=== PATIENT | female | born 1935 | race African-American/Black ===

== ENCOUNTER → 2016-08-16 | Outpatient (CLI) | payer MEDICARE, BC ==
[~2016-08-16] MED LIST: ERTAPENEM SODIUM 1 GM in NORMAL SALINE 50 ML IV PRN; LIDOCAINE 0.5% INJ-PF (5 MG/ML) 50 ML SDV SUBCUT PRN; NORMAL SALINE 1000 ML (RENAL PATIENTS) IV PRN
[2016-08-16 09:23] VITALS: BP 142/52
--- NOTE | 2016-08-16 11:26 | EKG REPORT ---
SEVERITY:- ABNORMAL ECG - SINUS RHYTHM RIGHT BUNDLE BRANCH BLOCK : Confirmed by: Sharon Csineros 16-Aug-2016 11:24:50
[2016-08-16 11:50] LABS: HEMATOCRIT 34.6 % (36.0-47.0); HEMOGLOBIN 11.3 g/dL (12.0-15.5); HGB HCT DIFFERENCE -0.7; MEAN CORPUSCULAR HEMOGLOBIN 32.9 pg (27.0-33.4); MEAN CORPUSCULAR HGB CONC 32.8 g/dL (32.0-36.0); MEAN CORPUSCULAR VOLUME 100 fl (80-97); RED BLOOD COUNT 3.45 10^6/uL (3.72-5.28); RED CELL DISTRIBUTION WIDTH 15.4 % (11.5-14.0); WHITE BLOOD COUNT 7.9 10^3/uL (4.0-10.5)
[2016-08-16 12:05] LABS: BLOOD UREA NITROGEN 67 mg/dL (7-20); CALCIUM 11.3 mg/dL (8.4-10.2); CARBON DIOXIDE 26 mmol/L (22-30); CHLORIDE 98 mmol/L (98-107); CREATININE RESULT 8.95 mg/dL (0.52-1.25); GLUCOSE 157 mg/dL (75-110); POTASSIUM 5.5 mmol/L (3.6-5.0); SODIUM 144.5 mmol/L (137-145)
[2016-08-16 12:33] LABS: ANION GAP 21 (5-19); CARCINOEMBRYONIC ANTIGEN 7.7 ng/mL (<3.0)
== END ==
LOC: OMH.OR.ALL 10:35 → EDSTATUS 08-22 10:00
PROVIDERS: ATTEND Surgery
DX: Z01.810 Encounter for preprocedural cardiovascular examination (principal); Z01.812 Encounter for preprocedural laboratory examination; Z01.818 Encounter for other preprocedural examination; D12.2 Benign neoplasm of ascending colon; I12.0 Hypertensive chronic kidney disease with stage 5 chronic kidney disease or end stage renal disease; N18.6 End stage renal disease; E11.9 Type 2 diabetes mellitus without complications; E78.00 Pure hypercholesterolemia, unspecified; Z72.0 Tobacco use; Z99.2 Dependence on renal dialysis
CPT/HCPCS: 36415; 80048; 82378; 85027; 86850; 86900; 86901; 93005; 93010; J1335

== ENCOUNTER 2016-09-07 10:08 | Inpatient (IN) | payer MEDICARE, BC ==
[~2016-09-07 10:08] MED LIST changes: +DEXAMETHASONE SOD PHOSPHATE INJ 4 MG/1 ML VIAL ONE; +GLYCOPYRROLATE INJ 0.4 MG/2 ML VIAL ONE; -LIDOCAINE 0.5% INJ-PF (5 MG/ML) 50 ML SDV SUBCUT PRN; +NEOSTIGMINE METHYLSULFATE 10 MG/10 ML VIAL ONE; -NORMAL SALINE 1000 ML (RENAL PATIENTS) IV PRN; +NORMAL SALINE 1000 ML 1,000 ML IV PRN; +ROCURONIUM BROMIDE INJ 50 MG/5 ML VIAL IV ONE
[2016-09-07] MEDS ORDERED: BUPIVACAINE HCL 0.25 % INJ/PF (2.5 MG/1 ML) 30 ML VIAL ONE (12:58)
[2016-09-07] MEDS ORDERED: GLUCAGON,HUMAN RECOMB 1 MG INJ ONE (12:58)
[2016-09-07 13:09] LABS: POTASSIUM 4.6 mmol/L (3.6-5.0)
[2016-09-07] MEDS ORDERED: FENTANYL CITRATE INJ/PF 250 MCG/5 ML AMPULE ONE (13:35)
[2016-09-07] MEDS ORDERED: HYDROMORPHONE HCL INJ/PF 2 MG/ML AMPULE ONE (13:35)
[2016-09-07] MEDS ORDERED: MIDAZOLAM 2 MG/2 ML INJ ONE (13:36)
[2016-09-07] MEDS ORDERED: PROPOFOL INJ 200 MG/20 ML VIAL IV ONE (13:36)
[2016-09-07] MEDS ORDERED: ACETAMINOPHEN 100 ML IV ONE (13:36)
[2016-09-07] MEDS ORDERED: EPHEDRINE SULFATE INJ 50 MG/1 ML AMPULE ONE (13:36)
[2016-09-07] MEDS ORDERED: FENTANYL CITRATE INJ/PF 100 MCG/2 ML AMPUL ONE (15:13)
[2016-09-07] MEDS ORDERED: MORPHINE SULFATE 10 MG/ML INJ IV PRN (16:17)
[2016-09-07] MEDS ORDERED: FENTANYL CITRATE INJ/PF 100 MCG/2 ML AMPUL IV PRN ×3 (16:17)
[2016-09-07] MEDS ORDERED: MEPERIDINE HCL/PF INJ 25 MG/1 ML DISP.SYRIN IV PRN (16:17)
[2016-09-07] MEDS ORDERED: OXYCODONE-ACETAMINOPHEN 5-325 MG TABLET PO PRN ×2 (16:17)
[2016-09-07] MEDS ORDERED: PROMETHAZINE HCL INJ 25 MG/1 ML VIAL IV PRN ×2 (16:17)
[2016-09-07] MEDS ORDERED: DIPHENHYDRAMINE HCL 50 MG/ML VIAL IV PRN (16:17)
[2016-09-07] MEDS ORDERED: DEXTROSE 5%-1/2 NORMAL SALINE 1,000 ML IV PRN (17:08)
--- NOTE | 2016-09-07 17:52 | PDOC PROGRESS REPORT ---
Subjective Progress Note for:: 09/07/16 Subjective:: Sleepy but the arousable. Obeys commands. Physical Exam Vital Signs: Temp Pulse Resp BP Pulse Ox 97.7 F 67 18 142/52 H 99 09/07/16 12:00 09/07/16 12:00 09/07/16 12:00 09/07/16 12:00 09/07/16 12:00 Intake & Output 09/06/16 09/07/16 09/08/16 06:59 06:59 06:59 Intake Total 150 Balance 150 Weight 73.94 kg General appearance: PRESENT: no acute distress Respiratory exam: PRESENT: clear to auscultation nikki Cardiovascular exam: PRESENT: RRR GI/Abdominal exam: PRESENT: other - Soft, nondistended, appropriate tenderness. Extremities exam: PRESENT: other - Thrill palpable at fistula site left upper extremity. Results Laboratory Results: 09/07/16 12:10 09/07/16 09/07/16 12:10 12:10 Potassium 4.6 Glucose 175 H Blood Type AB POSITIVE Antibody Screen NEGATIVE Assessment & Plan - Diagnosis (1) Colon polyps Qualifiers: Colon location: ascending Is this a current diagnosis for this admission?: YesPlan: Status post right hemicolectomy. Looks good postoperatively. Will monitor in the intensive care unit. Will consult nephrology and hospitalist to assist with her postoperative care.
--- NOTE | 2016-09-07 17:53 | Operative Report ---
Operative Report DATE OF SURGERY: 09/07/16 PREOPERATIVE DIAGNOSIS: Right colon polyps POSTOPERATIVE DIAGNOSIS: Right colon polyps OPERATION: Attempted laparoscopic right hemicolectomy, conversion to open right hemicolectomy. Extensive lysis of adhesions. Small bowel resection with small bowel anastomosis. SURGEON: KRISSY FERNANDES ANESTHESIA: GA TISSUE REMOVED OR ALTERED: Small segment of the ileum. Right colon. COMPLICATIONS: None ESTIMATED BLOOD LOSS: 100 mL INTRAOPERATIVE FINDINGS: Dense intra-abdominal adhesions with adhesions of the small bowel to the lower anterior abdominal wall. Extensive interloop adhesions. Large polypoid mass in the proximal right colon, smaller 1.5 cm polypoid mass in the mid right colon. PROCEDURE: Informed consent was obtained. Patient was brought to the operating room and placed on the operating room table in the supine position. After satisfactory induction of general anesthesia patient's abdomen was prepped and draped in usual sterile fashion. A supraumbilical midline incision was made dissection was carried out through the fascia and the peritoneal cavity was entered without difficulty. The fascial incision was initially only about 6 cm in size for the introduction of the laparoscopic hand port. However at the lower pole of the incision there were dense omental adhesions. These adhesions were taken down revealing dense small bowel adhesions. There was no discernible plane between the small bowel and the anterior abdominal wall. The incision was extended the down to allow better exposure of the small bowel adhesions. The small bowel was dissected sharply away from the anterior abdominal wall but again there was no discernible plane. An enterotomy was made in the small bowel. This segment of bowel was in the ileum. This segment with the enterotomy was resected using a ZAKIA stapling device. Bowel continuity was then re-constructed creating a [id number] functional end-to-end anastomosis with a ZAKIA stapling device. The enterotomies created to introduce the stapling device was closed with a TA stapling device. The mesenteric defect was closed with interrupted the Vicryl sutures. Another segment of small bowel that had been lysed had a serosal tear which was repaired using Lambert interrupted Vicryl sutures. All the other section of the small bowel that had been lysed was closely inspected and there was no evidence of injury. After all of the anterior abdominal wall adhesions had been lysed, laparoscopic hand port was placed and a Tate was placed through the laparoscopic hand port pneumoperitoneum produced with good patient toleration. Two 5 mm trochars were placed in the upper abdomen one left the midline and one at the midline. Laparoscopic view however demonstrated dense the intra-abdominal adhesions between the the small bowel and the the omentum as well as the small bowel and the transverse colon and right colon. These adhesions were fibrous and not filmy. With the degree of the adhesions I did not feel that the it would be safe to proceed laparoscopically. Therefore the procedure was converted to an open procedure. The liver felt smooth with no masses. The gallbladder appeared normal. Anterior surface of the stomach felt normal. NG position was confirmed by palpation. The sigmoid colon was firmly adhered to the pelvis but I did not feel any masses. These adhesions were left alone. The incision was extended cephalad and the caudad. Wound protractor was used during the case. These small bowel adhesions were taken down taking great care to avoid injury to the underlying small bowel. All of the small bowel adhesions were lysed. The right colon was completely mobilized along with the hepatic flexure. The terminal ileum was divided several centimeters away from the ileocecal junction using a ZAKIA stapling device. The transverse colon just the distal to the hepatic flexure was divided using a ZAKIA stapling device. The ileocolic artery was taken at near its origin by clamping dividing and tying. The hepatic flexure of the colon was firmly adhered to the small bowel and right colon mesentery. Sharp dissection had to be performed to free up dissection of the the hepatic flexure. Great care was taken to avoid injury to the mesentery of the small bowel. The last adhesion point had to be taken by clamping dividing and tying due to the vascularity but again I errored on the side of the colon to avoid injury to the small bowel mesentery. The small bowel segment that was so firmly adhered did not feel like there was any masses. And this segment of transverse colon did not demonstrate any intraluminal mass on gross pathologic review. The small bowel appeared well vascularized with a palpable pulsations. The and had excellent blood supply and demonstrated the triphasic Doppler signal. The transverse colon and also appeared well vascularized with the triphasic Doppler signals. Hemostasis was achieved with electrocautery. Hemostasis appeared to be good at the end of the case. The's specimen was passed off the table as submitted to pathology. Pathology confirmed that there was a large mass near the cecum and a smaller mass distal to this large mass. All of this the findings were consistent with the colonoscopy report. Bowel continuity was then re-created creating a [id number] functional end-to-end anastomosis between the terminal ileum and the transverse colon. The enterotomy created to introduce the stapling device was closed with a TA stapling device. The anastomosis appeared secure and well vascularized. Sponge needle instrument counts were all correct. Omentum was draped over the anastomosis and over the small bowel. Hemostasis appeared excellent. Fascia was closed with running PDS suture. Marcaine was injected at the operative site. Skin incisions were closed with vicente. Patient tolerated procedure well with no apparent complications and was taken to the recovery area in stable condition.
[2016-09-07] MEDS ORDERED: DEXTROSE 50%-WATER 25 GM/50 ML DISP.SYRIN IV PRN (19:30)
[2016-09-07] MEDS ORDERED: DEXTROSE 40% GEL 15 GM TUBE PO PRN ×2 (19:30)
[2016-09-07] MEDS ORDERED: GLUCAGON,HUMAN RECOMB 1 MG INJ IM PRN (19:30)
[2016-09-07] MEDS ORDERED: HYDRALAZINE HCL INJ/PF 20 MG/1 ML SDV IV PRN (19:31)
--- NOTE | 2016-09-07 19:44 | PDOC CONSULTATION ---
Consultation Consult Date: 09/07/16 Attending physician:: KRISSY FERNANDES Consult reason:: "Medical management" History of Present Illness Admission Date/PCP: 09/07/16 11:42 MAURICIO LEY MD Patient complains of: Post operative History of Present Illness: RICKY RODRIGUEZ is a 80 year old female with past medical history of end-stage renal disease on hemodialysis, hypertension, hyperlipidemia, diabetes mellitus that is immediately status post right hemicolectomy, extensive lysis of adhesions, small bowel resection with small bowel anastomosis. Surgery service has requested Hospital medicine consult for multiple comorbid conditions. Past Medical History Cardiac Medical History: Reports: Hyperlipidema, Hypertension Denies: Atrial Fibrillation, Congestive Heart Failure, Coronary Artery Disease, Myocardial Infarction, Peripheral Vascular Disease, Pulmonary Embolism , Heart Murmur Pulmonary Medical History: Denies: Asthma, Bronchitis, Chronic Obstructive Pulmonary Disease (COPD), Pneumonia, Respiratory Failure, Sleep Apnea, Tuberculosis Neurological Medical History: Denies: Seizures Endocrine Medical History: Reports: Diabetes Mellitus Type 2 Denies: Hyperthyroidism, Hypothyroidism Renal/ Medical History: Reports: End Stage Renal Disease - FISTULA LEFT ARM Malignancy Medical History: Denies: Breast Cancer, Cervical Cancer, Leukemia, Lung Cancer, Ovarian Cancer GI Medical History: Denies: Crohn's Disease, Gastroesophageal Reflux Disease, Hiatal Hernia Musculoskeltal Medical History: Reports: Arthritis Denies: Fibromyalgia Psychiatric Medical History: Denies: Bipolar Disorder, Dementia, Depression, Post Traumatic Stress Disorder Hematology: Denies: Anemia, Hemophilia, Sickle Cell Disease Infectious Medical History: Denies: HIV Past Surgical History Past Surgical History: Reports: Hysterectomy, Tubal Ligation, Vascular Surgery - Left forearm AV fistula Denies: Amputation, Appendectomy, Section, Cholecystectomy, Colostomy, Coronary Artery Bypass Graft, Gastric Bypass Surgery, Herniorrhaphy, Mastectomy, Pacemaker, Tonsillectomy Social History Smoking Status: Never Smoker Frequency of Alcohol Use: None Hx Recreational Drug Use: No Drugs: None Hx Prescription Drug Abuse: No - Advance Directive Resuscitation Status: Full Code Family History Family History: DM, Hypertension Parental Family History Reviewed: Yes Children Family History Reviewed: Yes Sibling(s) Family History Reviewed.: Yes Medication/Allergy Home Medications: Aspirin [Aspirin 81 mg Chewable Tablet] 81 mg PO DAILY 09/22/11 Atorvastatin Calcium [Lipitor 10 mg Tablet] 40 mg PO QHS 09/22/11 Cinacalcet HCl [Sensipar 60 mg Tablet] 90 mg PO DAILY 09/22/11 Hydralazine HCl [Apresoline 50 mg Tablet] 100 mg PO Q8 09/22/11 Allopurinol [Zyloprim 100 mg Tablet] 100 mg PO BID 09/20/15 B Complex & C No.20/Folic Acid [Renal Caps Softgel] 1 mg PO DAILY 09/20/15 Clonidine HCl 0.2 mg PO QHS 05/15/16 Midodrine HCl 2.5 mg PO TID 05/15/16 Lanthanum Carbonate [Fosrenol 500 mg Chewable Tablet] 750 mg PO TID 06/26/16 Megestrol Acetate 40 mg PO TID 06/26/16 Allergies/Adverse Reactions: diphenhydramine HCl [From Benadryl] Adverse Reaction (Mild, Verified 05/16/16 16 :38) PT CANNOT REMEMBER Review of Systems ROS unobtainable: Due to mental status Physical Exam Vital Signs: Temp Pulse Resp BP Pulse Ox 98.5 F 86 10 L 110/65 97 09/07/16 18:49 09/07/16 18:49 09/07/16 18:49 09/07/16 18:49 09/07/16 18:49 Intake & Output 09/06/16 09/07/16 09/08/16 06:59 06:59 06:59 Intake Total 150 Balance 150 Weight 73.94 kg 7.23 kg GENERAL: No acute distress, sedated postanesthesia, nonverbal at time of my evaluation HEENT: Conjunctiva clear, nonicteric, moist mucous membranes, no JVD, midline trachea RESPIRATORY: Clear to auscultation bilaterally, no wheezes, no rhonchi CARDIAC: Regular rate and rhythm, no murmurs/gallops/rubs ABDOMEN: Soft, nondistended, nontender, positive bowel sounds, no rebound, no guarding EXTREMETIES: No edema, cyanosis, clubbing NEUROLOGIC: CN's grossly intact, no focal deficits SKIN: No rash, wounds Results Laboratory Results: 09/07/16 12:10 09/07/16 09/07/16 12:10 12:10 Potassium 4.6 Glucose 175 H Blood Type AB POSITIVE Antibody Screen NEGATIVE Assessment & Plan - Diagnosis (1) Status post colectomy Is this a current diagnosis for this admission?: YesPlan: Surgery managing. (2) Diabetes Is this a current diagnosis for this admission?: YesPlan: Sliding scale insulin coverage. (3) ESRD (end stage renal disease) on dialysis Is this a current diagnosis for this admission?: YesPlan: Consult Dr. Saravia of nephrology for management. (4) Essential (primary) hypertension Is this a current diagnosis for this admission?: YesPlan: Order when necessary IV hydralazine. Continue outpatient hydralazine and clonidine. - Time Time Spent: 50 to 70 Minutes
[2016-09-07] MEDS: 1/2 NORMAL SALINE 1,000 ML IV PRN (20:02)
--- NOTE | 2016-09-07 20:03 | PDOC CONSULTATION ---
Consultation Consult Date: 09/07/16 Consult reason:: Management of hemodialysis. History of Present Illness Admission Date/PCP: 09/07/16 11:42 MAURICIO LEY MD History of Present Illness: RICKY RODRIGUEZ is a 80 year old female with past medical history of end-stage renal disease on hemodialysis, hypertension, hyperlipidemia, diabetes mellitus that is immediately status post right hemicolectomy, extensive lysis of adhesions, small bowel resection with small bowel anastomosis. The patient is quite lethargic postoperatively at the moment but not intubated. Unable to contribute to the history. Unsure of the exacting circumstances that brought her to the hospital. She looks hemodynamically stable on review. Will place orders for dialysis in the morning. Past Medical History Cardiac Medical History: Reports: Hyperlipidemia, Hypertension-primary Denies: Atrial Fibrillation, Coronary Artery Disease, Heart Murmur, Myocardial Infarction, Peripheral Vascular Disease, Pulmonary Embolism Pulmonary Medical History: Denies: Asthma, Bronchitis, Chronic Obstructive Pulmonary Disease (COPD), Pneumonia, Respiratory Failure, Sleep Apnea, Tuberculosis Neurological Medical History: Denies: Seizures Endocrine Medical History: Reports: Diabetes Mellitus Type 2 Denies: Hyperthyroidism, Hypothyroidism Renal/ Medical History: Reports: End Stage Renal Disease - FISTULA LEFT ARM Denies: Benign Prostatic Hyperplasia Malignancy Medical History: Denies: Breast Cancer, Cervical Cancer, Leukemia, Lung Cancer, Ovarian Cancer GI Medical History: Denies: Crohn's Disease, Gastroesophageal Reflux Disease, Hiatal Hernia Musculoskeltal Medical History: Reports: Arthritis Denies: Fibromyalgia, Rheumatoid Arthritis, Systemic Lupus Erythematosus Psychiatric Medical History: Denies: Bipolar Disorder, Dementia, Depression, Post Traumatic Stress Disorder Infectious Medical History: Denies: HIV Hematology Medical History: Reports Anemia of Chronic Kidney Disease Past Surgical History Past Surgical History: Reports: Hysterectomy, Tubal Ligation, Vascular Surgery - Left forearm AV fistula Denies: Appendectomy, Section, Cholecystectomy, Colostomy, Coronary Artery Bypass Graft, Gastric Bypass Surgery, Herniorrhaphy, Mastectomy, Pacemaker, Tonsillectomy Social History Smoking Status: Never Smoker Frequency of Alcohol Use: None Hx Recreational Drug Use: No Drugs: None Hx Prescription Drug Abuse: No - Advance Directive Resuscitation Status: Full Code Family History Parental Family History Reviewed: No Children Family History Reviewed: No Sibling(s) Family History Reviewed.: No Medication/Allergy Home Medications: Aspirin [Aspirin 81 mg Chewable Tablet] 81 mg PO DAILY 09/22/11 Atorvastatin Calcium [Lipitor 10 mg Tablet] 40 mg PO QHS 09/22/11 Cinacalcet HCl [Sensipar 60 mg Tablet] 90 mg PO DAILY 09/22/11 Hydralazine HCl [Apresoline 50 mg Tablet] 100 mg PO Q8 09/22/11 Allopurinol [Zyloprim 100 mg Tablet] 100 mg PO BID 09/20/15 B Complex & C No.20/Folic Acid [Renal Caps Softgel] 1 mg PO DAILY 09/20/15 Clonidine HCl 0.2 mg PO QHS 05/15/16 Midodrine HCl 2.5 mg PO TID 05/15/16 Lanthanum Carbonate [Fosrenol 500 mg Chewable Tablet] 750 mg PO TID 06/26/16 Megestrol Acetate 40 mg PO TID 06/26/16 Allergies/Adverse Reactions: diphenhydramine HCl [From Benadryl] Adverse Reaction (Mild, Verified 05/16/16 16 :38) PT CANNOT REMEMBER Review of Systems Review of Systems: Unable to obtain from the patient was quite lethargic postoperatively. Therefore chart review was done. Physical Exam Vital Signs: Temp Pulse Resp BP Pulse Ox 98.5 F 86 10 L 110/65 97 09/07/16 18:49 09/07/16 18:49 09/07/16 18:49 09/07/16 18:49 09/07/16 18:49 Intake & Output 09/06/16 09/07/16 09/08/16 06:59 06:59 06:59 Intake Total 150 Balance 150 Weight 73.94 kg 7.23 kg General appearance: PRESENT: no acute distress Eye exam: PRESENT: conjunctiva pink, EOMI, PERRLA. ABSENT: nystagmus Ear exam: PRESENT: normal external ear exam. ABSENT: bleeding Mouth exam: PRESENT: neck supple Neck exam: ABSENT: lymphadenopathy, meningismus, tenderness, thyromegaly, tracheal deviation Respiratory exam: PRESENT: clear to auscultation nikki, symmetrical. ABSENT: crackles, rhonchi, tachypnea Cardiovascular exam: PRESENT: +S1, +S2, systolic murmur GI/Abdominal exam: PRESENT: distended, soft. ABSENT: firm Extremities exam: ABSENT: pedal edema Neurological exam: PRESENT: other - She is quite lethargic postoperatively. However she is able to respond to loud commands but goes back to sleep immediately. Skin exam: PRESENT: dry, warm. ABSENT: erythema, mottled Results Laboratory Results: 09/07/16 12:10 09/07/16 09/07/16 12:10 12:10 Potassium 4.6 Glucose 175 H Blood Type AB POSITIVE Antibody Screen NEGATIVE Assessment & Plan - Diagnosis (1) Diabetes Is this a current diagnosis for this admission?: Yes (2) Status post colectomy Is this a current diagnosis for this admission?: YesPlan: Currently looks stable (3) ESRD (end stage renal disease) on dialysis Is this a current diagnosis for this admission?: YesPlan: Orders for dialysis have been placed for tomorrow morning.. (4) Essential (primary) hypertension Is this a current diagnosis for this admission?: YesPlan: Stable
[2016-09-07] MEDS: MORPHINE SULFATE 10 MG/ML INJ IV PRN (20:05)
[2016-09-07] MEDS: ALLOPURINOL 100 MG TABLET PO SCH (20:19)
[2016-09-07] MEDS: LANTHANUM CARBONATE 500 MG TAB.CHEW PO SCH (20:19)
[2016-09-07] MEDS: LIDOCAINE 0.5% INJ-PF (5 MG/ML) 50 ML SDV INJ PRN ×2 (20:21→21:32)
[2016-09-07] MEDS: MIDODRINE HCL 5 MG TABLET PO SCH (21:31)
[2016-09-07] MEDS: ATORVASTATIN CALCIUM 10 MG TABLET PO SCH (21:31)
[2016-09-07] MEDS: HYDRALAZINE HCL 50 MG TABLET PO SCH (21:31)
[2016-09-07] MEDS: CLONIDINE HCL 0.2 MG TABLET PO SCH (21:31)
[2016-09-07] MEDS: FAMOTIDINE INJ/PF 20 MG/2 ML SDV IV SCH (21:34)
[2016-09-08] MEDS: INSULIN LISPRO 100 UNIT/ML 3 ML VIAL SUBCUT PRN (00:04)
[2016-09-08 04:21] LABS: HEMATOCRIT 32.2 % (36.0-47.0); HEMOGLOBIN 10.5 g/dL (12.0-15.5); HGB HCT DIFFERENCE -0.7; MEAN CORPUSCULAR HGB CONC 32.7 g/dL (32.0-36.0); MEAN CORPUSCULAR VOLUME 101 fl (80-97); RED BLOOD COUNT 3.19 10^6/uL (3.72-5.28); RED CELL DISTRIBUTION WIDTH 15.6 % (11.5-14.0); WHITE BLOOD COUNT 25.9 10^3/uL (4.0-10.5)
[2016-09-08 04:28] LABS: BLOOD UREA NITROGEN 32 mg/dL (7-20); CALCIUM 10.3 mg/dL (8.4-10.2); CREATININE RESULT 7.02 mg/dL (0.52-1.25); GLUCOSE 179 mg/dL (75-110); POTASSIUM 4.1 mmol/L (3.6-5.0)
[2016-09-08 04:50] LABS: CARBON DIOXIDE 25 mmol/L (22-30); CHLORIDE 97 mmol/L (98-107); SODIUM 144.4 mmol/L (137-145)
[2016-09-08 04:51] LABS: ANION GAP 22 (5-19)
[2016-09-08] MEDS: HYDRALAZINE HCL 50 MG TABLET PO SCH ×3 (05:37→22:28)
[2016-09-08] MEDS: MIDODRINE HCL 5 MG TABLET PO SCH ×3 (05:37→22:28)
[2016-09-08] MEDS: MORPHINE SULFATE 10 MG/ML INJ IV PRN (07:44)
--- NOTE | 2016-09-08 09:25 | PDOC PROGRESS REPORT ---
Subjective Progress Note for:: 09/08/16 Subjective:: Feels okay. Awake appropriate Physical Exam Vital Signs: Temp Pulse Resp BP Pulse Ox 97.9 F 88 12 133/47 H 97 09/08/16 08:00 09/08/16 08:00 09/08/16 08:00 09/08/16 08:00 09/08/16 08:00 Intake & Output 09/07/16 09/08/16 09/09/16 06:59 06:59 06:59 Intake Total 2030 Output Total 150 Balance 1880 Weight 73.94 kg 71.3 kg General appearance: PRESENT: no acute distress Respiratory exam: PRESENT: clear to auscultation nikki Cardiovascular exam: PRESENT: RRR GI/Abdominal exam: PRESENT: other - Soft, nondistended, mild appropriate tenderness. Diminished bowel sounds Musculoskeletal exam: PRESENT: other - No swelling and no tenderness. Results Laboratory Results: 09/08/16 03:41 09/08/16 03:41 09/07/16 09/07/16 09/08/16 12:10 12:10 03:41 WBC 25.9 H RBC 3.19 L Hgb 10.5 L Hct 32.2 L MCV 101 H MCH 33.0 MCHC 32.7 RDW 15.6 H Plt Count 170 Sodium Potassium 4.6 Chloride Carbon Dioxide Anion Gap BUN Creatinine Est GFR ( Amer) Est GFR (Non-Af Amer) Glucose 175 H Calcium Blood Type AB POSITIVE Antibody Screen NEGATIVE 09/08/16 03:41 WBC RBC Hgb Hct MCV MCH MCHC RDW Plt Count Sodium 144.4 Potassium 4.1 Chloride 97 L Carbon Dioxide 25 Anion Gap 22 H BUN 32 H Creatinine 7.02 H Est GFR ( Amer) 7 L Est GFR (Non-Af Amer) 6 L Glucose 179 H Calcium 10.3 H Blood Type Antibody Screen Assessment & Plan - Diagnosis (1) Colon polyps Qualifiers: Colon location: ascending Is this a current diagnosis for this admission?: YesPlan: Status post right hemicolectomy. Looks good postoperatively. Elevated WBC likely reactive. Await bowel function. Greatly appreciate nephrology and hospitalist help
[2016-09-08] MEDS ORDERED: MIDODRINE HCL 5 MG TABLET PO SCH (10:00)
[2016-09-08] MEDS: ALLOPURINOL 100 MG TABLET PO SCH ×2 (10:54→19:27)
[2016-09-08] MEDS: FOLIC ACID/VITAMIN B COMP W-C CAPSULE PO SCH (10:54)
[2016-09-08] MEDS: ASPIRIN 81 MG TABLET, CHEWABLE PO SCH (10:54)
[2016-09-08] MEDS: CINACALCET HCL 30 MG TABLET PO SCH (10:54)
[2016-09-08] MEDS: LANTHANUM CARBONATE 500 MG TAB.CHEW PO SCH ×3 (10:55→19:27)
[2016-09-08] MEDS: FAMOTIDINE INJ/PF 20 MG/2 ML SDV IV SCH ×2 (10:55→22:28)
[2016-09-08] MEDS: 1/2 NORMAL SALINE 1,000 ML IV PRN (13:39)
[2016-09-08] MEDS ORDERED: ACETAMINOPHEN 325 MG TABLET PO PRN (13:54)
--- NOTE | 2016-09-08 15:52 | PDOC PROGRESS REPORT ---
Subjective Progress Note for:: 09/08/16 Subjective:: Patient seen on hemodialysis today. She seems more awake and responsive to questions. Noted her blood pressure had earlier dropped and she is on presently half normal saline by Dr. August. Patient is undergoing dialysis without issues. Orders were discussed with Clau dictating dialysis nurse. We will plan to remove no fluid and in fact will keep approximately a liter positive. Clinically she is on the on the dry side. Physical Exam Vital Signs: Temp Pulse Resp BP Pulse Ox 99.0 F 88 16 152/59 H 95 09/08/16 14:42 09/08/16 14:42 09/08/16 14:42 09/08/16 14:42 09/08/16 14:42 Intake & Output 09/07/16 09/08/16 09/09/16 06:59 06:59 06:59 Intake Total 2030 1000 Output Total 150 0 Balance 1880 1000 Weight 73.94 kg 71.3 kg General appearance: PRESENT: no acute distress Respiratory exam: PRESENT: clear to auscultation nikki. ABSENT: crackles, rhonchi Cardiovascular exam: PRESENT: +S1, +S2, systolic murmur GI/Abdominal exam: PRESENT: distended, soft, tenderness. ABSENT: firm, normal bowel sounds Extremities exam: ABSENT: pedal edema Skin exam: PRESENT: dry. ABSENT: cyanosis, erythema, mottled, rash Results Laboratory Results: 09/08/16 03:41 09/08/16 03:41 09/08/16 09/08/16 03:41 03:41 WBC 25.9 H RBC 3.19 L Hgb 10.5 L Hct 32.2 L MCV 101 H MCH 33.0 MCHC 32.7 RDW 15.6 H Plt Count 170 Sodium 144.4 Potassium 4.1 Chloride 97 L Carbon Dioxide 25 Anion Gap 22 H BUN 32 H Creatinine 7.02 H Est GFR ( Amer) 7 L Est GFR (Non-Af Amer) 6 L Glucose 179 H Calcium 10.3 H Assessment & Plan - Diagnosis (1) Diabetes Is this a current diagnosis for this admission?: Yes (2) Status post colectomy Is this a current diagnosis for this admission?: YesPlan: As per surgery (3) ESRD (end stage renal disease) on dialysis Is this a current diagnosis for this admission?: YesPlan: Is undergoing dialysis without any issues. Orders were discussed with the treating dialysis nurse. Keep approximately a liter positive. Recommend cutting back on the normal half normal saline to 50 cc an hour. (4) Essential (primary) hypertension Is this a current diagnosis for this admission?: Yes
--- NOTE | 2016-09-08 17:07 | PDOC PROGRESS REPORT ---
Subjective Progress Note for:: 09/08/16 Subjective:: Looks very comfortable. Awake no complaints Physical Exam Vital Signs: Temp Pulse Resp BP Pulse Ox 99.0 F 87 14 161/54 H 96 09/08/16 16:00 09/08/16 16:00 09/08/16 16:00 09/08/16 16:00 09/08/16 16:00 Intake & Output 09/07/16 09/08/16 09/09/16 06:59 06:59 06:59 Intake Total 2030 1000 Output Total 150 0 Balance 1880 1000 Weight 73.94 kg 71.3 kg General appearance: PRESENT: no acute distress Respiratory exam: PRESENT: clear to auscultation nikki Cardiovascular exam: PRESENT: RRR GI/Abdominal exam: PRESENT: soft, other - Nondistended, mild diffuse abdominal tenderness with no peritoneal signs Musculoskeletal exam: PRESENT: other - No swelling and no tenderness Results Laboratory Results: 09/08/16 03:41 09/08/16 03:41 09/08/16 09/08/16 03:41 03:41 WBC 25.9 H RBC 3.19 L Hgb 10.5 L Hct 32.2 L MCV 101 H MCH 33.0 MCHC 32.7 RDW 15.6 H Plt Count 170 Sodium 144.4 Potassium 4.1 Chloride 97 L Carbon Dioxide 25 Anion Gap 22 H BUN 32 H Creatinine 7.02 H Est GFR ( Amer) 7 L Est GFR (Non-Af Amer) 6 L Glucose 179 H Calcium 10.3 H Assessment & Plan - Diagnosis (1) Colon polyps Qualifiers: Colon location: ascending Is this a current diagnosis for this admission?: YesPlan: Status post right hemicolectomy. Looks good. Await bowel function. If minimal NG output may pull NG tube tomorrow. Will transfer patient to the regular floor tomorrow.
--- NOTE | 2016-09-08 20:17 | PDOC PROGRESS REPORT ---
Subjective Progress Note for:: 09/08/16 Subjective:: Follow-up internal medicine hospitalist consultation. Status post colectomy. End-stage renal disease on hemodialysis. Hypertension and diabetes. She was seen during her hemodialysis session. She was awake but felt drowsy. She admits to adequate pain Rx. Physical Exam Vital Signs: Temp Pulse Resp BP Pulse Ox 97.7 F 93 15 93/72 L 94 09/08/16 18:00 09/08/16 18:00 09/08/16 18:00 09/08/16 18:00 09/08/16 18:00 Intake & Output 09/07/16 09/08/16 09/09/16 06:59 06:59 06:59 Intake Total 2030 1000 Output Total 150 0 Balance 1880 1000 Weight 73.94 kg 71.3 kg Additional comments: GENERAL: No acute distress, drowsy but interactive HEENT: Conjunctiva clear, nonicteric, moist mucous membranes, no JVD, midline trachea RESPIRATORY: Clear to auscultation bilaterally, no wheezes, no rhonchi CARDIAC: Regular rate and rhythm, no murmurs/gallops/rubs ABDOMEN: Soft, nondistended, nontender, positive bowel sounds, no rebound, no guarding EXTREMETIES: No edema, cyanosis, clubbing NEUROLOGIC: CN's grossly intact, no focal deficits SKIN: No rash, wounds Results Laboratory Results: 09/08/16 03:41 09/08/16 03:41 09/08/16 09/08/16 03:41 03:41 WBC 25.9 H RBC 3.19 L Hgb 10.5 L Hct 32.2 L MCV 101 H MCH 33.0 MCHC 32.7 RDW 15.6 H Plt Count 170 Sodium 144.4 Potassium 4.1 Chloride 97 L Carbon Dioxide 25 Anion Gap 22 H BUN 32 H Creatinine 7.02 H Est GFR ( Amer) 7 L Est GFR (Non-Af Amer) 6 L Glucose 179 H Calcium 10.3 H Assessment & Plan - Diagnosis (1) Status post colectomy Is this a current diagnosis for this admission?: YesPlan: Surgery managing. (2) Diabetes Is this a current diagnosis for this admission?: YesPlan: Controlled on sliding scale insulin coverage. (3) ESRD (end stage renal disease) on dialysis Is this a current diagnosis for this admission?: YesPlan: Nephrology managing. (4) Essential (primary) hypertension Is this a current diagnosis for this admission?: YesPlan: Controlled on current Rx. - Time Time Spent with patient: 15-24 minutes
[2016-09-08] MEDS: ACETAMINOPHEN 650 MG SUPP.RECT PR PRN (21:24)
[2016-09-08] MEDS: CLONIDINE HCL 0.2 MG TABLET PO SCH (22:28)
[2016-09-08] MEDS: ATORVASTATIN CALCIUM 10 MG TABLET PO SCH (22:28)
[2016-09-08] MEDS: OXYCODONE HCL IR 5 MG TABLET PO PRN (23:26)
[2016-09-09] MEDS: MIDODRINE HCL 5 MG TABLET PO SCH ×3 (05:24→22:49)
[2016-09-09] MEDS: HYDRALAZINE HCL 50 MG TABLET PO SCH ×3 (05:24→22:43)
[2016-09-09] MEDS: 1/2 NORMAL SALINE 1,000 ML IV PRN (05:27)
[2016-09-09 06:28] LABS: ABSOLUTE BASOPHILS # (AUTO) 0.1 10^3/uL (0.0-0.2); ABSOLUTE EOSINOPHILS # (AUTO) 0.1 10^3/uL (0.0-0.6); ABSOLUTE LYMPHOCYTES (AUTO) 1.2 10^3/uL (0.5-4.7); ABSOLUTE MONOCYTES (AUTO) 0.8 10^3/uL (0.1-1.4); ABSOLUTE NEUT (AUTO) 8.5 10^3/uL (1.7-8.2); BASOPHILS % (AUTO) 0.5 % (0-2); EOSINOPHILS % (AUTO) 0.5 % (0-6); HEMATOCRIT 26.7 % (36.0-47.0); HGB HCT DIFFERENCE 0.3; LYMPHOCYTES % (AUTO) 11.2 % (13-45); MEAN CORPUSCULAR HEMOGLOBIN 33.8 pg (27.0-33.4); MEAN CORPUSCULAR HGB CONC 33.6 g/dL (32.0-36.0); MEAN CORPUSCULAR VOLUME 101 fl (80-97); MONOCYTES % (AUTO) 7.6 % (3-13); RED BLOOD COUNT 2.66 10^6/uL (3.72-5.28); RED CELL DISTRIBUTION WIDTH 15.3 % (11.5-14.0); SEGMENTED NEUTROPHILS % (AUTO) 80.2 % (42-78); WHITE BLOOD COUNT 10.7 10^3/uL (4.0-10.5)
[2016-09-09 06:41] LABS: ANION GAP 17 (5-19); BLOOD UREA NITROGEN 16 mg/dL (7-20); CALCIUM 9.6 mg/dL (8.4-10.2); CARBON DIOXIDE 25 mmol/L (22-30); CHLORIDE 97 mmol/L (98-107); CREATININE RESULT 4.32 mg/dL (0.52-1.25); GLUCOSE 86 mg/dL (75-110); POTASSIUM 4.1 mmol/L (3.6-5.0); SODIUM 138.5 mmol/L (137-145)
--- NOTE | 2016-09-09 09:08 | PDOC PROGRESS REPORT ---
Subjective Progress Note for:: 09/09/16 Subjective:: pulled out ng and iv last night. more cooperative this am. no complaints. Physical Exam Vital Signs: Temp Pulse Resp BP Pulse Ox 98.5 F 85 14 173/62 H 99 09/09/16 08:09 09/09/16 08:09 09/09/16 08:09 09/09/16 08:09 09/09/16 08:09 Intake & Output 09/08/16 09/09/16 09/10/16 06:59 06:59 06:59 Intake Total 2030 1700 Output Total 150 0 Balance 1880 1700 Weight 71.3 kg 72.3 kg General appearance: PRESENT: no acute distress, cooperative Respiratory exam: PRESENT: clear to auscultation nikki Cardiovascular exam: PRESENT: RRR GI/Abdominal exam: PRESENT: diminished bowel sounds, other - soft, nd, minimal tenderness Extremities exam: PRESENT: other - no swelling, no tenderness Results Laboratory Results: 09/09/16 05:24 09/09/16 05:24 09/09/16 09/09/16 05:24 05:24 WBC 10.7 H RBC 2.66 L Hgb 9.0 L Hct 26.7 L MCV 101 H MCH 33.8 H MCHC 33.6 RDW 15.3 H Plt Count 126 L Seg Neutrophils % 80.2 H Lymphocytes % 11.2 L Monocytes % 7.6 Eosinophils % 0.5 Basophils % 0.5 Absolute Neutrophils 8.5 H Absolute Lymphocytes 1.2 Absolute Monocytes 0.8 Absolute Eosinophils 0.1 Absolute Basophils 0.1 Sodium 138.5 Potassium 4.1 Chloride 97 L Carbon Dioxide 25 Anion Gap 17 BUN 16 Creatinine 4.32 H Est GFR ( Amer) 12 L Est GFR (Non-Af Amer) 10 L Glucose 86 Calcium 9.6 Assessment & Plan - Diagnosis (1) Colon polyps Qualifiers: Colon location: ascending Is this a current diagnosis for this admission?: YesPlan: Status post right hemicolectomy. Other than night time confusion, looks ok. minimal ng output prior to her pulling out ng. abdomen is flat and soft. will leave ng out. keep npo except meds until bowel function. decreased hct likely due to hemodilution (gained liter with dialysis yesterday) but will keep holding lovenox for now. check labs tomorrow.
[2016-09-09] MEDS: FOLIC ACID/VITAMIN B COMP W-C CAPSULE PO SCH (10:13)
[2016-09-09] MEDS: FAMOTIDINE INJ/PF 20 MG/2 ML SDV IV SCH ×2 (10:13→22:43)
[2016-09-09] MEDS: ALLOPURINOL 100 MG TABLET PO SCH ×2 (10:14→18:02)
[2016-09-09] MEDS: ASPIRIN 81 MG TABLET, CHEWABLE PO SCH (10:14)
[2016-09-09] MEDS: CINACALCET HCL 30 MG TABLET PO SCH (10:14)
[2016-09-09] MEDS: LANTHANUM CARBONATE 500 MG TAB.CHEW PO SCH ×3 (10:15→18:02)
--- NOTE | 2016-09-09 17:03 | PDOC PROGRESS REPORT ---
Subjective Progress Note for:: 09/09/16 Subjective:: Follow-up internal medicine hospitalist consultation. Status post colectomy. End-stage renal disease on hemodialysis. The patient has hypertension and diabetes. The patient is vague, but she denies any new or acute symptoms. She seems comfortable. Physical Exam Vital Signs: Temp Pulse Resp BP Pulse Ox 98.8 F 84 15 157/67 H 95 09/09/16 11:57 09/09/16 11:57 09/09/16 11:57 09/09/16 11:57 09/09/16 11:57 Intake & Output 09/08/16 09/09/16 09/10/16 06:59 06:59 06:59 Intake Total 2030 1700 Output Total 150 0 Balance 1880 1700 Weight 71.3 kg 72.3 kg Additional comments: GENERAL: No acute distress, interactive HEENT: Conjunctiva clear, nonicteric, moist mucous membranes, no JVD, midline trachea RESPIRATORY: Clear to auscultation bilaterally, no wheezes, no rhonchi CARDIAC: Regular rate and rhythm, no murmurs/gallops/rubs ABDOMEN: Soft, nondistended, nontender, positive bowel sounds, no rebound, no guarding EXTREMETIES: No edema, cyanosis, clubbing NEUROLOGIC: CN's grossly intact, no focal deficits SKIN: No rash, wounds Results Laboratory Results: 09/09/16 05:24 09/09/16 05:24 09/09/16 09/09/16 05:24 05:24 WBC 10.7 H RBC 2.66 L Hgb 9.0 L Hct 26.7 L MCV 101 H MCH 33.8 H MCHC 33.6 RDW 15.3 H Plt Count 126 L Seg Neutrophils % 80.2 H Lymphocytes % 11.2 L Monocytes % 7.6 Eosinophils % 0.5 Basophils % 0.5 Absolute Neutrophils 8.5 H Absolute Lymphocytes 1.2 Absolute Monocytes 0.8 Absolute Eosinophils 0.1 Absolute Basophils 0.1 Sodium 138.5 Potassium 4.1 Chloride 97 L Carbon Dioxide 25 Anion Gap 17 BUN 16 Creatinine 4.32 H Est GFR ( Amer) 12 L Est GFR (Non-Af Amer) 10 L Glucose 86 Calcium 9.6 Assessment & Plan - Diagnosis (1) Status post colectomy Is this a current diagnosis for this admission?: YesPlan: Surgery managing. (2) Diabetes Is this a current diagnosis for this admission?: YesPlan: Under excellent control. (3) ESRD (end stage renal disease) on dialysis Is this a current diagnosis for this admission?: YesPlan: Nephrology managing. (4) Essential (primary) hypertension Is this a current diagnosis for this admission?: YesPlan: Controlled on current Rx. - Time Time Spent with patient: 15-24 minutes
[2016-09-09] MEDS: ATORVASTATIN CALCIUM 10 MG TABLET PO SCH (22:42)
[2016-09-09] MEDS: CLONIDINE HCL 0.2 MG TABLET PO SCH (22:43)
[2016-09-09] MEDS ORDERED: POTASSI CL 20 MEQ/D5-1/2NS 1L 1000 ML IV PRN (23:02)
[2016-09-10] MEDS: OXYCODONE HCL IR 5 MG TABLET PO PRN (03:42)
[2016-09-10] MEDS ORDERED: POTASSI CL 20 MEQ/D5-1/2NS 1L 1000 ML IV PRN (06:25)
[2016-09-10] MEDS: HYDRALAZINE HCL 50 MG TABLET PO SCH ×3 (06:33→21:39)
[2016-09-10] MEDS: MIDODRINE HCL 5 MG TABLET PO SCH ×3 (06:33→21:39)
[2016-09-10] MEDS: DEXTROSE 50%-WATER 25 GM/50 ML DISP.SYRIN IV PRN (06:34)
[2016-09-10 07:42] LABS: ABSOLUTE BASOPHILS # (AUTO) 0.1 10^3/uL (0.0-0.2); ABSOLUTE EOSINOPHILS # (AUTO) 0.2 10^3/uL (0.0-0.6); ABSOLUTE MONOCYTES (AUTO) 0.6 10^3/uL (0.1-1.4); ABSOLUTE NEUT (AUTO) 6.9 10^3/uL (1.7-8.2); BASOPHILS % (AUTO) 0.9 % (0-2); EOSINOPHILS % (AUTO) 2.8 % (0-6); HEMATOCRIT 27.5 % (36.0-47.0); HEMOGLOBIN 9.2 g/dL (12.0-15.5); HGB HCT DIFFERENCE 0.1; LYMPHOCYTES % (AUTO) 11.4 % (13-45); MEAN CORPUSCULAR HEMOGLOBIN 33.6 pg (27.0-33.4); MEAN CORPUSCULAR HGB CONC 33.4 g/dL (32.0-36.0); MEAN CORPUSCULAR VOLUME 100 fl (80-97); MONOCYTES % (AUTO) 6.7 % (3-13); RED BLOOD COUNT 2.74 10^6/uL (3.72-5.28); RED CELL DISTRIBUTION WIDTH 15.2 % (11.5-14.0); SEGMENTED NEUTROPHILS % (AUTO) 78.2 % (42-78); WHITE BLOOD COUNT 8.8 10^3/uL (4.0-10.5)
[2016-09-10 08:06] LABS: ANION GAP 15 (5-19); BLOOD UREA NITROGEN 24 mg/dL (7-20); CALCIUM 8.8 mg/dL (8.4-10.2); CARBON DIOXIDE 25 mmol/L (22-30); CHLORIDE 94 mmol/L (98-107); CREATININE RESULT 6.19 mg/dL (0.52-1.25); GLUCOSE 105 mg/dL (75-110); POTASSIUM 4.3 mmol/L (3.6-5.0); SODIUM 134.3 mmol/L (137-145)
[2016-09-10] MEDS: CINACALCET HCL 30 MG TABLET PO SCH (10:10)
[2016-09-10] MEDS: FOLIC ACID/VITAMIN B COMP W-C CAPSULE PO SCH (10:12)
[2016-09-10] MEDS: LANTHANUM CARBONATE 500 MG TAB.CHEW PO SCH ×3 (10:12→17:14)
[2016-09-10] MEDS: FAMOTIDINE INJ/PF 20 MG/2 ML SDV IV SCH ×2 (10:12→21:39)
[2016-09-10] MEDS: ALLOPURINOL 100 MG TABLET PO SCH ×2 (10:12→17:14)
[2016-09-10] MEDS: ASPIRIN 81 MG TABLET, CHEWABLE PO SCH (10:12)
--- NOTE | 2016-09-10 14:00 | PDOC PROGRESS REPORT ---
Subjective Progress Note for:: 09/10/16 Subjective:: no bm, no flatus yet Physical Exam Vital Signs: Temp Pulse Resp BP Pulse Ox 97.9 F 63 16 146/50 H 100 09/10/16 11:14 09/10/16 11:14 09/10/16 11:14 09/10/16 11:14 09/10/16 11:14 Intake & Output 09/09/16 09/10/16 09/11/16 06:59 06:59 06:59 Intake Total 1700 703 Output Total 0 0 Balance 1700 703 Weight 72.3 kg 72.2 kg GI/Abdominal exam: PRESENT: other - Abdomen - soft non tender wound clean Results Laboratory Results: 09/10/16 07:14 09/10/16 07:14 09/10/16 09/10/16 07:14 07:14 WBC 8.8 RBC 2.74 L Hgb 9.2 L Hct 27.5 L MCV 100 H MCH 33.6 H MCHC 33.4 RDW 15.2 H Plt Count 141 L Seg Neutrophils % 78.2 H Lymphocytes % 11.4 L Monocytes % 6.7 Eosinophils % 2.8 Basophils % 0.9 Absolute Neutrophils 6.9 Absolute Lymphocytes 1.0 Absolute Monocytes 0.6 Absolute Eosinophils 0.2 Absolute Basophils 0.1 Sodium 134.3 L Potassium 4.3 Chloride 94 L Carbon Dioxide 25 Anion Gap 15 BUN 24 H Creatinine 6.19 H Est GFR ( Amer) 8 L Est GFR (Non-Af Amer) 6 L Glucose 105 Calcium 8.8 Assessment & Plan - Plan Summary Plan Summary: DS/P Right colon resection , segmental SB resection Still has Ileus Keep NPO' Ambulate
--- NOTE | 2016-09-10 17:19 | PDOC PROGRESS REPORT ---
Subjective Progress Note for:: 09/10/16 Subjective:: This is a follow-up internal medicine hospitalist consultation. The patient is status post colectomy. She has end-stage renal disease on hemodialysis. The patient has underlying hypertension and diabetes. The patient is now on the medical floor. She was somewhat encephalopathic yesterday, restless and impulsive. Today she seems much more awake, alert, lucid, appropriate. She denies any new or acute symptoms. Physical Exam Vital Signs: Temp Pulse Resp BP Pulse Ox 98.1 F 64 16 158/56 H 100 09/10/16 15:09 09/10/16 15:09 09/10/16 15:09 09/10/16 15:09 09/10/16 15:09 Intake & Output 09/09/16 09/10/16 09/11/16 06:59 06:59 06:59 Intake Total 1700 703 0 Output Total 0 0 0 Balance 1700 703 0 Weight 72.3 kg 72.2 kg Additional comments: GENERAL: No acute distress, interactive HEENT: Conjunctiva clear, nonicteric, moist mucous membranes, no JVD, midline trachea RESPIRATORY: Clear to auscultation bilaterally, no wheezes, no rhonchi CARDIAC: Regular rate and rhythm, no murmurs/gallops/rubs ABDOMEN: Soft, nondistended, nontender, positive bowel sounds, no rebound, no guarding EXTREMETIES: No edema, cyanosis, clubbing NEUROLOGIC: CN's grossly intact, no focal deficits SKIN: No rash, wounds Results Laboratory Results: 09/10/16 07:14 09/10/16 07:14 09/10/16 09/10/16 07:14 07:14 WBC 8.8 RBC 2.74 L Hgb 9.2 L Hct 27.5 L MCV 100 H MCH 33.6 H MCHC 33.4 RDW 15.2 H Plt Count 141 L Seg Neutrophils % 78.2 H Lymphocytes % 11.4 L Monocytes % 6.7 Eosinophils % 2.8 Basophils % 0.9 Absolute Neutrophils 6.9 Absolute Lymphocytes 1.0 Absolute Monocytes 0.6 Absolute Eosinophils 0.2 Absolute Basophils 0.1 Sodium 134.3 L Potassium 4.3 Chloride 94 L Carbon Dioxide 25 Anion Gap 15 BUN 24 H Creatinine 6.19 H Est GFR ( Amer) 8 L Est GFR (Non-Af Amer) 6 L Glucose 105 Calcium 8.8 Assessment & Plan - Diagnosis (1) Status post colectomy Is this a current diagnosis for this admission?: YesPlan: Surgery managing. Disposition per surgery. (2) Diabetes Is this a current diagnosis for this admission?: YesPlan: Under excellent control. (3) ESRD (end stage renal disease) on dialysis Is this a current diagnosis for this admission?: YesPlan: Nephrology managing. (4) Essential (primary) hypertension Is this a current diagnosis for this admission?: YesPlan: Controlled on current Rx. - Time Time Spent with patient: 15-24 minutes
[2016-09-10] MEDS: ATORVASTATIN CALCIUM 10 MG TABLET PO SCH (21:39)
[2016-09-10] MEDS: CLONIDINE HCL 0.2 MG TABLET PO SCH (21:39)
[2016-09-11] MEDS: OXYCODONE HCL IR 5 MG TABLET PO PRN (03:05)
[2016-09-11 05:13] LABS: ABSOLUTE EOSINOPHILS # (AUTO) 0.2 10^3/uL (0.0-0.6); ABSOLUTE LYMPHOCYTES (AUTO) 0.7 10^3/uL (0.5-4.7); ABSOLUTE MONOCYTES (AUTO) 0.8 10^3/uL (0.1-1.4); ABSOLUTE NEUT (AUTO) 5.2 10^3/uL (1.7-8.2); BASOPHILS % (AUTO) 0.5 % (0-2); EOSINOPHILS % (AUTO) 2.3 % (0-6); HEMATOCRIT 32.3 % (36.0-47.0); HGB HCT DIFFERENCE 0.7; MEAN CORPUSCULAR HEMOGLOBIN 33.9 pg (27.0-33.4); MEAN CORPUSCULAR VOLUME 100 fl (80-97); RED BLOOD COUNT 3.24 10^6/uL (3.72-5.28); RED CELL DISTRIBUTION WIDTH 14.8 % (11.5-14.0); SEGMENTED NEUTROPHILS % (AUTO) 76.2 % (42-78); WHITE BLOOD COUNT 6.8 10^3/uL (4.0-10.5)
[2016-09-11 05:36] LABS: ANION GAP 18 (5-19); BLOOD UREA NITROGEN 29 mg/dL (7-20); CALCIUM 8.7 mg/dL (8.4-10.2); CARBON DIOXIDE 22 mmol/L (22-30); CHLORIDE 93 mmol/L (98-107); GLUCOSE 111 mg/dL (75-110); POTASSIUM 4.8 mmol/L (3.6-5.0); SODIUM 132.9 mmol/L (137-145)
[2016-09-11] MEDS: HYDRALAZINE HCL 50 MG TABLET PO SCH ×2 (05:38→13:39)
[2016-09-11] MEDS: MIDODRINE HCL 5 MG TABLET PO SCH (05:38)
--- NOTE | 2016-09-11 09:46 | PDOC PROGRESS REPORT ---
Subjective Progress Note for:: 09/11/16 Subjective:: complain of abdominal pain. moderate. no bm. Physical Exam Vital Signs: Temp Pulse Resp BP Pulse Ox 97.7 F 83 16 124/69 99 09/10/16 20:00 09/10/16 23:38 09/10/16 23:38 09/10/16 23:38 09/10/16 23:38 Intake & Output 09/10/16 09/11/16 09/12/16 06:59 06:59 06:59 Intake Total 703 2007 Output Total 0 0 Balance 703 2007 Weight 72.2 kg 74.9 kg General appearance: PRESENT: no acute distress Respiratory exam: PRESENT: clear to auscultation nikki Cardiovascular exam: PRESENT: RRR GI/Abdominal exam: PRESENT: other - soft, nd, tenderness llq. no peritoneal signs. Musculoskeletal exam: PRESENT: other - no swelling, no tenderness Results Laboratory Results: 09/11/16 04:59 09/11/16 04:59 09/11/16 09/11/16 04:59 04:59 WBC 6.8 RBC 3.24 L Hgb 11.0 L Hct 32.3 L MCV 100 H MCH 33.9 H MCHC 34.0 RDW 14.8 H Plt Count 173 Seg Neutrophils % 76.2 Lymphocytes % 10.0 L Monocytes % 11.0 Eosinophils % 2.3 Basophils % 0.5 Absolute Neutrophils 5.2 Absolute Lymphocytes 0.7 Absolute Monocytes 0.8 Absolute Eosinophils 0.2 Absolute Basophils 0.0 Sodium 132.9 L Potassium 4.8 Chloride 93 L Carbon Dioxide 22 Anion Gap 18 BUN 29 H Creatinine 7.30 H Est GFR ( Amer) 6 L Est GFR (Non-Af Amer) 5 L Glucose 111 H Calcium 8.7 Assessment & Plan - Diagnosis (1) Colon polyps Qualifiers: Colon location: ascending Is this a current diagnosis for this admission?: YesPlan: ileus. ?increased pain. check ct abdomen and pelvis. with iv and oral contrast ( will dialyze again tomorrow).
[2016-09-11] MEDS: ALLOPURINOL 100 MG TABLET PO SCH ×2 (12:27→17:39)
[2016-09-11] MEDS: FAMOTIDINE INJ/PF 20 MG/2 ML SDV IV SCH (12:27)
[2016-09-11] MEDS: LANTHANUM CARBONATE 500 MG TAB.CHEW PO SCH ×3 (12:27→17:39)
[2016-09-11] MEDS: FOLIC ACID/VITAMIN B COMP W-C CAPSULE PO SCH (12:27)
[2016-09-11] MEDS: ASPIRIN 81 MG TABLET, CHEWABLE PO SCH (12:27)
[2016-09-11] MEDS: CINACALCET HCL 30 MG TABLET PO SCH (12:28)
[2016-09-11] MEDS: ONDANSETRON HCL INJ/PF 4 MG/2 ML SDV IV PRN (14:39)
--- NOTE | 2016-09-11 16:52 | PDOC PROGRESS REPORT ---
Subjective Progress Note for:: 09/11/16 Subjective:: This is a follow-up internal medicine hospitalist consultation. The patient is status post colectomy. She has end-stage renal disease on hemodialysis. The patient has underlying hypertension and diabetes. The patient is now on the medical floor. She c/o abdominal pain. Has not had a BM. Surgery service has ordered a CT abdomen/pelvis. Physical Exam Vital Signs: Temp Pulse Resp BP Pulse Ox 97.6 F 76 16 176/66 H 99 09/11/16 07:23 09/11/16 07:23 09/11/16 07:23 09/11/16 07:23 09/10/16 23:38 Intake & Output 09/10/16 09/11/16 09/12/16 06:59 06:59 06:59 Intake Total 703 2007 Output Total 0 0 Balance 703 2007 Weight 72.2 kg 74.9 kg Additional comments: GENERAL: No acute distress, interactive HEENT: Conjunctiva clear, nonicteric, moist mucous membranes, no JVD, midline trachea RESPIRATORY: Clear to auscultation bilaterally, no wheezes, no rhonchi CARDIAC: Regular rate and rhythm, no murmurs/gallops/rubs ABDOMEN: Soft, mildly distended, minimally tender, weak bowel sounds, no rebound, no guarding EXTREMETIES: No edema, cyanosis, clubbing NEUROLOGIC: CN's grossly intact, no focal deficits SKIN: No rash, wounds Results Laboratory Results: 09/11/16 04:59 09/11/16 04:59 09/11/16 09/11/16 04:59 04:59 WBC 6.8 RBC 3.24 L Hgb 11.0 L Hct 32.3 L MCV 100 H MCH 33.9 H MCHC 34.0 RDW 14.8 H Plt Count 173 Seg Neutrophils % 76.2 Lymphocytes % 10.0 L Monocytes % 11.0 Eosinophils % 2.3 Basophils % 0.5 Absolute Neutrophils 5.2 Absolute Lymphocytes 0.7 Absolute Monocytes 0.8 Absolute Eosinophils 0.2 Absolute Basophils 0.0 Sodium 132.9 L Potassium 4.8 Chloride 93 L Carbon Dioxide 22 Anion Gap 18 BUN 29 H Creatinine 7.30 H Est GFR ( Amer) 6 L Est GFR (Non-Af Amer) 5 L Glucose 111 H Calcium 8.7 Impressions: Abdomen/Pelvis CT 09/11/16 00:00 IMPRESSION: 1. Small bowel dilatation with scattered air-fluid levels. There is a short segment of normal caliber distal small bowel. Partial small bowel obstruction is suspected although this still could represent ileus. 2. Ascites. No focal abscess or focal fluid collections. 3. Small bilateral pleural effusions and bibasilar atelectasis. Assessment & Plan - Diagnosis (1) Status post colectomy Is this a current diagnosis for this admission?: YesPlan: Surgery managing. Disposition per surgery. (2) Ileus following gastrointestinal surgery Is this a current diagnosis for this admission?: YesPlan: Surgical service ordered a CT of the abdomen and pelvis which raises question of small bowel obstruction versus ileus. The patient remains nothing by mouth. (3) Diabetes Is this a current diagnosis for this admission?: YesPlan: Under excellent control. (4) ESRD (end stage renal disease) on dialysis Is this a current diagnosis for this admission?: YesPlan: Nephrology managing. (5) Essential (primary) hypertension Is this a current diagnosis for this admission?: YesPlan: Blood pressures are in satisfactory range. - Time Time Spent with patient: 15-24 minutes
--- NOTE | 2016-09-11 18:24 | PDOC PROGRESS REPORT ---
Subjective Progress Note for:: 09/11/16 Subjective:: no complaints Physical Exam Vital Signs: Temp Pulse Resp BP Pulse Ox 97.6 F 98 18 139/70 H 99 09/11/16 07:23 09/11/16 15:13 09/11/16 15:13 09/11/16 15:13 09/10/16 23:38 Intake & Output 09/10/16 09/11/16 09/12/16 06:59 06:59 06:59 Intake Total 703 2007 341 Output Total 0 0 Balance 703 2007 341 Weight 72.2 kg 74.9 kg General appearance: PRESENT: no acute distress, cooperative Respiratory exam: PRESENT: clear to auscultation nikki Cardiovascular exam: PRESENT: RRR GI/Abdominal exam: PRESENT: other - soft, distended, mild left abdominal tenderness, decreases bs Results Laboratory Results: 09/11/16 04:59 09/11/16 04:59 09/11/16 09/11/16 04:59 04:59 WBC 6.8 RBC 3.24 L Hgb 11.0 L Hct 32.3 L MCV 100 H MCH 33.9 H MCHC 34.0 RDW 14.8 H Plt Count 173 Seg Neutrophils % 76.2 Lymphocytes % 10.0 L Monocytes % 11.0 Eosinophils % 2.3 Basophils % 0.5 Absolute Neutrophils 5.2 Absolute Lymphocytes 0.7 Absolute Monocytes 0.8 Absolute Eosinophils 0.2 Absolute Basophils 0.0 Sodium 132.9 L Potassium 4.8 Chloride 93 L Carbon Dioxide 22 Anion Gap 18 BUN 29 H Creatinine 7.30 H Est GFR ( Amer) 6 L Est GFR (Non-Af Amer) 5 L Glucose 111 H Calcium 8.7 Impressions: Abdomen/Pelvis CT 09/11/16 00:00 IMPRESSION: 1. Small bowel dilatation with scattered air-fluid levels. There is a short segment of normal caliber distal small bowel. Partial small bowel obstruction is suspected although this still could represent ileus. 2. Ascites. No focal abscess or focal fluid collections. 3. Small bilateral pleural effusions and bibasilar atelectasis. Assessment & Plan - Diagnosis (1) Colon polyps Qualifiers: Colon location: ascending Is this a current diagnosis for this admission?: YesPlan: ileus. ct showing post op changes. no abscess. dilated stomach and sb. will place NG. need to place restraints since she has pulled NG out before.
[2016-09-11] MEDS ORDERED: PHARMACY COMMUNICATION ORDER MC NR (18:30)
[2016-09-11] MEDS ORDERED: DEXTROSE 40% GEL 15 GM TUBE NG PRN ×2 (18:36→18:37)
[2016-09-11] MEDS ORDERED: NORMAL SALINE 500 ML IV PRN (19:00)
--- NOTE | 2016-09-11 19:11 | PDOC PROGRESS REPORT ---
Subjective Progress Note for:: 09/11/16 Subjective:: Patient seen on hemodialysis today. She seems more awake and responsive to questions. Still nothing by mouth. Has not moved any air through her bowels. Patient is undergoing dialysis without issues. Orders were discussed with Clau dictating dialysis nurse. We will plan to remove no fluid . Clinically she is on the on the dry side. She is currently on IV fluids at 50 an hour. Physical Exam Vital Signs: Temp Pulse Resp BP Pulse Ox 97.6 F 98 18 139/70 H 99 09/11/16 07:23 09/11/16 15:13 09/11/16 15:13 09/11/16 15:13 09/10/16 23:38 Intake & Output 09/10/16 09/11/16 09/12/16 06:59 06:59 06:59 Intake Total 703 2007 341 Output Total 0 0 Balance 703 2007 341 Weight 72.2 kg 74.9 kg General appearance: PRESENT: no acute distress Respiratory exam: PRESENT: clear to auscultation nikki, symmetrical. ABSENT: crackles, rales, rhonchi, tachypnea Cardiovascular exam: PRESENT: +S1, +S2, systolic murmur GI/Abdominal exam: PRESENT: distended, soft, tenderness. ABSENT: firm, normal bowel sounds Extremities exam: ABSENT: pedal edema Skin exam: PRESENT: dry. ABSENT: erythema, mottled Results Laboratory Results: 09/11/16 04:59 09/11/16 04:59 09/11/16 09/11/16 04:59 04:59 WBC 6.8 RBC 3.24 L Hgb 11.0 L Hct 32.3 L MCV 100 H MCH 33.9 H MCHC 34.0 RDW 14.8 H Plt Count 173 Seg Neutrophils % 76.2 Lymphocytes % 10.0 L Monocytes % 11.0 Eosinophils % 2.3 Basophils % 0.5 Absolute Neutrophils 5.2 Absolute Lymphocytes 0.7 Absolute Monocytes 0.8 Absolute Eosinophils 0.2 Absolute Basophils 0.0 Sodium 132.9 L Potassium 4.8 Chloride 93 L Carbon Dioxide 22 Anion Gap 18 BUN 29 H Creatinine 7.30 H Est GFR ( Amer) 6 L Est GFR (Non-Af Amer) 5 L Glucose 111 H Calcium 8.7 Impressions: Abdomen/Pelvis CT 09/11/16 00:00 IMPRESSION: 1. Small bowel dilatation with scattered air-fluid levels. There is a short segment of normal caliber distal small bowel. Partial small bowel obstruction is suspected although this still could represent ileus. 2. Ascites. No focal abscess or focal fluid collections. 3. Small bilateral pleural effusions and bibasilar atelectasis. Assessment & Plan - Diagnosis (1) Diabetes Is this a current diagnosis for this admission?: Yes (2) Status post colectomy Is this a current diagnosis for this admission?: YesPlan: As per surgery (3) ESRD (end stage renal disease) on dialysis Is this a current diagnosis for this admission?: YesPlan: Is undergoing dialysis without any issues. Orders were discussed with the treating dialysis nurse. Keep even. Continue IV fluids as such. (4) Essential (primary) hypertension Is this a current diagnosis for this admission?: YesPlan: Stable
[2016-09-12] MEDS: CLONIDINE HCL 0.2 MG TABLET NG SCH (00:54)
[2016-09-12] MEDS: FAMOTIDINE INJ/PF 20 MG/2 ML SDV IV SCH ×3 (00:54→23:55)
[2016-09-12] MEDS: ATORVASTATIN CALCIUM 40 MG TABLET NG SCH (00:54)
[2016-09-12] MEDS: HYDRALAZINE HCL 50 MG TABLET NG SCH ×3 (00:54→13:13)
[2016-09-12 07:08] LABS: ABSOLUTE EOSINOPHILS # (AUTO) 0.1 10^3/uL (0.0-0.6); ABSOLUTE LYMPHOCYTES (AUTO) 0.9 10^3/uL (0.5-4.7); ABSOLUTE MONOCYTES (AUTO) 0.9 10^3/uL (0.1-1.4); ABSOLUTE NEUT (AUTO) 5.4 10^3/uL (1.7-8.2); BASOPHILS % (AUTO) 0.7 % (0-2); EOSINOPHILS % (AUTO) 1.1 % (0-6); HEMATOCRIT 29.7 % (36.0-47.0); HGB HCT DIFFERENCE 0.3; LYMPHOCYTES % (AUTO) 11.9 % (13-45); MEAN CORPUSCULAR HEMOGLOBIN 33.5 pg (27.0-33.4); MEAN CORPUSCULAR HGB CONC 33.6 g/dL (32.0-36.0); MEAN CORPUSCULAR VOLUME 100 fl (80-97); MONOCYTES % (AUTO) 12.3 % (3-13); RED BLOOD COUNT 2.98 10^6/uL (3.72-5.28); RED CELL DISTRIBUTION WIDTH 15.1 % (11.5-14.0); WHITE BLOOD COUNT 7.3 10^3/uL (4.0-10.5)
[2016-09-12 07:24] LABS: ANION GAP 19 (5-19); BLOOD UREA NITROGEN 22 mg/dL (7-20); CARBON DIOXIDE 21 mmol/L (22-30); CHLORIDE 94 mmol/L (98-107); CREATININE RESULT 5.38 mg/dL (0.52-1.25); GLUCOSE 99 mg/dL (75-110); POTASSIUM 4.5 mmol/L (3.6-5.0); SODIUM 134.4 mmol/L (137-145)
[2016-09-12] MEDS ORDERED: DEXTROSE 5%-1/2 NORMAL SALINE 1,000 ML IV PRN (09:04)
--- NOTE | 2016-09-12 09:21 | PDOC PROGRESS REPORT ---
Subjective Progress Note for:: 09/12/16 Subjective:: more alert today. less abdominal pain Physical Exam Vital Signs: Temp Pulse Resp BP Pulse Ox 98.0 F 92 18 150/57 H 82 L 09/12/16 00:43 09/12/16 06:28 09/12/16 00:43 09/12/16 06:28 09/12/16 06:28 Intake & Output 09/11/16 09/12/16 09/13/16 06:59 06:59 06:59 Intake Total 2007 1147 Output Total 0 550 Balance 2007 597 Weight 74.9 kg 73.5 kg General appearance: PRESENT: no acute distress Respiratory exam: PRESENT: clear to auscultation nikki Cardiovascular exam: PRESENT: RRR GI/Abdominal exam: PRESENT: other - soft, moderately distended but improved from last night. diffuse mild tenderness with no peritoneal signs. less tender from yesterday, no bowel sounds heard Extremities exam: PRESENT: other - no swelling Results Laboratory Results: 09/12/16 06:31 09/12/16 06:31 09/12/16 09/12/16 06:31 06:31 WBC 7.3 RBC 2.98 L Hgb 10.0 L Hct 29.7 L MCV 100 H MCH 33.5 H MCHC 33.6 RDW 15.1 H Plt Count 182 Seg Neutrophils % 74.0 Lymphocytes % 11.9 L Monocytes % 12.3 Eosinophils % 1.1 Basophils % 0.7 Absolute Neutrophils 5.4 Absolute Lymphocytes 0.9 Absolute Monocytes 0.9 Absolute Eosinophils 0.1 Absolute Basophils 0.0 Sodium 134.4 L Potassium 4.5 Chloride 94 L Carbon Dioxide 21 L Anion Gap 19 BUN 22 H Creatinine 5.38 H Est GFR ( Amer) 9 L Est GFR (Non-Af Amer) 8 L Glucose 99 Calcium 8.0 L Impressions: Abdomen/Pelvis CT 09/11/16 00:00 IMPRESSION: 1. Small bowel dilatation with scattered air-fluid levels. There is a short segment of normal caliber distal small bowel. Partial small bowel obstruction is suspected although this still could represent ileus. 2. Ascites. No focal abscess or focal fluid collections. 3. Small bilateral pleural effusions and bibasilar atelectasis. KUB X-Ray 09/11/16 18:24 IMPRESSION: SATISFACTORY PLACEMENT NASOGASTRIC TUBE. STABLE SMALL BOWEL LOOP DISTENSION PRESUMABLY REPRESENTING A POSTOPERATIVE ILEUS. Assessment & Plan - Diagnosis (1) Colon polyps Qualifiers: Colon location: ascending Is this a current diagnosis for this admission?: YesPlan: ileus. doing better after ivf and ng last night. will increase MIVF. get PICC and start TPN. ambulate.
[2016-09-12] MEDS: LANTHANUM CARBONATE 500 MG TAB.CHEW NG SCH ×3 (11:19→17:49)
[2016-09-12] MEDS: FOLIC ACID/VITAMIN B COMP W-C CAPSULE NG SCH (11:19)
[2016-09-12] MEDS: ALLOPURINOL 100 MG TABLET NG SCH ×2 (11:19→17:49)
[2016-09-12] MEDS: ASPIRIN 81 MG TABLET, CHEWABLE NG SCH (11:19)
[2016-09-12] MEDS: CINACALCET HCL 30 MG TABLET PO SCH (11:23)
[2016-09-12] MEDS: OXYCODONE HCL IR 5 MG TABLET NG PRN (13:11)
[2016-09-12] MEDS: DEXTROSE 5%-1/2 NORMAL SALINE 1,000 ML IV PRN (13:33)
--- NOTE | 2016-09-12 15:48 | Operative Report ---
Operative Report DATE OF SURGERY: 09/12/16 PREOPERATIVE DIAGNOSIS: #1 prolonged small bowel ileus. #2 end-stage renal disease on hemodialysis. #3 diabetes mellitus type II. POSTOPERATIVE DIAGNOSIS: #1 prolonged small bowel ileus. #2 end-stage renal disease on hemodialysis. #3 diabetes mellitus type II. OPERATION: #1 ultrasound evaluation and real-time access in the right internal jugular vein. #2 insertion of central line via real-time access in the right internal jugular vein. SURGEON: SANDY FRANCO [employer] ARCHITECT: none ANESTHESIA: Local TISSUE REMOVED OR ALTERED: Not applicable. COMPLICATIONS: None ESTIMATED BLOOD LOSS: 2 mL INTRAOPERATIVE FINDINGS: Satisfactory and safe access in the right internal jugular vein which is about 1.5 cm in diameter. PROCEDURE: After obtaining informed consent, the patient was assessed in the hospital room and positioned supine. The the right neck area was prepared with chlorhexidine and draped out with sterile linen. After the " universal timeout",the procedure commenced. A steriley sheathed ultrasound probe was used to evaluate the right internal jugular vein. Local anesthesia was infiltrated adjacent to the probe. Access into the right internal jugular vein was obtained using a micropuncture needle, followed by micropuncture wire and then a micropuncture catheter. This was followed by introduction of a 0.035 guidewire the tip of which was placed into the level of the inferior vena cava . Further local anesthesia was infiltrated. The dry lumen catheter was now easily placed over the guidewire. The guidewire was now removed. Easy ingress of heparinized solution and egress of blood obtained through all 3 ports. The catheter was now anchored using 3-0 nylon. A Biopatch device was now placed adjacent to the catheter. Dressings were applied and the procedure concluded. Copies of the dictated operative report for Dr. Sandy Bustos MD.
--- NOTE | 2016-09-12 16:38 | PDOC PROGRESS REPORT ---
Subjective Progress Note for:: 09/12/16 Subjective:: Patient seen on hemodialysis today. She is being dialyzed today because she had a contrasted CT of her abdomen yesterday.She seems more awake and responsive to questions. She is much less in pain of her abdomen since she had an NG tube to drain. Still nothing by mouth. She has finally began to move some air through her bowels. Appetite is very poor. She denies any history of chest pain shortness of breath. No history of any fever or chills. She is undergoing dialysis currently without any issues. Orders were discussed with the treating dialysis nurse. Physical Exam Vital Signs: Temp Pulse Resp BP Pulse Ox 98.0 F 92 18 150/57 H 82 L 09/12/16 00:43 09/12/16 06:28 09/12/16 00:43 09/12/16 06:28 09/12/16 06:28 Intake & Output 09/11/16 09/12/16 09/13/16 06:59 06:59 06:59 Intake Total 2007 1147 0 Output Total 0 550 0 Balance 2007 597 0 Weight 74.9 kg 73.5 kg General appearance: PRESENT: no acute distress Respiratory exam: PRESENT: clear to auscultation nikki. ABSENT: crackles, rhonchi Cardiovascular exam: PRESENT: +S1, +S2, systolic murmur GI/Abdominal exam: PRESENT: distended, soft, tenderness. ABSENT: firm, normal bowel sounds Results Laboratory Results: 09/12/16 06:31 09/12/16 06:31 09/12/16 09/12/16 06:31 06:31 WBC 7.3 RBC 2.98 L Hgb 10.0 L Hct 29.7 L MCV 100 H MCH 33.5 H MCHC 33.6 RDW 15.1 H Plt Count 182 Seg Neutrophils % 74.0 Lymphocytes % 11.9 L Monocytes % 12.3 Eosinophils % 1.1 Basophils % 0.7 Absolute Neutrophils 5.4 Absolute Lymphocytes 0.9 Absolute Monocytes 0.9 Absolute Eosinophils 0.1 Absolute Basophils 0.0 Sodium 134.4 L Potassium 4.5 Chloride 94 L Carbon Dioxide 21 L Anion Gap 19 BUN 22 H Creatinine 5.38 H Est GFR ( Amer) 9 L Est GFR (Non-Af Amer) 8 L Glucose 99 Calcium 8.0 L Impressions: Abdomen/Pelvis CT 09/11/16 00:00 IMPRESSION: 1. Small bowel dilatation with scattered air-fluid levels. There is a short segment of normal caliber distal small bowel. Partial small bowel obstruction is suspected although this still could represent ileus. 2. Ascites. No focal abscess or focal fluid collections. 3. Small bilateral pleural effusions and bibasilar atelectasis. KUB X-Ray 09/11/16 18:24 IMPRESSION: SATISFACTORY PLACEMENT NASOGASTRIC TUBE. STABLE SMALL BOWEL LOOP DISTENSION PRESUMABLY REPRESENTING A POSTOPERATIVE ILEUS. Chest X-Ray 09/12/16 00:00 IMPRESSION: 1. Bibasilar atelectasis. 2. Central line has been placed as described. No pneumothorax. Assessment & Plan - Diagnosis (1) Diabetes Is this a current diagnosis for this admission?: Yes (2) Status post colectomy Is this a current diagnosis for this admission?: YesPlan: As per surgery (3) ESRD (end stage renal disease) on dialysis Is this a current diagnosis for this admission?: YesPlan: Is undergoing dialysis without any issues. Orders were discussed with the treating dialysis nurse. Keep even. Continue IV fluids as such. (4) Essential (primary) hypertension Is this a current diagnosis for this admission?: Yes
--- NOTE | 2016-09-12 19:32 | PDOC PROGRESS REPORT ---
Subjective Progress Note for:: 09/12/16 Subjective:: Very comfortable. Alert. Cooperative. No complaints. Physical Exam Vital Signs: Temp Pulse Resp BP Pulse Ox 98.5 F 84 20 157/52 H 96 09/12/16 15:37 09/12/16 15:37 09/12/16 15:37 09/12/16 15:37 09/12/16 15:37 Intake & Output 09/11/16 09/12/16 09/13/16 06:59 06:59 06:59 Intake Total 2007 1147 400 Output Total 0 550 350 Balance 2007 597 50 Weight 74.9 kg 73.5 kg General appearance: PRESENT: no acute distress Respiratory exam: PRESENT: clear to auscultation nikki Cardiovascular exam: PRESENT: RRR GI/Abdominal exam: PRESENT: other - Soft, moderately distended, very mild diffuse tenderness. Wound clean dry and intact. Extremities exam: PRESENT: other - No swelling and no tenderness Results Laboratory Results: 09/12/16 06:31 09/12/16 06:31 09/12/16 09/12/16 06:31 06:31 WBC 7.3 RBC 2.98 L Hgb 10.0 L Hct 29.7 L MCV 100 H MCH 33.5 H MCHC 33.6 RDW 15.1 H Plt Count 182 Seg Neutrophils % 74.0 Lymphocytes % 11.9 L Monocytes % 12.3 Eosinophils % 1.1 Basophils % 0.7 Absolute Neutrophils 5.4 Absolute Lymphocytes 0.9 Absolute Monocytes 0.9 Absolute Eosinophils 0.1 Absolute Basophils 0.0 Sodium 134.4 L Potassium 4.5 Chloride 94 L Carbon Dioxide 21 L Anion Gap 19 BUN 22 H Creatinine 5.38 H Est GFR ( Amer) 9 L Est GFR (Non-Af Amer) 8 L Glucose 99 Calcium 8.0 L Impressions: Abdomen/Pelvis CT 09/11/16 00:00 IMPRESSION: 1. Small bowel dilatation with scattered air-fluid levels. There is a short segment of normal caliber distal small bowel. Partial small bowel obstruction is suspected although this still could represent ileus. 2. Ascites. No focal abscess or focal fluid collections. 3. Small bilateral pleural effusions and bibasilar atelectasis. KUB X-Ray 09/11/16 18:24 IMPRESSION: SATISFACTORY PLACEMENT NASOGASTRIC TUBE. STABLE SMALL BOWEL LOOP DISTENSION PRESUMABLY REPRESENTING A POSTOPERATIVE ILEUS. Chest X-Ray 09/12/16 00:00 IMPRESSION: 1. Bibasilar atelectasis. 2. Central line has been placed as described. No pneumothorax. Assessment & Plan - Diagnosis (1) Colon polyps Qualifiers: Colon location: ascending Is this a current diagnosis for this admission?: YesPlan: ileus. Otherwise appears okay. Got central line today. Will start TPN tomorrow.
[2016-09-13] MEDS: DEXTROSE 5%-1/2 NORMAL SALINE 1,000 ML IV PRN (03:10)
[2016-09-13] MEDS: MAG HYDROX/AL HYDROX/SIMETH SUSP 30 ML UDCUP PO PRN ×2 (05:26→14:36)
--- NOTE | 2016-09-13 06:36 | PDOC PROGRESS REPORT ---
Subjective Progress Note for:: 09/12/16 Subjective:: Patient reports she's passing some air. She's had relief of her nausea and vomiting and quite a bit of pain with NG tube placement. Patient denies chest pain, shortness of breath, nausea, vomiting, fevers, chills , diarrhea, constipation, headache, new onset weakness. Physical Exam Vital Signs: Temp Pulse Resp BP Pulse Ox 97.6 F 96 17 155/62 H 99 09/11/16 07:23 09/11/16 20:14 09/11/16 20:14 09/11/16 20:14 09/11/16 20:14 Intake & Output 09/11/16 09/12/16 09/13/16 06:59 06:59 06:59 Intake Total 2007 1147 Output Total 0 550 Balance 2007 597 Weight 74.9 kg 73.5 kg Exam: General: Awake alert, no acute respiratory distress HEENT: AT/NC, PERRL, EOMI, oropharynx is moist, pink, no scleral icterus, no conjunctival injection Neck: No JVD, trachea midline Chest: Clear to auscultation bilaterally, no wheezes rhonchi or rales CV: Regular rate and rhythm, normal S1 and S2, + systolic murmur; no rub or gallop Abdomen: TTP LLQ and LUQ, mildly, absent bowel sounds Extremities: No cyanosis, clubbing or edema Neuro: Cranial nerves II through XII are grossly intact without focal deficits Psych: Normal mood and affect Results Laboratory Results: 09/12/16 06:31 09/12/16 06:31 09/12/16 09/12/16 06:31 06:31 WBC 7.3 RBC 2.98 L Hgb 10.0 L Hct 29.7 L MCV 100 H MCH 33.5 H MCHC 33.6 RDW 15.1 H Plt Count 182 Seg Neutrophils % 74.0 Lymphocytes % 11.9 L Monocytes % 12.3 Eosinophils % 1.1 Basophils % 0.7 Absolute Neutrophils 5.4 Absolute Lymphocytes 0.9 Absolute Monocytes 0.9 Absolute Eosinophils 0.1 Absolute Basophils 0.0 Sodium 134.4 L Potassium 4.5 Chloride 94 L Carbon Dioxide 21 L Anion Gap 19 BUN 22 H Creatinine 5.38 H Est GFR ( Amer) 9 L Est GFR (Non-Af Amer) 8 L Glucose 99 Calcium 8.0 L Impressions: Abdomen/Pelvis CT 09/11/16 00:00 IMPRESSION: 1. Small bowel dilatation with scattered air-fluid levels. There is a short segment of normal caliber distal small bowel. Partial small bowel obstruction is suspected although this still could represent ileus. 2. Ascites. No focal abscess or focal fluid collections. 3. Small bilateral pleural effusions and bibasilar atelectasis. KUB X-Ray 09/11/16 18:24 IMPRESSION: SATISFACTORY PLACEMENT NASOGASTRIC TUBE. STABLE SMALL BOWEL LOOP DISTENSION PRESUMABLY REPRESENTING A POSTOPERATIVE ILEUS. Assessment & Plan - Diagnosis (1) Diabetes Qualifiers: Diabetes mellitus type: type 1 Diabetes mellitus complication status: with kidney complications Diabetes mellitus complication detail: with chronic kidney disease Chronic kidney disease stage: on chronic dialysis Qualified Code(s): E10.22 - Type 1 diabetes mellitus with diabetic chronic kidney disease; N18.6 - End stage renal disease; Z99.2 - Dependence on renal dialysis Is this a current diagnosis for this admission?: YesPlan: Patient's blood sugar currently well-controlled on D5 and sliding scale. Will follow for TPN. (2) Ileus following gastrointestinal surgery Is this a current diagnosis for this admission?: YesPlan: Patient reports passing some air and nursing reports some bowel sounds, but I was unable to auscultate any bowel sounds. Defer to surgery for management of this postoperative complication. (3) Status post colectomy Is this a current diagnosis for this admission?: YesPlan: Defer to surgery for management of colectomy, diagnosis and treatment of all intra-abdominal pathology. (4) ESRD (end stage renal disease) on dialysis Is this a current diagnosis for this admission?: YesPlan: Defer to nephrology (5) Essential (primary) hypertension Is this a current diagnosis for this admission?: YesPlan: We'll use IV and topical antihypertensives for this patient. (6) Dementia Qualifiers: Dementia type: unspecified type Dementia behavioral disturbance: without behavioral disturbance Qualified Code(s): F03.90 - Unspecified dementia without behavioral disturbance Is this a current diagnosis for this admission?: YesPlan: Supportive care - Time Time Spent with patient: 25-34 minutes Medications reviewed and adjusted accordingly: Yes
[2016-09-13] MEDS: HYDRALAZINE HCL 50 MG TABLET NG SCH ×3 (08:15→14:36)
[2016-09-13 08:22] LABS: ABSOLUTE EOSINOPHILS # (AUTO) 0.2 10^3/uL (0.0-0.6); ABSOLUTE MONOCYTES (AUTO) 1.1 10^3/uL (0.1-1.4); ABSOLUTE NEUT (AUTO) 4.6 10^3/uL (1.7-8.2); BASOPHILS % (AUTO) 0.6 % (0-2); EOSINOPHILS % (AUTO) 2.2 % (0-6); HEMATOCRIT 26.7 % (36.0-47.0); HEMOGLOBIN 8.9 g/dL (12.0-15.5); LYMPHOCYTES % (AUTO) 14.2 % (13-45); MEAN CORPUSCULAR HEMOGLOBIN 33.2 pg (27.0-33.4); MEAN CORPUSCULAR HGB CONC 33.4 g/dL (32.0-36.0); MEAN CORPUSCULAR VOLUME 99 fl (80-97); MONOCYTES % (AUTO) 16.3 % (3-13); RED BLOOD COUNT 2.68 10^6/uL (3.72-5.28); RED CELL DISTRIBUTION WIDTH 14.9 % (11.5-14.0); SEGMENTED NEUTROPHILS % (AUTO) 66.7 % (42-78); WHITE BLOOD COUNT 6.9 10^3/uL (4.0-10.5)
[2016-09-13 08:42] LABS: ANION GAP 11 (5-19); BLOOD UREA NITROGEN 16 mg/dL (7-20); CALCIUM 7.7 mg/dL (8.4-10.2); CARBON DIOXIDE 29 mmol/L (22-30); CHLORIDE 97 mmol/L (98-107); CREATININE RESULT 4.51 mg/dL (0.52-1.25); GLUCOSE 112 mg/dL (75-110); POTASSIUM 3.8 mmol/L (3.6-5.0); SODIUM 136.5 mmol/L (137-145)
[2016-09-13] MEDS ORDERED: DEXTROSE 5%-1/2 NORMAL SALINE 1,000 ML IV PRN (11:27)
[2016-09-13] MEDS ORDERED: DEXTROSE 10%-WATER 1,000 ML IV PRN (11:36)
--- NOTE | 2016-09-13 11:50 | PDOC PROGRESS REPORT ---
Subjective Progress Note for:: 09/13/16 Subjective:: lower abdominal pain Physical Exam Vital Signs: Temp Pulse Resp BP Pulse Ox 98.9 F 86 21 H 145/71 H 99 09/13/16 03:47 09/13/16 03:47 09/13/16 03:47 09/13/16 03:47 09/13/16 03:47 Intake & Output 09/12/16 09/13/16 09/14/16 06:59 06:59 06:59 Intake Total 1147 1360 Output Total 550 350 Balance 597 1010 Weight 73.5 kg 77.1 kg General appearance: PRESENT: no acute distress Respiratory exam: PRESENT: decreased breath sounds - on right side Cardiovascular exam: PRESENT: RRR GI/Abdominal exam: PRESENT: other - soft, tender in lower abdomen without peritoneal signs. Extremities exam: PRESENT: other - no swelling. Results Laboratory Results: 09/13/16 07:10 09/13/16 07:10 09/13/16 09/13/16 07:10 07:10 WBC 6.9 RBC 2.68 L Hgb 8.9 L Hct 26.7 L MCV 99 H MCH 33.2 MCHC 33.4 RDW 14.9 H Plt Count 148 L Seg Neutrophils % 66.7 Lymphocytes % 14.2 Monocytes % 16.3 H Eosinophils % 2.2 Basophils % 0.6 Absolute Neutrophils 4.6 Absolute Lymphocytes 1.0 Absolute Monocytes 1.1 Absolute Eosinophils 0.2 Absolute Basophils 0.0 Sodium 136.5 L Potassium 3.8 Chloride 97 L Carbon Dioxide 29 Anion Gap 11 BUN 16 Creatinine 4.51 H Est GFR ( Amer) 11 L Est GFR (Non-Af Amer) 9 L Glucose 112 H Calcium 7.7 L Impressions: Abdomen/Pelvis CT 09/11/16 00:00 IMPRESSION: 1. Small bowel dilatation with scattered air-fluid levels. There is a short segment of normal caliber distal small bowel. Partial small bowel obstruction is suspected although this still could represent ileus. 2. Ascites. No focal abscess or focal fluid collections. 3. Small bilateral pleural effusions and bibasilar atelectasis. KUB X-Ray 09/11/16 18:24 IMPRESSION: SATISFACTORY PLACEMENT NASOGASTRIC TUBE. STABLE SMALL BOWEL LOOP DISTENSION PRESUMABLY REPRESENTING A POSTOPERATIVE ILEUS. Chest X-Ray 09/12/16 00:00 IMPRESSION: 1. Bibasilar atelectasis. 2. Central line has been placed as described. No pneumothorax. Assessment & Plan - Diagnosis (1) Colon polyps Qualifiers: Colon location: ascending Is this a current diagnosis for this admission?: YesPlan: ileus. lower abdominal pain and tenderness without signs of sepsis. will repeat CT tomorrow if does not improve. tpn. ambulate. check cxr for her decreased right bs.
[2016-09-13] MEDS: ALLOPURINOL 100 MG TABLET NG SCH ×2 (14:04→18:18)
[2016-09-13] MEDS: LANTHANUM CARBONATE 500 MG TAB.CHEW NG SCH ×3 (14:04→18:18)
[2016-09-13] MEDS: FOLIC ACID/VITAMIN B COMP W-C CAPSULE NG SCH (14:35)
[2016-09-13] MEDS: ASPIRIN 81 MG TABLET, CHEWABLE NG SCH (14:36)
[2016-09-13] MEDS: ACETAMINOPHEN 650 MG SUPP.RECT PR PRN ×2 (14:37→23:07)
[2016-09-13] MEDS: CINACALCET HCL 30 MG TABLET PO SCH (14:46)
--- NOTE | 2016-09-13 16:22 | PDOC PROGRESS REPORT ---
Subjective Progress Note for:: 09/13/16 Subjective:: Patient was seen on hemodialysis today. She is undergoing dialysis without any issues. Orders were discussed with the treating nurse. She is complaining of some mild lower abdominal pains without any history of nausea vomiting. She is got NG tube in to suction. No history of any fever or chills. She seems to be disoriented and discussion is done with the floor nurse confirms that that is the case and it was worse during the night. Physical Exam Vital Signs: Temp Pulse Resp BP Pulse Ox 98.9 F 86 21 H 145/71 H 99 09/13/16 03:47 09/13/16 03:47 09/13/16 03:47 09/13/16 03:47 09/13/16 03:47 Intake & Output 09/12/16 09/13/16 09/14/16 06:59 06:59 06:59 Intake Total 1147 1360 Output Total 550 350 Balance 597 1010 Weight 73.5 kg 77.1 kg General appearance: PRESENT: no acute distress Respiratory exam: PRESENT: clear to auscultation nikki. ABSENT: crackles, rhonchi Cardiovascular exam: PRESENT: +S1, +S2, systolic murmur GI/Abdominal exam: PRESENT: distended, hypoactive bowel sounds, soft, tenderness - Both the lower quadrants. Bowel sounds are hypoactive. No masses felt. ABSENT: firm, normal bowel sounds Neurological exam: PRESENT: awake. ABSENT: oriented to person, oriented to place, oriented to time Psychiatric exam: PRESENT: flat affect Skin exam: PRESENT: dry. ABSENT: erythema, mottled, rash Results Laboratory Results: 09/13/16 07:10 09/13/16 07:10 09/13/16 09/13/16 07:10 07:10 WBC 6.9 RBC 2.68 L Hgb 8.9 L Hct 26.7 L MCV 99 H MCH 33.2 MCHC 33.4 RDW 14.9 H Plt Count 148 L Seg Neutrophils % 66.7 Lymphocytes % 14.2 Monocytes % 16.3 H Eosinophils % 2.2 Basophils % 0.6 Absolute Neutrophils 4.6 Absolute Lymphocytes 1.0 Absolute Monocytes 1.1 Absolute Eosinophils 0.2 Absolute Basophils 0.0 Sodium 136.5 L Potassium 3.8 Chloride 97 L Carbon Dioxide 29 Anion Gap 11 BUN 16 Creatinine 4.51 H Est GFR ( Amer) 11 L Est GFR (Non-Af Amer) 9 L Glucose 112 H Calcium 7.7 L Impressions: Abdomen/Pelvis CT 09/11/16 00:00 IMPRESSION: 1. Small bowel dilatation with scattered air-fluid levels. There is a short segment of normal caliber distal small bowel. Partial small bowel obstruction is suspected although this still could represent ileus. 2. Ascites. No focal abscess or focal fluid collections. 3. Small bilateral pleural effusions and bibasilar atelectasis. Chest X-Ray 09/13/16 00:00 IMPRESSION: No significant interval change. No pneumothorax is seen. Other findings as noted above KUB X-Ray 09/13/16 07:00 IMPRESSION: Multiple dilated loops of bowel seen throughout the abdomen concerning for underlying ileus and/or obstruction. Postoperative changes from laparotomy. Assessment & Plan - Diagnosis (1) Diabetes Qualifiers: Diabetes mellitus type: type 1 Diabetes mellitus complication status: with kidney complications Diabetes mellitus complication detail: with chronic kidney disease Chronic kidney disease stage: on chronic dialysis Qualified Code(s): E10.22 - Type 1 diabetes mellitus with diabetic chronic kidney disease; N18.1 - Chronic kidney disease, stage 1 Is this a current diagnosis for this admission?: Yes (2) Status post colectomy Is this a current diagnosis for this admission?: YesPlan: As per surgery (3) ESRD (end stage renal disease) on dialysis Is this a current diagnosis for this admission?: YesPlan: Is undergoing dialysis without any issues. Orders were discussed with the treating dialysis nurse. Keep even. Continue IV fluids as such. (4) Essential (primary) hypertension Is this a current diagnosis for this admission?: Yes (5) Confusion and disorientation Plan: Possible early delirium. This could be from multiple reasons including postsurgery, drugs including narcotics and lastly possible sepsis. (6) Ileus following gastrointestinal surgery Is this a current diagnosis for this admission?: YesPlan: As per surgery
[2016-09-13] MEDS: INSULIN LISPRO 100 UNIT/ML 3 ML VIAL SUBCUT PRN (18:17)
[2016-09-13] MEDS: HYDRALAZINE HCL INJ/PF 20 MG/1 ML SDV IV SCH ×2 (18:18→23:26)
[2016-09-13] MEDS: AMINO ACIDS 5%/D25W 1,000 ML IV PRN (18:18)
--- NOTE | 2016-09-13 18:18 | PDOC PROGRESS REPORT ---
Subjective Progress Note for:: 09/13/16 Subjective:: Patient seen earlier on morning rounds. Patient does complain of some abdominal pain. Patient's NG appears to have been slightly pulled out. Physical Exam Vital Signs: Temp Pulse Resp BP Pulse Ox 98.9 F 86 21 H 145/71 H 99 09/13/16 03:47 09/13/16 03:47 09/13/16 03:47 09/13/16 03:47 09/13/16 03:47 Intake & Output 09/12/16 09/13/16 09/14/16 06:59 06:59 06:59 Intake Total 1147 1360 Output Total 550 350 Balance 597 1010 Weight 73.5 kg 77.1 kg Exam: General: Awake alert, no acute respiratory distress HEENT: AT/NC, PERRL, EOMI, oropharynx is moist, pink, no scleral icterus, no conjunctival injection Neck: No JVD, trachea midline Chest: Clear to auscultation bilaterally, no wheezes rhonchi or rales CV: Regular rate and rhythm, normal S1 and S2, + systolic murmur; no rub or gallop Abdomen: TTP LLQ and LUQ, mildly, absent bowel sounds; no rebound, rigidity or guarding Extremities: No cyanosis, clubbing or edema Neuro: Cranial nerves II through XII are grossly intact without focal deficits Psych: Normal mood and affect Results Laboratory Results: 09/13/16 07:10 09/13/16 07:10 09/13/16 09/13/16 07:10 07:10 WBC 6.9 RBC 2.68 L Hgb 8.9 L Hct 26.7 L MCV 99 H MCH 33.2 MCHC 33.4 RDW 14.9 H Plt Count 148 L Seg Neutrophils % 66.7 Lymphocytes % 14.2 Monocytes % 16.3 H Eosinophils % 2.2 Basophils % 0.6 Absolute Neutrophils 4.6 Absolute Lymphocytes 1.0 Absolute Monocytes 1.1 Absolute Eosinophils 0.2 Absolute Basophils 0.0 Sodium 136.5 L Potassium 3.8 Chloride 97 L Carbon Dioxide 29 Anion Gap 11 BUN 16 Creatinine 4.51 H Est GFR ( Amer) 11 L Est GFR (Non-Af Amer) 9 L Glucose 112 H Calcium 7.7 L Impressions: Abdomen/Pelvis CT 09/11/16 00:00 IMPRESSION: 1. Small bowel dilatation with scattered air-fluid levels. There is a short segment of normal caliber distal small bowel. Partial small bowel obstruction is suspected although this still could represent ileus. 2. Ascites. No focal abscess or focal fluid collections. 3. Small bilateral pleural effusions and bibasilar atelectasis. KUB X-Ray 09/11/16 18:24 IMPRESSION: SATISFACTORY PLACEMENT NASOGASTRIC TUBE. STABLE SMALL BOWEL LOOP DISTENSION PRESUMABLY REPRESENTING A POSTOPERATIVE ILEUS. Chest X-Ray 09/12/16 00:00 IMPRESSION: 1. Bibasilar atelectasis. 2. Central line has been placed as described. No pneumothorax. Assessment & Plan - Diagnosis (1) Diabetes Qualifiers: Diabetes mellitus type: type 1 Diabetes mellitus complication status: with kidney complications Diabetes mellitus complication detail: with chronic kidney disease Chronic kidney disease stage: on chronic dialysis Qualified Code(s): E10.22 - Type 1 diabetes mellitus with diabetic chronic kidney disease; N18.1 - Chronic kidney disease, stage 1 Is this a current diagnosis for this admission?: YesPlan: Patient's blood sugar currently well-controlled on D5 and sliding scale. Will stop IV fluids once TPN is initiated. (2) Ileus following gastrointestinal surgery Is this a current diagnosis for this admission?: YesPlan: Defer to surgery for management of this postoperative complication. (3) Status post colectomy Is this a current diagnosis for this admission?: YesPlan: Defer to surgery for management of colectomy, diagnosis and treatment of all intra-abdominal pathology. (4) ESRD (end stage renal disease) on dialysis Is this a current diagnosis for this admission?: YesPlan: Defer to nephrology (5) Essential (primary) hypertension Is this a current diagnosis for this admission?: YesPlan: Have initiated patient on IV hydralazine. (6) Dementia Qualifiers: Dementia type: unspecified type Dementia behavioral disturbance: without behavioral disturbance Qualified Code(s): F03.90 - Unspecified dementia without behavioral disturbance Is this a current diagnosis for this admission?: YesPlan: Supportive care - Time Time Spent with patient: 25-34 minutes Medications reviewed and adjusted accordingly: Yes
[2016-09-13] MEDS: CLONIDINE HCL 0.2 MG TABLET NG SCH ×2 (23:30)
[2016-09-13] MEDS: ATORVASTATIN CALCIUM 40 MG TABLET NG SCH ×2 (23:30)
[2016-09-14] MEDS: INSULIN LISPRO 100 UNIT/ML 3 ML VIAL SUBCUT PRN ×3 (00:53→18:22)
[2016-09-14] MEDS: HYDRALAZINE HCL INJ/PF 20 MG/1 ML SDV IV SCH ×3 (06:18→18:12)
[2016-09-14 06:56] LABS: PROTHROMBIN TIME 13.9 SEC (11.4-15.4)
[2016-09-14 06:57] LABS: PARTIAL THROMBOPLASTIN TIME 40.1 SEC (23.5-35.8)
[2016-09-14 07:05] LABS: ALANINE AMINOTRANSFERASE 27 U/L (9-52); ALBUMIN 2.7 g/dL (3.5-5.0); ALKALINE PHOSPHATASE 54 U/L (38-126); ANION GAP 8 (5-19); ASPARTATE AMINO TRANSFERASE 23 U/L (14-36); BILIRUBIN,TOTAL 0.6 mg/dL (0.2-1.3); BLOOD UREA NITROGEN 12 mg/dL (7-20); CALCIUM 8.2 mg/dL (8.4-10.2); CARBON DIOXIDE 32 mmol/L (22-30); CHLORIDE 97 mmol/L (98-107); CHOLESTEROL 118.86 mg/dL (0-200); CREATININE RESULT 3.47 mg/dL (0.52-1.25); Direct HDL 40 mg/dL (>40); GLUCOSE 205 mg/dL (75-110); MAGNESIUM 1.6 mg/dL (1.6-2.3); PHOSPHORUS 2.9 mg/dL (2.5-4.5); POTASSIUM 3.6 mmol/L (3.6-5.0); TOTAL PROTEIN 5.2 g/dL (6.3-8.2); TRIGLYCERIDES 85 mg/dL (<150)
[2016-09-14 07:15] LABS: ABSOLUTE BASOPHILS # (AUTO) 0.1 10^3/uL (0.0-0.2); ABSOLUTE EOSINOPHILS # (AUTO) 0.2 10^3/uL (0.0-0.6); ABSOLUTE LYMPHOCYTES (AUTO) 0.9 10^3/uL (0.5-4.7); ABSOLUTE MONOCYTES (AUTO) 1.3 10^3/uL (0.1-1.4); ABSOLUTE NEUT (AUTO) 5.3 10^3/uL (1.7-8.2); BASOPHILS % (AUTO) 0.7 % (0-2); DIRECT LDL 54 mg/dL (<100); EOSINOPHILS % (AUTO) 2.1 % (0-6); HEMATOCRIT 28.9 % (36.0-47.0); HEMOGLOBIN 9.6 g/dL (12.0-15.5); HGB HCT DIFFERENCE -0.1; MEAN CORPUSCULAR HGB CONC 33.1 g/dL (32.0-36.0); MEAN CORPUSCULAR VOLUME 100 fl (80-97); MONOCYTES % (AUTO) 16.2 % (3-13); PREALBUMIN 11.2 mg/dL (17.6-36.0); RED BLOOD COUNT 2.89 10^6/uL (3.72-5.28); RED CELL DISTRIBUTION WIDTH 15.1 % (11.5-14.0); WHITE BLOOD COUNT 7.7 10^3/uL (4.0-10.5)
[2016-09-14] MEDS: CINACALCET HCL 30 MG TABLET PO SCH (10:13)
[2016-09-14] MEDS: ASPIRIN 81 MG TABLET, CHEWABLE NG SCH (11:34)
[2016-09-14] MEDS: FOLIC ACID/VITAMIN B COMP W-C CAPSULE NG SCH (11:35)
[2016-09-14] MEDS: FAT EMULSIONS 250 ML IV SCH (11:35)
[2016-09-14] MEDS: ALLOPURINOL 100 MG TABLET NG SCH ×2 (11:35→18:12)
[2016-09-14] MEDS: LANTHANUM CARBONATE 500 MG TAB.CHEW NG SCH ×3 (11:36→17:43)
--- NOTE | 2016-09-14 16:07 | PDOC PROGRESS REPORT ---
Subjective Progress Note for:: 09/14/16 Subjective:: Patient feels much better. Much less abdominal pain. Brighter affect and much more energetic. Physical Exam Vital Signs: Temp Pulse Resp BP Pulse Ox 98.2 F 86 18 112/80 98 09/14/16 12:29 09/14/16 12:29 09/14/16 12:29 09/14/16 12:29 09/14/16 07:51 Intake & Output 09/13/16 09/14/16 09/15/16 06:59 06:59 06:59 Intake Total 1360 2278 67 Output Total 350 0 Balance 1010 2278 67 Weight 77.1 kg 75.8 kg General appearance: PRESENT: no acute distress, cooperative Respiratory exam: PRESENT: clear to auscultation nikki Cardiovascular exam: PRESENT: RRR GI/Abdominal exam: PRESENT: other - Soft, moderately distended, very mild diffuse abdominal tenderness with no peritoneal signs. Exam improved from yesterday. Bowel sounds heard. Musculoskeletal exam: PRESENT: other - No swelling and no tenderness at the calves. Results Laboratory Results: 09/14/16 06:23 09/14/16 06:23 09/13/16 09/14/16 09/14/16 07:10 06:23 06:23 WBC 7.7 RBC 2.89 L Hgb 9.6 L Hct 28.9 L MCV 100 H MCH 33.0 MCHC 33.1 RDW 15.1 H Plt Count 168 Seg Neutrophils % 69.0 Lymphocytes % 12.0 L Monocytes % 16.2 H Eosinophils % 2.1 Basophils % 0.7 Absolute Neutrophils 5.3 Absolute Lymphocytes 0.9 Absolute Monocytes 1.3 Absolute Eosinophils 0.2 Absolute Basophils 0.1 Sodium 137.0 Potassium 3.6 Chloride 97 L Carbon Dioxide 32 H Anion Gap 8 BUN 12 Creatinine 3.47 H Est GFR ( Amer) 15 L Est GFR (Non-Af Amer) 13 L Glucose 205 H Calcium 8.2 L Phosphorus 2.9 Magnesium 1.6 Total Bilirubin 0.6 AST 23 ALT 27 Alkaline Phosphatase 54 Total Protein 5.2 L Albumin 2.7 L Prealbumin 11.2 L Triglycerides 101 85 Cholesterol 118.86 LDL Cholesterol Direct 54 VLDL Cholesterol 17.0 HDL Cholesterol 40 Impressions: Abdomen/Pelvis CT 09/11/16 00:00 IMPRESSION: 1. Small bowel dilatation with scattered air-fluid levels. There is a short segment of normal caliber distal small bowel. Partial small bowel obstruction is suspected although this still could represent ileus. 2. Ascites. No focal abscess or focal fluid collections. 3. Small bilateral pleural effusions and bibasilar atelectasis. Chest X-Ray 09/13/16 00:00 IMPRESSION: No significant interval change. No pneumothorax is seen. Other findings as noted above KUB X-Ray 09/13/16 07:00 IMPRESSION: Multiple dilated loops of bowel seen throughout the abdomen concerning for underlying ileus and/or obstruction. Postoperative changes from laparotomy. Assessment & Plan - Diagnosis (1) Colon polyps Qualifiers: Colon location: ascending Is this a current diagnosis for this admission?: YesPlan: ileus. Patient's exam has improved markedly. Her NG output has become more clear and not bilious. She has bowel sounds today and she is much less tender today. Anticipate bowel function in the next couple of days. We'll continue TPN. Continue to try to ambulate the patient. Encourage by patient's progress.
[2016-09-14] MEDS: AMINO ACIDS 5%/D25W 1,000 ML IV PRN (18:23)
--- NOTE | 2016-09-14 19:26 | PDOC PROGRESS REPORT ---
Subjective Progress Note for:: 09/14/16 Subjective:: Patient seen later today morning rounds. She reports that she's feeling better than yesterday. Patient denies chest pain, shortness of breath, nausea, vomiting , fevers, chills, diarrhea, headache, new onset weakness. Physical Exam Vital Signs: Temp Pulse Resp BP Pulse Ox 98.3 F 89 20 163/61 H 98 09/14/16 07:51 09/14/16 07:51 09/14/16 07:51 09/14/16 07:51 09/14/16 07:51 Intake & Output 09/13/16 09/14/16 09/15/16 06:59 06:59 06:59 Intake Total 1360 1246 Output Total 350 0 Balance 1010 1246 Weight 77.1 kg 75.8 kg Exam: General: Awake alert, no acute respiratory distress HEENT: AT/NC, PERRL, EOMI, oropharynx is moist, pink, no scleral icterus, no conjunctival injection Neck: No JVD, trachea midline Chest: Clear to auscultation bilaterally, no wheezes rhonchi or rales CV: Regular rate and rhythm, normal S1 and S2, + systolic murmur; no rub or gallop Abdomen: mildly tender to palpation, unable to appreciate bowel sounds; no rebound, rigidity Extremities: No cyanosis, clubbing or edema Neuro: Cranial nerves II through XII are grossly intact without focal deficits Psych: Normal mood and affect Results Laboratory Results: 09/14/16 06:23 09/14/16 06:23 09/13/16 09/13/16 09/13/16 07:10 07:10 07:10 WBC 6.9 RBC 2.68 L Hgb 8.9 L Hct 26.7 L MCV 99 H MCH 33.2 MCHC 33.4 RDW 14.9 H Plt Count 148 L Seg Neutrophils % 66.7 Lymphocytes % 14.2 Monocytes % 16.3 H Eosinophils % 2.2 Basophils % 0.6 Absolute Neutrophils 4.6 Absolute Lymphocytes 1.0 Absolute Monocytes 1.1 Absolute Eosinophils 0.2 Absolute Basophils 0.0 Sodium 136.5 L Potassium 3.8 Chloride 97 L Carbon Dioxide 29 Anion Gap 11 BUN 16 Creatinine 4.51 H Est GFR ( Amer) 11 L Est GFR (Non-Af Amer) 9 L Glucose 112 H Calcium 7.7 L Phosphorus Magnesium Total Bilirubin AST ALT Alkaline Phosphatase Total Protein Albumin Prealbumin Triglycerides 101 Cholesterol LDL Cholesterol Direct VLDL Cholesterol HDL Cholesterol 09/14/16 09/14/16 06:23 06:23 WBC 7.7 RBC 2.89 L Hgb 9.6 L Hct 28.9 L MCV 100 H MCH 33.0 MCHC 33.1 RDW 15.1 H Plt Count 168 Seg Neutrophils % 69.0 Lymphocytes % 12.0 L Monocytes % 16.2 H Eosinophils % 2.1 Basophils % 0.7 Absolute Neutrophils 5.3 Absolute Lymphocytes 0.9 Absolute Monocytes 1.3 Absolute Eosinophils 0.2 Absolute Basophils 0.1 Sodium 137.0 Potassium 3.6 Chloride 97 L Carbon Dioxide 32 H Anion Gap 8 BUN 12 Creatinine 3.47 H Est GFR ( Amer) 15 L Est GFR (Non-Af Amer) 13 L Glucose 205 H Calcium 8.2 L Phosphorus 2.9 Magnesium 1.6 Total Bilirubin 0.6 AST 23 ALT 27 Alkaline Phosphatase 54 Total Protein 5.2 L Albumin 2.7 L Prealbumin 11.2 L Triglycerides 85 Cholesterol 118.86 LDL Cholesterol Direct 54 VLDL Cholesterol 17.0 HDL Cholesterol 40 Impressions: Abdomen/Pelvis CT 09/11/16 00:00 IMPRESSION: 1. Small bowel dilatation with scattered air-fluid levels. There is a short segment of normal caliber distal small bowel. Partial small bowel obstruction is suspected although this still could represent ileus. 2. Ascites. No focal abscess or focal fluid collections. 3. Small bilateral pleural effusions and bibasilar atelectasis. Chest X-Ray 09/13/16 00:00 IMPRESSION: No significant interval change. No pneumothorax is seen. Other findings as noted above KUB X-Ray 09/13/16 07:00 IMPRESSION: Multiple dilated loops of bowel seen throughout the abdomen concerning for underlying ileus and/or obstruction. Postoperative changes from laparotomy. Assessment & Plan - Diagnosis (1) Diabetes Qualifiers: Diabetes mellitus type: type 1 Diabetes mellitus complication status: with kidney complications Diabetes mellitus complication detail: with chronic kidney disease Chronic kidney disease stage: on chronic dialysis Qualified Code(s): E10.22 - Type 1 diabetes mellitus with diabetic chronic kidney disease; N18.1 - Chronic kidney disease, stage 1 Is this a current diagnosis for this admission?: YesPlan: Have initiated patient on Lantus 10 units subcutaneous daily at bedtime and continuing sliding scale insulin every 6. (2) On total parenteral nutrition (TPN) Is this a current diagnosis for this admission?: YesPlan: Have consulted with pharmacy and adjusted patient's TPN. Continue to monitor. Will increase patient's TPN as tolerated. (3) Ileus following gastrointestinal surgery Is this a current diagnosis for this admission?: YesPlan: Defer to surgery for management of this postoperative complication. (4) Status post colectomy Is this a current diagnosis for this admission?: YesPlan: Defer to surgery for management of colectomy, diagnosis and treatment of all intra-abdominal pathology. (5) ESRD (end stage renal disease) on dialysis Is this a current diagnosis for this admission?: YesPlan: Defer to nephrology (6) Essential (primary) hypertension Is this a current diagnosis for this admission?: YesPlan: Have initiated patient on IV hydralazine. Consider clonidine patch (7) Dementia Qualifiers: Dementia type: unspecified type Dementia behavioral disturbance: without behavioral disturbance Qualified Code(s): F03.90 - Unspecified dementia without behavioral disturbance Is this a current diagnosis for this admission?: YesPlan: Supportive care - Time Time Spent with patient: 25-34 minutes Medications reviewed and adjusted accordingly: Yes
[2016-09-14] MEDS: CLONIDINE HCL 0.2 MG TABLET NG SCH (22:36)
[2016-09-14] MEDS: ATORVASTATIN CALCIUM 40 MG TABLET NG SCH (22:36)
[2016-09-15] MEDS: INSULIN GLARGINE,HUM.REC.ANLOG 1,000 UNIT/10 ML UNIT SUBCUT SCH ×2 (00:30→23:19)
[2016-09-15] MEDS: HYDRALAZINE HCL INJ/PF 20 MG/1 ML SDV IV SCH ×4 (00:31→23:19)
[2016-09-15] MEDS: INSULIN LISPRO 100 UNIT/ML 3 ML VIAL SUBCUT PRN ×3 (00:31→23:19)
--- NOTE | 2016-09-15 07:52 | PDOC PROGRESS REPORT ---
Subjective Progress Note for:: 09/15/16 Subjective:: Feels well. No complaints. Physical Exam Vital Signs: Temp Pulse Resp BP Pulse Ox 98.1 F 88 20 163/63 H 99 09/14/16 23:43 09/15/16 05:22 09/14/16 23:43 09/15/16 05:22 09/14/16 23:43 Intake & Output 09/14/16 09/15/16 09/16/16 06:59 06:59 06:59 Intake Total 2278 67 Output Total 0 0 Balance 2278 67 Weight 75.8 kg 76.2 kg General appearance: PRESENT: no acute distress, cooperative Respiratory exam: PRESENT: clear to auscultation nikki Cardiovascular exam: PRESENT: RRR GI/Abdominal exam: PRESENT: other - Soft, mildly distended, active bowel sounds , mild diffuse abdominal tenderness. No peritoneal signs. Wound clean dry and intact. Extremities exam: PRESENT: other - No swelling no tenderness Results Laboratory Results: 09/14/16 06:23 09/14/16 06:23 Impressions: Abdomen/Pelvis CT 09/11/16 00:00 IMPRESSION: 1. Small bowel dilatation with scattered air-fluid levels. There is a short segment of normal caliber distal small bowel. Partial small bowel obstruction is suspected although this still could represent ileus. 2. Ascites. No focal abscess or focal fluid collections. 3. Small bilateral pleural effusions and bibasilar atelectasis. Chest X-Ray 09/13/16 00:00 IMPRESSION: No significant interval change. No pneumothorax is seen. Other findings as noted above KUB X-Ray 09/13/16 07:00 IMPRESSION: Multiple dilated loops of bowel seen throughout the abdomen concerning for underlying ileus and/or obstruction. Postoperative changes from laparotomy. Assessment & Plan - Diagnosis (1) Colon polyps Qualifiers: Colon location: ascending Is this a current diagnosis for this admission?: YesPlan: Continues to improve. NG output has no bile tinged. It is mostly ice that she is taking. Uncertain whether she is passing gas. Will ambulate the patient today. Will likely DC NG and start clears tomorrow if she continues to improve. Continue TPN
[2016-09-15 09:06] LABS: ALANINE AMINOTRANSFERASE 19 U/L (9-52); ALBUMIN 2.9 g/dL (3.5-5.0); ALKALINE PHOSPHATASE 53 U/L (38-126); ANION GAP 12 (5-19); ASPARTATE AMINO TRANSFERASE 22 U/L (14-36); BILIRUBIN,TOTAL 0.5 mg/dL (0.2-1.3); BLOOD UREA NITROGEN 24 mg/dL (7-20); CALCIUM 8.8 mg/dL (8.4-10.2); CARBON DIOXIDE 30 mmol/L (22-30); CHLORIDE 93 mmol/L (98-107); CREATININE RESULT 4.61 mg/dL (0.52-1.25); GLUCOSE 190 mg/dL (75-110); SODIUM 134.9 mmol/L (137-145); TOTAL PROTEIN 5.4 g/dL (6.3-8.2)
--- NOTE | 2016-09-15 19:02 | PDOC PROGRESS REPORT ---
Subjective Progress Note for:: 09/15/16 Subjective:: Mrs. Hdez was seen this evening on dialysis. She continues to complain of some chronic abdominal pains. She has NG tube to suction and producing moderate amounts of bilious fluid. She denies history of fever chills. Discussions were done with the treating dialysis nurse that she is currently undergoing dialysis without any issues. Physical Exam Vital Signs: Temp Pulse Resp BP Pulse Ox 98.5 F 81 14 154/52 H 98 09/15/16 15:22 09/15/16 15:22 09/15/16 15:22 09/15/16 15:22 09/15/16 15:22 Intake & Output 09/14/16 09/15/16 09/16/16 06:59 06:59 06:59 Intake Total 2278 67 Output Total 0 0 Balance 2278 67 Weight 75.8 kg 76.2 kg General appearance: PRESENT: no acute distress Respiratory exam: PRESENT: clear to auscultation nikki, symmetrical. ABSENT: crackles, rhonchi, tachypnea Cardiovascular exam: PRESENT: +S1, +S2, systolic murmur GI/Abdominal exam: PRESENT: distended, hypoactive bowel sounds, soft, tenderness - Both the lower quadrants. Bowel sounds are hypoactive. No masses felt. ABSENT: firm, normal bowel sounds Results Laboratory Results: 09/14/16 06:23 09/15/16 07:37 09/15/16 07:37 Sodium 134.9 L Potassium 4.0 Chloride 93 L Carbon Dioxide 30 Anion Gap 12 BUN 24 H Creatinine 4.61 H Est GFR ( Amer) 11 L Est GFR (Non-Af Amer) 9 L Glucose 190 H Calcium 8.8 Total Bilirubin 0.5 AST 22 ALT 19 Alkaline Phosphatase 53 Total Protein 5.4 L Albumin 2.9 L Impressions: Abdomen/Pelvis CT 09/11/16 00:00 IMPRESSION: 1. Small bowel dilatation with scattered air-fluid levels. There is a short segment of normal caliber distal small bowel. Partial small bowel obstruction is suspected although this still could represent ileus. 2. Ascites. No focal abscess or focal fluid collections. 3. Small bilateral pleural effusions and bibasilar atelectasis. Chest X-Ray 09/13/16 00:00 IMPRESSION: No significant interval change. No pneumothorax is seen. Other findings as noted above KUB X-Ray 09/13/16 07:00 IMPRESSION: Multiple dilated loops of bowel seen throughout the abdomen concerning for underlying ileus and/or obstruction. Postoperative changes from laparotomy. Abdomen X-Ray 09/15/16 07:00 IMPRESSION: No interval change. Assessment & Plan - Diagnosis (1) Diabetes Qualifiers: Diabetes mellitus type: type 1 Diabetes mellitus complication status: with kidney complications Diabetes mellitus complication detail: with chronic kidney disease Chronic kidney disease stage: on chronic dialysis Qualified Code(s): E10.22 - Type 1 diabetes mellitus with diabetic chronic kidney disease; N18.1 - Chronic kidney disease, stage 1 Is this a current diagnosis for this admission?: Yes (2) Status post colectomy Is this a current diagnosis for this admission?: Yes (3) ESRD (end stage renal disease) on dialysis Is this a current diagnosis for this admission?: YesPlan: Is undergoing dialysis without any issues. Orders were discussed with the treating dialysis nurse. Keep even. Continue IV fluids as such. (4) Essential (primary) hypertension Is this a current diagnosis for this admission?: Yes (6) Ileus following gastrointestinal surgery Is this a current diagnosis for this admission?: Yes
[2016-09-15] MEDS: AMINO ACIDS 5%/D25W 1,000 ML IV PRN (20:58)
[2016-09-15] MEDS: LANTHANUM CARBONATE 500 MG TAB.CHEW NG SCH (21:11)
[2016-09-15] MEDS: ASPIRIN 81 MG TABLET, CHEWABLE NG SCH (21:11)
[2016-09-15] MEDS: ALLOPURINOL 100 MG TABLET NG SCH (21:11)
[2016-09-15] MEDS: FOLIC ACID/VITAMIN B COMP W-C CAPSULE NG SCH (21:11)
[2016-09-15] MEDS: CINACALCET HCL 30 MG TABLET PO SCH (21:11)
--- NOTE | 2016-09-15 21:17 | PDOC PROGRESS REPORT ---
Subjective Progress Note for:: 09/15/16 Subjective:: Patient seen earlier today on morning rounds. No acute events overnight. Patient reports she has a small amount of abdominal pain. She reports "this been a rough couple of days." Physical Exam Vital Signs: Temp Pulse Resp BP Pulse Ox 97.9 F 85 16 146/48 H 99 09/15/16 20:13 09/15/16 20:13 09/15/16 20:13 09/15/16 20:13 09/15/16 20:13 Intake & Output 09/14/16 09/15/16 09/16/16 06:59 06:59 06:59 Intake Total 2278 67 0 Output Total 0 0 Balance 2278 67 0 Weight 75.8 kg 76.2 kg Exam: General: Awake alert, no acute respiratory distress HEENT: AT/NC, PERRL, EOMI, oropharynx is moist, pink, no scleral icterus, no conjunctival injection Neck: No JVD, trachea midline Chest: Clear to auscultation bilaterally, no wheezes rhonchi or rales CV: Regular rate and rhythm, normal S1 and S2, + systolic murmur; no rub or gallop Abdomen: Distended, mildly tender to palpation, unable to appreciate bowel sounds; no rebound, rigidity Extremities: No cyanosis, clubbing or edema Neuro: Cranial nerves II through XII are grossly intact without focal deficits Psych: Normal mood and affect Results Laboratory Results: 09/14/16 06:23 09/15/16 07:37 09/15/16 07:37 Sodium 134.9 L Potassium 4.0 Chloride 93 L Carbon Dioxide 30 Anion Gap 12 BUN 24 H Creatinine 4.61 H Est GFR ( Amer) 11 L Est GFR (Non-Af Amer) 9 L Glucose 190 H Calcium 8.8 Total Bilirubin 0.5 AST 22 ALT 19 Alkaline Phosphatase 53 Total Protein 5.4 L Albumin 2.9 L Impressions: Abdomen/Pelvis CT 09/11/16 00:00 IMPRESSION: 1. Small bowel dilatation with scattered air-fluid levels. There is a short segment of normal caliber distal small bowel. Partial small bowel obstruction is suspected although this still could represent ileus. 2. Ascites. No focal abscess or focal fluid collections. 3. Small bilateral pleural effusions and bibasilar atelectasis. Chest X-Ray 09/13/16 00:00 IMPRESSION: No significant interval change. No pneumothorax is seen. Other findings as noted above KUB X-Ray 09/13/16 07:00 IMPRESSION: Multiple dilated loops of bowel seen throughout the abdomen concerning for underlying ileus and/or obstruction. Postoperative changes from laparotomy. Abdomen X-Ray 09/15/16 07:00 IMPRESSION: No interval change. Assessment & Plan - Diagnosis (1) Diabetes Qualifiers: Diabetes mellitus type: type 1 Diabetes mellitus complication status: with kidney complications Diabetes mellitus complication detail: with chronic kidney disease Chronic kidney disease stage: on chronic dialysis Qualified Code(s): E10.22 - Type 1 diabetes mellitus with diabetic chronic kidney disease; N18.1 - Chronic kidney disease, stage 1 Is this a current diagnosis for this admission?: YesPlan: Patient blood sugar improved on on Lantus 10 units subcutaneous daily at bedtime and continuing sliding scale insulin every 6. (2) On total parenteral nutrition (TPN) Is this a current diagnosis for this admission?: YesPlan: Have consulted with pharmacy and adjusted patient's TPN. Continue to monitor. Will increase patient's TPN as tolerated. (3) Ileus following gastrointestinal surgery Is this a current diagnosis for this admission?: YesPlan: Defer to surgery for management of this postoperative complication. (4) Status post colectomy Is this a current diagnosis for this admission?: Yes (5) ESRD (end stage renal disease) on dialysis Is this a current diagnosis for this admission?: YesPlan: Defer to nephrology (6) Essential (primary) hypertension Is this a current diagnosis for this admission?: Yes (7) Dementia Qualifiers: Dementia type: unspecified type Dementia behavioral disturbance: without behavioral disturbance Qualified Code(s): F03.90 - Unspecified dementia without behavioral disturbance Is this a current diagnosis for this admission?: Yes - Time Time Spent with patient: 25-34 minutes Medications reviewed and adjusted accordingly: Yes
[2016-09-15] MEDS: CLONIDINE HCL 0.2 MG TABLET NG SCH (22:56)
[2016-09-15] MEDS: ATORVASTATIN CALCIUM 40 MG TABLET NG SCH (22:56)
[2016-09-16 05:40] LABS: ABSOLUTE BASOPHILS # (AUTO) 0.1 10^3/uL (0.0-0.2); ABSOLUTE EOSINOPHILS # (AUTO) 0.2 10^3/uL (0.0-0.6); ABSOLUTE LYMPHOCYTES (AUTO) 0.9 10^3/uL (0.5-4.7); ABSOLUTE NEUT (AUTO) 4.4 10^3/uL (1.7-8.2); BASOPHILS % (AUTO) 0.9 % (0-2); EOSINOPHILS % (AUTO) 2.4 % (0-6); HEMATOCRIT 29.7 % (36.0-47.0); HEMOGLOBIN 9.7 g/dL (12.0-15.5); HGB HCT DIFFERENCE -0.6; LYMPHOCYTES % (AUTO) 14.6 % (13-45); MEAN CORPUSCULAR HEMOGLOBIN 32.7 pg (27.0-33.4); MEAN CORPUSCULAR HGB CONC 32.7 g/dL (32.0-36.0); MEAN CORPUSCULAR VOLUME 100 fl (80-97); RED BLOOD COUNT 2.96 10^6/uL (3.72-5.28); SEGMENTED NEUTROPHILS % (AUTO) 67.1 % (42-78); WHITE BLOOD COUNT 6.5 10^3/uL (4.0-10.5)
[2016-09-16] MEDS: HYDRALAZINE HCL INJ/PF 20 MG/1 ML SDV IV SCH ×3 (05:56→17:32)
[2016-09-16 05:58] LABS: ALANINE AMINOTRANSFERASE 23 U/L (9-52); ALKALINE PHOSPHATASE 58 U/L (38-126); ANION GAP 8 (5-19); ASPARTATE AMINO TRANSFERASE 23 U/L (14-36); BILIRUBIN,TOTAL 0.5 mg/dL (0.2-1.3); BLOOD UREA NITROGEN 16 mg/dL (7-20); CARBON DIOXIDE 34 mmol/L (22-30); CHLORIDE 96 mmol/L (98-107); CREATININE RESULT 3.49 mg/dL (0.52-1.25); GLUCOSE 115 mg/dL (75-110); MAGNESIUM 1.8 mg/dL (1.6-2.3); PHOSPHORUS 2.3 mg/dL (2.5-4.5); POTASSIUM 3.7 mmol/L (3.6-5.0); SODIUM 137.5 mmol/L (137-145)
--- NOTE | 2016-09-16 08:22 | PDOC PROGRESS REPORT ---
Subjective Progress Note for:: 09/16/16 Subjective:: No complaints patient is hungry. Physical Exam Vital Signs: Temp Pulse Resp BP Pulse Ox 97.6 F 84 18 157/48 H 100 09/16/16 07:46 09/16/16 07:46 09/16/16 07:46 09/16/16 07:46 09/16/16 07:46 Intake & Output 09/15/16 09/16/16 09/17/16 06:59 06:59 06:59 Intake Total 67 0 Output Total 0 1200 Balance 67 -1200 Weight 76.2 kg 83.8 kg General appearance: PRESENT: no acute distress, cooperative Respiratory exam: PRESENT: clear to auscultation nikki Cardiovascular exam: PRESENT: RRR GI/Abdominal exam: PRESENT: other - Soft, mildly distended. Bowel sounds present but decreased. Mild diffuse tenderness. No peritoneal signs. Extremities exam: PRESENT: other - No swelling and no tenderness. Results Laboratory Results: 09/16/16 05:11 09/16/16 05:11 09/15/16 09/16/16 09/16/16 07:37 05:11 05:11 WBC 6.5 RBC 2.96 L Hgb 9.7 L Hct 29.7 L MCV 100 H MCH 32.7 MCHC 32.7 RDW 15.0 H Plt Count 169 Seg Neutrophils % 67.1 Lymphocytes % 14.6 Monocytes % 15.0 H Eosinophils % 2.4 Basophils % 0.9 Absolute Neutrophils 4.4 Absolute Lymphocytes 0.9 Absolute Monocytes 1.0 Absolute Eosinophils 0.2 Absolute Basophils 0.1 Sodium 134.9 L 137.5 Potassium 4.0 3.7 Chloride 93 L 96 L Carbon Dioxide 30 34 H Anion Gap 12 8 BUN 24 H 16 Creatinine 4.61 H 3.49 H Est GFR ( Amer) 11 L 15 L Est GFR (Non-Af Amer) 9 L 13 L Glucose 190 H 115 H Calcium 8.8 9.0 Phosphorus 2.3 L Magnesium 1.8 Total Bilirubin 0.5 0.5 AST 22 23 ALT 19 23 Alkaline Phosphatase 53 58 Total Protein 5.4 L 6.0 L Albumin 2.9 L 3.0 L Impressions: Abdomen/Pelvis CT 09/11/16 00:00 IMPRESSION: 1. Small bowel dilatation with scattered air-fluid levels. There is a short segment of normal caliber distal small bowel. Partial small bowel obstruction is suspected although this still could represent ileus. 2. Ascites. No focal abscess or focal fluid collections. 3. Small bilateral pleural effusions and bibasilar atelectasis. Chest X-Ray 09/13/16 00:00 IMPRESSION: No significant interval change. No pneumothorax is seen. Other findings as noted above KUB X-Ray 09/13/16 07:00 IMPRESSION: Multiple dilated loops of bowel seen throughout the abdomen concerning for underlying ileus and/or obstruction. Postoperative changes from laparotomy. Abdomen X-Ray 09/15/16 07:00 IMPRESSION: No interval change. Assessment & Plan - Diagnosis (1) Colon polyps Qualifiers: Colon location: ascending Is this a current diagnosis for this admission?: YesPlan: Continues to improve. Uncertain whether she is passing gas. Continue ambulation attempts. Check abdominal x-ray. Try Dulcolax suppository. Continue TPN
[2016-09-16] MEDS ORDERED: BISACODYL 10 MG SUPP.RECT PR ONE (08:24)
[2016-09-16] MEDS: ASPIRIN 81 MG TABLET, CHEWABLE NG SCH (10:18)
[2016-09-16] MEDS: CINACALCET HCL 30 MG TABLET PO SCH (10:18)
[2016-09-16] MEDS: LANTHANUM CARBONATE 500 MG TAB.CHEW NG SCH ×3 (10:18→17:33)
[2016-09-16] MEDS: FOLIC ACID/VITAMIN B COMP W-C CAPSULE NG SCH (10:18)
[2016-09-16] MEDS: ALLOPURINOL 100 MG TABLET NG SCH ×2 (10:18→17:33)
[2016-09-16] MEDS: INSULIN LISPRO 100 UNIT/ML 3 ML VIAL SUBCUT PRN ×2 (13:16→17:32)
--- NOTE | 2016-09-16 16:16 | PDOC PROGRESS REPORT ---
Subjective Progress Note for:: 09/16/16 Subjective:: Patient seen earlier today on morning rounds. Patient apparently pulled out her NG tube. Surgery has permitted leaving it out. Patient reports she has a small amount of abdominal pain. Physical Exam Vital Signs: Temp Pulse Resp BP Pulse Ox 98.8 F 89 18 145/50 H 99 09/16/16 00:07 09/16/16 00:07 09/16/16 00:07 09/16/16 00:07 09/16/16 00:07 Intake & Output 09/15/16 09/16/16 09/17/16 06:59 06:59 06:59 Intake Total 67 0 Output Total 0 1200 Balance 67 -1200 Weight 76.2 kg 83.8 kg Exam: General: Awake alert, no acute respiratory distress HEENT: AT/NC, PERRL, EOMI, oropharynx is moist, pink, no scleral icterus, no conjunctival injection Neck: No JVD, trachea midline Chest: Clear to auscultation bilaterally, no wheezes rhonchi or rales CV: Regular rate and rhythm, normal S1 and S2, + systolic murmur; no rub or gallop Abdomen: Distended, tender to palpation, hypoactive bowel sounds primarily in the left upper and lower quadrant; no rebound, rigidity Extremities: No cyanosis, clubbing or edema Neuro: Cranial nerves II through XII are grossly intact without focal deficits Psych: Normal mood and affect Results Laboratory Results: 09/16/16 05:11 09/16/16 05:11 09/15/16 09/16/16 09/16/16 07:37 05:11 05:11 WBC 6.5 RBC 2.96 L Hgb 9.7 L Hct 29.7 L MCV 100 H MCH 32.7 MCHC 32.7 RDW 15.0 H Plt Count 169 Seg Neutrophils % 67.1 Lymphocytes % 14.6 Monocytes % 15.0 H Eosinophils % 2.4 Basophils % 0.9 Absolute Neutrophils 4.4 Absolute Lymphocytes 0.9 Absolute Monocytes 1.0 Absolute Eosinophils 0.2 Absolute Basophils 0.1 Sodium 134.9 L 137.5 Potassium 4.0 3.7 Chloride 93 L 96 L Carbon Dioxide 30 34 H Anion Gap 12 8 BUN 24 H 16 Creatinine 4.61 H 3.49 H Est GFR ( Amer) 11 L 15 L Est GFR (Non-Af Amer) 9 L 13 L Glucose 190 H 115 H Calcium 8.8 9.0 Phosphorus 2.3 L Magnesium 1.8 Total Bilirubin 0.5 0.5 AST 22 23 ALT 19 23 Alkaline Phosphatase 53 58 Total Protein 5.4 L 6.0 L Albumin 2.9 L 3.0 L Impressions: Abdomen/Pelvis CT 09/11/16 00:00 IMPRESSION: 1. Small bowel dilatation with scattered air-fluid levels. There is a short segment of normal caliber distal small bowel. Partial small bowel obstruction is suspected although this still could represent ileus. 2. Ascites. No focal abscess or focal fluid collections. 3. Small bilateral pleural effusions and bibasilar atelectasis. Chest X-Ray 09/13/16 00:00 IMPRESSION: No significant interval change. No pneumothorax is seen. Other findings as noted above KUB X-Ray 09/13/16 07:00 IMPRESSION: Multiple dilated loops of bowel seen throughout the abdomen concerning for underlying ileus and/or obstruction. Postoperative changes from laparotomy. Abdomen X-Ray 09/15/16 07:00 IMPRESSION: No interval change. Assessment & Plan - Diagnosis (1) Diabetes Qualifiers: Diabetes mellitus type: type 1 Diabetes mellitus complication status: with kidney complications Diabetes mellitus complication detail: with chronic kidney disease Chronic kidney disease stage: on chronic dialysis Qualified Code(s): E10.22 - Type 1 diabetes mellitus with diabetic chronic kidney disease; N18.1 - Chronic kidney disease, stage 1 Is this a current diagnosis for this admission?: YesPlan: Patient blood sugar improved on on Lantus 10 units subcutaneous daily at bedtime and continuing sliding scale insulin every 6. Patient blood sugar between 104-130 over the last 24 hours. (2) On total parenteral nutrition (TPN) Is this a current diagnosis for this admission?: YesPlan: Have consulted with pharmacy and adjusted patient's TPN. Continue to monitor. Increase patient's TPN to 63mlper hour. (3) Ileus following gastrointestinal surgery Is this a current diagnosis for this admission?: YesPlan: Defer to surgery for management of this postoperative complication. (4) Status post colectomy Is this a current diagnosis for this admission?: Yes (5) ESRD (end stage renal disease) on dialysis Is this a current diagnosis for this admission?: YesPlan: Defer to nephrology (6) Essential (primary) hypertension Is this a current diagnosis for this admission?: YesPlan: Have initiated patient on IV hydralazine. Consider clonidine patch (7) Dementia Qualifiers: Dementia type: unspecified type Dementia behavioral disturbance: without behavioral disturbance Qualified Code(s): F03.90 - Unspecified dementia without behavioral disturbance Is this a current diagnosis for this admission?: Yes - Time Time Spent with patient: 25-34 minutes Medications reviewed and adjusted accordingly: Yes
--- NOTE | 2016-09-16 18:43 | PROGRESS NOTE E ---
Progress Note NAME: RICKY RODRIGUEZ : 1935 AGE: 80Y DATE: 09/16/2016 ROOM: 421 SUBJECTIVE: The patient this afternoon is alert and appropriate and denies abdominal pain. She has been ambulating with assistance and had a small bowel movement. Her abdomen is soft and protuberant without evidence of tenderness or peritonitis. She had a KUB earlier today consistent with an ileus, and her nasogastric tube is reported to have fallen out while she was in the Radiology Department. However, she has done well throughout the day and denies nausea or vomiting, and the plan will be to leave her NG tube out and increase her activity. Physical Therapy is working with her, and she was able to ambulate approximately 30 yards earlier today. We will continue this aggressive ambulatory exercise and await return of bowel function. DICTATING PHYSICIAN: PARAM MURDOCK M.D. [id number] PHY#: [id number] ID: [id number] JOB#: [id number] ACCT: [id number] cc:LENO MURDOCK M.D. >
[2016-09-16] MEDS: AMINO ACIDS 5%/D25W 1,000 ML IV PRN (21:04)
[2016-09-16] MEDS: ATORVASTATIN CALCIUM 40 MG TABLET NG SCH (21:40)
[2016-09-16] MEDS: CLONIDINE HCL 0.2 MG TABLET NG SCH (21:40)
[2016-09-16] MEDS ORDERED: INSULIN GLARGINE,HUM.REC.ANLOG 300 UNIT/3 ML INSULN.PEN SUBCUT SCH (22:00)
[2016-09-17] MEDS: HYDRALAZINE HCL INJ/PF 20 MG/1 ML SDV IV SCH ×4 (00:34→17:16)
[2016-09-17] MEDS: INSULIN LISPRO 100 UNIT/ML 3 ML VIAL SUBCUT PRN ×3 (06:31→17:15)
[2016-09-17 09:32] LABS: ANION GAP 10 (5-19); BLOOD UREA NITROGEN 32 mg/dL (7-20); CARBON DIOXIDE 30 mmol/L (22-30); CHLORIDE 96 mmol/L (98-107); CREATININE RESULT 4.93 mg/dL (0.52-1.25); GLUCOSE 252 mg/dL (75-110); MAGNESIUM 1.9 mg/dL (1.6-2.3); PHOSPHORUS 2.3 mg/dL (2.5-4.5); POTASSIUM 4.1 mmol/L (3.6-5.0); SODIUM 135.9 mmol/L (137-145)
[2016-09-17] MEDS: ASPIRIN 81 MG TABLET, CHEWABLE NG SCH (10:23)
[2016-09-17] MEDS: FOLIC ACID/VITAMIN B COMP W-C CAPSULE NG SCH (10:23)
[2016-09-17] MEDS: LANTHANUM CARBONATE 500 MG TAB.CHEW NG SCH (10:23)
[2016-09-17] MEDS: ALLOPURINOL 100 MG TABLET NG SCH ×2 (10:23→17:15)
[2016-09-17] MEDS: CINACALCET HCL 30 MG TABLET PO SCH (10:24)
--- NOTE | 2016-09-17 11:53 | PROGRESS NOTE E ---
Progress Note NAME: RICKY RODRIGUEZ : 1935 AGE: 80Y DATE: 09/17/2016 ROOM: 421 SUBJECTIVE: The patient is status post open right hemicolectomy with a small bowel resection and anastomosis on 09/[address] Lance. The patient has continued on her hemodialysis and over the last 24 hours, has developed ileus. A KUB yesterday morning showed findings consistent with an ileus and she was placed on clear liquids. However, this morning, she continues to have abdominal distention and nasogastric tube is being passed. Her mental status seems to be baseline. OBJECTIVE: VITAL SIGNS: Her vital signs are stable and as noted, she continues hemodialysis. CHEST: Clear. ABDOMEN: Protuberant with distention and tympany, but without evidence of peritoneal irritation. Her wound is clean and healing as excepted. EXTREMITIES: Peripheral examination is remarkable for mild edema. ASSESSMENT AND PLAN: POSTOP ILEUS WITH A NEED FOR NASOGASTRIC TUBE DECOMPRESSION. Pulmonary Therapy is being requested and attempts are being made to increase ambulation of the patient. She is understanding and agreeing with the recommended course. DICTATING PHYSICIAN: PARAM MURDOCK M.D. [id number] PHY#: [id number] ID: [id number] JOB#: [id number] ACCT: [id number] cc: >
[2016-09-17] MEDS: AMINO ACIDS 5%/D25W 1,000 ML IV PRN (12:49)
[2016-09-17] MEDS ORDERED: BISACODYL 10 MG SUPP.RECT PR ONE (14:00)
--- NOTE | 2016-09-17 17:46 | PDOC PROGRESS REPORT ---
Subjective Progress Note for:: 09/17/16 Subjective:: Patient seen earlier today on morning rounds. Patient has had increased abdominal distention today. She was out of bed and ambulating with nursing assistance. Review of systems is limited by patient dementia, but she denies chest pain, shortness of breath, fever, abdominal pain, nausea. Physical Exam Vital Signs: Temp Pulse Resp BP Pulse Ox 98.0 F 80 20 147/58 H 98 09/17/16 15:32 09/17/16 15:32 09/17/16 15:32 09/17/16 15:32 09/17/16 15:32 Intake & Output 09/16/16 09/17/16 09/18/16 06:59 06:59 06:59 Intake Total 0 3496 1335 Output Total 1200 0 Balance -1200 3496 1335 Weight 83.8 kg 83.5 kg Exam: General: Awake alert, no acute respiratory distress HEENT: AT/NC, PERRL, EOMI, oropharynx is moist, pink, no scleral icterus, no conjunctival injection Neck: No JVD, trachea midline Chest: Clear to auscultation bilaterally, no wheezes rhonchi or rales CV: Regular rate and rhythm, normal S1 and S2, + systolic murmur; no rub or gallop Abdomen: Distended, tender to palpation, absent bowel sounds; no rebound, rigidity Extremities: No cyanosis, clubbing or edema Neuro: Cranial nerves II through XII are grossly intact without focal deficits Psych: Normal mood and affect Results Laboratory Results: 09/16/16 05:11 09/17/16 08:46 09/17/16 08:46 Sodium 135.9 L Potassium 4.1 Chloride 96 L Carbon Dioxide 30 Anion Gap 10 BUN 32 H Creatinine 4.93 H Est GFR ( Amer) 10 L Est GFR (Non-Af Amer) 8 L Glucose 252 H Calcium 9.0 Phosphorus 2.3 L Magnesium 1.9 Impressions: Abdomen/Pelvis CT 09/11/16 00:00 IMPRESSION: 1. Small bowel dilatation with scattered air-fluid levels. There is a short segment of normal caliber distal small bowel. Partial small bowel obstruction is suspected although this still could represent ileus. 2. Ascites. No focal abscess or focal fluid collections. 3. Small bilateral pleural effusions and bibasilar atelectasis. Chest X-Ray 09/13/16 00:00 IMPRESSION: No significant interval change. No pneumothorax is seen. Other findings as noted above Abdomen X-Ray 09/16/16 00:00 IMPRESSION: Ileus or partial small bowel obstruction. Interval removal of nasogastric tube. KUB X-Ray 09/17/16 00:00 IMPRESSION: Profound ileus, oral contrast given for CT 09/11/2016 still in the stomach and small bowel. Nasogastric tube tip and side port in the stomach Distended small bowel loops and colon in the upper half of the abdomen Assessment & Plan - Diagnosis (1) Diabetes Qualifiers: Diabetes mellitus type: type 1 Diabetes mellitus complication status: with kidney complications Diabetes mellitus complication detail: with chronic kidney disease Chronic kidney disease stage: on chronic dialysis Qualified Code(s): E10.22 - Type 1 diabetes mellitus with diabetic chronic kidney disease; N18.1 - Chronic kidney disease, stage 1 Is this a current diagnosis for this admission?: YesPlan: Patient blood sugar currently less than optimal. Will increase Lantus to 15 units subcutaneous daily at bedtime and continue sliding scale insulin with every 6 hours Accu-Cheks. (2) On total parenteral nutrition (TPN) Is this a current diagnosis for this admission?: YesPlan: Have consulted with pharmacy and adjusted patient's TPN. Continue to monitor. Increase patient's TPN to 63mlper hour. (3) Ileus following gastrointestinal surgery Is this a current diagnosis for this admission?: YesPlan: Defer to surgery for management of this postoperative complication. At this time, patient has had prolonged ileus and still has contrast in her abdomen from CT done on 09/11/16. Would encourage surgery to consider repeat CT of the abdomen. (4) Status post colectomy Is this a current diagnosis for this admission?: YesPlan: Defer to surgery for management of colectomy, diagnosis and treatment of all intra-abdominal pathology. (5) ESRD (end stage renal disease) on dialysis Is this a current diagnosis for this admission?: YesPlan: Defer to nephrology (6) Essential (primary) hypertension Is this a current diagnosis for this admission?: YesPlan: Have initiated patient on IV hydralazine. Consider clonidine patch (7) Dementia Qualifiers: Dementia type: unspecified type Dementia behavioral disturbance: without behavioral disturbance Qualified Code(s): F03.90 - Unspecified dementia without behavioral disturbance Is this a current diagnosis for this admission?: YesPlan: Supportive care (8) Obesity (BMI 30.0-34.9) Is this a current diagnosis for this admission?: Yes - Time Time Spent with patient: 25-34 minutes Medications reviewed and adjusted accordingly: Yes
[2016-09-17] MEDS: CLONIDINE HCL 0.2 MG TABLET NG SCH (21:54)
[2016-09-17] MEDS: ATORVASTATIN CALCIUM 40 MG TABLET NG SCH (21:55)
[2016-09-17] MEDS ORDERED: INSULIN GLARGINE,HUM.REC.ANLOG 300 UNIT/3 ML INSULN.PEN SUBCUT SCH (22:00)
[2016-09-18] MEDS: HYDRALAZINE HCL INJ/PF 20 MG/1 ML SDV IV SCH ×5 (00:23→23:23)
[2016-09-18] MEDS: OXYCODONE HCL IR 5 MG TABLET NG PRN ×3 (00:23→21:00)
[2016-09-18] MEDS: INSULIN LISPRO 100 UNIT/ML 3 ML VIAL SUBCUT PRN ×3 (00:58→19:38)
[2016-09-18] MEDS: AMINO ACIDS 5%/D25W 1,000 ML IV PRN ×2 (06:10→15:31)
[2016-09-18 06:31] LABS: ABSOLUTE BASOPHILS # (AUTO) 0.1 10^3/uL (0.0-0.2); ABSOLUTE EOSINOPHILS # (AUTO) 0.2 10^3/uL (0.0-0.6); ABSOLUTE LYMPHOCYTES (AUTO) 0.9 10^3/uL (0.5-4.7); ABSOLUTE MONOCYTES (AUTO) 1.1 10^3/uL (0.1-1.4); BASOPHILS % (AUTO) 1.2 % (0-2); EOSINOPHILS % (AUTO) 2.9 % (0-6); HEMATOCRIT 26.3 % (36.0-47.0); HEMOGLOBIN 8.6 g/dL (12.0-15.5); HGB HCT DIFFERENCE -0.5; LYMPHOCYTES % (AUTO) 12.6 % (13-45); MEAN CORPUSCULAR HEMOGLOBIN 32.6 pg (27.0-33.4); MEAN CORPUSCULAR HGB CONC 32.6 g/dL (32.0-36.0); MEAN CORPUSCULAR VOLUME 100 fl (80-97); MONOCYTES % (AUTO) 14.5 % (3-13); RED BLOOD COUNT 2.63 10^6/uL (3.72-5.28); RED CELL DISTRIBUTION WIDTH 14.9 % (11.5-14.0); SEGMENTED NEUTROPHILS % (AUTO) 68.8 % (42-78); WHITE BLOOD COUNT 7.3 10^3/uL (4.0-10.5)
[2016-09-18 06:43] LABS: ANION GAP 11 (5-19); BLOOD UREA NITROGEN 47 mg/dL (7-20); CALCIUM 8.8 mg/dL (8.4-10.2); CARBON DIOXIDE 26 mmol/L (22-30); CHLORIDE 95 mmol/L (98-107); CREATININE RESULT 5.35 mg/dL (0.52-1.25); GLUCOSE 247 mg/dL (75-110); PHOSPHORUS 2.4 mg/dL (2.5-4.5); SODIUM 131.5 mmol/L (137-145)
[2016-09-18] MEDS ORDERED: BISACODYL 10 MG SUPP.RECT PR ONE (08:00)
--- NOTE | 2016-09-18 08:41 | PDOC PROGRESS REPORT ---
Subjective Progress Note for:: 09/18/16 Subjective:: tired. no complaints Physical Exam Vital Signs: Temp Pulse Resp BP Pulse Ox 98.3 F 79 12 145/46 H 100 09/18/16 07:37 09/18/16 07:37 09/18/16 07:37 09/18/16 07:37 09/18/16 07:37 Intake & Output 09/17/16 09/18/16 09/19/16 06:59 06:59 06:59 Intake Total 3496 2113 Output Total 0 250 Balance 3496 1863 Weight 83.5 kg 83.9 kg General appearance: PRESENT: no acute distress, cooperative Respiratory exam: PRESENT: clear to auscultation nikki Cardiovascular exam: PRESENT: RRR GI/Abdominal exam: PRESENT: other - soft, moderately distended, decreased bowel sounds. minimal tenderness, c/d/i Extremities exam: PRESENT: other - no swelling, no tenderness Results Laboratory Results: 09/18/16 05:45 09/18/16 05:45 09/17/16 09/18/16 09/18/16 08:46 05:45 05:45 WBC 7.3 RBC 2.63 L Hgb 8.6 L Hct 26.3 L MCV 100 H MCH 32.6 MCHC 32.6 RDW 14.9 H Plt Count 194 Seg Neutrophils % 68.8 Lymphocytes % 12.6 L Monocytes % 14.5 H Eosinophils % 2.9 Basophils % 1.2 Absolute Neutrophils 5.0 Absolute Lymphocytes 0.9 Absolute Monocytes 1.1 Absolute Eosinophils 0.2 Absolute Basophils 0.1 Sodium 135.9 L 131.5 L Potassium 4.1 5.0 Chloride 96 L 95 L Carbon Dioxide 30 26 Anion Gap 10 11 BUN 32 H 47 H Creatinine 4.93 H 5.35 H Est GFR ( Amer) 10 L 9 L Est GFR (Non-Af Amer) 8 L 8 L Glucose 252 H 247 H Calcium 9.0 8.8 Phosphorus 2.3 L 2.4 L Magnesium 1.9 2.0 Impressions: Abdomen/Pelvis CT 09/11/16 00:00 IMPRESSION: 1. Small bowel dilatation with scattered air-fluid levels. There is a short segment of normal caliber distal small bowel. Partial small bowel obstruction is suspected although this still could represent ileus. 2. Ascites. No focal abscess or focal fluid collections. 3. Small bilateral pleural effusions and bibasilar atelectasis. Chest X-Ray 09/13/16 00:00 IMPRESSION: No significant interval change. No pneumothorax is seen. Other findings as noted above Abdomen X-Ray 09/16/16 00:00 IMPRESSION: Ileus or partial small bowel obstruction. Interval removal of nasogastric tube. KUB X-Ray 09/17/16 00:00 IMPRESSION: Profound ileus, oral contrast given for CT 09/11/2016 still in the stomach and small bowel. Nasogastric tube tip and side port in the stomach Distended small bowel loops and colon in the upper half of the abdomen Assessment & Plan - Diagnosis (1) Colon polyps Qualifiers: Colon location: ascending Is this a current diagnosis for this admission?: YesPlan: cont ileus. cont to try to ambulate pt as much as possible. check abdomen/ pelvic CT. cont tpn.
[2016-09-18] MEDS ORDERED: EPOETIN ALFA INJ 20000 UNIT/1 ML VIAL (RENAL) IV PRN (10:37)
[2016-09-18] MEDS: FAT EMULSIONS 250 ML IV SCH (10:41)
--- NOTE | 2016-09-18 12:44 | PDOC PROGRESS REPORT ---
Subjective Progress Note for:: 09/18/16 Subjective:: She was seen on dialysis today. She is undergoing dialysis without any issues. She is currently on TPN. She seems to be tolerating that. She is on NG tube to suction and producing relatively copious amounts of bilious fluid. She is bedridden. She looks debilitated. She says she does pass some gas. No abdominal pains with severe. No history of fever or chills. Physical Exam Vital Signs: Temp Pulse Resp BP Pulse Ox 98.3 F 79 12 145/46 H 100 09/18/16 07:37 09/18/16 07:37 09/18/16 07:37 09/18/16 07:37 09/18/16 07:37 Intake & Output 09/17/16 09/18/16 09/19/16 06:59 06:59 06:59 Intake Total 3496 2113 Output Total 0 250 Balance 3496 1863 Weight 83.5 kg 83.9 kg General appearance: PRESENT: no acute distress Respiratory exam: PRESENT: clear to auscultation nikki, symmetrical. ABSENT: crackles, stridor Cardiovascular exam: PRESENT: +S1, +S2, systolic murmur GI/Abdominal exam: PRESENT: distended, hypoactive bowel sounds, soft, tenderness - Both the lower quadrants. Bowel sounds are hypoactive. No masses felt. ABSENT: firm, normal bowel sounds Extremities exam: ABSENT: pedal edema Skin exam: PRESENT: dry. ABSENT: erythema, mottled, rash Results Laboratory Results: 09/18/16 05:45 09/18/16 05:45 09/18/16 09/18/16 05:45 05:45 WBC 7.3 RBC 2.63 L Hgb 8.6 L Hct 26.3 L MCV 100 H MCH 32.6 MCHC 32.6 RDW 14.9 H Plt Count 194 Seg Neutrophils % 68.8 Lymphocytes % 12.6 L Monocytes % 14.5 H Eosinophils % 2.9 Basophils % 1.2 Absolute Neutrophils 5.0 Absolute Lymphocytes 0.9 Absolute Monocytes 1.1 Absolute Eosinophils 0.2 Absolute Basophils 0.1 Sodium 131.5 L Potassium 5.0 Chloride 95 L Carbon Dioxide 26 Anion Gap 11 BUN 47 H Creatinine 5.35 H Est GFR ( Amer) 9 L Est GFR (Non-Af Amer) 8 L Glucose 247 H Calcium 8.8 Phosphorus 2.4 L Magnesium 2.0 Impressions: Abdomen/Pelvis CT 09/11/16 00:00 IMPRESSION: 1. Small bowel dilatation with scattered air-fluid levels. There is a short segment of normal caliber distal small bowel. Partial small bowel obstruction is suspected although this still could represent ileus. 2. Ascites. No focal abscess or focal fluid collections. 3. Small bilateral pleural effusions and bibasilar atelectasis. Chest X-Ray 09/13/16 00:00 IMPRESSION: No significant interval change. No pneumothorax is seen. Other findings as noted above Abdomen X-Ray 09/16/16 00:00 IMPRESSION: Ileus or partial small bowel obstruction. Interval removal of nasogastric tube. KUB X-Ray 09/17/16 00:00 IMPRESSION: Profound ileus, oral contrast given for CT 09/11/2016 still in the stomach and small bowel. Nasogastric tube tip and side port in the stomach Distended small bowel loops and colon in the upper half of the abdomen Assessment & Plan - Diagnosis (1) Diabetes Qualifiers: Diabetes mellitus type: type 1 Diabetes mellitus complication status: with kidney complications Diabetes mellitus complication detail: with chronic kidney disease Chronic kidney disease stage: on chronic dialysis Qualified Code(s): E10.22 - Type 1 diabetes mellitus with diabetic chronic kidney disease; N18.1 - Chronic kidney disease, stage 1 Is this a current diagnosis for this admission?: Yes (2) Status post colectomy Is this a current diagnosis for this admission?: YesPlan: As per surgery (3) ESRD (end stage renal disease) on dialysis Is this a current diagnosis for this admission?: YesPlan: Is undergoing dialysis without any issues. Orders were discussed with the treating dialysis nurse. Keep even. Continue On TPN. Potassium needs to be adjusted.. (4) Essential (primary) hypertension Is this a current diagnosis for this admission?: Yes (5) Confusion and disorientation Plan: Improving. (6) Ileus following gastrointestinal surgery Is this a current diagnosis for this admission?: Yes (7) Hyperkalemia Plan: Needs appropriate correction in her TPN. Meanwhile will put on appropriate baths to fix on dialysis.
[2016-09-18] MEDS: ASPIRIN 81 MG TABLET, CHEWABLE NG SCH (14:34)
[2016-09-18] MEDS: ALLOPURINOL 100 MG TABLET NG SCH ×2 (14:43→19:37)
[2016-09-18] MEDS: FOLIC ACID/VITAMIN B COMP W-C CAPSULE NG SCH (14:43)
[2016-09-18] MEDS: CINACALCET HCL 30 MG TABLET PO SCH (14:43)
[2016-09-18] MEDS: ATORVASTATIN CALCIUM 40 MG TABLET NG SCH (21:02)
[2016-09-18] MEDS: CLONIDINE HCL 0.2 MG TABLET NG SCH (21:02)
[2016-09-18] MEDS ORDERED: INSULIN GLARGINE,HUM.REC.ANLOG 300 UNIT/3 ML INSULN.PEN SUBCUT SCH (22:00)
--- NOTE | 2016-09-18 22:32 | PDOC PROGRESS REPORT ---
Subjective Progress Note for:: 09/18/16 Subjective:: Patient seen earlier today on morning rounds. Patient seen in dialysis. She appears to be quite lethargic, but denies abdominal pain, shortness of breath, chest pain. She reports she is passing some air. Physical Exam Vital Signs: Temp Pulse Resp BP Pulse Ox 98.2 F 80 20 158/47 H 100 09/18/16 20:03 09/18/16 20:03 09/18/16 20:03 09/18/16 20:03 09/18/16 20:03 Intake & Output 09/17/16 09/18/16 09/19/16 06:59 06:59 06:59 Intake Total 3496 2113 111 Output Total 0 250 Balance 3496 1863 111 Weight 83.5 kg 83.9 kg Exam: General: Awake alert, no acute respiratory distress HEENT: AT/NC, PERRL, EOMI, oropharynx is moist, pink, no scleral icterus, no conjunctival injection Neck: + JVD, trachea midline Chest: Diminished bilateral bases, Rales bilaterally CV: Regular rate and rhythm, normal S1 and S2, + systolic murmur; no rub or gallop Abdomen: Distended, tender to palpation, hypoactive bowel sounds primary left lower quadrant; no rebound, rigidity Extremities: No cyanosis, clubbing; anasarca Neuro: Cranial nerves II through XII are grossly intact without focal deficits Psych: Normal mood and affect Results Laboratory Results: 09/18/16 05:45 09/18/16 05:45 09/18/16 09/18/16 05:45 05:45 WBC 7.3 RBC 2.63 L Hgb 8.6 L Hct 26.3 L MCV 100 H MCH 32.6 MCHC 32.6 RDW 14.9 H Plt Count 194 Seg Neutrophils % 68.8 Lymphocytes % 12.6 L Monocytes % 14.5 H Eosinophils % 2.9 Basophils % 1.2 Absolute Neutrophils 5.0 Absolute Lymphocytes 0.9 Absolute Monocytes 1.1 Absolute Eosinophils 0.2 Absolute Basophils 0.1 Sodium 131.5 L Potassium 5.0 Chloride 95 L Carbon Dioxide 26 Anion Gap 11 BUN 47 H Creatinine 5.35 H Est GFR ( Amer) 9 L Est GFR (Non-Af Amer) 8 L Glucose 247 H Calcium 8.8 Phosphorus 2.4 L Magnesium 2.0 Impressions: Chest X-Ray 09/13/16 00:00 IMPRESSION: No significant interval change. No pneumothorax is seen. Other findings as noted above Abdomen X-Ray 09/16/16 00:00 IMPRESSION: Ileus or partial small bowel obstruction. Interval removal of nasogastric tube. KUB X-Ray 09/17/16 00:00 IMPRESSION: Profound ileus, oral contrast given for CT 09/11/2016 still in the stomach and small bowel. Nasogastric tube tip and side port in the stomach Distended small bowel loops and colon in the upper half of the abdomen Abdomen/Pelvis CT 09/18/16 00:00 IMPRESSION: Multiple air fluid and contrast distended small bowel loops are again identified which again could be related to a diffuse ileus however I cannot exclude underlying obstruction. Intra- abdominal and pelvic ascitic fluid is again identified. Interval increase in size of the bilateral pleural effusions left greater than right. Other findings as noted above Assessment & Plan - Diagnosis (1) Diabetes Qualifiers: Diabetes mellitus type: type 1 Diabetes mellitus complication status: with kidney complications Diabetes mellitus complication detail: with chronic kidney disease Chronic kidney disease stage: on chronic dialysis Qualified Code(s): E10.22 - Type 1 diabetes mellitus with diabetic chronic kidney disease; N18.1 - Chronic kidney disease, stage 1 Is this a current diagnosis for this admission?: YesPlan: Patient blood sugar currently less than optimal. Will increase Lantus to 18 units subcutaneous daily at bedtime and continue sliding scale insulin with every 6 hours Accu-Cheks. (2) On total parenteral nutrition (TPN) Is this a current diagnosis for this admission?: YesPlan: TPN adjusted today by nephrology. Appreciate their input. (3) Ileus following gastrointestinal surgery Is this a current diagnosis for this admission?: YesPlan: Defer to surgery for management of this postoperative complication. At this time, patient has had prolonged ileus and still has contrast in her abdomen from CT done on 09/11/16. Would encourage surgery to consider repeat CT of the abdomen. (4) Status post colectomy Is this a current diagnosis for this admission?: Yes (5) ESRD (end stage renal disease) on dialysis Is this a current diagnosis for this admission?: YesPlan: Defer to nephrology (6) Essential (primary) hypertension Is this a current diagnosis for this admission?: YesPlan: Have initiated patient on IV hydralazine. NG clonidine (7) Dementia Qualifiers: Dementia type: unspecified type Dementia behavioral disturbance: without behavioral disturbance Qualified Code(s): F03.90 - Unspecified dementia without behavioral disturbance Is this a current diagnosis for this admission?: Yes (8) Obesity (BMI 30.0-34.9) Is this a current diagnosis for this admission?: Yes
[2016-09-19] MEDS: INSULIN LISPRO 100 UNIT/ML 3 ML VIAL SUBCUT PRN ×3 (01:43→17:44)
[2016-09-19 05:32] LABS: ABSOLUTE BASOPHILS # (AUTO) 0.1 10^3/uL (0.0-0.2); ABSOLUTE EOSINOPHILS # (AUTO) 0.3 10^3/uL (0.0-0.6); ABSOLUTE MONOCYTES (AUTO) 1.1 10^3/uL (0.1-1.4); ABSOLUTE NEUT (AUTO) 4.8 10^3/uL (1.7-8.2); BASOPHILS % (AUTO) 0.9 % (0-2); EOSINOPHILS % (AUTO) 4.1 % (0-6); HEMATOCRIT 24.5 % (36.0-47.0); HEMOGLOBIN 8.3 g/dL (12.0-15.5); HGB HCT DIFFERENCE 0.4; LYMPHOCYTES % (AUTO) 13.6 % (13-45); MEAN CORPUSCULAR HEMOGLOBIN 33.3 pg (27.0-33.4); MEAN CORPUSCULAR HGB CONC 33.7 g/dL (32.0-36.0); MEAN CORPUSCULAR VOLUME 99 fl (80-97); MONOCYTES % (AUTO) 14.6 % (3-13); RED BLOOD COUNT 2.48 10^6/uL (3.72-5.28); RED CELL DISTRIBUTION WIDTH 14.7 % (11.5-14.0); SEGMENTED NEUTROPHILS % (AUTO) 66.8 % (42-78); WHITE BLOOD COUNT 7.2 10^3/uL (4.0-10.5)
[2016-09-19] MEDS: HYDRALAZINE HCL INJ/PF 20 MG/1 ML SDV IV SCH ×4 (05:42→23:04)
[2016-09-19 05:52] LABS: ANION GAP 8 (5-19); BLOOD UREA NITROGEN 33 mg/dL (7-20); CALCIUM 8.8 mg/dL (8.4-10.2); CARBON DIOXIDE 31 mmol/L (22-30); CHLORIDE 92 mmol/L (98-107); CREATININE RESULT 4.26 mg/dL (0.52-1.25); GLUCOSE 251 mg/dL (75-110); MAGNESIUM 1.8 mg/dL (1.6-2.3); PHOSPHORUS 2.4 mg/dL (2.5-4.5); POTASSIUM 4.3 mmol/L (3.6-5.0); SODIUM 131.4 mmol/L (137-145)
[2016-09-19] MEDS ORDERED: SUCCINYLCHOLINE CHLORIDE INJ 200 MG/10 ML VIAL ONE (07:33)
[2016-09-19] MEDS ORDERED: ROCURONIUM BROMIDE INJ 50 MG/5 ML VIAL IV ONE (07:33)
--- NOTE | 2016-09-19 08:50 | PDOC PROGRESS REPORT ---
Subjective Progress Note for:: 09/19/16 Subjective:: Patient has not had documented bowel movement past 3 days. She has not had flatus. She denies pain. Patient denies fever, chills, headache, new focal weakness, chest pain, shortness of breath, abdominal pain, nausea, vomiting. Physical Exam Vital Signs: Temp Pulse Resp BP Pulse Ox 98.0 F 81 16 150/42 H 99 09/19/16 08:07 09/19/16 08:07 09/19/16 08:07 09/19/16 08:07 09/19/16 08:07 Intake & Output 09/18/16 09/19/16 09/20/16 06:59 06:59 06:59 Intake Total 2113 1413 Output Total 250 600 Balance 1863 813 Weight 83.9 kg 87.9 kg GENERAL: No acute distress HEENT: Conjunctiva clear, nonicteric, moist mucous membranes, no JVD, midline trachea. NG tube in place left nares RESPIRATORY: Clear to auscultation bilaterally, no wheezes, no rhonchi CARDIAC: Regular rate and rhythm, no murmurs/gallops/rubs ABDOMEN: Soft, distended, mild tenderness, vicente intact midline incision without signs of infection, positive bowel sounds, no rebound, no guarding EXTREMETIES: No edema, cyanosis, clubbing NEUROLOGIC: Alert, oriented to person, CN's grossly intact, no focal deficits SKIN: No rash, wounds PSYCH: Normal mood, normal affect Results Laboratory Results: 09/19/16 04:52 09/19/16 04:52 09/19/16 09/19/16 04:52 04:52 WBC 7.2 RBC 2.48 L Hgb 8.3 L Hct 24.5 L MCV 99 H MCH 33.3 MCHC 33.7 RDW 14.7 H Plt Count 188 Seg Neutrophils % 66.8 Lymphocytes % 13.6 Monocytes % 14.6 H Eosinophils % 4.1 Basophils % 0.9 Absolute Neutrophils 4.8 Absolute Lymphocytes 1.0 Absolute Monocytes 1.1 Absolute Eosinophils 0.3 Absolute Basophils 0.1 Sodium 131.4 L Potassium 4.3 Chloride 92 L Carbon Dioxide 31 H Anion Gap 8 BUN 33 H Creatinine 4.26 H Est GFR ( Amer) 12 L Est GFR (Non-Af Amer) 10 L Glucose 251 H Calcium 8.8 Phosphorus 2.4 L Magnesium 1.8 Impressions: Chest X-Ray 09/13/16 00:00 IMPRESSION: No significant interval change. No pneumothorax is seen. Other findings as noted above Abdomen X-Ray 09/16/16 00:00 IMPRESSION: Ileus or partial small bowel obstruction. Interval removal of nasogastric tube. KUB X-Ray 09/17/16 00:00 IMPRESSION: Profound ileus, oral contrast given for CT 09/11/2016 still in the stomach and small bowel. Nasogastric tube tip and side port in the stomach Distended small bowel loops and colon in the upper half of the abdomen Abdomen/Pelvis CT 09/18/16 00:00 IMPRESSION: Multiple air fluid and contrast distended small bowel loops are again identified which again could be related to a diffuse ileus however I cannot exclude underlying obstruction. Intra- abdominal and pelvic ascitic fluid is again identified. Interval increase in size of the bilateral pleural effusions left greater than right. Other findings as noted above Assessment & Plan - Diagnosis (1) Status post colectomy Is this a current diagnosis for this admission?: YesPlan: Surgery managing. Patient with continued postoperative ileus. Patient remains on TPN at this time. (2) Diabetes Qualifiers: Diabetes mellitus type: type 1 Diabetes mellitus complication status: with kidney complications Diabetes mellitus complication detail: with chronic kidney disease Chronic kidney disease stage: on chronic dialysis Qualified Code(s): E10.22 - Type 1 diabetes mellitus with diabetic chronic kidney disease; N18.1 - Chronic kidney disease, stage 1 Is this a current diagnosis for this admission?: YesPlan: Increase Lantus to 25 units nightly. Continue sliding scale insulin. (3) ESRD (end stage renal disease) on dialysis Is this a current diagnosis for this admission?: YesPlan: Dr. Saravia of nephrology for management. Patient is on hemodialysis. (4) Essential (primary) hypertension Is this a current diagnosis for this admission?: YesPlan: Given patient's ileus I would like to discontinue enteral clonidine. Start Catapres 0.1 mg patch. Continue when necessary IV hydralazine. (5) Dementia Qualifiers: Dementia type: unspecified type Dementia behavioral disturbance: without behavioral disturbance Qualified Code(s): F03.90 - Unspecified dementia without behavioral disturbance Is this a current diagnosis for this admission?: Yes (6) Ileus following gastrointestinal surgery Is this a current diagnosis for this admission?: YesPlan: CT of abdomen and pelvis done on 09/18/2016 shows persistent ileus versus obstruction. I will defer management to surgery. - Time Time Spent with patient: 35 or more minutes
[2016-09-19] MEDS: AMINO ACIDS 5%/D25W 1,000 ML IV PRN (10:38)
--- NOTE | 2016-09-19 11:27 | PDOC PROGRESS REPORT ---
Subjective Progress Note for:: 09/19/16 Subjective:: no complaints Physical Exam Vital Signs: Temp Pulse Resp BP Pulse Ox 98.0 F 81 16 150/42 H 99 09/19/16 08:07 09/19/16 08:07 09/19/16 08:07 09/19/16 08:07 09/19/16 08:07 Intake & Output 09/18/16 09/19/16 09/20/16 06:59 06:59 06:59 Intake Total 2113 1413 Output Total 250 600 Balance 1863 813 Weight 83.9 kg 87.9 kg General appearance: PRESENT: no acute distress, cooperative Respiratory exam: PRESENT: clear to auscultation nikki Cardiovascular exam: PRESENT: RRR GI/Abdominal exam: PRESENT: other - distended, soft, minimal tenderness, c/d/i, decreased bs. Results Laboratory Results: 09/19/16 04:52 09/19/16 04:52 09/19/16 09/19/16 04:52 04:52 WBC 7.2 RBC 2.48 L Hgb 8.3 L Hct 24.5 L MCV 99 H MCH 33.3 MCHC 33.7 RDW 14.7 H Plt Count 188 Seg Neutrophils % 66.8 Lymphocytes % 13.6 Monocytes % 14.6 H Eosinophils % 4.1 Basophils % 0.9 Absolute Neutrophils 4.8 Absolute Lymphocytes 1.0 Absolute Monocytes 1.1 Absolute Eosinophils 0.3 Absolute Basophils 0.1 Sodium 131.4 L Potassium 4.3 Chloride 92 L Carbon Dioxide 31 H Anion Gap 8 BUN 33 H Creatinine 4.26 H Est GFR ( Amer) 12 L Est GFR (Non-Af Amer) 10 L Glucose 251 H Calcium 8.8 Phosphorus 2.4 L Magnesium 1.8 Impressions: Chest X-Ray 09/13/16 00:00 IMPRESSION: No significant interval change. No pneumothorax is seen. Other findings as noted above KUB X-Ray 09/17/16 00:00 IMPRESSION: Profound ileus, oral contrast given for CT 09/11/2016 still in the stomach and small bowel. Nasogastric tube tip and side port in the stomach Distended small bowel loops and colon in the upper half of the abdomen Abdomen/Pelvis CT 09/18/16 00:00 IMPRESSION: Multiple air fluid and contrast distended small bowel loops are again identified which again could be related to a diffuse ileus however I cannot exclude underlying obstruction. Intra- abdominal and pelvic ascitic fluid is again identified. Interval increase in size of the bilateral pleural effusions left greater than right. Other findings as noted above Abdomen X-Ray 09/19/16 00:00 IMPRESSION: Ileus or partial small bowel obstruction status post NG tube removal. Assessment & Plan - Diagnosis (1) Colon polyps Qualifiers: Colon location: ascending Is this a current diagnosis for this admission?: YesPlan: Status post right hemicolectomy couple weeks ago. Patient with persistent ileus versus obstruction. I have reviewed the CT scan with the radiologist the today and she feels that the there is a transition point in the patient's pelvis with distended small bowel proximally and decompressed small bowel distally from this transition point consistent with the small bowel obstruction. Patient's NG output is more bilious today. With her failure to make any progress in the last couple weeks and the current CT scan findings, I feel strongly that then exploratory laparotomy is indicated. I have discussed with the patient as well as the son the risk and benefits of the procedure including risk of mistaken diagnosis (that she only has an ileus and not of bowel obstruction), bowel injury, bleeding, cardiopulmonary risks and poor healing. They both agree to proceed.
[2016-09-19] MEDS: ALLOPURINOL 100 MG TABLET NG SCH ×2 (12:00→17:44)
[2016-09-19] MEDS: CINACALCET HCL 30 MG TABLET PO SCH (12:01)
[2016-09-19] MEDS: CLONIDINE 0.1 MG/24 HR PATCH.TDWK TD SCH (12:02)
[2016-09-19] MEDS: FOLIC ACID/VITAMIN B COMP W-C CAPSULE NG SCH (12:11)
[2016-09-19] MEDS: ASPIRIN 81 MG TABLET, CHEWABLE NG SCH (12:14)
[2016-09-19] MEDS ORDERED: BUPIVACAINE HCL 0.25 % INJ/PF (2.5 MG/1 ML) 30 ML VIAL ONE (18:07)
[2016-09-19] MEDS: ONDANSETRON HCL INJ/PF 4 MG/2 ML SDV IV PRN (21:19)
[2016-09-19] MEDS: ATORVASTATIN CALCIUM 40 MG TABLET NG SCH (21:33)
[2016-09-19] MEDS ORDERED: INSULIN GLARGINE,HUM.REC.ANLOG 300 UNIT/3 ML INSULN.PEN SUBCUT SCH (22:00)
[2016-09-19] MEDS ORDERED: HYDROMORPHONE HCL INJ/PF 2 MG/ML AMPULE ONE (23:18)
[2016-09-19] MEDS ORDERED: MIDAZOLAM 2 MG/2 ML INJ ONE (23:19)
[2016-09-19] MEDS ORDERED: FENTANYL CITRATE INJ/PF 100 MCG/2 ML AMPUL ONE (23:19)
[2016-09-19] MEDS ORDERED: KETAMINE HCL INJ 500 MG/10 ML VIAL ONE (23:20)
[2016-09-19] MEDS ORDERED: PROPOFOL INJ 200 MG/20 ML VIAL IV ONE (23:20)
[2016-09-19] MEDS ORDERED: ACETAMINOPHEN 100 ML IV ONE (23:20)
[2016-09-20] MEDS ORDERED: CEFAZOLIN INJ 1 GM VIAL ONE (00:10)
[2016-09-20] MEDS ORDERED: BUPIVACAINE HCL 0.25 % INJ/PF (2.5 MG/1 ML) 30 ML VIAL ONE (01:45)
--- NOTE | 2016-09-20 02:08 | Operative Report ---
Operative Report DATE OF SURGERY: 09/20/16 PREOPERATIVE DIAGNOSIS: Small bowel obstruction POSTOPERATIVE DIAGNOSIS: Small bowel obstruction OPERATION: Exploratory laparotomy with lysis of adhesions with small bowel decompression SURGEON: KRISSY FERNANDES 1ST VACCINE SPECIALIST: none ANESTHESIA: GA TISSUE REMOVED OR ALTERED: None COMPLICATIONS: None ESTIMATED BLOOD LOSS: 100 mL INTRAOPERATIVE FINDINGS: Markedly dilated loops of small bowel with transition point in the mid ileum with kink that was adhesed. Multiple small bowel adhesions. Intact ileocolic anastomosis. PROCEDURE: Informed consent was obtained. Patient was brought to the operating room placed on the operating room table in the supine position. After satisfactory induction of general anesthesia patient's abdomen was prepped and draped in usual sterile fashion. Her vicente were removed and her wound was the gently pried apart. Her fascial sutures were cut and the fascia was gently pulled apart and the peritoneal cavity was entered. There was copious amounts of serosanguineous fluid in the peritoneal cavity. The small bowel was markedly distended. Multiple filmy adhesions were noted between small bowel loops. The abdominal incision had to be a widened by extending the incision toward the pubis in order to obtain adequate the exposure for the exploration. With mostly blunt dissection the small bowel was the freed and the completely eviscerated. The ligament of Treitz was identified and the small bowel was run from the ligament of Treitz toward the ileocolic anastomosis. At the distal ileum there was a distinct transition point with a completely decompressed distal small bowel and markedly dilated proximal bowel this point was caused by a kink in the bowel with adhesions around it. Once the adhesions were lysed the obstruction was relieved there was a fairly dense omental adhesions to the ileocolic anastomotic region these the adhesions were dissected away taking great care to avoid injury to the anastomosis the anastomosis was visualized and appeared intact with no evidence of leak. The operative field was copiously irrigated and irrigant aspirated out. Irrigation fluid was perfectly clear at the end of the case. Of note the bowel was too distended to be returned back into the peritoneal cavity therefore the small bowel had to be decompressed. A enterotomy was made in the proximal jejunum and healthy appearing small bowel. Through this enterotomy the small bowel was decompressed the enterotomy was closed with a TA stapling device. There was no enteric spillage during the case. After decompression the small bowel was able to be returned back into the peritoneal cavity and fascial closure was done with running PDS suture. Marcaine was injected at the operative site. Skin was closed with vicente. Patient was taken to the intensive care unit in the stable condition.
[2016-09-20] MEDS ORDERED: PROPOFOL 100 ML IV ONE (02:56)
[2016-09-20] MEDS: DEXTROSE 5%-1/2 NORMAL SALINE 1,000 ML IV PRN ×3 (04:04→22:31)
[2016-09-20] MEDS: HYDRALAZINE HCL INJ/PF 20 MG/1 ML SDV IV SCH ×3 (06:18→18:17)
[2016-09-20 06:37] LABS: ABSOLUTE BASOPHILS # (AUTO) 0.1 10^3/uL (0.0-0.2); ABSOLUTE LYMPHOCYTES (AUTO) 0.6 10^3/uL (0.5-4.7); BASOPHILS % (AUTO) 0.5 % (0-2); EOSINOPHILS % (AUTO) 0.2 % (0-6); HEMATOCRIT 22.9 % (36.0-47.0); HGB HCT DIFFERENCE -0.1; LYMPHOCYTES % (AUTO) 5.2 % (13-45); MEAN CORPUSCULAR HEMOGLOBIN 33.2 pg (27.0-33.4); MEAN CORPUSCULAR HGB CONC 33.3 g/dL (32.0-36.0); MEAN CORPUSCULAR VOLUME 100 fl (80-97); MONOCYTES % (AUTO) 9.6 % (3-13); RED BLOOD COUNT 2.29 10^6/uL (3.72-5.28); RED CELL DISTRIBUTION WIDTH 14.7 % (11.5-14.0); SEGMENTED NEUTROPHILS % (AUTO) 84.5 % (42-78); WHITE BLOOD COUNT 10.7 10^3/uL (4.0-10.5)
[2016-09-20 06:39] LABS: HEMOGLOBIN 7.6 g/dL (12.0-15.5)
[2016-09-20 06:55] LABS: ANION GAP 10 (5-19); BLOOD UREA NITROGEN 25 mg/dL (7-20); CALCIUM 8.1 mg/dL (8.4-10.2); CARBON DIOXIDE 26 mmol/L (22-30); CHLORIDE 98 mmol/L (98-107); CREATININE RESULT 3.27 mg/dL (0.52-1.25); GLUCOSE 357 mg/dL (75-110); MAGNESIUM 1.6 mg/dL (1.6-2.3); PHOSPHORUS 2.4 mg/dL (2.5-4.5); POTASSIUM 3.8 mmol/L (3.6-5.0); SODIUM 134.1 mmol/L (137-145)
[2016-09-20] MEDS ORDERED: NORMAL SALINE 250 ML IV PRN ×2 (07:44)
[2016-09-20] MEDS: PROPOFOL 100 ML IV PRN ×3 (08:05→18:17)
[2016-09-20] MEDS: AMINO ACIDS 5%/D25W 1,000 ML IV PRN (08:07)
[2016-09-20 09:12] LABS: ARTERIAL BLOOD BASE EXCESS 4.8 mmol/L; ARTERIAL BLOOD O2 SATURATION 99.4 % (94-98)
--- NOTE | 2016-09-20 10:12 | PDOC PROGRESS REPORT ---
Subjective Progress Note for:: 09/20/16 Subjective:: intubated and sedated Physical Exam Vital Signs: Temp Pulse Resp BP Pulse Ox 98.3 F 68 11 L 97/75 L 100 09/20/16 09:50 09/20/16 09:50 09/20/16 09:50 09/20/16 09:50 09/20/16 08:00 Intake & Output 09/19/16 09/20/16 09/21/16 06:59 06:59 06:59 Intake Total 1413 2550 300 Output Total 600 1500 Balance 813 1050 300 Weight 87.9 kg 84 kg General appearance: PRESENT: no acute distress Respiratory exam: PRESENT: clear to auscultation nikki Cardiovascular exam: PRESENT: RRR GI/Abdominal exam: PRESENT: other - distended but soft Results Laboratory Results: 09/20/16 06:00 09/20/16 06:00 09/19/16 09/20/16 09/20/16 13:25 06:00 06:00 WBC 10.7 H RBC 2.29 L Hgb 7.6 L Hct 22.9 L MCV 100 H MCH 33.2 MCHC 33.3 RDW 14.7 H Plt Count 203 Seg Neutrophils % 84.5 H Lymphocytes % 5.2 L Monocytes % 9.6 Eosinophils % 0.2 Basophils % 0.5 Absolute Neutrophils 9.0 H Absolute Lymphocytes 0.6 Absolute Monocytes 1.0 Absolute Eosinophils 0.0 Absolute Basophils 0.1 Carbonic Acid HCO3/H2CO3 Ratio ABG pH ABG pCO2 ABG pO2 ABG HCO3 ABG O2 Saturation ABG Base Excess FiO2 Sodium 134.1 L Potassium 3.8 Chloride 98 Carbon Dioxide 26 Anion Gap 10 BUN 25 H Creatinine 3.27 H Est GFR ( Amer) 16 L Est GFR (Non-Af Amer) 14 L Glucose 357 H Calcium 8.1 L Phosphorus 2.4 L Magnesium 1.6 Blood Type AB POSITIVE Antibody Screen NEGATIVE 09/20/16 08:55 WBC RBC Hgb Hct MCV MCH MCHC RDW Plt Count Seg Neutrophils % Lymphocytes % Monocytes % Eosinophils % Basophils % Absolute Neutrophils Absolute Lymphocytes Absolute Monocytes Absolute Eosinophils Absolute Basophils Carbonic Acid 1.37 H HCO3/H2CO3 Ratio 21:1 ABG pH 7.43 ABG pCO2 45.6 H ABG pO2 197.2 H ABG HCO3 29.7 H ABG O2 Saturation 99.4 H ABG Base Excess 4.8 FiO2 50% Sodium Potassium Chloride Carbon Dioxide Anion Gap BUN Creatinine Est GFR ( Amer) Est GFR (Non-Af Amer) Glucose Calcium Phosphorus Magnesium Blood Type Antibody Screen Impressions: KUB X-Ray 09/17/16 00:00 IMPRESSION: Profound ileus, oral contrast given for CT 09/11/2016 still in the stomach and small bowel. Nasogastric tube tip and side port in the stomach Distended small bowel loops and colon in the upper half of the abdomen Abdomen/Pelvis CT 09/18/16 00:00 IMPRESSION: Multiple air fluid and contrast distended small bowel loops are again identified which again could be related to a diffuse ileus however I cannot exclude underlying obstruction. Intra- abdominal and pelvic ascitic fluid is again identified. Interval increase in size of the bilateral pleural effusions left greater than right. Other findings as noted above Abdomen X-Ray 09/19/16 00:00 IMPRESSION: Ileus or partial small bowel obstruction status post NG tube removal. Chest X-Ray 09/20/16 08:36 IMPRESSION: Tubes in good positioning. Right jugular central line tip in the inferior aspect right atrium Dense consolidation in the left retrocardiac lower lobe. This is similar compared to previous studies. Suspect small bilateral pleural effusions in the major fissures. This is similar compared to previous studies. Assessment & Plan - Diagnosis (1) Colon polyps Qualifiers: Colon location: ascending Is this a current diagnosis for this admission?: YesPlan: Status post right hemicolectomy couple weeks ago. s/p reexploration for bradley for sbo. supportive care. will require ivf for third spacing. getting one unit of blood.
[2016-09-20] MEDS: CINACALCET HCL 30 MG TABLET PO SCH (10:19)
[2016-09-20] MEDS ORDERED: EPOETIN ALFA INJ 20000 UNIT/1 ML VIAL (RENAL) IV PRN (10:34)
[2016-09-20] MEDS: ASPIRIN 81 MG TABLET, CHEWABLE NG SCH (12:49)
[2016-09-20] MEDS: FOLIC ACID/VITAMIN B COMP W-C CAPSULE NG SCH (12:51)
[2016-09-20 17:31] LABS: HEMATOCRIT 27.4 % (36.0-47.0); HEMOGLOBIN 9.2 g/dL (12.0-15.5); HGB HCT DIFFERENCE 0.2; MEAN CORPUSCULAR HEMOGLOBIN 32.9 pg (27.0-33.4); MEAN CORPUSCULAR HGB CONC 33.4 g/dL (32.0-36.0); MEAN CORPUSCULAR VOLUME 99 fl (80-97); RED BLOOD COUNT 2.79 10^6/uL (3.72-5.28); RED CELL DISTRIBUTION WIDTH 16.6 % (11.5-14.0); WHITE BLOOD COUNT 10.5 10^3/uL (4.0-10.5)
--- NOTE | 2016-09-20 18:02 | PDOC PROGRESS REPORT ---
Subjective Progress Note for:: 09/20/16 Subjective:: Patient was seen in the dialysis unit today. She is undergoing dialysis without any issues. She is to be going for especially laparotomy later today for persistent bowel obstruction. Physical Exam Vital Signs: Temp Pulse Resp BP Pulse Ox 99.5 F 77 10 L 105/41 L 100 09/20/16 16:00 09/20/16 16:00 09/20/16 16:00 09/20/16 16:00 09/20/16 16:03 Intake & Output 09/19/16 09/20/16 09/21/16 06:59 06:59 06:59 Intake Total 1413 2550 450 Output Total 600 1500 0 Balance 813 1050 450 Weight 87.9 kg 84 kg General appearance: PRESENT: mild distress Respiratory exam: PRESENT: clear to auscultation nikki. ABSENT: crackles, rhonchi Cardiovascular exam: PRESENT: +S1, +S2, systolic murmur GI/Abdominal exam: PRESENT: distended, hypoactive bowel sounds, soft, tenderness - Both the lower quadrants. Bowel sounds are hypoactive. No masses felt. ABSENT: firm, normal bowel sounds Results Laboratory Results: 09/20/16 17:22 09/20/16 06:00 09/19/16 09/20/16 09/20/16 13:25 06:00 06:00 WBC 10.7 H RBC 2.29 L Hgb 7.6 L Hct 22.9 L MCV 100 H MCH 33.2 MCHC 33.3 RDW 14.7 H Plt Count 203 Seg Neutrophils % 84.5 H Lymphocytes % 5.2 L Monocytes % 9.6 Eosinophils % 0.2 Basophils % 0.5 Absolute Neutrophils 9.0 H Absolute Lymphocytes 0.6 Absolute Monocytes 1.0 Absolute Eosinophils 0.0 Absolute Basophils 0.1 Carbonic Acid HCO3/H2CO3 Ratio ABG pH ABG pCO2 ABG pO2 ABG HCO3 ABG O2 Saturation ABG Base Excess FiO2 Sodium 134.1 L Potassium 3.8 Chloride 98 Carbon Dioxide 26 Anion Gap 10 BUN 25 H Creatinine 3.27 H Est GFR ( Amer) 16 L Est GFR (Non-Af Amer) 14 L Glucose 357 H Calcium 8.1 L Phosphorus 2.4 L Magnesium 1.6 Blood Type AB POSITIVE Antibody Screen NEGATIVE 09/20/16 09/20/16 08:55 17:22 WBC 10.5 RBC 2.79 L Hgb 9.2 L Hct 27.4 L MCV 99 H MCH 32.9 MCHC 33.4 RDW 16.6 H Plt Count 211 Seg Neutrophils % Lymphocytes % Monocytes % Eosinophils % Basophils % Absolute Neutrophils Absolute Lymphocytes Absolute Monocytes Absolute Eosinophils Absolute Basophils Carbonic Acid 1.37 H HCO3/H2CO3 Ratio 21:1 ABG pH 7.43 ABG pCO2 45.6 H ABG pO2 197.2 H ABG HCO3 29.7 H ABG O2 Saturation 99.4 H ABG Base Excess 4.8 FiO2 50% Sodium Potassium Chloride Carbon Dioxide Anion Gap BUN Creatinine Est GFR ( Amer) Est GFR (Non-Af Amer) Glucose Calcium Phosphorus Magnesium Blood Type Antibody Screen Impressions: KUB X-Ray 09/17/16 00:00 IMPRESSION: Profound ileus, oral contrast given for CT 09/11/2016 still in the stomach and small bowel. Nasogastric tube tip and side port in the stomach Distended small bowel loops and colon in the upper half of the abdomen Abdomen/Pelvis CT 09/18/16 00:00 IMPRESSION: Multiple air fluid and contrast distended small bowel loops are again identified which again could be related to a diffuse ileus however I cannot exclude underlying obstruction. Intra- abdominal and pelvic ascitic fluid is again identified. Interval increase in size of the bilateral pleural effusions left greater than right. Other findings as noted above Abdomen X-Ray 09/19/16 00:00 IMPRESSION: Ileus or partial small bowel obstruction status post NG tube removal. Chest X-Ray 09/20/16 08:36 IMPRESSION: Tubes in good positioning. Right jugular central line tip in the inferior aspect right atrium Dense consolidation in the left retrocardiac lower lobe. This is similar compared to previous studies. Suspect small bilateral pleural effusions in the major fissures. This is similar compared to previous studies. Assessment & Plan - Diagnosis (1) Diabetes Qualifiers: Diabetes mellitus type: type 1 Diabetes mellitus complication status: with kidney complications Diabetes mellitus complication detail: with chronic kidney disease Chronic kidney disease stage: on chronic dialysis Qualified Code(s): E10.22 - Type 1 diabetes mellitus with diabetic chronic kidney disease; N18.1 - Chronic kidney disease, stage 1 Is this a current diagnosis for this admission?: Yes (2) Status post colectomy Is this a current diagnosis for this admission?: YesPlan: As per surgery. She needs exploratory laparotomy because she is being unable to get better but persistent bowel obstruction. Is being taken up for redo later this day. (3) ESRD (end stage renal disease) on dialysis Is this a current diagnosis for this admission?: YesPlan: Is undergoing dialysis without any issues. Orders were discussed with the treating dialysis nurse. Keep even. Continue On TPN. Potassium needs to be adjusted.. (4) Essential (primary) hypertension Is this a current diagnosis for this admission?: Yes (6) Ileus following gastrointestinal surgery Is this a current diagnosis for this admission?: YesPlan: As per surgery
[2016-09-20] MEDS: INSULIN LISPRO 100 UNIT/ML 3 ML VIAL SUBCUT PRN (18:44)
--- NOTE | 2016-09-20 18:49 | PDOC PROGRESS REPORT ---
Subjective Progress Note for:: 09/20/16 Subjective:: Patient status post explore her laparotomy and lysis of adhesions for small bowel obstruction last evening by Dr. Lance. She has remained on mechanical ventilation overnight. I cannot obtain history from patient secondary to sedated/intubated state. Physical Exam Vital Signs: Temp Pulse Resp BP Pulse Ox 99.5 F 77 10 L 105/41 L 100 09/20/16 16:00 09/20/16 16:00 09/20/16 16:00 09/20/16 16:00 09/20/16 16:03 Intake & Output 09/19/16 09/20/16 09/21/16 06:59 06:59 06:59 Intake Total 1413 2550 450 Output Total 600 1500 0 Balance 813 1050 450 Weight 87.9 kg 84 kg GENERAL: Sedated/intubated HEENT: Conjunctiva clear, nonicteric, moist mucous membranes, no JVD, midline trachea. NG tube in place left nares RESPIRATORY: Clear to auscultation bilaterally, no wheezes, no rhonchi CARDIAC: Regular rate and rhythm, no murmurs/gallops/rubs ABDOMEN: Soft, distended, mild tenderness, vicente intact midline incision without signs of infection, positive bowel sounds, no rebound, no guarding EXTREMETIES: No edema, cyanosis, clubbing NEUROLOGIC: Sedated/intubated SKIN: No rash, wounds PSYCH: Normal mood, normal affect Results Laboratory Results: 09/20/16 17:22 09/20/16 06:00 09/19/16 09/20/16 09/20/16 13:25 06:00 06:00 WBC 10.7 H RBC 2.29 L Hgb 7.6 L Hct 22.9 L MCV 100 H MCH 33.2 MCHC 33.3 RDW 14.7 H Plt Count 203 Seg Neutrophils % 84.5 H Lymphocytes % 5.2 L Monocytes % 9.6 Eosinophils % 0.2 Basophils % 0.5 Absolute Neutrophils 9.0 H Absolute Lymphocytes 0.6 Absolute Monocytes 1.0 Absolute Eosinophils 0.0 Absolute Basophils 0.1 Carbonic Acid HCO3/H2CO3 Ratio ABG pH ABG pCO2 ABG pO2 ABG HCO3 ABG O2 Saturation ABG Base Excess FiO2 Sodium 134.1 L Potassium 3.8 Chloride 98 Carbon Dioxide 26 Anion Gap 10 BUN 25 H Creatinine 3.27 H Est GFR ( Amer) 16 L Est GFR (Non-Af Amer) 14 L Glucose 357 H Calcium 8.1 L Phosphorus 2.4 L Magnesium 1.6 Blood Type AB POSITIVE Antibody Screen NEGATIVE 09/20/16 09/20/16 08:55 17:22 WBC 10.5 RBC 2.79 L Hgb 9.2 L Hct 27.4 L MCV 99 H MCH 32.9 MCHC 33.4 RDW 16.6 H Plt Count 211 Seg Neutrophils % Lymphocytes % Monocytes % Eosinophils % Basophils % Absolute Neutrophils Absolute Lymphocytes Absolute Monocytes Absolute Eosinophils Absolute Basophils Carbonic Acid 1.37 H HCO3/H2CO3 Ratio 21:1 ABG pH 7.43 ABG pCO2 45.6 H ABG pO2 197.2 H ABG HCO3 29.7 H ABG O2 Saturation 99.4 H ABG Base Excess 4.8 FiO2 50% Sodium Potassium Chloride Carbon Dioxide Anion Gap BUN Creatinine Est GFR ( Amer) Est GFR (Non-Af Amer) Glucose Calcium Phosphorus Magnesium Blood Type Antibody Screen Impressions: KUB X-Ray 09/17/16 00:00 IMPRESSION: Profound ileus, oral contrast given for CT 09/11/2016 still in the stomach and small bowel. Nasogastric tube tip and side port in the stomach Distended small bowel loops and colon in the upper half of the abdomen Abdomen/Pelvis CT 09/18/16 00:00 IMPRESSION: Multiple air fluid and contrast distended small bowel loops are again identified which again could be related to a diffuse ileus however I cannot exclude underlying obstruction. Intra- abdominal and pelvic ascitic fluid is again identified. Interval increase in size of the bilateral pleural effusions left greater than right. Other findings as noted above Abdomen X-Ray 09/19/16 00:00 IMPRESSION: Ileus or partial small bowel obstruction status post NG tube removal. Chest X-Ray 09/20/16 08:36 IMPRESSION: Tubes in good positioning. Right jugular central line tip in the inferior aspect right atrium Dense consolidation in the left retrocardiac lower lobe. This is similar compared to previous studies. Suspect small bilateral pleural effusions in the major fissures. This is similar compared to previous studies. Assessment & Plan - Diagnosis (1) Small bowel obstruction Is this a current diagnosis for this admission?: YesPlan: Status post exploratory laparotomy and lysis of adhesions on 09/19/2016. Surgery managing. (2) Status post colectomy Is this a current diagnosis for this admission?: YesPlan: Surgery managing. Patient remains on TPN at this time. (3) Diabetes Qualifiers: Diabetes mellitus type: type 1 Diabetes mellitus complication status: with kidney complications Diabetes mellitus complication detail: with chronic kidney disease Chronic kidney disease stage: on chronic dialysis Qualified Code(s): E10.22 - Type 1 diabetes mellitus with diabetic chronic kidney disease; N18.1 - Chronic kidney disease, stage 1 Is this a current diagnosis for this admission?: YesPlan: Increase Lantus to 35 units nightly. Continue sliding scale insulin. (4) ESRD (end stage renal disease) on dialysis Is this a current diagnosis for this admission?: YesPlan: Dr. Saravia of nephrology for management. Patient is on hemodialysis. (5) Essential (primary) hypertension Is this a current diagnosis for this admission?: YesPlan: Continue Catapres 0.1 mg patch. Continue when necessary IV hydralazine. (6) Dementia Qualifiers: Dementia type: unspecified type Dementia behavioral disturbance: without behavioral disturbance Qualified Code(s): F03.90 - Unspecified dementia without behavioral disturbance Is this a current diagnosis for this admission?: Yes (7) Anemia Is this a current diagnosis for this admission?: YesPlan: Transfuse 1 unit PRBC. - Time Critical Time spent with patient: 35 or more minutes
[2016-09-20] MEDS: INSULIN GLARGINE,HUM.REC.ANLOG 300 UNIT/3 ML INSULN.PEN SUBCUT SCH (21:59)
[2016-09-20] MEDS: ATORVASTATIN CALCIUM 40 MG TABLET NG SCH (21:59)
[2016-09-21] MEDS: INSULIN LISPRO 100 UNIT/ML 3 ML VIAL SUBCUT PRN (00:08)
[2016-09-21] MEDS: PROPOFOL 100 ML IV PRN ×2 (00:08→05:15)
[2016-09-21] MEDS: HYDRALAZINE HCL INJ/PF 20 MG/1 ML SDV IV SCH ×4 (00:10→18:30)
[2016-09-21] MEDS: AMINO ACIDS 5%/D25W 1,000 ML IV PRN ×2 (01:02→18:20)
[2016-09-21 05:20] LABS: ARTERIAL BLOOD BASE EXCESS 3.6 mmol/L
[2016-09-21 05:29] LABS: ALANINE AMINOTRANSFERASE 24 U/L (9-52); ALBUMIN 1.8 g/dL (3.5-5.0); ALKALINE PHOSPHATASE 55 U/L (38-126); ANION GAP 7 (5-19); ASPARTATE AMINO TRANSFERASE 13 U/L (14-36); BILIRUBIN,TOTAL 0.2 mg/dL (0.2-1.3); BLOOD UREA NITROGEN 28 mg/dL (7-20); CALCIUM 8.4 mg/dL (8.4-10.2); CARBON DIOXIDE 27 mmol/L (22-30); CHLORIDE 97 mmol/L (98-107); CREATININE RESULT 3.45 mg/dL (0.52-1.25); GLUCOSE 187 mg/dL (75-110); PHOSPHORUS 2.2 mg/dL (2.5-4.5); POTASSIUM 3.4 mmol/L (3.6-5.0); SODIUM 130.5 mmol/L (137-145); TOTAL PROTEIN 3.9 g/dL (6.3-8.2); TRIGLYCERIDES 38 mg/dL (<150)
[2016-09-21 05:30] LABS: ABSOLUTE BASOPHILS # (AUTO) 0.1 10^3/uL (0.0-0.2); ABSOLUTE EOSINOPHILS # (AUTO) 0.2 10^3/uL (0.0-0.6); ABSOLUTE LYMPHOCYTES (AUTO) 1.2 10^3/uL (0.5-4.7); ABSOLUTE MONOCYTES (AUTO) 2.2 10^3/uL (0.1-1.4); ABSOLUTE NEUT (AUTO) 9.1 10^3/uL (1.7-8.2); BASOPHILS % (AUTO) 0.8 % (0-2); EOSINOPHILS % (AUTO) 1.7 % (0-6); HEMOGLOBIN 8.2 g/dL (12.0-15.5); HGB HCT DIFFERENCE -0.4; MEAN CORPUSCULAR HEMOGLOBIN 32.1 pg (27.0-33.4); MEAN CORPUSCULAR HGB CONC 32.8 g/dL (32.0-36.0); MEAN CORPUSCULAR VOLUME 98 fl (80-97); MONOCYTES % (AUTO) 17.4 % (3-13); RED BLOOD COUNT 2.56 10^6/uL (3.72-5.28); RED CELL DISTRIBUTION WIDTH 16.1 % (11.5-14.0); SEGMENTED NEUTROPHILS % (AUTO) 71.1 % (42-78); WHITE BLOOD COUNT 12.8 10^3/uL (4.0-10.5)
[2016-09-21 05:38] LABS: PREALBUMIN 7.9 mg/dL (17.6-36.0)
[2016-09-21] MEDS: DEXTROSE 5%-1/2 NORMAL SALINE 1,000 ML IV PRN (07:39)
[2016-09-21] MEDS: FOLIC ACID/VITAMIN B COMP W-C CAPSULE NG SCH (09:37)
[2016-09-21] MEDS: CINACALCET HCL 30 MG TABLET PO SCH (09:37)
[2016-09-21] MEDS: ASPIRIN 81 MG TABLET, CHEWABLE NG SCH (09:39)
--- NOTE | 2016-09-21 09:52 | PDOC PROGRESS REPORT ---
Subjective Progress Note for:: 09/21/16 Subjective:: intubated and becoming more awake. Physical Exam Vital Signs: Temp Pulse Resp BP Pulse Ox 98.4 F 72 13 106/40 L 100 09/21/16 04:00 09/20/16 18:00 09/21/16 06:19 09/21/16 06:19 09/21/16 04:49 Intake & Output 09/20/16 09/21/16 09/22/16 06:59 06:59 06:59 Intake Total 2550 4511 Output Total 1500 100 Balance 1050 4411 Weight 84 kg 86.7 kg General appearance: PRESENT: no acute distress Respiratory exam: PRESENT: clear to auscultation nikki Cardiovascular exam: PRESENT: RRR GI/Abdominal exam: PRESENT: other - Soft, mildly distended, unable to assess tenderness at this time. Results Laboratory Results: 09/21/16 05:00 09/21/16 05:00 09/19/16 09/20/16 09/21/16 13:25 17:22 05:00 WBC 10.5 RBC 2.79 L Hgb 9.2 L Hct 27.4 L MCV 99 H MCH 32.9 MCHC 33.4 RDW 16.6 H Plt Count 211 Seg Neutrophils % Lymphocytes % Monocytes % Eosinophils % Basophils % Absolute Neutrophils Absolute Lymphocytes Absolute Monocytes Absolute Eosinophils Absolute Basophils Carbonic Acid 1.26 HCO3/H2CO3 Ratio 22:1 ABG pH 7.44 ABG pCO2 41.9 ABG pO2 106.7 H ABG HCO3 28.0 H ABG O2 Saturation 98.0 ABG Base Excess 3.6 FiO2 35% Sodium Potassium Chloride Carbon Dioxide Anion Gap BUN Creatinine Est GFR ( Amer) Est GFR (Non-Af Amer) Glucose Calcium Phosphorus Total Bilirubin AST ALT Alkaline Phosphatase Total Protein Albumin Prealbumin Triglycerides Blood Type AB POSITIVE Antibody Screen NEGATIVE 09/21/16 09/21/16 05:00 05:00 WBC 12.8 H RBC 2.56 L Hgb 8.2 L Hct 25.0 L MCV 98 H MCH 32.1 MCHC 32.8 RDW 16.1 H Plt Count 222 Seg Neutrophils % 71.1 Lymphocytes % 9.0 L Monocytes % 17.4 H Eosinophils % 1.7 Basophils % 0.8 Absolute Neutrophils 9.1 H Absolute Lymphocytes 1.2 Absolute Monocytes 2.2 H Absolute Eosinophils 0.2 Absolute Basophils 0.1 Carbonic Acid HCO3/H2CO3 Ratio ABG pH ABG pCO2 ABG pO2 ABG HCO3 ABG O2 Saturation ABG Base Excess FiO2 Sodium 130.5 L Potassium 3.4 L Chloride 97 L Carbon Dioxide 27 Anion Gap 7 BUN 28 H Creatinine 3.45 H Est GFR ( Amer) 15 L Est GFR (Non-Af Amer) 13 L Glucose 187 H Calcium 8.4 Phosphorus 2.2 L Total Bilirubin 0.2 AST 13 L ALT 24 Alkaline Phosphatase 55 Total Protein 3.9 L Albumin 1.8 L Prealbumin 7.9 L Triglycerides 38 Blood Type Antibody Screen Impressions: KUB X-Ray 09/17/16 00:00 IMPRESSION: Profound ileus, oral contrast given for CT 09/11/2016 still in the stomach and small bowel. Nasogastric tube tip and side port in the stomach Distended small bowel loops and colon in the upper half of the abdomen Abdomen/Pelvis CT 09/18/16 00:00 IMPRESSION: Multiple air fluid and contrast distended small bowel loops are again identified which again could be related to a diffuse ileus however I cannot exclude underlying obstruction. Intra- abdominal and pelvic ascitic fluid is again identified. Interval increase in size of the bilateral pleural effusions left greater than right. Other findings as noted above Abdomen X-Ray 09/19/16 00:00 IMPRESSION: Ileus or partial small bowel obstruction status post NG tube removal. Chest X-Ray 09/21/16 06:00 IMPRESSION: Increased basilar effusions and subsegmental atelectasis. Assessment & Plan - Diagnosis (1) Colon polyps Qualifiers: Colon location: ascending Is this a current diagnosis for this admission?: YesPlan: Status post right hemicolectomy couple weeks ago. s/p reexploration for bradley for sbo. Doing better. Pending extubation later today. Will back off of her IV fluids today. Await bowel function.
[2016-09-21] MEDS ORDERED: ERTAPENEM SODIUM 1 GM in NORMAL SALINE 50 ML IV SCH (10:00)
[2016-09-21] MEDS: CEFEPIME 1 GM/D5W RTU 50 ML IV SCH ×2 (11:11→21:48)
--- NOTE | 2016-09-21 14:51 | PDOC PROGRESS REPORT ---
Subjective Progress Note for:: 09/21/16 Subjective:: No new issues reported by nursing staff overnight. Dr. Michaud of pulmonary medicine states the patient should be able to extubate today. I cannot obtain history from patient secondary to sedated/intubated state. Physical Exam Vital Signs: Temp Pulse Resp BP Pulse Ox 97.7 F 72 14 153/46 H 100 09/21/16 12:00 09/21/16 12:00 09/21/16 14:19 09/21/16 14:19 09/21/16 13:49 Intake & Output 09/20/16 09/21/16 09/22/16 06:59 06:59 06:59 Intake Total 2550 4511 Output Total 1500 100 Balance 1050 4411 Weight 84 kg 86.7 kg GENERAL: Sedated/intubated HEENT: Conjunctiva clear, nonicteric, moist mucous membranes, no JVD, midline trachea. NG tube in place left nares RESPIRATORY: Clear to auscultation bilaterally, no wheezes, no rhonchi CARDIAC: Regular rate and rhythm, no murmurs/gallops/rubs ABDOMEN: Soft, distended, positive bowel sounds, no rebound, no guarding EXTREMETIES: No edema, cyanosis, clubbing NEUROLOGIC: Sedated/intubated SKIN: No rash, wounds PSYCH: Normal mood, normal affect Results Laboratory Results: 09/21/16 05:00 09/21/16 05:00 09/20/16 09/21/16 09/21/16 17:22 05:00 05:00 WBC 10.5 12.8 H RBC 2.79 L 2.56 L Hgb 9.2 L 8.2 L Hct 27.4 L 25.0 L MCV 99 H 98 H MCH 32.9 32.1 MCHC 33.4 32.8 RDW 16.6 H 16.1 H Plt Count 211 222 Seg Neutrophils % 71.1 Lymphocytes % 9.0 L Monocytes % 17.4 H Eosinophils % 1.7 Basophils % 0.8 Absolute Neutrophils 9.1 H Absolute Lymphocytes 1.2 Absolute Monocytes 2.2 H Absolute Eosinophils 0.2 Absolute Basophils 0.1 Carbonic Acid 1.26 HCO3/H2CO3 Ratio 22:1 ABG pH 7.44 ABG pCO2 41.9 ABG pO2 106.7 H ABG HCO3 28.0 H ABG O2 Saturation 98.0 ABG Base Excess 3.6 FiO2 35% Sodium Potassium Chloride Carbon Dioxide Anion Gap BUN Creatinine Est GFR ( Amer) Est GFR (Non-Af Amer) Glucose Calcium Phosphorus Total Bilirubin AST ALT Alkaline Phosphatase Total Protein Albumin Prealbumin Triglycerides 09/21/16 05:00 WBC RBC Hgb Hct MCV MCH MCHC RDW Plt Count Seg Neutrophils % Lymphocytes % Monocytes % Eosinophils % Basophils % Absolute Neutrophils Absolute Lymphocytes Absolute Monocytes Absolute Eosinophils Absolute Basophils Carbonic Acid HCO3/H2CO3 Ratio ABG pH ABG pCO2 ABG pO2 ABG HCO3 ABG O2 Saturation ABG Base Excess FiO2 Sodium 130.5 L Potassium 3.4 L Chloride 97 L Carbon Dioxide 27 Anion Gap 7 BUN 28 H Creatinine 3.45 H Est GFR ( Amer) 15 L Est GFR (Non-Af Amer) 13 L Glucose 187 H Calcium 8.4 Phosphorus 2.2 L Total Bilirubin 0.2 AST 13 L ALT 24 Alkaline Phosphatase 55 Total Protein 3.9 L Albumin 1.8 L Prealbumin 7.9 L Triglycerides 38 Impressions: KUB X-Ray 09/17/16 00:00 IMPRESSION: Profound ileus, oral contrast given for CT 09/11/2016 still in the stomach and small bowel. Nasogastric tube tip and side port in the stomach Distended small bowel loops and colon in the upper half of the abdomen Abdomen/Pelvis CT 09/18/16 00:00 IMPRESSION: Multiple air fluid and contrast distended small bowel loops are again identified which again could be related to a diffuse ileus however I cannot exclude underlying obstruction. Intra- abdominal and pelvic ascitic fluid is again identified. Interval increase in size of the bilateral pleural effusions left greater than right. Other findings as noted above Abdomen X-Ray 09/19/16 00:00 IMPRESSION: Ileus or partial small bowel obstruction status post NG tube removal. Chest X-Ray 09/21/16 06:00 IMPRESSION: Increased basilar effusions and subsegmental atelectasis. Assessment & Plan - Diagnosis (1) Small bowel obstruction Is this a current diagnosis for this admission?: YesPlan: Status post exploratory laparotomy and lysis of adhesions on 09/19/2016. Surgery managing. (2) Status post colectomy Is this a current diagnosis for this admission?: YesPlan: Surgery managing. Patient remains on TPN at this time. (3) Diabetes Qualifiers: Diabetes mellitus type: type 1 Diabetes mellitus complication status: with kidney complications Diabetes mellitus complication detail: with chronic kidney disease Chronic kidney disease stage: on chronic dialysis Qualified Code(s): E10.22 - Type 1 diabetes mellitus with diabetic chronic kidney disease; N18.1 - Chronic kidney disease, stage 1 Is this a current diagnosis for this admission?: YesPlan: Lantus 35 units nightly. Continue sliding scale insulin. (4) ESRD (end stage renal disease) on dialysis Is this a current diagnosis for this admission?: YesPlan: Dr. Saravia of nephrology for management. Patient is on hemodialysis. (5) Essential (primary) hypertension Is this a current diagnosis for this admission?: YesPlan: Continue Catapres 0.1 mg patch. Continue when necessary IV hydralazine. (6) Dementia Qualifiers: Dementia type: unspecified type Dementia behavioral disturbance: without behavioral disturbance Qualified Code(s): F03.90 - Unspecified dementia without behavioral disturbance Is this a current diagnosis for this admission?: Yes (7) Anemia Is this a current diagnosis for this admission?: YesPlan: Transfused 1 unit PRBC on 09/20/2016. Continue to monitor H&H closely posttransfusion. (8) Hypokalemia Is this a current diagnosis for this admission?: YesPlan: Increase potassium and TPN. (9) Hyponatremia Is this a current diagnosis for this admission?: YesPlan: Discontinue half-normal saline. Continue TPN. Repeat labs in a.m. (10) Leukocytosis Is this a current diagnosis for this admission?: YesPlan: Afebrile. Blood pressure stable. Cannot exclude airspace disease on chest x- ray. Check sputum culture and blood cultures. Start cefepime 1 g IV every 12 hours for now. Unable to obtain urine as patient is an uric from end-stage renal disease. - Time Critical Time spent with patient: 35 or more minutes
[2016-09-21] MEDS: ATORVASTATIN CALCIUM 40 MG TABLET NG SCH (21:49)
[2016-09-21] MEDS: INSULIN GLARGINE,HUM.REC.ANLOG 300 UNIT/3 ML INSULN.PEN SUBCUT SCH (21:49)
[2016-09-22] MEDS: HYDRALAZINE HCL INJ/PF 20 MG/1 ML SDV IV SCH ×4 (00:25→18:44)
[2016-09-22] MEDS: PROPOFOL 100 ML IV PRN ×2 (00:47→11:42)
[2016-09-22] MEDS: INSULIN LISPRO 100 UNIT/ML 3 ML VIAL SUBCUT PRN ×2 (00:48→18:44)
[2016-09-22 05:59] LABS: ARTERIAL BLOOD BASE EXCESS 1.1 mmol/L; ARTERIAL BLOOD O2 SATURATION 98.1 % (94-98)
[2016-09-22 06:16] LABS: ABSOLUTE BASOPHILS # (AUTO) 0.1 10^3/uL (0.0-0.2); ABSOLUTE EOSINOPHILS # (AUTO) 0.3 10^3/uL (0.0-0.6); ABSOLUTE MONOCYTES (AUTO) 2.3 10^3/uL (0.1-1.4); ABSOLUTE NEUT (AUTO) 9.9 10^3/uL (1.7-8.2); BASOPHILS % (AUTO) 0.6 % (0-2); EOSINOPHILS % (AUTO) 2.2 % (0-6); HGB HCT DIFFERENCE -0.2; LYMPHOCYTES % (AUTO) 7.7 % (13-45); MEAN CORPUSCULAR HGB CONC 32.8 g/dL (32.0-36.0); MEAN CORPUSCULAR VOLUME 98 fl (80-97); MONOCYTES % (AUTO) 16.8 % (3-13); RED BLOOD COUNT 2.36 10^6/uL (3.72-5.28); RED CELL DISTRIBUTION WIDTH 15.6 % (11.5-14.0); SEGMENTED NEUTROPHILS % (AUTO) 72.7 % (42-78); WHITE BLOOD COUNT 13.6 10^3/uL (4.0-10.5)
[2016-09-22 06:19] LABS: ANION GAP 8 (5-19); BLOOD UREA NITROGEN 40 mg/dL (7-20); CALCIUM 8.6 mg/dL (8.4-10.2); CARBON DIOXIDE 25 mmol/L (22-30); CHLORIDE 95 mmol/L (98-107); CREATININE RESULT 4.22 mg/dL (0.52-1.25); GLUCOSE 116 mg/dL (75-110); HEMOGLOBIN 7.6 g/dL (12.0-15.5); POTASSIUM 3.6 mmol/L (3.6-5.0); SODIUM 127.9 mmol/L (137-145)
[2016-09-22] MEDS ORDERED: EPOETIN ALFA INJ 20000 UNIT/1 ML VIAL (RENAL) IV PRN (07:50)
--- NOTE | 2016-09-22 08:56 | PDOC PROGRESS REPORT ---
Subjective Progress Note for:: 09/22/16 Subjective:: Becoming more awake today. Physical Exam Vital Signs: Temp Pulse Resp BP Pulse Ox 98.1 F 72 15 141/49 H 100 09/22/16 07:41 09/22/16 07:41 09/22/16 07:41 09/22/16 07:41 09/22/16 07:41 Intake & Output 09/21/16 09/22/16 09/23/16 06:59 06:59 06:59 Intake Total 4511 2584 Output Total 100 150 0 Balance 4411 2434 0 Weight 86.7 kg 90.8 kg General appearance: PRESENT: no acute distress Respiratory exam: PRESENT: clear to auscultation nikki Cardiovascular exam: PRESENT: RRR GI/Abdominal exam: PRESENT: other - Soft, mildly distended, exam improved. Results Laboratory Results: 09/22/16 05:40 09/22/16 05:40 09/22/16 09/22/16 09/22/16 05:40 05:40 05:40 WBC 13.6 H RBC 2.36 L Hgb 7.6 L Hct 23.0 L MCV 98 H MCH 32.0 MCHC 32.8 RDW 15.6 H Plt Count 226 Seg Neutrophils % 72.7 Lymphocytes % 7.7 L Monocytes % 16.8 H Eosinophils % 2.2 Basophils % 0.6 Absolute Neutrophils 9.9 H Absolute Lymphocytes 1.0 Absolute Monocytes 2.3 H Absolute Eosinophils 0.3 Absolute Basophils 0.1 Carbonic Acid 1.13 HCO3/H2CO3 Ratio 22:1 ABG pH 7.44 ABG pCO2 37.6 ABG pO2 108.1 H ABG HCO3 25.1 ABG O2 Saturation 98.1 H ABG Base Excess 1.1 FiO2 35% Sodium 127.9 L Potassium 3.6 Chloride 95 L Carbon Dioxide 25 Anion Gap 8 BUN 40 H Creatinine 4.22 H Est GFR ( Amer) 12 L Est GFR (Non-Af Amer) 10 L Glucose 116 H Calcium 8.6 Iron 09/22/16 05:40 WBC RBC Hgb Hct MCV MCH MCHC RDW Plt Count Seg Neutrophils % Lymphocytes % Monocytes % Eosinophils % Basophils % Absolute Neutrophils Absolute Lymphocytes Absolute Monocytes Absolute Eosinophils Absolute Basophils Carbonic Acid HCO3/H2CO3 Ratio ABG pH ABG pCO2 ABG pO2 ABG HCO3 ABG O2 Saturation ABG Base Excess FiO2 Sodium Potassium Chloride Carbon Dioxide Anion Gap BUN Creatinine Est GFR ( Amer) Est GFR (Non-Af Amer) Glucose Calcium Iron < 10.1 L Impressions: KUB X-Ray 09/17/16 00:00 IMPRESSION: Profound ileus, oral contrast given for CT 09/11/2016 still in the stomach and small bowel. Nasogastric tube tip and side port in the stomach Distended small bowel loops and colon in the upper half of the abdomen Abdomen/Pelvis CT 09/18/16 00:00 IMPRESSION: Multiple air fluid and contrast distended small bowel loops are again identified which again could be related to a diffuse ileus however I cannot exclude underlying obstruction. Intra- abdominal and pelvic ascitic fluid is again identified. Interval increase in size of the bilateral pleural effusions left greater than right. Other findings as noted above Abdomen X-Ray 09/19/16 00:00 IMPRESSION: Ileus or partial small bowel obstruction status post NG tube removal. Chest X-Ray 09/22/16 06:00 IMPRESSION: No significant interval change. Findings as noted above Assessment & Plan - Diagnosis (1) Colon polyps Qualifiers: Colon location: ascending Is this a current diagnosis for this admission?: YesPlan: Status post right hemicolectomy couple weeks ago. s/p reexploration for bradley for sbo. Doing better. Unable to extubate yesterday due to mental status. May be able to extubate today following dialysis. Decreased hematocrit likely due to hemodilution. Taking some fluid off during dialysis today. We'll repeat hematocrit after dialysis Abdominal exam looks better. Need to start prompt ambulation after extubation.
[2016-09-22] MEDS ORDERED: IRON SUCROSE COMPLEX INJ/PF 100 MG/5 ML SDV IV ONE ×2 (09:45→11:30)
[2016-09-22] MEDS: CEFEPIME 1 GM/D5W RTU 50 ML IV SCH ×2 (11:53→22:57)
[2016-09-22] MEDS: ASPIRIN 81 MG TABLET, CHEWABLE NG SCH (11:53)
[2016-09-22] MEDS: FOLIC ACID/VITAMIN B COMP W-C CAPSULE NG SCH (11:54)
[2016-09-22] MEDS: CINACALCET HCL 30 MG TABLET PO SCH (11:54)
[2016-09-22 13:10] LABS: HEMATOCRIT 25.1 % (36.0-47.0); HEMOGLOBIN 8.4 g/dL (12.0-15.5); HGB HCT DIFFERENCE 0.1; MEAN CORPUSCULAR HEMOGLOBIN 32.4 pg (27.0-33.4); MEAN CORPUSCULAR HGB CONC 33.3 g/dL (32.0-36.0); MEAN CORPUSCULAR VOLUME 97 fl (80-97); RED BLOOD COUNT 2.58 10^6/uL (3.72-5.28); RED CELL DISTRIBUTION WIDTH 15.5 % (11.5-14.0); WHITE BLOOD COUNT 14.2 10^3/uL (4.0-10.5)
[2016-09-22] MEDS: AMINO ACIDS 5%/D25W 1,000 ML IV PRN (15:34)
--- NOTE | 2016-09-22 17:02 | PDOC PROGRESS REPORT ---
Subjective Progress Note for:: 09/22/16 Subjective:: Patient was seen in the dialysis unit today. She is undergoing dialysis without any issues. She ia status post exploratory laparotomy where she had lysis of adhesions, for persistent bowel obstruction.She is slightly more awake today than when I saw her last time. Physical Exam Vital Signs: Temp Pulse Resp BP Pulse Ox 98.1 F 73 21 H 118/42 L 100 09/22/16 14:00 09/22/16 14:29 09/22/16 14:36 09/22/16 14:36 09/22/16 14:36 Intake & Output 09/21/16 09/22/16 09/23/16 06:59 06:59 06:59 Intake Total 4511 2584 Output Total 501 140 6444 Balance 4411 2434 -2700 Weight 86.7 kg 90.8 kg General appearance: PRESENT: no acute distress Respiratory exam: PRESENT: clear to auscultation nikki. ABSENT: crackles, rhonchi Cardiovascular exam: PRESENT: +S1, +S2, systolic murmur GI/Abdominal exam: PRESENT: hypoactive bowel sounds, soft, tenderness - Both the lower quadrants. Bowel sounds are hypoactive. No masses felt. ABSENT: distended, firm, normal bowel sounds Extremities exam: PRESENT: +1 edema Results Laboratory Results: 09/22/16 12:45 09/22/16 05:40 09/22/16 09/22/16 09/22/16 05:40 05:40 05:40 WBC 13.6 H RBC 2.36 L Hgb 7.6 L Hct 23.0 L MCV 98 H MCH 32.0 MCHC 32.8 RDW 15.6 H Plt Count 226 Seg Neutrophils % 72.7 Lymphocytes % 7.7 L Monocytes % 16.8 H Eosinophils % 2.2 Basophils % 0.6 Absolute Neutrophils 9.9 H Absolute Lymphocytes 1.0 Absolute Monocytes 2.3 H Absolute Eosinophils 0.3 Absolute Basophils 0.1 Carbonic Acid 1.13 HCO3/H2CO3 Ratio 22:1 ABG pH 7.44 ABG pCO2 37.6 ABG pO2 108.1 H ABG HCO3 25.1 ABG O2 Saturation 98.1 H ABG Base Excess 1.1 FiO2 35% Sodium 127.9 L Potassium 3.6 Chloride 95 L Carbon Dioxide 25 Anion Gap 8 BUN 40 H Creatinine 4.22 H Est GFR ( Amer) 12 L Est GFR (Non-Af Amer) 10 L Glucose 116 H Calcium 8.6 Iron 09/22/16 09/22/16 05:40 12:45 WBC 14.2 H RBC 2.58 L Hgb 8.4 L Hct 25.1 L MCV 97 MCH 32.4 MCHC 33.3 RDW 15.5 H Plt Count 224 Seg Neutrophils % Lymphocytes % Monocytes % Eosinophils % Basophils % Absolute Neutrophils Absolute Lymphocytes Absolute Monocytes Absolute Eosinophils Absolute Basophils Carbonic Acid HCO3/H2CO3 Ratio ABG pH ABG pCO2 ABG pO2 ABG HCO3 ABG O2 Saturation ABG Base Excess FiO2 Sodium Potassium Chloride Carbon Dioxide Anion Gap BUN Creatinine Est GFR ( Amer) Est GFR (Non-Af Amer) Glucose Calcium Iron < 10.1 L Impressions: KUB X-Ray 09/17/16 00:00 IMPRESSION: Profound ileus, oral contrast given for CT 09/11/2016 still in the stomach and small bowel. Nasogastric tube tip and side port in the stomach Distended small bowel loops and colon in the upper half of the abdomen Abdomen/Pelvis CT 09/18/16 00:00 IMPRESSION: Multiple air fluid and contrast distended small bowel loops are again identified which again could be related to a diffuse ileus however I cannot exclude underlying obstruction. Intra- abdominal and pelvic ascitic fluid is again identified. Interval increase in size of the bilateral pleural effusions left greater than right. Other findings as noted above Abdomen X-Ray 09/19/16 00:00 IMPRESSION: Ileus or partial small bowel obstruction status post NG tube removal. Chest X-Ray 09/22/16 06:00 IMPRESSION: No significant interval change. Findings as noted above Assessment & Plan - Diagnosis (1) Diabetes Qualifiers: Diabetes mellitus type: type 1 Diabetes mellitus complication status: with kidney complications Diabetes mellitus complication detail: with chronic kidney disease Chronic kidney disease stage: on chronic dialysis Qualified Code(s): E10.22 - Type 1 diabetes mellitus with diabetic chronic kidney disease; N18.1 - Chronic kidney disease, stage 1 Is this a current diagnosis for this admission?: Yes (2) Status post colectomy Is this a current diagnosis for this admission?: YesPlan: As per surgery. She is status post exploratory laparotomy because she had persistent bowel obstruction post colectomy. Presently looks stable (3) ESRD (end stage renal disease) on dialysis Is this a current diagnosis for this admission?: YesPlan: Is undergoing dialysis without any issues. Orders were discussed with the treating dialysis nurse. She is showing signs of fluid overload. We will try to remove around 2 L as tolerated. She is also anemic and is in the process of getting blood transfusions. Continue to monitor. (4) Essential (primary) hypertension Is this a current diagnosis for this admission?: Yes (6) Hyperkalemia Plan: Needs appropriate correction in her TPN. Meanwhile will put on 3K bath on dialysis. (7) Anemia Is this a current diagnosis for this admission?: YesPlan: Blood transfusion. Will adjust erythropoietin in the meanwhile. Check iron studies as well later on.
--- NOTE | 2016-09-22 19:19 | PDOC PROGRESS REPORT ---
Subjective Progress Note for:: 09/22/16 Subjective:: No new issues reported by nursing staff overnight. Dr. Michaud of pulmonary medicine states the patient should be able to extubate today. I cannot obtain history from patient secondary to sedated/intubated state. Physical Exam Vital Signs: Temp Pulse Resp BP Pulse Ox 99.2 F 79 19 127/45 H 100 09/22/16 18:00 09/22/16 18:00 09/22/16 18:00 09/22/16 18:00 09/22/16 18:00 Intake & Output 09/21/16 09/22/16 09/23/16 06:59 06:59 06:59 Intake Total 4511 2584 476 Output Total 261 527 7281 Balance 4419 5064 -2664 Weight 86.7 kg 90.8 kg GENERAL: Sedated/intubated HEENT: Conjunctiva clear, nonicteric, moist mucous membranes, no JVD, midline trachea. NG tube in place left nares RESPIRATORY: Clear to auscultation bilaterally, no wheezes, no rhonchi CARDIAC: Regular rate and rhythm, no murmurs/gallops/rubs ABDOMEN: Soft, distended, positive bowel sounds, no rebound, no guarding EXTREMETIES: No edema, cyanosis, clubbing NEUROLOGIC: Sedated/intubated SKIN: No rash, wounds PSYCH: Normal mood, normal affect Results Laboratory Results: 09/22/16 12:45 09/22/16 05:40 09/22/16 09/22/16 09/22/16 05:40 05:40 05:40 WBC 13.6 H RBC 2.36 L Hgb 7.6 L Hct 23.0 L MCV 98 H MCH 32.0 MCHC 32.8 RDW 15.6 H Plt Count 226 Seg Neutrophils % 72.7 Lymphocytes % 7.7 L Monocytes % 16.8 H Eosinophils % 2.2 Basophils % 0.6 Absolute Neutrophils 9.9 H Absolute Lymphocytes 1.0 Absolute Monocytes 2.3 H Absolute Eosinophils 0.3 Absolute Basophils 0.1 Carbonic Acid 1.13 HCO3/H2CO3 Ratio 22:1 ABG pH 7.44 ABG pCO2 37.6 ABG pO2 108.1 H ABG HCO3 25.1 ABG O2 Saturation 98.1 H ABG Base Excess 1.1 FiO2 35% Sodium 127.9 L Potassium 3.6 Chloride 95 L Carbon Dioxide 25 Anion Gap 8 BUN 40 H Creatinine 4.22 H Est GFR ( Amer) 12 L Est GFR (Non-Af Amer) 10 L Glucose 116 H Calcium 8.6 Iron 09/22/16 09/22/16 05:40 12:45 WBC 14.2 H RBC 2.58 L Hgb 8.4 L Hct 25.1 L MCV 97 MCH 32.4 MCHC 33.3 RDW 15.5 H Plt Count 224 Seg Neutrophils % Lymphocytes % Monocytes % Eosinophils % Basophils % Absolute Neutrophils Absolute Lymphocytes Absolute Monocytes Absolute Eosinophils Absolute Basophils Carbonic Acid HCO3/H2CO3 Ratio ABG pH ABG pCO2 ABG pO2 ABG HCO3 ABG O2 Saturation ABG Base Excess FiO2 Sodium Potassium Chloride Carbon Dioxide Anion Gap BUN Creatinine Est GFR ( Amer) Est GFR (Non-Af Amer) Glucose Calcium Iron < 10.1 L Impressions: KUB X-Ray 09/17/16 00:00 IMPRESSION: Profound ileus, oral contrast given for CT 09/11/2016 still in the stomach and small bowel. Nasogastric tube tip and side port in the stomach Distended small bowel loops and colon in the upper half of the abdomen Abdomen/Pelvis CT 09/18/16 00:00 IMPRESSION: Multiple air fluid and contrast distended small bowel loops are again identified which again could be related to a diffuse ileus however I cannot exclude underlying obstruction. Intra- abdominal and pelvic ascitic fluid is again identified. Interval increase in size of the bilateral pleural effusions left greater than right. Other findings as noted above Abdomen X-Ray 09/19/16 00:00 IMPRESSION: Ileus or partial small bowel obstruction status post NG tube removal. Chest X-Ray 09/22/16 06:00 IMPRESSION: No significant interval change. Findings as noted above Assessment & Plan - Diagnosis (1) Postoperative respiratory failure Is this a current diagnosis for this admission?: YesPlan: Weaning strategy per Dr. Michaud of pulmonary medicine. Patient should extubate today. (2) Small bowel obstruction Is this a current diagnosis for this admission?: YesPlan: Status post exploratory laparotomy and lysis of adhesions on 09/19/2016. Surgery managing. (3) Status post colectomy Is this a current diagnosis for this admission?: YesPlan: Surgery managing. Patient remains on TPN at this time. (4) Diabetes Qualifiers: Diabetes mellitus type: type 1 Diabetes mellitus complication status: with kidney complications Diabetes mellitus complication detail: with chronic kidney disease Chronic kidney disease stage: on chronic dialysis Qualified Code(s): E10.22 - Type 1 diabetes mellitus with diabetic chronic kidney disease; N18.1 - Chronic kidney disease, stage 1 Is this a current diagnosis for this admission?: YesPlan: Lantus 35 units nightly. Continue sliding scale insulin. (5) ESRD (end stage renal disease) on dialysis Is this a current diagnosis for this admission?: YesPlan: Dr. Saravia of nephrology for management. Patient is on hemodialysis. (6) Essential (primary) hypertension Is this a current diagnosis for this admission?: YesPlan: Continue Catapres 0.1 mg patch. Continue when necessary IV hydralazine. (7) Dementia Qualifiers: Dementia type: unspecified type Dementia behavioral disturbance: without behavioral disturbance Qualified Code(s): F03.90 - Unspecified dementia without behavioral disturbance Is this a current diagnosis for this admission?: Yes (8) Anemia Is this a current diagnosis for this admission?: YesPlan: Transfused 1 unit PRBC on 09/20/2016. Continue to monitor H&H closely posttransfusion. Continue Procrit. Administer IV iron 1 dose secondary to undetectable a low serum iron level. (9) Hypokalemia Is this a current diagnosis for this admission?: Yes (10) Hyponatremia Is this a current diagnosis for this admission?: Yes (11) Leukocytosis Is this a current diagnosis for this admission?: YesPlan: Afebrile. Blood pressure stable. Cannot exclude airspace disease on chest x- ray. Check sputum culture and blood cultures. Cefepime 1 g IV every 12 hours started 09/21/2016. Add IV Flagyl for improved intra-abdominal coverage given recent surgical history. Unable to obtain urine as patient is an uric from end- stage renal disease. - Time Critical Time spent with patient: 35 or more minutes
[2016-09-22] MEDS: ATORVASTATIN CALCIUM 40 MG TABLET NG SCH (22:57)
[2016-09-22] MEDS: INSULIN GLARGINE,HUM.REC.ANLOG 300 UNIT/3 ML INSULN.PEN SUBCUT SCH (22:58)
[2016-09-23] MEDS: HYDRALAZINE HCL INJ/PF 20 MG/1 ML SDV IV SCH ×4 (01:25→18:25)
[2016-09-23 05:34] LABS: ABSOLUTE BASOPHILS # (AUTO) 0.1 10^3/uL (0.0-0.2); ABSOLUTE EOSINOPHILS # (AUTO) 0.2 10^3/uL (0.0-0.6); ABSOLUTE LYMPHOCYTES (AUTO) 0.9 10^3/uL (0.5-4.7); ABSOLUTE MONOCYTES (AUTO) 1.9 10^3/uL (0.1-1.4); ABSOLUTE NEUT (AUTO) 9.1 10^3/uL (1.7-8.2); BASOPHILS % (AUTO) 0.5 % (0-2); EOSINOPHILS % (AUTO) 1.5 % (0-6); HEMATOCRIT 24.8 % (36.0-47.0); HEMOGLOBIN 8.1 g/dL (12.0-15.5); HGB HCT DIFFERENCE -0.5; LYMPHOCYTES % (AUTO) 7.3 % (13-45); MEAN CORPUSCULAR HEMOGLOBIN 31.9 pg (27.0-33.4); MEAN CORPUSCULAR HGB CONC 32.6 g/dL (32.0-36.0); MEAN CORPUSCULAR VOLUME 98 fl (80-97); MONOCYTES % (AUTO) 15.5 % (3-13); RED BLOOD COUNT 2.53 10^6/uL (3.72-5.28); RED CELL DISTRIBUTION WIDTH 15.7 % (11.5-14.0); SEGMENTED NEUTROPHILS % (AUTO) 75.2 % (42-78); WHITE BLOOD COUNT 12.1 10^3/uL (4.0-10.5)
[2016-09-23 05:47] LABS: ANION GAP 7 (5-19); BLOOD UREA NITROGEN 32 mg/dL (7-20); CARBON DIOXIDE 29 mmol/L (22-30); CHLORIDE 96 mmol/L (98-107); CREATININE RESULT 3.46 mg/dL (0.52-1.25); GLUCOSE 215 mg/dL (75-110); POTASSIUM 3.8 mmol/L (3.6-5.0); SODIUM 131.6 mmol/L (137-145)
[2016-09-23 08:19] LABS: ARTERIAL BLOOD BASE EXCESS 0.1 mmol/L; ARTERIAL BLOOD O2 SATURATION 98.3 % (94-98)
[2016-09-23] MEDS: AMINO ACIDS 5%/D25W 1,000 ML IV PRN (08:57)
[2016-09-23] MEDS: ASPIRIN 81 MG TABLET, CHEWABLE NG SCH (09:04)
[2016-09-23] MEDS: FOLIC ACID/VITAMIN B COMP W-C CAPSULE NG SCH (09:04)
[2016-09-23] MEDS: CEFEPIME 1 GM/D5W RTU 50 ML IV SCH ×2 (10:03→22:23)
[2016-09-23] MEDS: CINACALCET HCL 30 MG TABLET PO SCH (12:18)
[2016-09-23] MEDS: INSULIN LISPRO 100 UNIT/ML 3 ML VIAL SUBCUT PRN ×2 (12:50→18:41)
--- NOTE | 2016-09-23 15:25 | PDOC PROGRESS REPORT ---
Subjective Progress Note for:: 09/23/16 Physical Exam Vital Signs: Temp Pulse Resp BP Pulse Ox 97.9 F 78 16 139/47 H 100 09/23/16 12:00 09/23/16 14:00 09/23/16 14:00 09/23/16 14:00 09/23/16 14:00 Intake & Output 09/22/16 09/23/16 09/24/16 06:59 06:59 07:59 Intake Total 2584 476 90 Output Total 150 2700 Balance 2434 -2224 90 Weight 90.8 kg 90 kg GI/Abdominal exam: PRESENT: other - soft abdomen distention present Results Laboratory Results: 09/23/16 05:20 09/23/16 05:20 09/23/16 09/23/16 09/23/16 05:20 05:20 08:00 WBC 12.1 H RBC 2.53 L Hgb 8.1 L Hct 24.8 L MCV 98 H MCH 31.9 MCHC 32.6 RDW 15.7 H Plt Count 222 Seg Neutrophils % 75.2 Lymphocytes % 7.3 L Monocytes % 15.5 H Eosinophils % 1.5 Basophils % 0.5 Absolute Neutrophils 9.1 H Absolute Lymphocytes 0.9 Absolute Monocytes 1.9 H Absolute Eosinophils 0.2 Absolute Basophils 0.1 Carbonic Acid 1.30 HCO3/H2CO3 Ratio 19:1 ABG pH 7.38 ABG pCO2 43.3 ABG pO2 121.7 H ABG HCO3 25.2 ABG O2 Saturation 98.3 H ABG Base Excess 0.1 FiO2 2L Sodium 131.6 L Potassium 3.8 Chloride 96 L Carbon Dioxide 29 Anion Gap 7 BUN 32 H Creatinine 3.46 H Est GFR ( Amer) 15 L Est GFR (Non-Af Amer) 13 L Glucose 215 H Calcium 9.0 Impressions: KUB X-Ray 09/17/16 00:00 IMPRESSION: Profound ileus, oral contrast given for CT 09/11/2016 still in the stomach and small bowel. Nasogastric tube tip and side port in the stomach Distended small bowel loops and colon in the upper half of the abdomen Abdomen/Pelvis CT 09/18/16 00:00 IMPRESSION: Multiple air fluid and contrast distended small bowel loops are again identified which again could be related to a diffuse ileus however I cannot exclude underlying obstruction. Intra- abdominal and pelvic ascitic fluid is again identified. Interval increase in size of the bilateral pleural effusions left greater than right. Other findings as noted above Abdomen X-Ray 09/19/16 00:00 IMPRESSION: Ileus or partial small bowel obstruction status post NG tube removal. Chest X-Ray 09/23/16 06:00 IMPRESSION: 1. Support tubes and lines as above. 2. Hazy densities noted at both lung bases likely representing combination of layering effusions with associated atelectasis/infiltrate. Overall appearance not significant changed. The fluid is noted previously within the minor fissure on the right has resolved. Assessment & Plan - Plan Summary Plan Summary: post op ileus bowel rest
--- NOTE | 2016-09-23 16:17 | PDOC PROGRESS REPORT ---
Subjective Progress Note for:: 09/23/16 Subjective:: No new issues reported by nursing staff overnight. Stable post extubation on . I cannot obtain history from patient secondary to encephalopathy. Physical Exam Vital Signs: Temp Pulse Resp BP Pulse Ox 97.9 F 78 20 138/47 H 100 09/23/16 12:00 09/23/16 14:00 09/23/16 16:00 09/23/16 15:51 09/23/16 16:00 Intake & Output 09/22/16 09/23/16 09/24/16 06:59 06:59 07:59 Intake Total 2584 476 90 Output Total 150 2700 Balance 2434 -2224 90 Weight 90.8 kg 90 kg GENERAL: Drowsy but arousable, will not answer questions or follow commands HEENT: Conjunctiva clear, nonicteric, moist mucous membranes, no JVD, midline trachea. NG tube in place RESPIRATORY: Clear to auscultation bilaterally, no wheezes, no rhonchi CARDIAC: Regular rate and rhythm, no murmurs/gallops/rubs ABDOMEN: Soft, distention improving, positive bowel sounds, no rebound, no guarding EXTREMETIES: No edema, cyanosis, clubbing NEUROLOGIC: Difficult to assess secondary to encephalopathy SKIN: Abdominal incision healing well Results Laboratory Results: 09/23/16 05:20 09/23/16 05:20 09/23/16 09/23/16 09/23/16 05:20 05:20 08:00 WBC 12.1 H RBC 2.53 L Hgb 8.1 L Hct 24.8 L MCV 98 H MCH 31.9 MCHC 32.6 RDW 15.7 H Plt Count 222 Seg Neutrophils % 75.2 Lymphocytes % 7.3 L Monocytes % 15.5 H Eosinophils % 1.5 Basophils % 0.5 Absolute Neutrophils 9.1 H Absolute Lymphocytes 0.9 Absolute Monocytes 1.9 H Absolute Eosinophils 0.2 Absolute Basophils 0.1 Carbonic Acid 1.30 HCO3/H2CO3 Ratio 19:1 ABG pH 7.38 ABG pCO2 43.3 ABG pO2 121.7 H ABG HCO3 25.2 ABG O2 Saturation 98.3 H ABG Base Excess 0.1 FiO2 2L Sodium 131.6 L Potassium 3.8 Chloride 96 L Carbon Dioxide 29 Anion Gap 7 BUN 32 H Creatinine 3.46 H Est GFR ( Amer) 15 L Est GFR (Non-Af Amer) 13 L Glucose 215 H Calcium 9.0 Impressions: KUB X-Ray 09/17/16 00:00 IMPRESSION: Profound ileus, oral contrast given for CT 09/11/2016 still in the stomach and small bowel. Nasogastric tube tip and side port in the stomach Distended small bowel loops and colon in the upper half of the abdomen Abdomen/Pelvis CT 09/18/16 00:00 IMPRESSION: Multiple air fluid and contrast distended small bowel loops are again identified which again could be related to a diffuse ileus however I cannot exclude underlying obstruction. Intra- abdominal and pelvic ascitic fluid is again identified. Interval increase in size of the bilateral pleural effusions left greater than right. Other findings as noted above Abdomen X-Ray 09/19/16 00:00 IMPRESSION: Ileus or partial small bowel obstruction status post NG tube removal. Chest X-Ray 09/23/16 06:00 IMPRESSION: 1. Support tubes and lines as above. 2. Hazy densities noted at both lung bases likely representing combination of layering effusions with associated atelectasis/infiltrate. Overall appearance not significant changed. The fluid is noted previously within the minor fissure on the right has resolved. Assessment & Plan - Diagnosis (1) Postoperative respiratory failure Is this a current diagnosis for this admission?: YesPlan: Stable post extubation on 09/22/2016. (2) Small bowel obstruction Is this a current diagnosis for this admission?: YesPlan: Status post exploratory laparotomy and lysis of adhesions on 09/19/2016. Surgery managing. (3) Status post colectomy Is this a current diagnosis for this admission?: YesPlan: Surgery managing. Progress notes from surgery today indicate continued bowel rest. Patient remains on TPN at this time. (4) Diabetes Qualifiers: Diabetes mellitus type: type 1 Diabetes mellitus complication status: with kidney complications Diabetes mellitus complication detail: with chronic kidney disease Chronic kidney disease stage: on chronic dialysis Qualified Code(s): E10.22 - Type 1 diabetes mellitus with diabetic chronic kidney disease; N18.1 - Chronic kidney disease, stage 1 Is this a current diagnosis for this admission?: YesPlan: Increase Lantus to 40 units nightly. Continue sliding scale insulin. (5) ESRD (end stage renal disease) on dialysis Is this a current diagnosis for this admission?: YesPlan: Dr. Saravia of nephrology for management. Patient is on hemodialysis. (6) Essential (primary) hypertension Is this a current diagnosis for this admission?: YesPlan: Continue Catapres 0.1 mg patch. Continue when necessary IV hydralazine. (7) Dementia Qualifiers: Dementia type: unspecified type Dementia behavioral disturbance: without behavioral disturbance Qualified Code(s): F03.90 - Unspecified dementia without behavioral disturbance Is this a current diagnosis for this admission?: YesPlan: Continue supportive care. (8) Anemia Is this a current diagnosis for this admission?: YesPlan: Transfused 1 unit PRBC on 09/20/2016. Continue to monitor H&H closely posttransfusion. Continue Procrit. Administered IV iron 1 dose on 09/22/2016 secondary to low serum iron level. (9) Hypokalemia Is this a current diagnosis for this admission?: YesPlan: Corrected for now. Continue to monitor. (10) Hyponatremia Is this a current diagnosis for this admission?: YesPlan: Sodium slightly low but stable. Continue to monitor closely on TPN and dialysis. Repeat labs in a.m. (11) Leukocytosis Is this a current diagnosis for this admission?: YesPlan: Afebrile. Blood pressure stable. Cannot exclude airspace disease on chest x- ray. Sputum culture from 09/21/2016 pending. Blood cultures from 09/21/2016 negative. Cefepime 1 g IV every 12 hours started 09/21/2016. Added IV Flagyl on 09/22/2016 for improved intra-abdominal coverage given recent surgical history. Unable to obtain urine as patient is anuric from end-stage renal disease. - Time Time Spent with patient: 35 or more minutes
--- NOTE | 2016-09-23 19:29 | PDOC CONSULTATION ---
Consultation Consult Date: 09/20/16 Attending physician:: ADA CHAMPION Consult reason:: resp fail History of Present Illness Admission Date/PCP: 09/07/16 11:42 MAURICIO LEY MD History of Present Illness: information from chart RICKY RODRIGUEZ is a 80 year old female with past medical history of end-stage renal disease on hemodialysis, hypertension, hyperlipidemia, diabetes mellitus that is immediately status post right hemicolectomy, extensive lysis of adhesions, small bowel resection with small bowel anastomosis. The patient is quite lethargic postoperatively at the moment but not intubated. Unable to contribute to the history. Unsure of the exacting circumstances that brought her to the hospital. She looks hemodynamically stable on review. Will place orders for dialysis in the morning. Past Medical History Cardiac Medical History: Reports: Hyperlipidema, Hypertension Denies: Atrial Fibrillation, Congestive Heart Failure, Coronary Artery Disease, Myocardial Infarction, Peripheral Vascular Disease, Pulmonary Embolism , Heart Murmur Pulmonary Medical History: Denies: Asthma, Bronchitis, Chronic Obstructive Pulmonary Disease (COPD), Pneumonia, Respiratory Failure, Sleep Apnea, Tuberculosis Neurological Medical History: Denies: Seizures Endocrine Medical History: Reports: Diabetes Mellitus Type 2 Denies: Hyperthyroidism, Hypothyroidism Renal/ Medical History: Reports: End Stage Renal Disease - FISTULA LEFT ARM Malignancy Medical History: Denies: Breast Cancer, Cervical Cancer, Leukemia, Lung Cancer, Ovarian Cancer GI Medical History: Denies: Crohn's Disease, Gastroesophageal Reflux Disease, Hiatal Hernia Musculoskeltal Medical History: Reports: Arthritis Denies: Fibromyalgia Psychiatric Medical History: Denies: Bipolar Disorder, Dementia, Depression, Post Traumatic Stress Disorder Hematology: Denies: Anemia, Hemophilia, Sickle Cell Disease Infectious Medical History: Denies: HIV Past Surgical History Past Surgical History: Reports: Hysterectomy, Tubal Ligation, Vascular Surgery - Left forearm AV fistula Denies: Amputation, Appendectomy, Section, Cholecystectomy, Colostomy, Coronary Artery Bypass Graft, Gastric Bypass Surgery, Herniorrhaphy, Mastectomy, Pacemaker, Tonsillectomy Social History Information Source: [facility] Records Smoking Status: Never Smoker Frequency of Alcohol Use: None Hx Recreational Drug Use: No Drugs: None Hx Prescription Drug Abuse: No - Advance Directive Resuscitation Status: Full Code Family History Family History: DM, Hypertension Parental Family History Reviewed: No Children Family History Reviewed: No Sibling(s) Family History Reviewed.: No Medication/Allergy Home Medications: Acetaminophen [Tylenol 325 mg Tablet] 650 mg PO Q8HP PRN 09/11/16 Allopurinol [Zyloprim 100 mg Tablet] 100 mg PO DAILY 09/11/16 Aspirin [Ecotrin 81 mg EC Tablet] 81 mg PO DAILY 09/11/16 Atorvastatin Calcium [Lipitor 40 mg Tablet] 40 mg PO QHS 09/11/16 B Complex & C No.20/Folic Acid [Renal Caps Softgel] 1 mg PO DAILY 09/11/16 Cinacalcet HCl [Sensipar 90 mg Tablet] 90 mg PO DAILY 09/11/16 Clonidine HCl [Catapres 0.2 mg Tablet] 0.2 mg PO QHS 09/11/16 Hydralazine HCl [Apresoline 50 mg Tablet] 100 mg PO Q8 09/11/16 Lanthanum Carbonate [Fosrenol] 750 mg PO AC 09/11/16 Lidocaine/Prilocaine [Emla Cream] 30 gm TP ASDIR PRN 09/11/16 Allergies/Adverse Reactions: diphenhydramine HCl [From Benadryl] Adverse Reaction (Mild, Verified 09/08/16 23 :44) PT CANNOT REMEMBER Review of Systems ROS unobtainable: Due to endotracheal tube Physical Exam Vital Signs: Temp Pulse Resp BP Pulse Ox 98.3 F 64 12 128/50 H 100 09/20/16 08:00 09/20/16 08:00 09/20/16 08:00 09/20/16 08:00 09/20/16 08:00 Intake & Output 09/19/16 09/20/16 09/21/16 06:59 06:59 06:59 Intake Total 1413 2550 Output Total 600 1500 Balance 813 1050 Weight 87.9 kg 84 kg General appearance: PRESENT: no acute distress, disheveled, thin, well-developed , well-nourished Head exam: PRESENT: atraumatic, normocephalic Eye exam: PRESENT: conjunctiva pale Mouth exam: PRESENT: dry mucosa, tongue midline, other - ET tube in place Neck exam: ABSENT: carotid bruit, JVD, lymphadenopathy, thyromegaly Respiratory exam: PRESENT: decreased breath sounds, rales, rhonchi, symmetrical , unlabored Cardiovascular exam: PRESENT: RRR, +S1, +S2 Pulses: PRESENT: normal radial pulses GI/Abdominal exam: PRESENT: normal bowel sounds, soft. ABSENT: distended, guarding, mass, organolmegaly, rebound, tenderness Rectal exam: PRESENT: deferred Gentrourinary exam: PRESENT: indwelling catheter Musculoskeletal exam: PRESENT: normal inspection Skin exam: PRESENT: dry, pallor Results Laboratory Results: 09/20/16 06:00 09/20/16 06:00 09/19/16 09/20/16 09/20/16 13:25 06:00 06:00 WBC 10.7 H RBC 2.29 L Hgb 7.6 L Hct 22.9 L MCV 100 H MCH 33.2 MCHC 33.3 RDW 14.7 H Plt Count 203 Seg Neutrophils % 84.5 H Lymphocytes % 5.2 L Monocytes % 9.6 Eosinophils % 0.2 Basophils % 0.5 Absolute Neutrophils 9.0 H Absolute Lymphocytes 0.6 Absolute Monocytes 1.0 Absolute Eosinophils 0.0 Absolute Basophils 0.1 Sodium 134.1 L Potassium 3.8 Chloride 98 Carbon Dioxide 26 Anion Gap 10 BUN 25 H Creatinine 3.27 H Est GFR ( Amer) 16 L Est GFR (Non-Af Amer) 14 L Glucose 357 H Calcium 8.1 L Phosphorus 2.4 L Magnesium 1.6 Blood Type AB POSITIVE Antibody Screen NEGATIVE Impressions: KUB X-Ray 09/17/16 00:00 IMPRESSION: Profound ileus, oral contrast given for CT 09/11/2016 still in the stomach and small bowel. Nasogastric tube tip and side port in the stomach Distended small bowel loops and colon in the upper half of the abdomen Abdomen/Pelvis CT 09/18/16 00:00 IMPRESSION: Multiple air fluid and contrast distended small bowel loops are again identified which again could be related to a diffuse ileus however I cannot exclude underlying obstruction. Intra- abdominal and pelvic ascitic fluid is again identified. Interval increase in size of the bilateral pleural effusions left greater than right. Other findings as noted above Abdomen X-Ray 09/19/16 00:00 IMPRESSION: Ileus or partial small bowel obstruction status post NG tube removal. Chest X-Ray 09/20/16 00:00 IMPRESSION: Bilateral midzone atelectasis. SUPPORT DEVICE(S) IN EXPECTED LOCATIONS. Assessment & Plan - Diagnosis (1) Anemia Is this a current diagnosis for this admission?: YesPlan: due to ESRD (2) Postoperative respiratory failure Is this a current diagnosis for this admission?: YesPlan: stable (3) Small bowel obstruction Is this a current diagnosis for this admission?: Yes (4) ESRD (end stage renal disease) on dialysis Is this a current diagnosis for this admission?: Yes - Time Critical Time spent with patient: 35 or more minutes - 55 min
--- NOTE | 2016-09-23 19:38 | PDOC PROGRESS REPORT ---
Subjective Progress Note for:: 09/21/16 Subjective:: extubateable but very weak Physical Exam Vital Signs: Temp Pulse Resp BP Pulse Ox 98.4 F 72 13 106/40 L 100 09/21/16 04:00 09/20/16 18:00 09/21/16 06:19 09/21/16 06:19 09/21/16 04:49 Intake & Output 09/20/16 09/21/16 09/22/16 06:59 06:59 06:59 Intake Total 2550 4511 Output Total 1500 100 Balance 1050 4411 Weight 84 kg 86.7 kg General appearance: PRESENT: no acute distress, thin, well-developed Head exam: PRESENT: atraumatic, normocephalic Eye exam: PRESENT: conjunctiva pale Mouth exam: PRESENT: dry mucosa, other - ET tube Neck exam: ABSENT: carotid bruit, JVD, lymphadenopathy, thyromegaly Respiratory exam: PRESENT: decreased breath sounds, prolonged expiratory phas, rales, rhonchi, symmetrical, unlabored Cardiovascular exam: PRESENT: RRR, +S1, +S2 Pulses: PRESENT: normal radial pulses GI/Abdominal exam: PRESENT: other - s/p abd surgery w ostemy Rectal exam: PRESENT: deferred Gentrourinary exam: PRESENT: indwelling catheter Skin exam: PRESENT: dry, pallor Results Laboratory Results: 09/21/16 05:00 09/21/16 05:00 09/19/16 09/20/16 09/21/16 13:25 17:22 05:00 WBC 10.5 RBC 2.79 L Hgb 9.2 L Hct 27.4 L MCV 99 H MCH 32.9 MCHC 33.4 RDW 16.6 H Plt Count 211 Seg Neutrophils % Lymphocytes % Monocytes % Eosinophils % Basophils % Absolute Neutrophils Absolute Lymphocytes Absolute Monocytes Absolute Eosinophils Absolute Basophils Carbonic Acid 1.26 HCO3/H2CO3 Ratio 22:1 ABG pH 7.44 ABG pCO2 41.9 ABG pO2 106.7 H ABG HCO3 28.0 H ABG O2 Saturation 98.0 ABG Base Excess 3.6 FiO2 35% Sodium Potassium Chloride Carbon Dioxide Anion Gap BUN Creatinine Est GFR ( Amer) Est GFR (Non-Af Amer) Glucose Calcium Phosphorus Total Bilirubin AST ALT Alkaline Phosphatase Total Protein Albumin Prealbumin Triglycerides Blood Type AB POSITIVE Antibody Screen NEGATIVE 09/21/16 09/21/16 05:00 05:00 WBC 12.8 H RBC 2.56 L Hgb 8.2 L Hct 25.0 L MCV 98 H MCH 32.1 MCHC 32.8 RDW 16.1 H Plt Count 222 Seg Neutrophils % 71.1 Lymphocytes % 9.0 L Monocytes % 17.4 H Eosinophils % 1.7 Basophils % 0.8 Absolute Neutrophils 9.1 H Absolute Lymphocytes 1.2 Absolute Monocytes 2.2 H Absolute Eosinophils 0.2 Absolute Basophils 0.1 Carbonic Acid HCO3/H2CO3 Ratio ABG pH ABG pCO2 ABG pO2 ABG HCO3 ABG O2 Saturation ABG Base Excess FiO2 Sodium 130.5 L Potassium 3.4 L Chloride 97 L Carbon Dioxide 27 Anion Gap 7 BUN 28 H Creatinine 3.45 H Est GFR ( Amer) 15 L Est GFR (Non-Af Amer) 13 L Glucose 187 H Calcium 8.4 Phosphorus 2.2 L Total Bilirubin 0.2 AST 13 L ALT 24 Alkaline Phosphatase 55 Total Protein 3.9 L Albumin 1.8 L Prealbumin 7.9 L Triglycerides 38 Blood Type Antibody Screen Impressions: KUB X-Ray 09/17/16 00:00 IMPRESSION: Profound ileus, oral contrast given for CT 09/11/2016 still in the stomach and small bowel. Nasogastric tube tip and side port in the stomach Distended small bowel loops and colon in the upper half of the abdomen Abdomen/Pelvis CT 09/18/16 00:00 IMPRESSION: Multiple air fluid and contrast distended small bowel loops are again identified which again could be related to a diffuse ileus however I cannot exclude underlying obstruction. Intra- abdominal and pelvic ascitic fluid is again identified. Interval increase in size of the bilateral pleural effusions left greater than right. Other findings as noted above Abdomen X-Ray 09/19/16 00:00 IMPRESSION: Ileus or partial small bowel obstruction status post NG tube removal. Chest X-Ray 09/21/16 06:00 IMPRESSION: Increased basilar effusions and subsegmental atelectasis. Assessment & Plan - Diagnosis (1) Postoperative respiratory failure Is this a current diagnosis for this admission?: YesPlan: continue supportive care (2) Small bowel obstruction Is this a current diagnosis for this admission?: YesPlan: post op (3) ESRD (end stage renal disease) on dialysis Is this a current diagnosis for this admission?: YesPlan: continue hd qod - Time Critical Time spent with patient: 35 or more minutes - 35 min
--- NOTE | 2016-09-23 19:45 | PDOC PROGRESS REPORT ---
Subjective Progress Note for:: 09/22/16 Subjective:: extubateable arousable Physical Exam Vital Signs: Temp Pulse Resp BP Pulse Ox 98.5 F 75 8 L 152/49 H 100 09/22/16 12:00 09/22/16 12:00 09/22/16 12:36 09/22/16 12:36 09/22/16 12:20 Intake & Output 09/21/16 09/22/16 09/23/16 06:59 06:59 06:59 Intake Total 4511 2584 Output Total 448 697 6012 Balance 4411 2434 -2700 Weight 86.7 kg 90.8 kg General appearance: PRESENT: no acute distress, thin, well-developed, well- nourished Head exam: PRESENT: atraumatic, normocephalic Eye exam: PRESENT: conjunctiva pale, EOMI Mouth exam: PRESENT: dry mucosa, neck supple, tongue midline, other - ET tube in place Neck exam: ABSENT: carotid bruit, JVD, lymphadenopathy, thyromegaly Respiratory exam: PRESENT: decreased breath sounds, prolonged expiratory phas, rhonchi, symmetrical, unlabored, wheezes Cardiovascular exam: PRESENT: RRR, +S1, +S2 Pulses: PRESENT: +1 pedal pulses bilateral GI/Abdominal exam: PRESENT: other - s/p abdominal surg Rectal exam: PRESENT: deferred Gentrourinary exam: PRESENT: indwelling catheter Musculoskeletal exam: PRESENT: normal inspection Neurological exam: PRESENT: awake Skin exam: PRESENT: dry, pallor Results Laboratory Results: 09/22/16 12:45 09/22/16 05:40 09/22/16 09/22/16 09/22/16 05:40 05:40 05:40 WBC 13.6 H RBC 2.36 L Hgb 7.6 L Hct 23.0 L MCV 98 H MCH 32.0 MCHC 32.8 RDW 15.6 H Plt Count 226 Seg Neutrophils % 72.7 Lymphocytes % 7.7 L Monocytes % 16.8 H Eosinophils % 2.2 Basophils % 0.6 Absolute Neutrophils 9.9 H Absolute Lymphocytes 1.0 Absolute Monocytes 2.3 H Absolute Eosinophils 0.3 Absolute Basophils 0.1 Carbonic Acid 1.13 HCO3/H2CO3 Ratio 22:1 ABG pH 7.44 ABG pCO2 37.6 ABG pO2 108.1 H ABG HCO3 25.1 ABG O2 Saturation 98.1 H ABG Base Excess 1.1 FiO2 35% Sodium 127.9 L Potassium 3.6 Chloride 95 L Carbon Dioxide 25 Anion Gap 8 BUN 40 H Creatinine 4.22 H Est GFR ( Amer) 12 L Est GFR (Non-Af Amer) 10 L Glucose 116 H Calcium 8.6 Iron 09/22/16 09/22/16 05:40 12:45 WBC 14.2 H RBC 2.58 L Hgb 8.4 L Hct 25.1 L MCV 97 MCH 32.4 MCHC 33.3 RDW 15.5 H Plt Count 224 Seg Neutrophils % Lymphocytes % Monocytes % Eosinophils % Basophils % Absolute Neutrophils Absolute Lymphocytes Absolute Monocytes Absolute Eosinophils Absolute Basophils Carbonic Acid HCO3/H2CO3 Ratio ABG pH ABG pCO2 ABG pO2 ABG HCO3 ABG O2 Saturation ABG Base Excess FiO2 Sodium Potassium Chloride Carbon Dioxide Anion Gap BUN Creatinine Est GFR ( Amer) Est GFR (Non-Af Amer) Glucose Calcium Iron < 10.1 L Impressions: KUB X-Ray 09/17/16 00:00 IMPRESSION: Profound ileus, oral contrast given for CT 09/11/2016 still in the stomach and small bowel. Nasogastric tube tip and side port in the stomach Distended small bowel loops and colon in the upper half of the abdomen Abdomen/Pelvis CT 09/18/16 00:00 IMPRESSION: Multiple air fluid and contrast distended small bowel loops are again identified which again could be related to a diffuse ileus however I cannot exclude underlying obstruction. Intra- abdominal and pelvic ascitic fluid is again identified. Interval increase in size of the bilateral pleural effusions left greater than right. Other findings as noted above Abdomen X-Ray 09/19/16 00:00 IMPRESSION: Ileus or partial small bowel obstruction status post NG tube removal. Chest X-Ray 09/22/16 06:00 IMPRESSION: No significant interval change. Findings as noted above Assessment & Plan - Diagnosis (1) Hypokalemia Is this a current diagnosis for this admission?: Yes (2) Hyponatremia Is this a current diagnosis for this admission?: Yes (3) Postoperative respiratory failure Is this a current diagnosis for this admission?: YesPlan: rr;min vol;fio2 ;airway pressures suggest sucessful extubation will extubate (4) Small bowel obstruction Is this a current diagnosis for this admission?: YesPlan: post op (5) ESRD (end stage renal disease) on dialysis Is this a current diagnosis for this admission?: YesPlan: continue hd qod - Time Critical Time spent with patient: 35 or more minutes - 50 min extubate
--- NOTE | 2016-09-23 19:53 | PDOC PROGRESS REPORT ---
Subjective Progress Note for:: 09/23/16 Subjective:: arouable lethargic 24 hr s/p extubation stable Physical Exam Vital Signs: Temp Pulse Resp BP Pulse Ox 98.7 F 79 19 146/48 H 100 09/23/16 05:26 09/22/16 18:00 09/22/16 23:06 09/22/16 23:06 09/23/16 01:23 Intake & Output 09/22/16 09/23/16 09/24/16 06:59 06:59 07:59 Intake Total 2584 476 Output Total 150 2700 Balance 2434 -2224 Weight 90.8 kg 90 kg General appearance: PRESENT: thin, well-developed, well-nourished Head exam: PRESENT: atraumatic, normocephalic Eye exam: PRESENT: conjunctiva pale, EOMI Mouth exam: PRESENT: dry mucosa, neck supple Neck exam: ABSENT: carotid bruit, JVD, lymphadenopathy, thyromegaly Respiratory exam: PRESENT: decreased breath sounds, prolonged expiratory phas, rales, rhonchi, symmetrical, unlabored Cardiovascular exam: PRESENT: RRR, +S1, +S2 Pulses: PRESENT: normal radial pulses GI/Abdominal exam: PRESENT: other - s/p surgery ostomey Rectal exam: PRESENT: deferred Gentrourinary exam: PRESENT: indwelling catheter Musculoskeletal exam: PRESENT: normal inspection Neurological exam: PRESENT: awake Psychiatric exam: PRESENT: flat affect Skin exam: PRESENT: dry, pallor, warm Results Laboratory Results: 09/23/16 05:20 09/23/16 05:20 09/22/16 09/22/16 09/23/16 05:40 12:45 05:20 WBC 14.2 H RBC 2.58 L Hgb 8.4 L Hct 25.1 L MCV 97 MCH 32.4 MCHC 33.3 RDW 15.5 H Plt Count 224 Seg Neutrophils % Lymphocytes % Monocytes % Eosinophils % Basophils % Absolute Neutrophils Absolute Lymphocytes Absolute Monocytes Absolute Eosinophils Absolute Basophils Sodium 131.6 L Potassium 3.8 Chloride 96 L Carbon Dioxide 29 Anion Gap 7 BUN 32 H Creatinine 3.46 H Est GFR ( Amer) 15 L Est GFR (Non-Af Amer) 13 L Glucose 215 H Calcium 9.0 Iron < 10.1 L 09/23/16 05:20 WBC 12.1 H RBC 2.53 L Hgb 8.1 L Hct 24.8 L MCV 98 H MCH 31.9 MCHC 32.6 RDW 15.7 H Plt Count 222 Seg Neutrophils % 75.2 Lymphocytes % 7.3 L Monocytes % 15.5 H Eosinophils % 1.5 Basophils % 0.5 Absolute Neutrophils 9.1 H Absolute Lymphocytes 0.9 Absolute Monocytes 1.9 H Absolute Eosinophils 0.2 Absolute Basophils 0.1 Sodium Potassium Chloride Carbon Dioxide Anion Gap BUN Creatinine Est GFR ( Amer) Est GFR (Non-Af Amer) Glucose Calcium Iron Impressions: KUB X-Ray 09/17/16 00:00 IMPRESSION: Profound ileus, oral contrast given for CT 09/11/2016 still in the stomach and small bowel. Nasogastric tube tip and side port in the stomach Distended small bowel loops and colon in the upper half of the abdomen Abdomen/Pelvis CT 09/18/16 00:00 IMPRESSION: Multiple air fluid and contrast distended small bowel loops are again identified which again could be related to a diffuse ileus however I cannot exclude underlying obstruction. Intra- abdominal and pelvic ascitic fluid is again identified. Interval increase in size of the bilateral pleural effusions left greater than right. Other findings as noted above Abdomen X-Ray 09/19/16 00:00 IMPRESSION: Ileus or partial small bowel obstruction status post NG tube removal. Chest X-Ray 09/23/16 06:00 IMPRESSION: 1. Support tubes and lines as above. 2. Hazy densities noted at both lung bases likely representing combination of layering effusions with associated atelectasis/infiltrate. Overall appearance not significant changed. The fluid is noted previously within the minor fissure on the right has resolved. Assessment & Plan - Diagnosis (1) Anemia Is this a current diagnosis for this admission?: YesPlan: due to ESRD (2) Hyponatremia Is this a current diagnosis for this admission?: Yes (3) Postoperative respiratory failure Is this a current diagnosis for this admission?: YesPlan: 24 hr sp extubation stable (4) Status post colectomy Is this a current diagnosis for this admission?: Yes (5) ESRD (end stage renal disease) on dialysis Is this a current diagnosis for this admission?: YesPlan: continue hd qod - Time Critical Time spent with patient: 35 or more minutes
[2016-09-23] MEDS: MORPHINE SULFATE 10 MG/ML INJ IV PRN (20:13)
[2016-09-23] MEDS: INSULIN GLARGINE,HUM.REC.ANLOG 300 UNIT/3 ML INSULN.PEN SUBCUT SCH (22:24)
[2016-09-23] MEDS: ATORVASTATIN CALCIUM 40 MG TABLET NG SCH (22:24)
[2016-09-24] MEDS: AMINO ACIDS 5%/D25W 1,000 ML IV PRN ×2 (00:02→18:28)
[2016-09-24] MEDS: INSULIN LISPRO 100 UNIT/ML 3 ML VIAL SUBCUT PRN ×3 (00:03→16:51)
[2016-09-24] MEDS: HYDRALAZINE HCL INJ/PF 20 MG/1 ML SDV IV SCH ×4 (00:03→18:28)
[2016-09-24] MEDS: MORPHINE SULFATE 10 MG/ML INJ IV PRN (00:13)
[2016-09-24] MEDS: ASPIRIN 81 MG TABLET, CHEWABLE NG SCH (09:37)
[2016-09-24] MEDS: CEFEPIME 1 GM/D5W RTU 50 ML IV SCH (09:37)
[2016-09-24] MEDS: CINACALCET HCL 30 MG TABLET PO SCH (09:38)
[2016-09-24] MEDS: FOLIC ACID/VITAMIN B COMP W-C CAPSULE NG SCH (09:38)
--- NOTE | 2016-09-24 15:27 | PDOC PROGRESS REPORT ---
Subjective Progress Note for:: 09/24/16 Subjective:: No new issues reported by nursing staff overnight. Stable post extubation on . I cannot obtain history from patient secondary to encephalopathy. Physical Exam Vital Signs: Temp Pulse Resp BP Pulse Ox 98.8 F 74 13 111/48 L 100 09/24/16 12:00 09/24/16 12:00 09/24/16 14:00 09/24/16 12:09 09/24/16 14:00 Intake & Output 09/23/16 09/24/16 09/25/16 05:59 06:59 06:59 Intake Total 60 Output Total Balance 60 Weight GENERAL: Drowsy but arousable, will not answer questions or follow commands HEENT: Conjunctiva clear, nonicteric, moist mucous membranes, no JVD, midline trachea. NG tube in place RESPIRATORY: Clear to auscultation bilaterally, no wheezes, no rhonchi CARDIAC: Regular rate and rhythm, no murmurs/gallops/rubs ABDOMEN: Soft, distention improving, positive bowel sounds, no rebound, no guarding EXTREMETIES: No edema, cyanosis, clubbing NEUROLOGIC: Difficult to assess secondary to encephalopathy SKIN: Abdominal incision healing well Results Laboratory Results: 09/23/16 05:20 09/23/16 05:20 09/21/16 19:45 Tracheal Aspirate Gram Stain - Final 09/21/16 19:45 Tracheal Aspirate Sputum Culture - Final REDUCED NORMAL MARIOLA Impressions: KUB X-Ray 09/17/16 00:00 IMPRESSION: Profound ileus, oral contrast given for CT 09/11/2016 still in the stomach and small bowel. Nasogastric tube tip and side port in the stomach Distended small bowel loops and colon in the upper half of the abdomen Abdomen/Pelvis CT 09/18/16 00:00 IMPRESSION: Multiple air fluid and contrast distended small bowel loops are again identified which again could be related to a diffuse ileus however I cannot exclude underlying obstruction. Intra- abdominal and pelvic ascitic fluid is again identified. Interval increase in size of the bilateral pleural effusions left greater than right. Other findings as noted above Abdomen X-Ray 09/19/16 00:00 IMPRESSION: Ileus or partial small bowel obstruction status post NG tube removal. Chest X-Ray 09/23/16 06:00 IMPRESSION: 1. Support tubes and lines as above. 2. Hazy densities noted at both lung bases likely representing combination of layering effusions with associated atelectasis/infiltrate. Overall appearance not significant changed. The fluid is noted previously within the minor fissure on the right has resolved. Assessment & Plan - Diagnosis (1) Encephalopathy Is this a current diagnosis for this admission?: YesPlan: Likely multifactorial nature to include underlying dementia with acute medical issues. Patient remains nothing by mouth status at this time for medical reasons. I probably would not start oral intake without formal speech therapy evaluation. This issue does not start to improve it may be appropriate to start having end- of-life discussions with family. At the very least CODE STATUS should be readdressed. (2) Postoperative respiratory failure Is this a current diagnosis for this admission?: YesPlan: Stable post extubation on 09/22/2016. (3) Small bowel obstruction Is this a current diagnosis for this admission?: YesPlan: Status post exploratory laparotomy and lysis of adhesions on 09/19/2016. Surgery managing. (4) Status post colectomy Is this a current diagnosis for this admission?: YesPlan: Surgery managing. Patient remains on TPN at this time. (5) Diabetes Qualifiers: Diabetes mellitus type: type 1 Diabetes mellitus complication status: with kidney complications Diabetes mellitus complication detail: with chronic kidney disease Chronic kidney disease stage: on chronic dialysis Qualified Code(s): E10.22 - Type 1 diabetes mellitus with diabetic chronic kidney disease; N18.1 - Chronic kidney disease, stage 1 Is this a current diagnosis for this admission?: YesPlan: Lantus 40 units nightly. Continue sliding scale insulin. (6) ESRD (end stage renal disease) on dialysis Is this a current diagnosis for this admission?: YesPlan: Dr. Saravia of nephrology for management. Patient is on hemodialysis. (7) Essential (primary) hypertension Is this a current diagnosis for this admission?: YesPlan: Continue Catapres 0.1 mg patch. Continue when necessary IV hydralazine. (8) Dementia Qualifiers: Dementia type: unspecified type Dementia behavioral disturbance: without behavioral disturbance Qualified Code(s): F03.90 - Unspecified dementia without behavioral disturbance Is this a current diagnosis for this admission?: YesPlan: Continue supportive care. (9) Anemia Is this a current diagnosis for this admission?: YesPlan: Transfused 1 unit PRBC on 09/20/2016. Continue to monitor H&H closely posttransfusion. Continue Procrit. Administered IV iron 1 dose on 09/22/2016 secondary to low serum iron level. (10) Hypokalemia Is this a current diagnosis for this admission?: YesPlan: Corrected for now. Continue to monitor. (11) Hyponatremia Is this a current diagnosis for this admission?: YesPlan: Sodium slightly low but stable. Continue to monitor closely on TPN and dialysis. Repeat labs in a.m. (12) Leukocytosis Is this a current diagnosis for this admission?: YesPlan: Afebrile. Blood pressure stable. Cannot exclude airspace disease on chest x- ray. Sputum culture from 09/21/2016 negative. Blood cultures from 09/21/2016 negative. Cefepime 1 g IV every 12 hours started 09/21/2016. Added IV Flagyl on 09/22/2016 for improved intra-abdominal coverage given recent surgical history. Unable to obtain urine as patient is anuric from end-stage renal disease. - Time Time Spent with patient: 35 or more minutes
[2016-09-24] MEDS: LACTULOSE SYRUP 20 GM/30 ML UDCUP PO SCH (16:50)
--- NOTE | 2016-09-24 17:56 | PDOC PROGRESS REPORT ---
Subjective Progress Note for:: 09/24/16 Physical Exam Vital Signs: Temp Pulse Resp BP Pulse Ox 97.6 F 79 16 100/77 100 09/24/16 16:00 09/24/16 16:00 09/24/16 16:00 09/24/16 16:00 09/24/16 16:00 Intake & Output 09/23/16 09/24/16 09/25/16 05:59 06:59 06:59 Intake Total 825 Output Total Balance 825 Weight GI/Abdominal exam: PRESENT: other - Abdomen distended soft Results Laboratory Results: 09/23/16 05:20 09/23/16 05:20 09/21/16 19:45 Tracheal Aspirate Gram Stain - Final 09/21/16 19:45 Tracheal Aspirate Sputum Culture - Final REDUCED NORMAL MARIOLA Impressions: KUB X-Ray 09/17/16 00:00 IMPRESSION: Profound ileus, oral contrast given for CT 09/11/2016 still in the stomach and small bowel. Nasogastric tube tip and side port in the stomach Distended small bowel loops and colon in the upper half of the abdomen Abdomen/Pelvis CT 09/18/16 00:00 IMPRESSION: Multiple air fluid and contrast distended small bowel loops are again identified which again could be related to a diffuse ileus however I cannot exclude underlying obstruction. Intra- abdominal and pelvic ascitic fluid is again identified. Interval increase in size of the bilateral pleural effusions left greater than right. Other findings as noted above Abdomen X-Ray 09/19/16 00:00 IMPRESSION: Ileus or partial small bowel obstruction status post NG tube removal. Chest X-Ray 09/23/16 06:00 IMPRESSION: 1. Support tubes and lines as above. 2. Hazy densities noted at both lung bases likely representing combination of layering effusions with associated atelectasis/infiltrate. Overall appearance not significant changed. The fluid is noted previously within the minor fissure on the right has resolved. Assessment & Plan - Plan Summary Plan Summary: Slow progress still has ileus Continue Bowel rest
--- NOTE | 2016-09-24 18:03 | PDOC PROGRESS REPORT ---
Subjective Progress Note for:: 09/24/16 Subjective:: arouable lethargic 24 hr s/p extubation stable Physical Exam Vital Signs: Temp Pulse Resp BP Pulse Ox 98.2 F 71 13 115/46 L 100 09/24/16 08:00 09/24/16 08:10 09/24/16 08:00 09/24/16 08:00 09/24/16 08:00 Intake & Output 09/23/16 09/24/16 09/25/16 05:59 06:59 06:59 Intake Total Output Total Balance Weight General appearance: PRESENT: no acute distress, thin, well-developed Head exam: PRESENT: atraumatic, normocephalic Eye exam: PRESENT: conjunctiva pale Mouth exam: PRESENT: dry mucosa, tongue midline Neck exam: ABSENT: carotid bruit, JVD, lymphadenopathy, thyromegaly Respiratory exam: PRESENT: decreased breath sounds, rhonchi, symmetrical, unlabored Cardiovascular exam: PRESENT: RRR, +S1, +S2 GI/Abdominal exam: PRESENT: normal bowel sounds, other - Status post abdominal surgery Rectal exam: PRESENT: deferred Gentrourinary exam: PRESENT: indwelling catheter Musculoskeletal exam: PRESENT: normal inspection Neurological exam: PRESENT: awake Psychiatric exam: PRESENT: flat affect Skin exam: PRESENT: dry, intact, warm Results Laboratory Results: 09/23/16 05:20 09/23/16 05:20 Impressions: KUB X-Ray 09/17/16 00:00 IMPRESSION: Profound ileus, oral contrast given for CT 09/11/2016 still in the stomach and small bowel. Nasogastric tube tip and side port in the stomach Distended small bowel loops and colon in the upper half of the abdomen Abdomen/Pelvis CT 09/18/16 00:00 IMPRESSION: Multiple air fluid and contrast distended small bowel loops are again identified which again could be related to a diffuse ileus however I cannot exclude underlying obstruction. Intra- abdominal and pelvic ascitic fluid is again identified. Interval increase in size of the bilateral pleural effusions left greater than right. Other findings as noted above Abdomen X-Ray 09/19/16 00:00 IMPRESSION: Ileus or partial small bowel obstruction status post NG tube removal. Chest X-Ray 09/23/16 06:00 IMPRESSION: 1. Support tubes and lines as above. 2. Hazy densities noted at both lung bases likely representing combination of layering effusions with associated atelectasis/infiltrate. Overall appearance not significant changed. The fluid is noted previously within the minor fissure on the right has resolved. Assessment & Plan - Diagnosis (1) Anemia Is this a current diagnosis for this admission?: YesPlan: due to ESRD (2) Hyponatremia Is this a current diagnosis for this admission?: Yes (3) Postoperative respiratory failure Is this a current diagnosis for this admission?: YesPlan: sp extubation stable (4) Status post colectomy Is this a current diagnosis for this admission?: YesPlan: As per surgery (5) ESRD (end stage renal disease) on dialysis Is this a current diagnosis for this admission?: YesPlan: continue hd qod - Time Critical Time spent with patient: 25-34 minutes
[2016-09-25] MEDS: CEFEPIME 1 GM/D5W RTU 50 ML IV SCH ×2 (02:43→11:50)
[2016-09-25] MEDS: ATORVASTATIN CALCIUM 40 MG TABLET NG SCH ×2 (02:45→21:41)
[2016-09-25] MEDS: INSULIN GLARGINE,HUM.REC.ANLOG 300 UNIT/3 ML INSULN.PEN SUBCUT SCH ×2 (02:46→22:58)
[2016-09-25] MEDS: HYDRALAZINE HCL INJ/PF 20 MG/1 ML SDV IV SCH ×5 (02:47→23:46)
[2016-09-25 06:16] LABS: HEMATOCRIT 24.4 % (36.0-47.0); HEMOGLOBIN 8.1 g/dL (12.0-15.5); HGB HCT DIFFERENCE -0.1; MEAN CORPUSCULAR HEMOGLOBIN 32.3 pg (27.0-33.4); MEAN CORPUSCULAR HGB CONC 33.1 g/dL (32.0-36.0); MEAN CORPUSCULAR VOLUME 98 fl (80-97); RED CELL DISTRIBUTION WIDTH 15.4 % (11.5-14.0); WHITE BLOOD COUNT 11.6 10^3/uL (4.0-10.5)
[2016-09-25 06:25] LABS: PROTHROMBIN TIME 15.6 SEC (11.4-15.4)
[2016-09-25 06:30] LABS: ALANINE AMINOTRANSFERASE 28 U/L (9-52); ALKALINE PHOSPHATASE 74 U/L (38-126); ANION GAP 9 (5-19); ASPARTATE AMINO TRANSFERASE 21 U/L (14-36); BILIRUBIN,TOTAL 0.3 mg/dL (0.2-1.3); BLOOD UREA NITROGEN 56 mg/dL (7-20); CALCIUM 8.5 mg/dL (8.4-10.2); CARBON DIOXIDE 24 mmol/L (22-30); CHLORIDE 93 mmol/L (98-107); CREATININE RESULT 5.45 mg/dL (0.52-1.25); GLUCOSE 373 mg/dL (75-110); MAGNESIUM 1.8 mg/dL (1.6-2.3); PHOSPHORUS 5.2 mg/dL (2.5-4.5); POTASSIUM 4.5 mmol/L (3.6-5.0); SODIUM 126.4 mmol/L (137-145); TOTAL PROTEIN 4.6 g/dL (6.3-8.2)
[2016-09-25] MEDS: INSULIN LISPRO 100 UNIT/ML 3 ML VIAL SUBCUT PRN ×3 (07:48→23:01)
[2016-09-25] MEDS ORDERED: EPOETIN ALFA INJ 20000 UNIT/1 ML VIAL (RENAL) IV PRN (09:26)
[2016-09-25] MEDS: FOLIC ACID/VITAMIN B COMP W-C CAPSULE NG SCH (11:35)
[2016-09-25] MEDS: CINACALCET HCL 30 MG TABLET PO SCH (11:35)
[2016-09-25] MEDS: ASPIRIN 81 MG TABLET, CHEWABLE NG SCH (11:40)
[2016-09-25] MEDS: FAT EMULSIONS 250 ML IV SCH (11:41)
[2016-09-25] MEDS: AMINO ACIDS 5%/D25W 1,000 ML IV PRN (11:43)
--- NOTE | 2016-09-25 11:52 | PDOC PROGRESS REPORT ---
Subjective Progress Note for:: 09/25/16 Subjective:: The patient is minimally responsive. She answers questions with a few words. She is getting ready for dialysis today. Nasogastric tube minimal drainage. She was extubated 48 hours ago and tolerated that well. Physical Exam Vital Signs: Temp Pulse Resp BP Pulse Ox 98.1 F 81 18 135/41 H 100 09/25/16 08:15 09/25/16 08:15 09/25/16 10:04 09/25/16 10:04 09/25/16 10:00 Intake & Output 09/24/16 09/25/16 09/26/16 06:59 06:59 06:59 Intake Total 1795 Output Total 0 Balance 1795 Weight 92.1 kg General appearance: PRESENT: no acute distress GI/Abdominal exam: PRESENT: other - Midline incision is dry, dressing intact and vicente intact. The abdomen is soft no peritoneal signs no rigidity. Results Laboratory Results: 09/25/16 06:10 09/25/16 06:10 09/25/16 09/25/16 06:10 06:10 WBC 11.6 H RBC 2.50 L Hgb 8.1 L Hct 24.4 L MCV 98 H MCH 32.3 MCHC 33.1 RDW 15.4 H Plt Count 239 Sodium 126.4 L Potassium 4.5 Chloride 93 L Carbon Dioxide 24 Anion Gap 9 BUN 56 H Creatinine 5.45 H Est GFR ( Amer) 9 L Est GFR (Non-Af Amer) 8 L Glucose 373 H Calcium 8.5 Phosphorus 5.2 H Magnesium 1.8 Total Bilirubin 0.3 AST 21 ALT 28 Alkaline Phosphatase 74 Total Protein 4.6 L Albumin 2.0 L Prealbumin 8.0 L 09/21/16 19:45 Tracheal Aspirate Gram Stain - Final 09/21/16 19:45 Tracheal Aspirate Sputum Culture - Final REDUCED NORMAL MARIOLA Impressions: KUB X-Ray 09/17/16 00:00 IMPRESSION: Profound ileus, oral contrast given for CT 09/11/2016 still in the stomach and small bowel. Nasogastric tube tip and side port in the stomach Distended small bowel loops and colon in the upper half of the abdomen Abdomen/Pelvis CT 09/18/16 00:00 IMPRESSION: Multiple air fluid and contrast distended small bowel loops are again identified which again could be related to a diffuse ileus however I cannot exclude underlying obstruction. Intra- abdominal and pelvic ascitic fluid is again identified. Interval increase in size of the bilateral pleural effusions left greater than right. Other findings as noted above Abdomen X-Ray 09/19/16 00:00 IMPRESSION: Ileus or partial small bowel obstruction status post NG tube removal. Chest X-Ray 09/23/16 06:00 IMPRESSION: 1. Support tubes and lines as above. 2. Hazy densities noted at both lung bases likely representing combination of layering effusions with associated atelectasis/infiltrate. Overall appearance not significant changed. The fluid is noted previously within the minor fissure on the right has resolved. Assessment & Plan - Diagnosis (1) Small bowel obstruction Is this a current diagnosis for this admission?: YesPlan: Patient now 5 days status post right lower aeration lysis of adhesions on the tolerating extubation, and hemodialysis. Anticipate clamping NG tube and hopefully removing it, getting a swallowing hydration at bedside and hopefully starting her on clear liquids.
[2016-09-25] MEDS ORDERED: HEPARIN SOD (PORCINE) 5,000 UNIT/ML 1 ML SYRINGE SUBCUT SCH ×2 (14:45→22:00)
[2016-09-25] MEDS ORDERED: HEPARIN SOD (PORCINE) 5,000 UNIT/ML 1 ML SYRINGE SUBCUT ONE ×2 (15:00→16:00)
--- NOTE | 2016-09-25 17:18 | PDOC PROGRESS REPORT ---
Subjective Progress Note for:: 09/25/16 Subjective:: Patient was seen on dialysis today. She is been extubated couple of days earlier and seems to be holding. She looks and feels better than yesterday. She is not moving gas/flatus, she thinks. She denies any history of nausea vomiting. She denies history of chest pain shortness of breath. No history of any fever chills. Physical Exam Vital Signs: Temp Pulse Resp BP Pulse Ox 98.6 F 85 18 131/50 H 97 09/25/16 16:00 09/25/16 16:00 09/25/16 16:00 09/25/16 16:00 09/25/16 16:00 Intake & Output 09/24/16 09/25/16 09/26/16 06:59 06:59 06:59 Intake Total 1795 Output Total 0 Balance 1795 Weight 92.1 kg General appearance: PRESENT: disheveled, mild distress Respiratory exam: PRESENT: clear to auscultation nikki. ABSENT: crackles, rhonchi Cardiovascular exam: PRESENT: +S1, +S2, systolic murmur GI/Abdominal exam: PRESENT: hypoactive bowel sounds, soft, tenderness - Both the lower quadrants. Bowel sounds are hypoactive. No masses felt. ABSENT: distended, firm, normal bowel sounds Neurological exam: PRESENT: awake, oriented to person, oriented to place. ABSENT: oriented to time Results Laboratory Results: 09/25/16 06:10 09/25/16 06:10 09/25/16 09/25/16 06:10 06:10 WBC 11.6 H RBC 2.50 L Hgb 8.1 L Hct 24.4 L MCV 98 H MCH 32.3 MCHC 33.1 RDW 15.4 H Plt Count 239 Sodium 126.4 L Potassium 4.5 Chloride 93 L Carbon Dioxide 24 Anion Gap 9 BUN 56 H Creatinine 5.45 H Est GFR ( Amer) 9 L Est GFR (Non-Af Amer) 8 L Glucose 373 H Calcium 8.5 Phosphorus 5.2 H Magnesium 1.8 Total Bilirubin 0.3 AST 21 ALT 28 Alkaline Phosphatase 74 Total Protein 4.6 L Albumin 2.0 L Prealbumin 8.0 L Impressions: KUB X-Ray 09/17/16 00:00 IMPRESSION: Profound ileus, oral contrast given for CT 09/11/2016 still in the stomach and small bowel. Nasogastric tube tip and side port in the stomach Distended small bowel loops and colon in the upper half of the abdomen Abdomen/Pelvis CT 09/18/16 00:00 IMPRESSION: Multiple air fluid and contrast distended small bowel loops are again identified which again could be related to a diffuse ileus however I cannot exclude underlying obstruction. Intra- abdominal and pelvic ascitic fluid is again identified. Interval increase in size of the bilateral pleural effusions left greater than right. Other findings as noted above Chest X-Ray 09/23/16 06:00 IMPRESSION: 1. Support tubes and lines as above. 2. Hazy densities noted at both lung bases likely representing combination of layering effusions with associated atelectasis/infiltrate. Overall appearance not significant changed. The fluid is noted previously within the minor fissure on the right has resolved. Abdomen X-Ray 09/25/16 00:00 IMPRESSION: Findings are most consistent with postoperative ileus. Assessment & Plan - Diagnosis (1) Diabetes Qualifiers: Diabetes mellitus type: type 1 Diabetes mellitus complication status: with kidney complications Diabetes mellitus complication detail: with chronic kidney disease Chronic kidney disease stage: on chronic dialysis Qualified Code(s): E10.22 - Type 1 diabetes mellitus with diabetic chronic kidney disease; N18.1 - Chronic kidney disease, stage 1 Is this a current diagnosis for this admission?: Yes (2) Status post colectomy Is this a current diagnosis for this admission?: YesPlan: As per surgery. She is status post exploratory laparotomy because she had persistent bowel obstruction post colectomy. Presently looks stable (3) ESRD (end stage renal disease) on dialysis Is this a current diagnosis for this admission?: YesPlan: Is undergoing dialysis without any issues. Orders were discussed with the treating dialysis nurse. We will try to remove around 2 L as tolerated. Continue to monitor. (4) Essential (primary) hypertension Is this a current diagnosis for this admission?: Yes (5) Confusion and disorientation Plan: Improving. (6) Hyperkalemia Plan: Good. appropriate correction done in her TPN. She is on 3K bath on dialysis. (7) Anemia Is this a current diagnosis for this admission?: YesPlan: Will adjust erythropoietin in the meanwhile. Check iron studies as well later on. (8) Hyponatremia Is this a current diagnosis for this admission?: YesPlan: Discussed with pharmacist to make appropriate adjustments in the TPN. She will also corrects to dialysis. Monitor.
[2016-09-25] MEDS: LACTULOSE SYRUP 20 GM/30 ML UDCUP PO SCH (17:35)
--- NOTE | 2016-09-25 17:58 | PDOC PROGRESS REPORT ---
Subjective Progress Note for:: 09/25/16 Subjective:: No issues reported overnight. Patient has no complaints. She is much more alert and responsive today. Patient denies fever, chills, headache, new focal weakness, chest pain, shortness of breath, abdominal pain, nausea, vomiting, diarrhea, constipation. Physical Exam Vital Signs: Temp Pulse Resp BP Pulse Ox 98.6 F 86 16 144/52 H 99 09/25/16 16:00 09/25/16 17:28 09/25/16 17:28 09/25/16 17:28 09/25/16 17:28 Intake & Output 09/24/16 09/25/16 09/26/16 06:59 06:59 06:59 Intake Total 1795 Output Total 0 1100 Balance 1795 -1100 Weight 92.1 kg GENERAL: No acute distress HEENT: Conjunctiva clear, nonicteric, moist mucous membranes, no JVD, midline trachea RESPIRATORY: Clear to auscultation bilaterally, no wheezes, no rhonchi CARDIAC: Regular rate and rhythm, no murmurs/gallops/rubs ABDOMEN: Soft, nondistended, nontender, positive bowel sounds, no rebound, no guarding EXTREMETIES: No edema, cyanosis, clubbing NEUROLOGIC: Alert, oriented to person and the fact that she is in a hospital, CN 's grossly intact, no focal deficits SKIN: Midline abdominal incision healing well PSYCH: Normal mood, normal affect Results Laboratory Results: 09/25/16 06:10 09/25/16 06:10 09/25/16 09/25/16 06:10 06:10 WBC 11.6 H RBC 2.50 L Hgb 8.1 L Hct 24.4 L MCV 98 H MCH 32.3 MCHC 33.1 RDW 15.4 H Plt Count 239 Sodium 126.4 L Potassium 4.5 Chloride 93 L Carbon Dioxide 24 Anion Gap 9 BUN 56 H Creatinine 5.45 H Est GFR ( Amer) 9 L Est GFR (Non-Af Amer) 8 L Glucose 373 H Calcium 8.5 Phosphorus 5.2 H Magnesium 1.8 Total Bilirubin 0.3 AST 21 ALT 28 Alkaline Phosphatase 74 Total Protein 4.6 L Albumin 2.0 L Prealbumin 8.0 L Impressions: KUB X-Ray 09/17/16 00:00 IMPRESSION: Profound ileus, oral contrast given for CT 09/11/2016 still in the stomach and small bowel. Nasogastric tube tip and side port in the stomach Distended small bowel loops and colon in the upper half of the abdomen Abdomen/Pelvis CT 09/18/16 00:00 IMPRESSION: Multiple air fluid and contrast distended small bowel loops are again identified which again could be related to a diffuse ileus however I cannot exclude underlying obstruction. Intra- abdominal and pelvic ascitic fluid is again identified. Interval increase in size of the bilateral pleural effusions left greater than right. Other findings as noted above Chest X-Ray 09/23/16 06:00 IMPRESSION: 1. Support tubes and lines as above. 2. Hazy densities noted at both lung bases likely representing combination of layering effusions with associated atelectasis/infiltrate. Overall appearance not significant changed. The fluid is noted previously within the minor fissure on the right has resolved. Abdomen X-Ray 09/25/16 00:00 IMPRESSION: Findings are most consistent with postoperative ileus. Assessment & Plan - Diagnosis (1) Encephalopathy Is this a current diagnosis for this admission?: YesPlan: Likely multifactorial nature to include underlying dementia with acute medical issues. Patient remains nothing by mouth status at this time for medical reasons. Her mental status has markedly improved over the past 2 days. May need to consider speech therapy evaluation prior to initiation of oral intake. (2) Postoperative respiratory failure Is this a current diagnosis for this admission?: YesPlan: Stable post extubation on 09/22/2016. (3) Small bowel obstruction Is this a current diagnosis for this admission?: YesPlan: Status post exploratory laparotomy and lysis of adhesions on 09/19/2016. Surgery managing. (4) Status post colectomy Is this a current diagnosis for this admission?: YesPlan: Surgery managing. Patient remains on TPN at this time. (5) Diabetes Qualifiers: Diabetes mellitus type: type 1 Diabetes mellitus complication status: with kidney complications Diabetes mellitus complication detail: with chronic kidney disease Chronic kidney disease stage: on chronic dialysis Qualified Code(s): E10.22 - Type 1 diabetes mellitus with diabetic chronic kidney disease; N18.1 - Chronic kidney disease, stage 1 Is this a current diagnosis for this admission?: YesPlan: Lantus 40 units nightly. Continue sliding scale insulin. (6) ESRD (end stage renal disease) on dialysis Is this a current diagnosis for this admission?: YesPlan: Dr. Saravia of nephrology for management. Patient is on hemodialysis. (7) Essential (primary) hypertension Is this a current diagnosis for this admission?: YesPlan: Continue Catapres 0.1 mg patch. Continue when necessary IV hydralazine. (8) Dementia Qualifiers: Dementia type: unspecified type Dementia behavioral disturbance: without behavioral disturbance Qualified Code(s): F03.90 - Unspecified dementia without behavioral disturbance Is this a current diagnosis for this admission?: YesPlan: Continue supportive care. (9) Anemia Is this a current diagnosis for this admission?: YesPlan: Transfused 1 unit PRBC on 09/20/2016. Continue to monitor H&H closely posttransfusion. Continue Procrit. Administered IV iron 1 dose on 09/22/2016 secondary to low serum iron level. (10) Hypokalemia Is this a current diagnosis for this admission?: Yes (11) Hyponatremia Is this a current diagnosis for this admission?: YesPlan: Discussed with pharmacy staff. I have advised that they discuss TPN with nephrology as patient is on hemodialysis. Continue to monitor closely on TPN and dialysis. Repeat labs in a.m. (12) Leukocytosis Is this a current diagnosis for this admission?: YesPlan: Improving. Culture workup negative. Afebrile. Discontinue IV antibiotics. Monitor for signs or symptoms of infection. - Time Time Spent with patient: 35 or more minutes
[2016-09-26] MEDS: HYDRALAZINE HCL INJ/PF 20 MG/1 ML SDV IV SCH ×4 (06:42→23:10)
[2016-09-26] MEDS: AMINO ACIDS 5%/D25W 1,000 ML IV PRN (06:43)
[2016-09-26] MEDS: HEPARIN SOD (PORCINE) 5,000 UNIT/ML 1 ML SYRINGE SUBCUT SCH ×2 (06:45→18:36)
[2016-09-26] MEDS: INSULIN LISPRO 100 UNIT/ML 3 ML VIAL SUBCUT PRN ×2 (07:33→23:09)
[2016-09-26 08:03] LABS: PROTHROMBIN TIME 16.1 SEC (11.4-15.4)
[2016-09-26] MEDS: CINACALCET HCL 30 MG TABLET PO SCH (10:54)
[2016-09-26] MEDS: ASPIRIN 81 MG TABLET, CHEWABLE NG SCH (10:55)
[2016-09-26] MEDS: FOLIC ACID/VITAMIN B COMP W-C CAPSULE NG SCH (10:56)
[2016-09-26] MEDS: CLONIDINE 0.1 MG/24 HR PATCH.TDWK TD SCH (10:58)
--- NOTE | 2016-09-26 14:05 | PDOC PROGRESS REPORT ---
Subjective Progress Note for:: 09/26/16 Subjective:: more awake. cooperative Physical Exam Vital Signs: Temp Pulse Resp BP Pulse Ox 98.9 F 82 18 111/44 L 97 09/26/16 07:23 09/26/16 07:23 09/26/16 07:23 09/26/16 07:23 09/26/16 07:23 Intake & Output 09/25/16 09/26/16 09/27/16 06:59 06:59 06:59 Intake Total 1795 766 Output Total 0 1950 Balance 1795 -1184 Weight 92.1 kg 97.4 kg General appearance: PRESENT: no acute distress, cooperative Respiratory exam: PRESENT: clear to auscultation nikki Cardiovascular exam: PRESENT: RRR GI/Abdominal exam: PRESENT: other - soft, non tender, c/d/i. active bs's. c/d/i. Extremities exam: PRESENT: other - no swelling. Results Laboratory Results: 09/25/16 06:10 09/25/16 06:10 09/25/16 21:50 Triglycerides 57 09/21/16 09:46 Blood Blood Culture - Final NO GROWTH IN 5 DAYS Impressions: KUB X-Ray 09/17/16 00:00 IMPRESSION: Profound ileus, oral contrast given for CT 09/11/2016 still in the stomach and small bowel. Nasogastric tube tip and side port in the stomach Distended small bowel loops and colon in the upper half of the abdomen Abdomen/Pelvis CT 09/18/16 00:00 IMPRESSION: Multiple air fluid and contrast distended small bowel loops are again identified which again could be related to a diffuse ileus however I cannot exclude underlying obstruction. Intra- abdominal and pelvic ascitic fluid is again identified. Interval increase in size of the bilateral pleural effusions left greater than right. Other findings as noted above Chest X-Ray 09/23/16 06:00 IMPRESSION: 1. Support tubes and lines as above. 2. Hazy densities noted at both lung bases likely representing combination of layering effusions with associated atelectasis/infiltrate. Overall appearance not significant changed. The fluid is noted previously within the minor fissure on the right has resolved. Assessment & Plan - Diagnosis (1) Colon polyps Qualifiers: Colon location: ascending Is this a current diagnosis for this admission?: YesPlan: Status post right hemicolectomy couple weeks ago. s/p reexploration for bradley for sbo. Doing better. abdomen very soft with active bs's and ng output has been minimal and non bilious. d/c ng and ambulate pt. try ducolox supp. will likely start diet tomorrow.
--- NOTE | 2016-09-26 14:13 | PDOC PROGRESS REPORT ---
Subjective Progress Note for:: 09/26/16 Subjective:: Patient seen on morning rounds. She is resting in bed. She does awaken to verbal stimuli. She does answer questions appropriately at this morning. She has an NG tube remain in place. She denies any shortness of breath, cough or chest pain. She denies any abdominal pain, nausea, or diarrhea. She denies any significant arthralgias or male is at the present time. She does have here periods of confusion due to underlying dementia, but her overall mentation has improved. Physical Exam Vital Signs: Temp Pulse Resp BP Pulse Ox 98.6 F 81 20 145/42 H 97 09/26/16 11:27 09/26/16 11:27 09/26/16 11:27 09/26/16 11:27 09/26/16 11:27 Intake & Output 09/25/16 09/26/16 09/27/16 06:59 06:59 06:59 Intake Total 1795 766 Output Total 0 1950 Balance 1795 -1184 Weight 92.1 kg 97.4 kg General appearance: PRESENT: no acute distress, obese, well-developed, well- nourished Head exam: PRESENT: atraumatic, normocephalic Eye exam: PRESENT: conjunctiva pink, EOMI, PERRLA. ABSENT: scleral icterus Ear exam: PRESENT: normal external ear exam Mouth exam: PRESENT: moist, tongue midline Neck exam: ABSENT: carotid bruit, JVD, lymphadenopathy, thyromegaly Respiratory exam: PRESENT: clear to auscultation nikki, decreased breath sounds - Bilateral bases. ABSENT: rales, rhonchi, wheezes Cardiovascular exam: PRESENT: RRR. ABSENT: diastolic murmur, rubs, systolic murmur Pulses: PRESENT: normal dorsalis pedis pul Vascular exam: PRESENT: normal capillary refill GI/Abdominal exam: PRESENT: hypoactive bowel sounds, soft Rectal exam: PRESENT: deferred Extremities exam: PRESENT: full ROM. ABSENT: calf tenderness, clubbing, pedal edema Neurological exam: PRESENT: alert, awake, oriented to person, oriented to place , oriented to situation Psychiatric exam: PRESENT: normal mood Skin exam: PRESENT: dry, intact, warm. ABSENT: cyanosis, rash Results Laboratory Results: 09/25/16 06:10 09/25/16 06:10 09/25/16 21:50 Triglycerides 57 09/21/16 11:10 Blood Blood Culture - Final NO GROWTH IN 5 DAYS 09/21/16 09:46 Blood Blood Culture - Final NO GROWTH IN 5 DAYS Impressions: KUB X-Ray 09/17/16 00:00 IMPRESSION: Profound ileus, oral contrast given for CT 09/11/2016 still in the stomach and small bowel. Nasogastric tube tip and side port in the stomach Distended small bowel loops and colon in the upper half of the abdomen Abdomen/Pelvis CT 09/18/16 00:00 IMPRESSION: Multiple air fluid and contrast distended small bowel loops are again identified which again could be related to a diffuse ileus however I cannot exclude underlying obstruction. Intra- abdominal and pelvic ascitic fluid is again identified. Interval increase in size of the bilateral pleural effusions left greater than right. Other findings as noted above Chest X-Ray 09/23/16 06:00 IMPRESSION: 1. Support tubes and lines as above. 2. Hazy densities noted at both lung bases likely representing combination of layering effusions with associated atelectasis/infiltrate. Overall appearance not significant changed. The fluid is noted previously within the minor fissure on the right has resolved. Abdomen X-Ray 09/26/16 00:00 IMPRESSION: Continued bowel distention. Contrast noted flexure regions of the colon. Assessment & Plan - Diagnosis (1) Encephalopathy Is this a current diagnosis for this admission?: YesPlan: Most likely secondary to multitude of factors. She has baseline dementia. She also has end-stage renal disease on dialysis. Cultures remain negative. She underwent emergency surgery for small bowel obstruction. Mentation is improving packed towards baseline. (2) Postoperative respiratory failure Is this a current diagnosis for this admission?: YesPlan: She is presently on room air. Respiratory is following as well as nursing for pulmonary toilet. (3) Small bowel obstruction Is this a current diagnosis for this admission?: YesPlan: Patient underwent small bowel colectomy and lysis of adhesions by surgery she. She is presently nothing by mouth, nasogastric tube in place. Feeding will be at this discretion of surgery. She presently is receiving TPN. She does have hypoactive bowel sounds present time (4) Hypokalemia Is this a current diagnosis for this admission?: YesPlan: Replete potassium as needed (5) Hyponatremia Is this a current diagnosis for this admission?: YesPlan: Continue TPN per nephrology . Patient is ESRD. (6) Diabetes Qualifiers: Diabetes mellitus type: type 1 Diabetes mellitus complication status: with kidney complications Diabetes mellitus complication detail: with chronic kidney disease Chronic kidney disease stage: on chronic dialysis Qualified Code(s): E10.22 - Type 1 diabetes mellitus with diabetic chronic kidney disease; N18.1 - Chronic kidney disease, stage 1 Is this a current diagnosis for this admission?: YesPlan: Dyspnea current medications and sliding scale coverage (7) Dementia Qualifiers: Dementia type: unspecified type Dementia behavioral disturbance: without behavioral disturbance Qualified Code(s): F03.90 - Unspecified dementia without behavioral disturbance Is this a current diagnosis for this admission?: YesPlan: Patient appears to be at baseline (8) Status post colectomy Is this a current diagnosis for this admission?: YesPlan: Progression of diet her surgery (9) Dyslipidemia Is this a current diagnosis for this admission?: YesPlan: Continue statin (10) On total parenteral nutrition (TPN) Is this a current diagnosis for this admission?: YesPlan: Continue present TPN rates. Surgery is discussing starting feeds - Time Time Spent with patient: 25-34 minutes Critical Time spent with patient: 15-24 minutes Medications reviewed and adjusted accordingly: Yes
[2016-09-26] MEDS ORDERED: BISACODYL 10 MG SUPP.RECT PR ONE (15:00)
[2016-09-26] MEDS: IPRATROPIUM/ALBUTEROL 0.5-2.5 MG/3 ML AMPUL NEB SCH (16:15)
[2016-09-26] MEDS: LACTULOSE SYRUP 20 GM/30 ML UDCUP PO SCH (18:38)
[2016-09-26] MEDS: INSULIN GLARGINE,HUM.REC.ANLOG 300 UNIT/3 ML INSULN.PEN SUBCUT SCH (23:09)
[2016-09-26] MEDS: ATORVASTATIN CALCIUM 40 MG TABLET NG SCH (23:18)
[2016-09-27] MEDS: IPRATROPIUM/ALBUTEROL 0.5-2.5 MG/3 ML AMPUL NEB SCH ×3 (00:11→16:43)
[2016-09-27] MEDS: AMINO ACIDS 5%/D25W 1,000 ML IV PRN ×2 (00:52→18:40)
[2016-09-27] MEDS: HEPARIN SOD (PORCINE) 5,000 UNIT/ML 1 ML SYRINGE SUBCUT SCH ×2 (05:35→18:54)
[2016-09-27] MEDS: HYDRALAZINE HCL INJ/PF 20 MG/1 ML SDV IV SCH ×4 (05:35→23:32)
[2016-09-27 06:17] LABS: ABSOLUTE BASOPHILS # (AUTO) 0.1 10^3/uL (0.0-0.2); ABSOLUTE EOSINOPHILS # (AUTO) 0.2 10^3/uL (0.0-0.6); ABSOLUTE LYMPHOCYTES (AUTO) 0.8 10^3/uL (0.5-4.7); ABSOLUTE MONOCYTES (AUTO) 1.6 10^3/uL (0.1-1.4); ABSOLUTE NEUT (AUTO) 6.7 10^3/uL (1.7-8.2); BASOPHILS % (AUTO) 0.8 % (0-2); EOSINOPHILS % (AUTO) 1.8 % (0-6); HEMATOCRIT 22.6 % (36.0-47.0); HGB HCT DIFFERENCE -0.4; LYMPHOCYTES % (AUTO) 8.9 % (13-45); MEAN CORPUSCULAR HEMOGLOBIN 31.7 pg (27.0-33.4); MEAN CORPUSCULAR HGB CONC 32.7 g/dL (32.0-36.0); MEAN CORPUSCULAR VOLUME 97 fl (80-97); MONOCYTES % (AUTO) 17.4 % (3-13); RED BLOOD COUNT 2.33 10^6/uL (3.72-5.28); RED CELL DISTRIBUTION WIDTH 15.9 % (11.5-14.0); SEGMENTED NEUTROPHILS % (AUTO) 71.1 % (42-78); WHITE BLOOD COUNT 9.5 10^3/uL (4.0-10.5)
[2016-09-27 06:19] LABS: HEMOGLOBIN 7.4 g/dL (12.0-15.5)
[2016-09-27 06:28] LABS: ALANINE AMINOTRANSFERASE 31 U/L (9-52); ALKALINE PHOSPHATASE 70 U/L (38-126); ANION GAP 9 (5-19); ASPARTATE AMINO TRANSFERASE 21 U/L (14-36); BILIRUBIN,TOTAL 0.2 mg/dL (0.2-1.3); BLOOD UREA NITROGEN 43 mg/dL (7-20); CALCIUM 8.3 mg/dL (8.4-10.2); CARBON DIOXIDE 26 mmol/L (22-30); CHLORIDE 95 mmol/L (98-107); GLUCOSE 184 mg/dL (75-110); POTASSIUM 3.9 mmol/L (3.6-5.0); SODIUM 130.1 mmol/L (137-145); TOTAL PROTEIN 4.6 g/dL (6.3-8.2)
[2016-09-27] MEDS: INSULIN LISPRO 100 UNIT/ML 3 ML VIAL SUBCUT PRN ×4 (07:10→23:45)
[2016-09-27] MEDS: ASPIRIN 81 MG TABLET, CHEWABLE NG SCH (10:40)
[2016-09-27] MEDS: FOLIC ACID/VITAMIN B COMP W-C CAPSULE NG SCH (10:41)
[2016-09-27] MEDS: CINACALCET HCL 30 MG TABLET PO SCH (10:42)
--- NOTE | 2016-09-27 10:46 | PDOC PROGRESS REPORT ---
Subjective Progress Note for:: 09/27/16 Subjective:: weak. Physical Exam Vital Signs: Temp Pulse Resp BP Pulse Ox 98.3 F 78 18 129/38 H 97 09/27/16 07:32 09/27/16 08:00 09/27/16 08:00 09/27/16 07:32 09/27/16 08:00 Intake & Output 09/26/16 09/27/16 09/28/16 06:59 06:59 06:59 Intake Total 766 1169 Output Total 1950 0 Balance -1184 1169 Weight 97.4 kg 96.2 kg General appearance: PRESENT: no acute distress, cooperative, disheveled Respiratory exam: PRESENT: clear to auscultation nikki Cardiovascular exam: PRESENT: RRR GI/Abdominal exam: PRESENT: other - soft, minimal tenderness, active bs. had bm today Extremities exam: PRESENT: other - no swelling, no tenderness Results Laboratory Results: 09/27/16 05:40 09/27/16 05:40 09/27/16 09/27/16 09/27/16 05:40 05:40 07:20 WBC 9.5 RBC 2.33 L Hgb 7.4 L Hct 22.6 L MCV 97 MCH 31.7 MCHC 32.7 RDW 15.9 H Plt Count 220 Seg Neutrophils % 71.1 Lymphocytes % 8.9 L Monocytes % 17.4 H Eosinophils % 1.8 Basophils % 0.8 Absolute Neutrophils 6.7 Absolute Lymphocytes 0.8 Absolute Monocytes 1.6 H Absolute Eosinophils 0.2 Absolute Basophils 0.1 Sodium 130.1 L Potassium 3.9 Chloride 95 L Carbon Dioxide 26 Anion Gap 9 BUN 43 H Creatinine 4.90 H Est GFR ( Amer) 10 L Est GFR (Non-Af Amer) 8 L Glucose 184 H Calcium 8.3 L Total Bilirubin 0.2 AST 21 ALT 31 Alkaline Phosphatase 70 Total Protein 4.6 L Albumin 2.0 L Blood Type AB POSITIVE Antibody Screen NEGATIVE 09/21/16 11:10 Blood Blood Culture - Final NO GROWTH IN 5 DAYS 09/21/16 09:46 Blood Blood Culture - Final NO GROWTH IN 5 DAYS Impressions: KUB X-Ray 09/17/16 00:00 IMPRESSION: Profound ileus, oral contrast given for CT 09/11/2016 still in the stomach and small bowel. Nasogastric tube tip and side port in the stomach Distended small bowel loops and colon in the upper half of the abdomen Abdomen/Pelvis CT 09/18/16 00:00 IMPRESSION: Multiple air fluid and contrast distended small bowel loops are again identified which again could be related to a diffuse ileus however I cannot exclude underlying obstruction. Intra- abdominal and pelvic ascitic fluid is again identified. Interval increase in size of the bilateral pleural effusions left greater than right. Other findings as noted above Chest X-Ray 09/23/16 06:00 IMPRESSION: 1. Support tubes and lines as above. 2. Hazy densities noted at both lung bases likely representing combination of layering effusions with associated atelectasis/infiltrate. Overall appearance not significant changed. The fluid is noted previously within the minor fissure on the right has resolved. Abdomen X-Ray 09/26/16 00:00 IMPRESSION: Continued bowel distention. Contrast noted flexure regions of the colon. Assessment & Plan - Diagnosis (1) Colon polyps Qualifiers: Colon location: ascending Is this a current diagnosis for this admission?: YesPlan: Status post right hemicolectomy. s/p reexploration for bradley for sbo. Doing better. abdomen very soft with active bs's. ng output recorded yesterday in error. total of 220 in canister since pt has been on 3 west. had bm this am. will have speech path evaluate pt and start diet if she passes eval. may need transfusion with dialysis tomorrow. cont to try to ambulate pt.
--- NOTE | 2016-09-27 12:14 | PDOC PROGRESS REPORT ---
Subjective Progress Note for:: 09/27/16 Subjective:: Patient seen on morning rounds. She is resting in bed. She does awaken to verbal stimuli. She does answer questions appropriately this morning. She denies any shortness of breath, cough or chest pain. She denies any abdominal pain, nausea, or diarrhea. She denies any significant arthralgias or male is at the present time. She does have here periods of confusion due to underlying dementia, but her overall mentation has improved. Physical Exam Vital Signs: Temp Pulse Resp BP Pulse Ox 98.3 F 80 20 114/45 L 100 09/27/16 11:11 09/27/16 11:11 09/27/16 11:11 09/27/16 11:11 09/27/16 11:11 Intake & Output 09/26/16 09/27/16 09/28/16 06:59 06:59 06:59 Intake Total 766 1169 Output Total 1950 0 Balance -1184 1169 Weight 97.4 kg 96.2 kg General appearance: PRESENT: no acute distress, obese, well-developed, well- nourished Head exam: PRESENT: atraumatic, normocephalic Eye exam: PRESENT: conjunctiva pink, EOMI, PERRLA. ABSENT: scleral icterus Ear exam: PRESENT: normal external ear exam Mouth exam: PRESENT: moist, tongue midline Neck exam: ABSENT: carotid bruit, JVD, lymphadenopathy, thyromegaly Respiratory exam: PRESENT: clear to auscultation nikki. ABSENT: rales, rhonchi, wheezes Cardiovascular exam: PRESENT: RRR. ABSENT: diastolic murmur, rubs, systolic murmur Pulses: PRESENT: normal dorsalis pedis pul Vascular exam: PRESENT: normal capillary refill GI/Abdominal exam: PRESENT: normal bowel sounds, soft. ABSENT: distended, guarding, mass, organolmegaly, rebound, tenderness Rectal exam: PRESENT: deferred Extremities exam: PRESENT: full ROM. ABSENT: calf tenderness, clubbing, pedal edema Neurological exam: PRESENT: alert, altered Psychiatric exam: PRESENT: appropriate affect, normal mood. ABSENT: homicidal ideation, suicidal ideation Skin exam: PRESENT: dry, intact, warm. ABSENT: cyanosis, rash Results Laboratory Results: 09/27/16 05:40 09/27/16 05:40 0309/27/16 09/27/16 05:40 05:40 07:20 WBC 9.5 RBC 2.33 L Hgb 7.4 L Hct 22.6 L MCV 97 MCH 31.7 MCHC 32.7 RDW 15.9 H Plt Count 220 Seg Neutrophils % 71.1 Lymphocytes % 8.9 L Monocytes % 17.4 H Eosinophils % 1.8 Basophils % 0.8 Absolute Neutrophils 6.7 Absolute Lymphocytes 0.8 Absolute Monocytes 1.6 H Absolute Eosinophils 0.2 Absolute Basophils 0.1 Sodium 130.1 L Potassium 3.9 Chloride 95 L Carbon Dioxide 26 Anion Gap 9 BUN 43 H Creatinine 4.90 H Est GFR ( Amer) 10 L Est GFR (Non-Af Amer) 8 L Glucose 184 H Calcium 8.3 L Total Bilirubin 0.2 AST 21 ALT 31 Alkaline Phosphatase 70 Total Protein 4.6 L Albumin 2.0 L Blood Type AB POSITIVE Antibody Screen NEGATIVE 09/21/16 11:10 Blood Blood Culture - Final NO GROWTH IN 5 DAYS 09/21/16 09:46 Blood Blood Culture - Final NO GROWTH IN 5 DAYS Impressions: KUB X-Ray 09/17/16 00:00 IMPRESSION: Profound ileus, oral contrast given for CT 09/11/2016 still in the stomach and small bowel. Nasogastric tube tip and side port in the stomach Distended small bowel loops and colon in the upper half of the abdomen Abdomen/Pelvis CT 09/18/16 00:00 IMPRESSION: Multiple air fluid and contrast distended small bowel loops are again identified which again could be related to a diffuse ileus however I cannot exclude underlying obstruction. Intra- abdominal and pelvic ascitic fluid is again identified. Interval increase in size of the bilateral pleural effusions left greater than right. Other findings as noted above Chest X-Ray 09/23/16 06:00 IMPRESSION: 1. Support tubes and lines as above. 2. Hazy densities noted at both lung bases likely representing combination of layering effusions with associated atelectasis/infiltrate. Overall appearance not significant changed. The fluid is noted previously within the minor fissure on the right has resolved. Abdomen X-Ray 09/26/16 00:00 IMPRESSION: Continued bowel distention. Contrast noted flexure regions of the colon. Assessment & Plan - Diagnosis (1) Encephalopathy Is this a current diagnosis for this admission?: YesPlan: Most likely secondary to multitude of factors. She has baseline dementia. She also has end-stage renal disease on dialysis. Cultures remain negative. She underwent emergency surgery for small bowel obstruction. Mentation is improving packed towards baseline. (2) Postoperative respiratory failure Is this a current diagnosis for this admission?: YesPlan: She is presently on room air. Respiratory is following as well as nursing for pulmonary toilet. (3) Small bowel obstruction Is this a current diagnosis for this admission?: YesPlan: Patient underwent small bowel colectomy and lysis of adhesions by surgery she. She is presently nothing by mouth, nasogastric tube in place. Feeding will be at this discretion of surgery. She presently is receiving TPN. She does have hypoactive bowel sounds present time (4) Hypokalemia Is this a current diagnosis for this admission?: YesPlan: Replete potassium as needed (5) Hyponatremia Is this a current diagnosis for this admission?: YesPlan: Continue TPN per nephrology . Patient is ESRD. (6) Diabetes Qualifiers: Diabetes mellitus type: type 1 Diabetes mellitus complication status: with kidney complications Diabetes mellitus complication detail: with chronic kidney disease Chronic kidney disease stage: on chronic dialysis Qualified Code(s): E10.22 - Type 1 diabetes mellitus with diabetic chronic kidney disease; N18.1 - Chronic kidney disease, stage 1 Is this a current diagnosis for this admission?: YesPlan: Dyspnea current medications and sliding scale coverage (7) Dementia Qualifiers: Dementia type: unspecified type Dementia behavioral disturbance: without behavioral disturbance Qualified Code(s): F03.90 - Unspecified dementia without behavioral disturbance Is this a current diagnosis for this admission?: Yes (8) Status post colectomy Is this a current diagnosis for this admission?: Yes (9) Dyslipidemia Is this a current diagnosis for this admission?: Yes (10) On total parenteral nutrition (TPN) Is this a current diagnosis for this admission?: Yes (11) Anemia Qualifiers: Anemia type: unspecified type Qualified Code(s): D64.9 - Anemia, unspecified Is this a current diagnosis for this admission?: YesPlan: Patient will be transfused 2 units of PRBCs with dialysis (12) Confusion and disorientation Is this a current diagnosis for this admission?: YesPlan: She continues to have periods of confusion and disorientation, she does have history - Time Time Spent with patient: 25-34 minutes Medications reviewed and adjusted accordingly: Yes Anticipated discharge: SNF
[2016-09-27] MEDS ORDERED: EPOETIN ALFA INJ 20000 UNIT/1 ML VIAL (RENAL) IV PRN (13:39)
--- NOTE | 2016-09-27 14:48 | PDOC PROGRESS REPORT ---
Subjective Progress Note for:: 09/27/16 Subjective:: Lethargic Physical Exam Vital Signs: Temp Pulse Resp BP Pulse Ox 98.3 F 71 20 114/45 L 100 09/27/16 11:11 09/27/16 13:04 09/27/16 11:11 09/27/16 11:11 09/27/16 11:11 Intake & Output 09/26/16 09/27/16 09/28/16 06:59 06:59 06:59 Intake Total 766 1169 Output Total 1950 0 Balance -1184 1169 Weight 97.4 kg 96.2 kg General appearance: PRESENT: no acute distress, disheveled, thin, well-developed Head exam: PRESENT: atraumatic, normocephalic Eye exam: PRESENT: conjunctiva pale Mouth exam: PRESENT: neck supple Neck exam: ABSENT: carotid bruit, JVD, lymphadenopathy, thyromegaly Respiratory exam: PRESENT: decreased breath sounds, prolonged expiratory phas, rhonchi, symmetrical, unlabored, wheezes Cardiovascular exam: PRESENT: irregular rhythm Pulses: PRESENT: normal radial pulses GI/Abdominal exam: PRESENT: hypoactive bowel sounds Rectal exam: PRESENT: deferred Gentrourinary exam: PRESENT: indwelling catheter Musculoskeletal exam: PRESENT: normal inspection Neurological exam: PRESENT: awake Psychiatric exam: PRESENT: flat affect Skin exam: PRESENT: dry, warm Results Laboratory Results: 09/27/16 05:40 09/27/16 05:40 09/27/16 09/27/16 09/27/16 05:40 05:40 07:20 WBC 9.5 RBC 2.33 L Hgb 7.4 L Hct 22.6 L MCV 97 MCH 31.7 MCHC 32.7 RDW 15.9 H Plt Count 220 Seg Neutrophils % 71.1 Lymphocytes % 8.9 L Monocytes % 17.4 H Eosinophils % 1.8 Basophils % 0.8 Absolute Neutrophils 6.7 Absolute Lymphocytes 0.8 Absolute Monocytes 1.6 H Absolute Eosinophils 0.2 Absolute Basophils 0.1 Sodium 130.1 L Potassium 3.9 Chloride 95 L Carbon Dioxide 26 Anion Gap 9 BUN 43 H Creatinine 4.90 H Est GFR ( Amer) 10 L Est GFR (Non-Af Amer) 8 L Glucose 184 H Calcium 8.3 L Total Bilirubin 0.2 AST 21 ALT 31 Alkaline Phosphatase 70 Total Protein 4.6 L Albumin 2.0 L Blood Type AB POSITIVE Antibody Screen NEGATIVE 09/21/16 11:10 Blood Blood Culture - Final NO GROWTH IN 5 DAYS Impressions: KUB X-Ray 09/17/16 00:00 IMPRESSION: Profound ileus, oral contrast given for CT 09/11/2016 still in the stomach and small bowel. Nasogastric tube tip and side port in the stomach Distended small bowel loops and colon in the upper half of the abdomen Abdomen/Pelvis CT 09/18/16 00:00 IMPRESSION: Multiple air fluid and contrast distended small bowel loops are again identified which again could be related to a diffuse ileus however I cannot exclude underlying obstruction. Intra- abdominal and pelvic ascitic fluid is again identified. Interval increase in size of the bilateral pleural effusions left greater than right. Other findings as noted above Chest X-Ray 09/23/16 06:00 IMPRESSION: 1. Support tubes and lines as above. 2. Hazy densities noted at both lung bases likely representing combination of layering effusions with associated atelectasis/infiltrate. Overall appearance not significant changed. The fluid is noted previously within the minor fissure on the right has resolved. Abdomen X-Ray 09/26/16 00:00 IMPRESSION: Continued bowel distention. Contrast noted flexure regions of the colon. Assessment & Plan - Diagnosis (1) Anemia Qualifiers: Anemia type: unspecified type Qualified Code(s): D64.9 - Anemia, unspecified Is this a current diagnosis for this admission?: YesPlan: due to ESRD hemoglobin hematocrit again declining (2) Hyponatremia Is this a current diagnosis for this admission?: No (3) Postoperative respiratory failure Is this a current diagnosis for this admission?: YesPlan: Resolved (4) Status post colectomy Is this a current diagnosis for this admission?: YesPlan: As per surgery (5) ESRD (end stage renal disease) on dialysis Is this a current diagnosis for this admission?: YesPlan: continue hd qod
--- NOTE | 2016-09-27 16:25 | PDOC PROGRESS REPORT ---
Subjective Progress Note for:: 09/27/16 Subjective:: Patient was seen on dialysis today. She is very weak but she is able to be more conversive and feeling better today as compared to yesterday. She denies any history of nausea vomiting. Still n.p.o. She denies history of chest pain shortness of breath. No history of any fever chills. Physical Exam Vital Signs: Temp Pulse Resp BP Pulse Ox 97 F L 60 16 134/62 H 100 09/27/16 15:29 09/27/16 15:29 09/27/16 15:29 09/27/16 15:29 09/27/16 15:29 Intake & Output 09/26/16 09/27/16 09/28/16 06:59 06:59 06:59 Intake Total 766 1169 500 Output Total 1950 0 Balance -1184 1169 500 Weight 97.4 kg 96.2 kg Cardiovascular exam: PRESENT: +S1, +S2, systolic murmur GI/Abdominal exam: PRESENT: hypoactive bowel sounds, soft, tenderness - Both the lower quadrants. Bowel sounds are hypoactive. No masses felt. ABSENT: distended, firm, normal bowel sounds Results Laboratory Results: 09/27/16 05:40 09/27/16 05:40 09/27/16 09/27/16 09/27/16 05:40 05:40 07:20 WBC 9.5 RBC 2.33 L Hgb 7.4 L Hct 22.6 L MCV 97 MCH 31.7 MCHC 32.7 RDW 15.9 H Plt Count 220 Seg Neutrophils % 71.1 Lymphocytes % 8.9 L Monocytes % 17.4 H Eosinophils % 1.8 Basophils % 0.8 Absolute Neutrophils 6.7 Absolute Lymphocytes 0.8 Absolute Monocytes 1.6 H Absolute Eosinophils 0.2 Absolute Basophils 0.1 Sodium 130.1 L Potassium 3.9 Chloride 95 L Carbon Dioxide 26 Anion Gap 9 BUN 43 H Creatinine 4.90 H Est GFR ( Amer) 10 L Est GFR (Non-Af Amer) 8 L Glucose 184 H Calcium 8.3 L Total Bilirubin 0.2 AST 21 ALT 31 Alkaline Phosphatase 70 Total Protein 4.6 L Albumin 2.0 L Blood Type AB POSITIVE Antibody Screen NEGATIVE Impressions: KUB X-Ray 09/17/16 00:00 IMPRESSION: Profound ileus, oral contrast given for CT 09/11/2016 still in the stomach and small bowel. Nasogastric tube tip and side port in the stomach Distended small bowel loops and colon in the upper half of the abdomen Abdomen/Pelvis CT 09/18/16 00:00 IMPRESSION: Multiple air fluid and contrast distended small bowel loops are again identified which again could be related to a diffuse ileus however I cannot exclude underlying obstruction. Intra- abdominal and pelvic ascitic fluid is again identified. Interval increase in size of the bilateral pleural effusions left greater than right. Other findings as noted above Chest X-Ray 09/23/16 06:00 IMPRESSION: 1. Support tubes and lines as above. 2. Hazy densities noted at both lung bases likely representing combination of layering effusions with associated atelectasis/infiltrate. Overall appearance not significant changed. The fluid is noted previously within the minor fissure on the right has resolved. Abdomen X-Ray 09/26/16 00:00 IMPRESSION: Continued bowel distention. Contrast noted flexure regions of the colon. Assessment & Plan - Diagnosis (1) Diabetes Qualifiers: Diabetes mellitus type: type 1 Diabetes mellitus complication status: with kidney complications Diabetes mellitus complication detail: with chronic kidney disease Chronic kidney disease stage: on chronic dialysis Qualified Code(s): E10.22 - Type 1 diabetes mellitus with diabetic chronic kidney disease; N18.1 - Chronic kidney disease, stage 1 Is this a current diagnosis for this admission?: Yes (2) Status post colectomy Is this a current diagnosis for this admission?: Yes (3) ESRD (end stage renal disease) on dialysis Is this a current diagnosis for this admission?: YesPlan: Is undergoing dialysis without any issues. Electrolytes are stable. Orders were discussed with the treating dialysis nurse. We will try to remove around 1 L as tolerated. Continue to monitor. (4) Essential (primary) hypertension Is this a current diagnosis for this admission?: Yes (5) Confusion and disorientation Is this a current diagnosis for this admission?: Yes (7) Anemia Qualifiers: Anemia type: unspecified type Qualified Code(s): D64.9 - Anemia, unspecified Is this a current diagnosis for this admission?: YesPlan: Will adjust erythropoietin in the meanwhile. If she stays here or drops any further she would need blood transfusions can be done tomorrow which is or if not on Sunday on dialysis.Check iron studies as well later on. (8) Hyponatremia Is this a current diagnosis for this admission?: NoPlan: Stable. titrate sodium in TPN and we will see how she responds to dialysis as well.
[2016-09-27] MEDS: LACTULOSE SYRUP 20 GM/30 ML UDCUP PO SCH (18:53)
[2016-09-27] MEDS: ATORVASTATIN CALCIUM 40 MG TABLET NG SCH (22:12)
[2016-09-27] MEDS: INSULIN GLARGINE,HUM.REC.ANLOG 300 UNIT/3 ML INSULN.PEN SUBCUT SCH (22:13)
[2016-09-28] MEDS: IPRATROPIUM/ALBUTEROL 0.5-2.5 MG/3 ML AMPUL NEB SCH ×4 (00:10→23:40)
[2016-09-28] MEDS: HYDRALAZINE HCL INJ/PF 20 MG/1 ML SDV IV SCH ×3 (06:00→17:30)
[2016-09-28] MEDS: HEPARIN SOD (PORCINE) 5,000 UNIT/ML 1 ML SYRINGE SUBCUT SCH ×2 (06:02→17:30)
[2016-09-28] MEDS: INSULIN LISPRO 100 UNIT/ML 3 ML VIAL SUBCUT PRN ×3 (06:07→19:01)
[2016-09-28 08:12] LABS: ALANINE AMINOTRANSFERASE 45 U/L (9-52); ALBUMIN 2.1 g/dL (3.5-5.0); ALKALINE PHOSPHATASE 83 U/L (38-126); ANION GAP 9 (5-19); ASPARTATE AMINO TRANSFERASE 35 U/L (14-36); BILIRUBIN,TOTAL 0.3 mg/dL (0.2-1.3); BLOOD UREA NITROGEN 33 mg/dL (7-20); CALCIUM 8.4 mg/dL (8.4-10.2); CARBON DIOXIDE 29 mmol/L (22-30); CHLORIDE 98 mmol/L (98-107); CREATININE RESULT 3.63 mg/dL (0.52-1.25); GLUCOSE 185 mg/dL (75-110); PHOSPHORUS 4.2 mg/dL (2.5-4.5); POTASSIUM 3.7 mmol/L (3.6-5.0); SODIUM 135.7 mmol/L (137-145); TOTAL PROTEIN 4.9 g/dL (6.3-8.2)
[2016-09-28 08:16] LABS: ABSOLUTE BASOPHILS # (AUTO) 0.1 10^3/uL (0.0-0.2); ABSOLUTE EOSINOPHILS # (AUTO) 0.2 10^3/uL (0.0-0.6); ABSOLUTE LYMPHOCYTES (AUTO) 0.7 10^3/uL (0.5-4.7); ABSOLUTE MONOCYTES (AUTO) 1.7 10^3/uL (0.1-1.4); ABSOLUTE NEUT (AUTO) 6.7 10^3/uL (1.7-8.2); BASOPHILS % (AUTO) 0.5 % (0-2); EOSINOPHILS % (AUTO) 1.9 % (0-6); HEMATOCRIT 28.1 % (36.0-47.0); HGB HCT DIFFERENCE -0.2; LYMPHOCYTES % (AUTO) 7.9 % (13-45); MEAN CORPUSCULAR HEMOGLOBIN 31.1 pg (27.0-33.4); MEAN CORPUSCULAR HGB CONC 33.2 g/dL (32.0-36.0); MEAN CORPUSCULAR VOLUME 94 fl (80-97); MONOCYTES % (AUTO) 18.2 % (3-13); RED BLOOD COUNT 2.99 10^6/uL (3.72-5.28); RED CELL DISTRIBUTION WIDTH 17.4 % (11.5-14.0); SEGMENTED NEUTROPHILS % (AUTO) 71.5 % (42-78); WHITE BLOOD COUNT 9.3 10^3/uL (4.0-10.5)
[2016-09-28 08:19] LABS: PREALBUMIN 11.6 mg/dL (17.6-36.0)
[2016-09-28 08:26] LABS: HEMOGLOBIN 9.3 g/dL (12.0-15.5)
--- NOTE | 2016-09-28 09:02 | PDOC PROGRESS REPORT ---
Subjective Progress Note for:: 09/28/16 Subjective:: Patient seen on morning rounds. She is resting in bed. She does awaken to verbal stimuli. She does answer questions appropriately this morning. She denies any shortness of breath, cough or chest pain. She denies any abdominal pain, nausea, or diarrhea. She denies any significant arthralgias or male is at the present time. She remains very weak. Physical therapy working with her. She will need short term rehab prior to going home. She does have here periods of confusion due to underlying dementia, but her overall mentation has improved. Physical Exam Vital Signs: Temp Pulse Resp BP Pulse Ox 98.5 F 83 20 114/44 L 100 09/28/16 07:26 09/28/16 07:26 09/28/16 07:26 09/28/16 07:26 09/28/16 07:26 Intake & Output 09/27/16 09/28/16 09/29/16 06:59 06:59 06:59 Intake Total 1169 3069 Output Total 0 0 Balance 1169 3069 Weight 96.2 kg 94 kg General appearance: PRESENT: no acute distress, obese, well-developed, well- nourished Head exam: PRESENT: atraumatic, normocephalic Eye exam: PRESENT: conjunctiva pink, EOMI, PERRLA. ABSENT: scleral icterus Ear exam: PRESENT: normal external ear exam Mouth exam: PRESENT: moist, tongue midline Neck exam: ABSENT: carotid bruit, JVD, lymphadenopathy, thyromegaly Respiratory exam: PRESENT: clear to auscultation nikki. ABSENT: rales, rhonchi, wheezes Cardiovascular exam: PRESENT: RRR. ABSENT: diastolic murmur, rubs, systolic murmur Pulses: PRESENT: normal dorsalis pedis pul Vascular exam: PRESENT: normal capillary refill GI/Abdominal exam: PRESENT: normal bowel sounds, soft. ABSENT: distended, guarding, mass, organolmegaly, rebound, tenderness Rectal exam: PRESENT: deferred Extremities exam: PRESENT: full ROM. ABSENT: calf tenderness, clubbing, pedal edema Neurological exam: PRESENT: alert, awake, oriented to person, oriented to place , CN II-XII grossly intact. ABSENT: motor sensory deficit Psychiatric exam: PRESENT: appropriate affect, normal mood. ABSENT: homicidal ideation, suicidal ideation Skin exam: PRESENT: dry, intact, warm. ABSENT: cyanosis, rash Results Laboratory Results: 09/28/16 05:32 09/28/16 05:32 09/27/16 09/28/16 09/28/16 07:20 05:32 05:32 WBC RBC Hgb Hct MCV MCH MCHC RDW Plt Count Seg Neutrophils % Lymphocytes % Monocytes % Eosinophils % Basophils % Absolute Neutrophils Absolute Lymphocytes Absolute Monocytes Absolute Eosinophils Absolute Basophils Retic Count (auto) 4.67 H Absolute Retic 0.143 H Sodium Potassium Chloride Carbon Dioxide Anion Gap BUN Creatinine Est GFR ( Amer) Est GFR (Non-Af Amer) Glucose Calcium Phosphorus Iron < 10.1 L TIBC 125 L % Saturation UNABLE TO CALCULATE Ferritin 1010.00 H Total Bilirubin AST ALT Alkaline Phosphatase Total Protein Albumin Prealbumin Vitamin B12 990.0 H Folate 13.30 Blood Type AB POSITIVE Antibody Screen NEGATIVE 09/28/16 09/28/16 05:32 05:32 WBC 9.3 RBC 2.99 L Hgb 9.3 L Hct 28.1 L MCV 94 MCH 31.1 MCHC 33.2 RDW 17.4 H Plt Count 191 Seg Neutrophils % 71.5 Lymphocytes % 7.9 L Monocytes % 18.2 H Eosinophils % 1.9 Basophils % 0.5 Absolute Neutrophils 6.7 Absolute Lymphocytes 0.7 Absolute Monocytes 1.7 H Absolute Eosinophils 0.2 Absolute Basophils 0.1 Retic Count (auto) Absolute Retic Sodium 135.7 L Potassium 3.7 Chloride 98 Carbon Dioxide 29 Anion Gap 9 BUN 33 H Creatinine 3.63 H Est GFR ( Amer) 15 L Est GFR (Non-Af Amer) 12 L Glucose 185 H Calcium 8.4 Phosphorus 4.2 Iron TIBC % Saturation Ferritin Total Bilirubin 0.3 AST 35 ALT 45 Alkaline Phosphatase 83 Total Protein 4.9 L Albumin 2.1 L Prealbumin 11.6 L Vitamin B12 Folate Blood Type Antibody Screen Impressions: KUB X-Ray 09/17/16 00:00 IMPRESSION: Profound ileus, oral contrast given for CT 09/11/2016 still in the stomach and small bowel. Nasogastric tube tip and side port in the stomach Distended small bowel loops and colon in the upper half of the abdomen Abdomen/Pelvis CT 09/18/16 00:00 IMPRESSION: Multiple air fluid and contrast distended small bowel loops are again identified which again could be related to a diffuse ileus however I cannot exclude underlying obstruction. Intra- abdominal and pelvic ascitic fluid is again identified. Interval increase in size of the bilateral pleural effusions left greater than right. Other findings as noted above Chest X-Ray 09/23/16 06:00 IMPRESSION: 1. Support tubes and lines as above. 2. Hazy densities noted at both lung bases likely representing combination of layering effusions with associated atelectasis/infiltrate. Overall appearance not significant changed. The fluid is noted previously within the minor fissure on the right has resolved. Abdomen X-Ray 09/26/16 00:00 IMPRESSION: Continued bowel distention. Contrast noted flexure regions of the colon. Assessment & Plan - Diagnosis (1) Encephalopathy Is this a current diagnosis for this admission?: YesPlan: Most likely secondary to multitude of factors. She has baseline dementia. She also has end-stage renal disease on dialysis. Cultures remain negative. She underwent emergency surgery for small bowel obstruction. Mentation is improving packed towards baseline. (2) Postoperative respiratory failure Is this a current diagnosis for this admission?: YesPlan: She is presently on room air. Respiratory is following as well as nursing for pulmonary toilet. (3) Small bowel obstruction Is this a current diagnosis for this admission?: YesPlan: Patient underwent small bowel colectomy and lysis of adhesions by surgery she. She is presently nothing by mouth, nasogastric tube in place. Feeding will be at this discretion of surgery. She presently is receiving TPN. She does have hypoactive bowel sounds present time (4) Hypokalemia Is this a current diagnosis for this admission?: YesPlan: Replete potassium as needed (5) Hyponatremia Is this a current diagnosis for this admission?: NoPlan: Continue TPN per nephrology . Patient is ESRD. (6) Diabetes Qualifiers: Diabetes mellitus type: type 1 Diabetes mellitus complication status: with kidney complications Diabetes mellitus complication detail: with chronic kidney disease Chronic kidney disease stage: on chronic dialysis Qualified Code(s): E10.22 - Type 1 diabetes mellitus with diabetic chronic kidney disease; N18.1 - Chronic kidney disease, stage 1 Is this a current diagnosis for this admission?: YesPlan: Dyspnea current medications and sliding scale coverage (7) Dementia Qualifiers: Dementia type: unspecified type Dementia behavioral disturbance: without behavioral disturbance Qualified Code(s): F03.90 - Unspecified dementia without behavioral disturbance Is this a current diagnosis for this admission?: YesPlan: Patient appears to be at baseline (8) Status post colectomy Is this a current diagnosis for this admission?: YesPlan: Progression of diet her surgery (9) Dyslipidemia Is this a current diagnosis for this admission?: YesPlan: Continue statin (10) On total parenteral nutrition (TPN) Is this a current diagnosis for this admission?: YesPlan: Continue present TPN rates. Surgery is discussing starting feeds (11) Anemia Qualifiers: Anemia type: unspecified type Qualified Code(s): D64.9 - Anemia, unspecified Is this a current diagnosis for this admission?: YesPlan: Patient will be transfused 2 units of PRBCs with dialysis (12) Confusion and disorientation Is this a current diagnosis for this admission?: YesPlan: She continues to have periods of confusion and disorientation, she does have history - Time Time Spent with patient: 25-34 minutes Smoking Cessation Education: 3 to 10 minutes Anticipated discharge: Home with Homehealth
[2016-09-28] MEDS: FOLIC ACID/VITAMIN B COMP W-C CAPSULE NG SCH (09:37)
[2016-09-28] MEDS: CINACALCET HCL 30 MG TABLET PO SCH (09:37)
[2016-09-28] MEDS: ASPIRIN 81 MG TABLET, CHEWABLE NG SCH (09:38)
[2016-09-28] MEDS: IRON POLYSACCHARIDES COMPLEX 150 MG CAPSULE PO SCH (09:38)
[2016-09-28] MEDS: FAT EMULSIONS 250 ML IV SCH (10:06)
--- NOTE | 2016-09-28 10:18 | PDOC PROGRESS REPORT ---
Subjective Progress Note for:: 09/28/16 Subjective:: Feels well. Very alert but still with generalized weakness. Drinking some liquids without nausea or vomiting. Physical Exam Vital Signs: Temp Pulse Resp BP Pulse Ox 98.5 F 83 20 114/44 L 100 09/28/16 07:26 09/28/16 07:26 09/28/16 07:26 09/28/16 07:26 09/28/16 07:26 Intake & Output 09/27/16 09/28/16 09/29/16 06:59 06:59 06:59 Intake Total 1169 3069 Output Total 0 0 Balance 1169 3069 Weight 96.2 kg 94 kg General appearance: PRESENT: no acute distress, cooperative Respiratory exam: PRESENT: clear to auscultation nikki Cardiovascular exam: PRESENT: RRR GI/Abdominal exam: PRESENT: other - Soft, nondistended, minimal tenderness to palpation, active bowel sounds. Wound clean dry and intact. Extremities exam: PRESENT: other - No swelling no tenderness. Results Laboratory Results: 09/28/16 05:32 09/28/16 05:32 09/27/16 09/28/16 09/28/16 07:20 05:32 05:32 WBC RBC Hgb Hct MCV MCH MCHC RDW Plt Count Seg Neutrophils % Lymphocytes % Monocytes % Eosinophils % Basophils % Absolute Neutrophils Absolute Lymphocytes Absolute Monocytes Absolute Eosinophils Absolute Basophils Retic Count (auto) 4.67 H Absolute Retic 0.143 H Sodium Potassium Chloride Carbon Dioxide Anion Gap BUN Creatinine Est GFR ( Amer) Est GFR (Non-Af Amer) Glucose Calcium Phosphorus Iron < 10.1 L TIBC 125 L % Saturation UNABLE TO CALCULATE Ferritin 1010.00 H Total Bilirubin AST ALT Alkaline Phosphatase Total Protein Albumin Prealbumin Vitamin B12 990.0 H Folate 13.30 Blood Type AB POSITIVE Antibody Screen NEGATIVE 09/28/16 09/28/16 05:32 05:32 WBC 9.3 RBC 2.99 L Hgb 9.3 L Hct 28.1 L MCV 94 MCH 31.1 MCHC 33.2 RDW 17.4 H Plt Count 191 Seg Neutrophils % 71.5 Lymphocytes % 7.9 L Monocytes % 18.2 H Eosinophils % 1.9 Basophils % 0.5 Absolute Neutrophils 6.7 Absolute Lymphocytes 0.7 Absolute Monocytes 1.7 H Absolute Eosinophils 0.2 Absolute Basophils 0.1 Retic Count (auto) Absolute Retic Sodium 135.7 L Potassium 3.7 Chloride 98 Carbon Dioxide 29 Anion Gap 9 BUN 33 H Creatinine 3.63 H Est GFR ( Amer) 15 L Est GFR (Non-Af Amer) 12 L Glucose 185 H Calcium 8.4 Phosphorus 4.2 Iron TIBC % Saturation Ferritin Total Bilirubin 0.3 AST 35 ALT 45 Alkaline Phosphatase 83 Total Protein 4.9 L Albumin 2.1 L Prealbumin 11.6 L Vitamin B12 Folate Blood Type Antibody Screen Impressions: KUB X-Ray 09/17/16 00:00 IMPRESSION: Profound ileus, oral contrast given for CT 09/11/2016 still in the stomach and small bowel. Nasogastric tube tip and side port in the stomach Distended small bowel loops and colon in the upper half of the abdomen Abdomen/Pelvis CT 09/18/16 00:00 IMPRESSION: Multiple air fluid and contrast distended small bowel loops are again identified which again could be related to a diffuse ileus however I cannot exclude underlying obstruction. Intra- abdominal and pelvic ascitic fluid is again identified. Interval increase in size of the bilateral pleural effusions left greater than right. Other findings as noted above Chest X-Ray 09/23/16 06:00 IMPRESSION: 1. Support tubes and lines as above. 2. Hazy densities noted at both lung bases likely representing combination of layering effusions with associated atelectasis/infiltrate. Overall appearance not significant changed. The fluid is noted previously within the minor fissure on the right has resolved. Abdomen X-Ray 09/26/16 00:00 IMPRESSION: Continued bowel distention. Contrast noted flexure regions of the colon. Assessment & Plan - Diagnosis (1) Colon polyps Qualifiers: Colon location: ascending Is this a current diagnosis for this admission?: YesPlan: Status post right hemicolectomy. s/p reexploration for bradley for sbo. Doing better. abdomen very soft with active bs's. Main problem is generalized weakness. Will continue to work with physical therapy. Keep on clear liquids until her by mouth intake has improved and then will advance to a solid diet. Continue TPN since the by mouth intake is very little at this time.
--- NOTE | 2016-09-28 11:32 | PDOC PROGRESS REPORT ---
Subjective Progress Note for:: 09/28/16 Subjective:: Lethargic Physical Exam Vital Signs: Temp Pulse Resp BP Pulse Ox 98.5 F 88 18 114/44 L 96 09/28/16 07:26 09/28/16 08:33 09/28/16 08:33 09/28/16 07:26 09/28/16 08:33 Intake & Output 09/27/16 09/28/16 09/29/16 06:59 06:59 06:59 Intake Total 1169 3069 Output Total 0 0 Balance 1169 3069 Weight 96.2 kg 94 kg General appearance: PRESENT: no acute distress, disheveled, thin, well-developed Head exam: PRESENT: atraumatic, normocephalic Eye exam: PRESENT: conjunctiva pale, EOMI Mouth exam: PRESENT: dry mucosa, neck supple Neck exam: ABSENT: carotid bruit, JVD, lymphadenopathy, thyromegaly Respiratory exam: PRESENT: decreased breath sounds, prolonged expiratory phas, rhonchi, symmetrical, unlabored Cardiovascular exam: PRESENT: irregular rhythm Pulses: PRESENT: normal radial pulses GI/Abdominal exam: PRESENT: normal bowel sounds, soft. ABSENT: distended, guarding, mass, organolmegaly, rebound, tenderness Rectal exam: PRESENT: deferred Gentrourinary exam: PRESENT: indwelling catheter Musculoskeletal exam: PRESENT: normal inspection Neurological exam: PRESENT: awake Skin exam: PRESENT: dry, warm Results Laboratory Results: 09/28/16 05:32 09/28/16 05:32 09/27/16 09/28/16 09/28/16 07:20 05:32 05:32 WBC RBC Hgb Hct MCV MCH MCHC RDW Plt Count Seg Neutrophils % Lymphocytes % Monocytes % Eosinophils % Basophils % Absolute Neutrophils Absolute Lymphocytes Absolute Monocytes Absolute Eosinophils Absolute Basophils Retic Count (auto) 4.67 H Absolute Retic 0.143 H Sodium Potassium Chloride Carbon Dioxide Anion Gap BUN Creatinine Est GFR ( Amer) Est GFR (Non-Af Amer) Glucose Calcium Phosphorus Iron < 10.1 L TIBC 125 L % Saturation UNABLE TO CALCULATE Ferritin 1010.00 H Total Bilirubin AST ALT Alkaline Phosphatase Total Protein Albumin Prealbumin Vitamin B12 990.0 H Folate 13.30 Blood Type AB POSITIVE Antibody Screen NEGATIVE 09/28/16 09/28/16 05:32 05:32 WBC 9.3 RBC 2.99 L Hgb 9.3 L Hct 28.1 L MCV 94 MCH 31.1 MCHC 33.2 RDW 17.4 H Plt Count 191 Seg Neutrophils % 71.5 Lymphocytes % 7.9 L Monocytes % 18.2 H Eosinophils % 1.9 Basophils % 0.5 Absolute Neutrophils 6.7 Absolute Lymphocytes 0.7 Absolute Monocytes 1.7 H Absolute Eosinophils 0.2 Absolute Basophils 0.1 Retic Count (auto) Absolute Retic Sodium 135.7 L Potassium 3.7 Chloride 98 Carbon Dioxide 29 Anion Gap 9 BUN 33 H Creatinine 3.63 H Est GFR ( Amer) 15 L Est GFR (Non-Af Amer) 12 L Glucose 185 H Calcium 8.4 Phosphorus 4.2 Iron TIBC % Saturation Ferritin Total Bilirubin 0.3 AST 35 ALT 45 Alkaline Phosphatase 83 Total Protein 4.9 L Albumin 2.1 L Prealbumin 11.6 L Vitamin B12 Folate Blood Type Antibody Screen Impressions: KUB X-Ray 09/17/16 00:00 IMPRESSION: Profound ileus, oral contrast given for CT 09/11/2016 still in the stomach and small bowel. Nasogastric tube tip and side port in the stomach Distended small bowel loops and colon in the upper half of the abdomen Abdomen/Pelvis CT 09/18/16 00:00 IMPRESSION: Multiple air fluid and contrast distended small bowel loops are again identified which again could be related to a diffuse ileus however I cannot exclude underlying obstruction. Intra- abdominal and pelvic ascitic fluid is again identified. Interval increase in size of the bilateral pleural effusions left greater than right. Other findings as noted above Chest X-Ray 09/23/16 06:00 IMPRESSION: 1. Support tubes and lines as above. 2. Hazy densities noted at both lung bases likely representing combination of layering effusions with associated atelectasis/infiltrate. Overall appearance not significant changed. The fluid is noted previously within the minor fissure on the right has resolved. Abdomen X-Ray 09/26/16 00:00 IMPRESSION: Continued bowel distention. Contrast noted flexure regions of the colon. Assessment & Plan - Diagnosis (1) Anemia Qualifiers: Anemia type: unspecified type Qualified Code(s): D64.9 - Anemia, unspecified Is this a current diagnosis for this admission?: YesPlan: due to ESRD hemoglobin hematocrit again declining (2) Hyponatremia Is this a current diagnosis for this admission?: No (3) Postoperative respiratory failure Is this a current diagnosis for this admission?: YesPlan: Resolved (4) Status post colectomy Is this a current diagnosis for this admission?: YesPlan: As per surgery (5) ESRD (end stage renal disease) on dialysis Is this a current diagnosis for this admission?: YesPlan: continue hd qod
[2016-09-28] MEDS: AMINO ACIDS 5%/D25W 1,000 ML IV PRN (12:20)
[2016-09-28] MEDS: LACTULOSE SYRUP 20 GM/30 ML UDCUP PO SCH (17:30)
[2016-09-28] MEDS: ATORVASTATIN CALCIUM 40 MG TABLET NG SCH (21:41)
[2016-09-28] MEDS: INSULIN GLARGINE,HUM.REC.ANLOG 300 UNIT/3 ML INSULN.PEN SUBCUT SCH (22:50)
[2016-09-29] MEDS: INSULIN LISPRO 100 UNIT/ML 3 ML VIAL SUBCUT PRN ×3 (00:09→17:57)
[2016-09-29] MEDS: HYDRALAZINE HCL INJ/PF 20 MG/1 ML SDV IV SCH ×4 (00:10→17:57)
[2016-09-29] MEDS: HEPARIN SOD (PORCINE) 5,000 UNIT/ML 1 ML SYRINGE SUBCUT SCH ×2 (05:38→17:57)
[2016-09-29] MEDS: AMINO ACIDS 5%/D25W 1,000 ML IV PRN ×2 (05:39→22:37)
[2016-09-29 06:32] LABS: ALANINE AMINOTRANSFERASE 37 U/L (9-52); ALBUMIN 2.1 g/dL (3.5-5.0); ALKALINE PHOSPHATASE 75 U/L (38-126); ANION GAP 10 (5-19); ASPARTATE AMINO TRANSFERASE 21 U/L (14-36); BILIRUBIN,TOTAL 0.2 mg/dL (0.2-1.3); BLOOD UREA NITROGEN 40 mg/dL (7-20); CALCIUM 8.1 mg/dL (8.4-10.2); CARBON DIOXIDE 25 mmol/L (22-30); CHLORIDE 97 mmol/L (98-107); CREATININE RESULT 4.65 mg/dL (0.52-1.25); GLUCOSE 197 mg/dL (75-110); SODIUM 132.2 mmol/L (137-145); TOTAL PROTEIN 4.8 g/dL (6.3-8.2)
[2016-09-29] MEDS: IPRATROPIUM/ALBUTEROL 0.5-2.5 MG/3 ML AMPUL NEB SCH ×2 (08:17→16:39)
[2016-09-29] MEDS ORDERED: EPOETIN ALFA INJ 20000 UNIT/1 ML VIAL (RENAL) IV PRN (10:08)
--- NOTE | 2016-09-29 11:38 | PROGRESS NOTE E ---
Progress Note NAME: RICKY RODRIGUEZ : 1935 AGE: 80Y DATE: 09/29/2016 ROOM: 317 SUBJECTIVE: I saw patient in the hemodialysis room. She remains quite comfortable. Her abdomen is soft. The wound is clean and dry and nontender. She appears to be tolerating her liquids well. PLAN: I will continue her on a liquid diet for now and have Nephrology follow up her labs. DICTATING PHYSICIAN: MARTÍNEZ MORENO M.D. [id number] PHY#: [id number] ID: [id number] JOB#: [id number] ACCT: [id number] cc: >
[2016-09-29] MEDS: CINACALCET HCL 30 MG TABLET PO SCH (11:51)
[2016-09-29] MEDS: FOLIC ACID/VITAMIN B COMP W-C CAPSULE NG SCH (11:52)
[2016-09-29] MEDS: IRON POLYSACCHARIDES COMPLEX 150 MG CAPSULE PO SCH (11:52)
[2016-09-29] MEDS: ASPIRIN 81 MG TABLET, CHEWABLE NG SCH (11:52)
--- NOTE | 2016-09-29 16:15 | PDOC PROGRESS REPORT ---
Subjective Progress Note for:: 09/29/16 Subjective:: Mrs. Bustos was seen on dialysis today. She looks more awake and alert and responsive. In fact she is beginning to smile which is her progress. She denies any history of chest pain shortness of breath nausea vomiting. She is indeed passing flatulence. Currently she has had few sips of fluids but but nothing more by mouth. She still on TPN. Presently on dialysis without any issues. Vital signs are stable. Orders were discussed with the treating nurse. Physical Exam Vital Signs: Temp Pulse Resp BP Pulse Ox 98.4 F 80 20 145/50 H 100 09/29/16 12:00 09/29/16 14:00 09/29/16 12:00 09/29/16 12:00 09/29/16 12:00 Intake & Output 09/28/16 09/29/16 09/30/16 06:59 06:59 06:59 Intake Total 3069 1862 0 Output Total 0 0 Balance 3069 1862 0 Weight 94 kg 97.2 kg General appearance: PRESENT: no acute distress Respiratory exam: PRESENT: clear to auscultation nikki. ABSENT: crackles, rhonchi Cardiovascular exam: PRESENT: +S1, +S2, systolic murmur GI/Abdominal exam: PRESENT: hypoactive bowel sounds, soft, tenderness - Both the lower quadrants. Bowel sounds are hypoactive. No masses felt. ABSENT: distended, firm Results Laboratory Results: 09/28/16 05:32 09/29/16 05:35 09/28/16 09/29/16 05:32 05:35 Sodium 132.2 L Potassium 4.0 Chloride 97 L Carbon Dioxide 25 Anion Gap 10 BUN 40 H Creatinine 4.65 H Est GFR ( Amer) 11 L Est GFR (Non-Af Amer) 9 L Glucose 197 H Calcium 8.1 L Transferrin 76 L Total Bilirubin 0.2 AST 21 ALT 37 Alkaline Phosphatase 75 Total Protein 4.8 L Albumin 2.1 L Impressions: KUB X-Ray 09/17/16 00:00 IMPRESSION: Profound ileus, oral contrast given for CT 09/11/2016 still in the stomach and small bowel. Nasogastric tube tip and side port in the stomach Distended small bowel loops and colon in the upper half of the abdomen Abdomen/Pelvis CT 09/18/16 00:00 IMPRESSION: Multiple air fluid and contrast distended small bowel loops are again identified which again could be related to a diffuse ileus however I cannot exclude underlying obstruction. Intra- abdominal and pelvic ascitic fluid is again identified. Interval increase in size of the bilateral pleural effusions left greater than right. Other findings as noted above Chest X-Ray 09/23/16 06:00 IMPRESSION: 1. Support tubes and lines as above. 2. Hazy densities noted at both lung bases likely representing combination of layering effusions with associated atelectasis/infiltrate. Overall appearance not significant changed. The fluid is noted previously within the minor fissure on the right has resolved. Abdomen X-Ray 09/26/16 00:00 IMPRESSION: Continued bowel distention. Contrast noted flexure regions of the colon. Assessment & Plan - Diagnosis (1) Diabetes Qualifiers: Diabetes mellitus type: type 1 Diabetes mellitus complication status: with kidney complications Diabetes mellitus complication detail: with chronic kidney disease Chronic kidney disease stage: on chronic dialysis Qualified Code(s): E10.22 - Type 1 diabetes mellitus with diabetic chronic kidney disease; N18.1 - Chronic kidney disease, stage 1 Is this a current diagnosis for this admission?: Yes (2) Status post colectomy Is this a current diagnosis for this admission?: YesPlan: As per surgery. Improving. She is status post exploratory laparotomy because she had persistent bowel obstruction post colectomy. Presently looks stable (3) ESRD (end stage renal disease) on dialysis Is this a current diagnosis for this admission?: YesPlan: Is undergoing dialysis without any issues. Electrolytes are stable. Orders were discussed with the treating dialysis nurse. We will try to remove around 1 L as tolerated. Continue to monitor. (4) Essential (primary) hypertension Is this a current diagnosis for this admission?: YesPlan: Stable (5) Confusion and disorientation Is this a current diagnosis for this admission?: YesPlan: Improving.She is definitely the most awake that I have seen and responding well. (6) Hyperkalemia Plan: Good. appropriate correction done in her TPN. She is on 3K bath on dialysis. (7) Anemia Qualifiers: Anemia type: unspecified type Qualified Code(s): D64.9 - Anemia, unspecified Is this a current diagnosis for this admission?: YesPlan: Will adjust erythropoietin. (8) Hyponatremia Is this a current diagnosis for this admission?: No
[2016-09-29] MEDS: LACTULOSE SYRUP 20 GM/30 ML UDCUP PO SCH (17:57)
[2016-09-29] MEDS: ATORVASTATIN CALCIUM 40 MG TABLET NG SCH (21:12)
[2016-09-29] MEDS: ONDANSETRON HCL INJ/PF 4 MG/2 ML SDV IV PRN (22:00)
[2016-09-29] MEDS: INSULIN GLARGINE,HUM.REC.ANLOG 300 UNIT/3 ML INSULN.PEN SUBCUT SCH (22:09)
[2016-09-30] MEDS: IPRATROPIUM/ALBUTEROL 0.5-2.5 MG/3 ML AMPUL NEB SCH ×3 (00:03→15:38)
[2016-09-30] MEDS: HYDRALAZINE HCL INJ/PF 20 MG/1 ML SDV IV SCH ×4 (00:23→18:01)
[2016-09-30] MEDS: INSULIN LISPRO 100 UNIT/ML 3 ML VIAL SUBCUT PRN ×4 (01:41→18:00)
[2016-09-30] MEDS: HEPARIN SOD (PORCINE) 5,000 UNIT/ML 1 ML SYRINGE SUBCUT SCH ×2 (05:40→18:01)
[2016-09-30 06:30] LABS: ALANINE AMINOTRANSFERASE 34 U/L (9-52); ALBUMIN 2.2 g/dL (3.5-5.0); ALKALINE PHOSPHATASE 89 U/L (38-126); ANION GAP 11 (5-19); ASPARTATE AMINO TRANSFERASE 29 U/L (14-36); BILIRUBIN,TOTAL 0.3 mg/dL (0.2-1.3); BLOOD UREA NITROGEN 30 mg/dL (7-20); CARBON DIOXIDE 29 mmol/L (22-30); CHLORIDE 97 mmol/L (98-107); CREATININE RESULT 3.43 mg/dL (0.52-1.25); GLUCOSE 189 mg/dL (75-110); POTASSIUM 4.1 mmol/L (3.6-5.0); SODIUM 136.8 mmol/L (137-145); TOTAL PROTEIN 4.9 g/dL (6.3-8.2)
[2016-09-30 06:45] LABS: ABSOLUTE BASOPHILS # (AUTO) 0.1 10^3/uL (0.0-0.2); ABSOLUTE EOSINOPHILS # (AUTO) 0.2 10^3/uL (0.0-0.6); ABSOLUTE LYMPHOCYTES (AUTO) 0.9 10^3/uL (0.5-4.7); ABSOLUTE MONOCYTES (AUTO) 1.8 10^3/uL (0.1-1.4); ABSOLUTE NEUT (AUTO) 6.8 10^3/uL (1.7-8.2); BASOPHILS % (AUTO) 0.8 % (0-2); HEMATOCRIT 27.7 % (36.0-47.0); HGB HCT DIFFERENCE -0.7; LYMPHOCYTES % (AUTO) 9.3 % (13-45); MEAN CORPUSCULAR HEMOGLOBIN 31.1 pg (27.0-33.4); MEAN CORPUSCULAR HGB CONC 32.6 g/dL (32.0-36.0); MEAN CORPUSCULAR VOLUME 95 fl (80-97); MONOCYTES % (AUTO) 18.7 % (3-13); RED CELL DISTRIBUTION WIDTH 17.3 % (11.5-14.0); SEGMENTED NEUTROPHILS % (AUTO) 69.2 % (42-78); WHITE BLOOD COUNT 9.8 10^3/uL (4.0-10.5)
--- NOTE | 2016-09-30 08:47 | PDOC PROGRESS REPORT ---
Subjective Progress Note for:: 09/29/16 Subjective:: Patient seen on morning rounds. She is resting in bed. She does answer questions appropriately this morning. She denies any shortness of breath, cough or chest pain. She denies any abdominal pain, nausea, or diarrhea. She denies any significant arthralgias or myalgias is at the present time. She remains very weak. Physical therapy working with her. She will need short term rehab prior to going home. She does have here periods of confusion due to underlying dementia, but her overall mentation is much improved Physical Exam Vital Signs: Temp Pulse Resp BP Pulse Ox 98.4 F 79 20 145/50 H 100 09/29/16 12:00 09/29/16 12:00 09/29/16 12:00 09/29/16 12:00 09/29/16 12:00 Intake & Output 09/28/16 09/29/16 09/30/16 06:59 06:59 06:59 Intake Total 3069 1862 0 Output Total 0 0 Balance 3069 1862 0 Weight 94 kg 97.2 kg Results Laboratory Results: 09/28/16 05:32 09/29/16 05:35 09/28/16 09/29/16 05:32 05:35 Sodium 132.2 L Potassium 4.0 Chloride 97 L Carbon Dioxide 25 Anion Gap 10 BUN 40 H Creatinine 4.65 H Est GFR ( Amer) 11 L Est GFR (Non-Af Amer) 9 L Glucose 197 H Calcium 8.1 L Transferrin 76 L Total Bilirubin 0.2 AST 21 ALT 37 Alkaline Phosphatase 75 Total Protein 4.8 L Albumin 2.1 L Impressions: KUB X-Ray 09/17/16 00:00 IMPRESSION: Profound ileus, oral contrast given for CT 09/11/2016 still in the stomach and small bowel. Nasogastric tube tip and side port in the stomach Distended small bowel loops and colon in the upper half of the abdomen Abdomen/Pelvis CT 09/18/16 00:00 IMPRESSION: Multiple air fluid and contrast distended small bowel loops are again identified which again could be related to a diffuse ileus however I cannot exclude underlying obstruction. Intra- abdominal and pelvic ascitic fluid is again identified. Interval increase in size of the bilateral pleural effusions left greater than right. Other findings as noted above Chest X-Ray 09/23/16 06:00 IMPRESSION: 1. Support tubes and lines as above. 2. Hazy densities noted at both lung bases likely representing combination of layering effusions with associated atelectasis/infiltrate. Overall appearance not significant changed. The fluid is noted previously within the minor fissure on the right has resolved. Abdomen X-Ray 09/26/16 00:00 IMPRESSION: Continued bowel distention. Contrast noted flexure regions of the colon. Assessment & Plan - Diagnosis (1) Encephalopathy Is this a current diagnosis for this admission?: Yes (2) Postoperative respiratory failure Is this a current diagnosis for this admission?: Yes (3) Small bowel obstruction Is this a current diagnosis for this admission?: Yes (4) Hypokalemia Is this a current diagnosis for this admission?: Yes (5) Hyponatremia Is this a current diagnosis for this admission?: No (6) Diabetes Qualifiers: Diabetes mellitus type: type 1 Diabetes mellitus complication status: with kidney complications Diabetes mellitus complication detail: with chronic kidney disease Chronic kidney disease stage: on chronic dialysis Qualified Code(s): E10.22 - Type 1 diabetes mellitus with diabetic chronic kidney disease; N18.1 - Chronic kidney disease, stage 1 Is this a current diagnosis for this admission?: Yes (7) Dementia Qualifiers: Dementia type: unspecified type Dementia behavioral disturbance: without behavioral disturbance Qualified Code(s): F03.90 - Unspecified dementia without behavioral disturbance Is this a current diagnosis for this admission?: Yes (8) Status post colectomy Is this a current diagnosis for this admission?: Yes (9) Dyslipidemia Is this a current diagnosis for this admission?: Yes (10) On total parenteral nutrition (TPN) Is this a current diagnosis for this admission?: Yes (11) Anemia Qualifiers: Anemia type: unspecified type Qualified Code(s): D64.9 - Anemia, unspecified Is this a current diagnosis for this admission?: Yes (12) Confusion and disorientation Is this a current diagnosis for this admission?: Yes
--- NOTE | 2016-09-30 08:54 | PDOC PROGRESS REPORT ---
Subjective Progress Note for:: 09/30/16 Subjective:: Patient seen on morning rounds. She is resting in bed. She denies any shortness of breath, cough or chest pain. She denies any abdominal pain, nausea , or diarrhea. She denies any significant arthralgias or myalgias is at the present time. She remains very weak. Physical therapy is working with her. She will need short term rehab prior to going home. She does have here periods of confusion due to underlying dementia, but her overall mentation is much improved Physical Exam Vital Signs: Temp Pulse Resp BP Pulse Ox 98.0 F 83 16 133/42 H 100 09/30/16 04:04 09/30/16 04:04 09/30/16 04:04 09/30/16 04:04 09/30/16 04:04 Intake & Output 09/29/16 09/30/16 10/01/16 06:59 06:59 06:59 Intake Total 1861 2031 Output Total 0 Balance 1861 2031 Weight 97.2 kg 96.5 kg General appearance: PRESENT: no acute distress, obese, well-developed, well- nourished Head exam: PRESENT: atraumatic, normocephalic Eye exam: PRESENT: conjunctiva pink, EOMI, PERRLA. ABSENT: scleral icterus Ear exam: PRESENT: normal external ear exam Mouth exam: PRESENT: moist, tongue midline Neck exam: ABSENT: carotid bruit, JVD, lymphadenopathy, thyromegaly Respiratory exam: PRESENT: clear to auscultation nikki, decreased breath sounds. ABSENT: rales, rhonchi, wheezes Cardiovascular exam: PRESENT: RRR. ABSENT: diastolic murmur, rubs, systolic murmur Pulses: PRESENT: normal carotid pulses, normal radial pulses Vascular exam: PRESENT: normal capillary refill GI/Abdominal exam: PRESENT: hypoactive bowel sounds, soft Rectal exam: PRESENT: deferred Extremities exam: PRESENT: full ROM. ABSENT: calf tenderness, clubbing, pedal edema Musculoskeletal exam: PRESENT: full ROM Neurological exam: PRESENT: alert, awake, oriented to person, oriented to place , oriented to situation, CN II-XII grossly intact Psychiatric exam: PRESENT: appropriate affect, normal mood. ABSENT: homicidal ideation, suicidal ideation Skin exam: PRESENT: dry, intact, warm. ABSENT: cyanosis, rash Results Laboratory Results: 09/30/16 06:15 09/30/16 05:50 09/28/16 09/30/16 09/30/16 05:32 05:50 06:15 WBC 9.8 RBC 2.90 L Hgb 9.0 L Hct 27.7 L MCV 95 MCH 31.1 MCHC 32.6 RDW 17.3 H Plt Count 219 Seg Neutrophils % 69.2 Lymphocytes % 9.3 L Monocytes % 18.7 H Eosinophils % 2.0 Basophils % 0.8 Absolute Neutrophils 6.8 Absolute Lymphocytes 0.9 Absolute Monocytes 1.8 H Absolute Eosinophils 0.2 Absolute Basophils 0.1 Sodium 136.8 L Potassium 4.1 Chloride 97 L Carbon Dioxide 29 Anion Gap 11 BUN 30 H Creatinine 3.43 H Est GFR ( Amer) 15 L Est GFR (Non-Af Amer) 13 L Glucose 189 H Calcium 8.0 L Transferrin 76 L Total Bilirubin 0.3 AST 29 ALT 34 Alkaline Phosphatase 89 Total Protein 4.9 L Albumin 2.2 L Impressions: KUB X-Ray 09/17/16 00:00 IMPRESSION: Profound ileus, oral contrast given for CT 09/11/2016 still in the stomach and small bowel. Nasogastric tube tip and side port in the stomach Distended small bowel loops and colon in the upper half of the abdomen Abdomen/Pelvis CT 09/18/16 00:00 IMPRESSION: Multiple air fluid and contrast distended small bowel loops are again identified which again could be related to a diffuse ileus however I cannot exclude underlying obstruction. Intra- abdominal and pelvic ascitic fluid is again identified. Interval increase in size of the bilateral pleural effusions left greater than right. Other findings as noted above Chest X-Ray 09/23/16 06:00 IMPRESSION: 1. Support tubes and lines as above. 2. Hazy densities noted at both lung bases likely representing combination of layering effusions with associated atelectasis/infiltrate. Overall appearance not significant changed. The fluid is noted previously within the minor fissure on the right has resolved. Abdomen X-Ray 09/26/16 00:00 IMPRESSION: Continued bowel distention. Contrast noted flexure regions of the colon. Assessment & Plan - Diagnosis (1) Encephalopathy Is this a current diagnosis for this admission?: YesPlan: Most likely secondary to multitude of factors. She has baseline dementia. She also has end-stage renal disease on dialysis. Cultures remain negative. She underwent emergency surgery for small bowel obstruction and was sedated on a ventilator for 2 days. Mentation is improving packed towards baseline. (2) Postoperative respiratory failure Is this a current diagnosis for this admission?: YesPlan: She is presently on room air. Respiratory is following as well as nursing for pulmonary toilet. (3) Small bowel obstruction Is this a current diagnosis for this admission?: YesPlan: Patient underwent small bowel colectomy and lysis of adhesions by surgery she. She is presently nothing by mouth, nasogastric tube in place. Feeding will be at this discretion of surgery. She presently is receiving TPN. She does have hypoactive bowel sounds present time (4) Hypokalemia Is this a current diagnosis for this admission?: YesPlan: Replete potassium as needed (5) Hyponatremia Is this a current diagnosis for this admission?: NoPlan: Continue TPN per nephrology . Patient is ESRD. (6) Diabetes Qualifiers: Diabetes mellitus type: type 1 Diabetes mellitus complication status: with kidney complications Diabetes mellitus complication detail: with chronic kidney disease Chronic kidney disease stage: on chronic dialysis Qualified Code(s): E10.22 - Type 1 diabetes mellitus with diabetic chronic kidney disease; N18.1 - Chronic kidney disease, stage 1 Is this a current diagnosis for this admission?: YesPlan: Dyspnea current medications and sliding scale coverage (7) Dementia Qualifiers: Dementia type: unspecified type Dementia behavioral disturbance: without behavioral disturbance Qualified Code(s): F03.90 - Unspecified dementia without behavioral disturbance Is this a current diagnosis for this admission?: YesPlan: Patient appears to be at baseline (8) Status post colectomy Is this a current diagnosis for this admission?: YesPlan: Progression of diet her surgery (9) Dyslipidemia Is this a current diagnosis for this admission?: YesPlan: Continue statin (10) On total parenteral nutrition (TPN) Is this a current diagnosis for this admission?: YesPlan: Continue present TPN rates. Surgery is discussing starting feeds (11) Anemia Qualifiers: Anemia type: unspecified type Qualified Code(s): D64.9 - Anemia, unspecified Is this a current diagnosis for this admission?: YesPlan: Patient will be transfused 2 units of PRBCs with dialysis (12) Confusion and disorientation Is this a current diagnosis for this admission?: YesPlan: She continues to have periods of confusion and disorientation, she does have history - Time Time Spent with patient: 25-34 minutes Critical Time spent with patient: 15-24 minutes Medications reviewed and adjusted accordingly: Yes Anticipated discharge: Acute Rehab - Inpatient Certification Based on my medical assessment, after consideration of the patient's comorbidities, presenting symptoms, or acuity I expect that the services needed warrant INPATIENT care.: Yes I certify that my determination is in accordance with my understanding of Medicare's requirements for reasonable and necessary INPATIENT services [42 CFR 412.3e].: Yes Medical Necessity: Need Close Monitoring Due to Risk of Patient Decompensation, Need for Surgery, Risk of Complication if Not Cared For in Hospital
[2016-09-30] MEDS: CINACALCET HCL 30 MG TABLET PO SCH (10:08)
[2016-09-30] MEDS: FOLIC ACID/VITAMIN B COMP W-C CAPSULE NG SCH (10:11)
[2016-09-30] MEDS: ASPIRIN 81 MG TABLET, CHEWABLE NG SCH (10:11)
[2016-09-30] MEDS: MEGESTROL ACETATE 20 MG TABLET PO SCH (10:11)
[2016-09-30] MEDS: IRON POLYSACCHARIDES COMPLEX 150 MG CAPSULE PO SCH (10:13)
--- NOTE | 2016-09-30 11:43 | PDOC PROGRESS REPORT ---
Subjective Subjective:: The patient was examined on the third floor, laying in the bed. She answers very simple questions appropriately. She has no complaints. Physical Exam Vital Signs: Temp Pulse Resp BP Pulse Ox 98.5 F 82 20 120/42 L 98 09/30/16 07:39 09/30/16 08:30 09/30/16 08:30 09/30/16 07:39 09/30/16 08:30 Intake & Output 09/29/16 09/30/16 10/01/16 06:59 06:59 06:59 Intake Total 1861 2031 Output Total 0 Balance 1861 2031 Weight 97.2 kg 96.5 kg General appearance: PRESENT: no acute distress GI/Abdominal exam: PRESENT: other - Dressing removed, vicente intact. Skin flaps were viable. Abdomen soft no peritoneal signs. Results Laboratory Results: 09/30/16 06:15 09/30/16 05:50 09/30/16 09/30/16 05:50 06:15 WBC 9.8 RBC 2.90 L Hgb 9.0 L Hct 27.7 L MCV 95 MCH 31.1 MCHC 32.6 RDW 17.3 H Plt Count 219 Seg Neutrophils % 69.2 Lymphocytes % 9.3 L Monocytes % 18.7 H Eosinophils % 2.0 Basophils % 0.8 Absolute Neutrophils 6.8 Absolute Lymphocytes 0.9 Absolute Monocytes 1.8 H Absolute Eosinophils 0.2 Absolute Basophils 0.1 Sodium 136.8 L Potassium 4.1 Chloride 97 L Carbon Dioxide 29 Anion Gap 11 BUN 30 H Creatinine 3.43 H Est GFR ( Amer) 15 L Est GFR (Non-Af Amer) 13 L Glucose 189 H Calcium 8.0 L Total Bilirubin 0.3 AST 29 ALT 34 Alkaline Phosphatase 89 Total Protein 4.9 L Albumin 2.2 L Impressions: KUB X-Ray 09/17/16 00:00 IMPRESSION: Profound ileus, oral contrast given for CT 09/11/2016 still in the stomach and small bowel. Nasogastric tube tip and side port in the stomach Distended small bowel loops and colon in the upper half of the abdomen Abdomen/Pelvis CT 09/18/16 00:00 IMPRESSION: Multiple air fluid and contrast distended small bowel loops are again identified which again could be related to a diffuse ileus however I cannot exclude underlying obstruction. Intra- abdominal and pelvic ascitic fluid is again identified. Interval increase in size of the bilateral pleural effusions left greater than right. Other findings as noted above Chest X-Ray 09/23/16 06:00 IMPRESSION: 1. Support tubes and lines as above. 2. Hazy densities noted at both lung bases likely representing combination of layering effusions with associated atelectasis/infiltrate. Overall appearance not significant changed. The fluid is noted previously within the minor fissure on the right has resolved. Abdomen X-Ray 09/26/16 00:00 IMPRESSION: Continued bowel distention. Contrast noted flexure regions of the colon. Assessment & Plan - Diagnosis (1) Small bowel obstruction Is this a current diagnosis for this admission?: Yes (2) Status post colectomy Is this a current diagnosis for this admission?: YesPlan: Patient is now 3 weeks status post colectomy for malignancy, right back for small bowel obstruction with generalized failure to thrive. She continues to receive full support, and is awaiting placement. Nothing new to offer from a surgical standpoint. Patient may benefit from Megace to stimulate her appetite.
[2016-09-30] MEDS: LACTULOSE SYRUP 20 GM/30 ML UDCUP PO SCH (18:01)
[2016-09-30] MEDS: AMINO ACIDS 5%/D25W 1,000 ML IV PRN (18:06)
[2016-09-30] MEDS: ONDANSETRON HCL INJ/PF 4 MG/2 ML SDV IV PRN (19:40)
[2016-09-30] MEDS: ATORVASTATIN CALCIUM 40 MG TABLET NG SCH (21:48)
[2016-09-30] MEDS: INSULIN GLARGINE,HUM.REC.ANLOG 300 UNIT/3 ML INSULN.PEN SUBCUT SCH (22:19)
[2016-10-01] MEDS: IPRATROPIUM/ALBUTEROL 0.5-2.5 MG/3 ML AMPUL NEB SCH ×4 (00:10→23:52)
[2016-10-01] MEDS: INSULIN LISPRO 100 UNIT/ML 3 ML VIAL SUBCUT PRN ×2 (00:50→06:34)
[2016-10-01] MEDS: HYDRALAZINE HCL INJ/PF 20 MG/1 ML SDV IV SCH ×3 (05:20→12:53)
[2016-10-01] MEDS: HEPARIN SOD (PORCINE) 5,000 UNIT/ML 1 ML SYRINGE SUBCUT SCH ×2 (05:20→18:20)
--- NOTE | 2016-10-01 08:16 | PDOC PROGRESS REPORT ---
Subjective Progress Note for:: 10/01/16 Subjective:: Patient seen on morning rounds. She is resting in bed eating breakfast. She denies any shortness of breath, cough or chest pain. She denies any abdominal pain, nausea, or diarrhea. She denies any significant arthralgias or myalgias is at the present time. She remains very weak. Physical therapy is working with her. She will need short term rehab prior to going home. She does have periods of intermittent confusion due to underlying dementia, but her overall mentation is much improved Physical Exam Vital Signs: Temp Pulse Resp BP Pulse Ox 98.0 F 89 20 133/52 H 97 10/01/16 07:22 10/01/16 07:22 10/01/16 07:22 10/01/16 07:22 10/01/16 07:22 Intake & Output 09/30/16 10/01/16 10/02/16 06:59 06:59 06:59 Intake Total 2031 1674 Output Total 0 0 Balance 2031 1674 Weight 96.5 kg 98.7 kg General appearance: PRESENT: no acute distress, obese, well-developed, well- nourished Head exam: PRESENT: atraumatic, normocephalic Eye exam: PRESENT: conjunctiva pink, EOMI, PERRLA. ABSENT: scleral icterus Ear exam: PRESENT: normal external ear exam Mouth exam: PRESENT: moist, tongue midline Neck exam: ABSENT: carotid bruit, JVD, lymphadenopathy, thyromegaly Respiratory exam: PRESENT: clear to auscultation nikki, decreased breath sounds. ABSENT: rales, rhonchi, wheezes Cardiovascular exam: PRESENT: RRR. ABSENT: diastolic murmur, rubs, systolic murmur Pulses: PRESENT: normal carotid pulses, normal radial pulses Vascular exam: PRESENT: normal capillary refill GI/Abdominal exam: PRESENT: normal bowel sounds, soft. ABSENT: distended, guarding, mass, organolmegaly, rebound, tenderness Rectal exam: PRESENT: deferred Extremities exam: PRESENT: full ROM, +2 edema. ABSENT: calf tenderness, clubbing, pedal edema Neurological exam: PRESENT: alert, awake, oriented to person, oriented to place , oriented to time, oriented to situation, CN II-XII grossly intact. ABSENT: motor sensory deficit Psychiatric exam: PRESENT: appropriate affect, normal mood. ABSENT: homicidal ideation, suicidal ideation Skin exam: PRESENT: dry, intact, warm. ABSENT: cyanosis, rash Results Laboratory Results: 09/30/16 06:15 09/30/16 05:50 Impressions: KUB X-Ray 09/17/16 00:00 IMPRESSION: Profound ileus, oral contrast given for CT 09/11/2016 still in the stomach and small bowel. Nasogastric tube tip and side port in the stomach Distended small bowel loops and colon in the upper half of the abdomen Abdomen/Pelvis CT 09/18/16 00:00 IMPRESSION: Multiple air fluid and contrast distended small bowel loops are again identified which again could be related to a diffuse ileus however I cannot exclude underlying obstruction. Intra- abdominal and pelvic ascitic fluid is again identified. Interval increase in size of the bilateral pleural effusions left greater than right. Other findings as noted above Chest X-Ray 09/23/16 06:00 IMPRESSION: 1. Support tubes and lines as above. 2. Hazy densities noted at both lung bases likely representing combination of layering effusions with associated atelectasis/infiltrate. Overall appearance not significant changed. The fluid is noted previously within the minor fissure on the right has resolved. Abdomen X-Ray 09/26/16 00:00 IMPRESSION: Continued bowel distention. Contrast noted flexure regions of the colon. Assessment & Plan - Diagnosis (1) Encephalopathy Is this a current diagnosis for this admission?: YesPlan: Resolved (2) Postoperative respiratory failure Is this a current diagnosis for this admission?: YesPlan: She is presently on room air. Respiratory is following as well as nursing for pulmonary toilet. (3) Small bowel obstruction Is this a current diagnosis for this admission?: YesPlan: Patient underwent small bowel colectomy and lysis of adhesions by surgery she. She is presently nothing by mouth, nasogastric tube in place. Feeding will be at this discretion of surgery. She presently is receiving TPN. She does have hypoactive bowel sounds present time (4) Hypokalemia Is this a current diagnosis for this admission?: YesPlan: Replete potassium as needed (5) Hyponatremia Is this a current diagnosis for this admission?: NoPlan: Continue TPN per nephrology . Patient is ESRD. (6) Diabetes Qualifiers: Diabetes mellitus type: type 1 Diabetes mellitus complication status: with kidney complications Diabetes mellitus complication detail: with chronic kidney disease Chronic kidney disease stage: on chronic dialysis Qualified Code(s): E10.22 - Type 1 diabetes mellitus with diabetic chronic kidney disease; N18.1 - Chronic kidney disease, stage 1 Is this a current diagnosis for this admission?: YesPlan: Dyspnea current medications and sliding scale coverage (7) Dementia Qualifiers: Dementia type: unspecified type Dementia behavioral disturbance: without behavioral disturbance Qualified Code(s): F03.90 - Unspecified dementia without behavioral disturbance Is this a current diagnosis for this admission?: YesPlan: Patient appears to be at baseline (8) Status post colectomy Is this a current diagnosis for this admission?: YesPlan: Progression of diet her surgery (9) Dyslipidemia Is this a current diagnosis for this admission?: YesPlan: Continue statin (10) On total parenteral nutrition (TPN) Is this a current diagnosis for this admission?: YesPlan: Continue present TPN rates. Surgery is discussing starting feeds (11) Anemia Qualifiers: Anemia type: unspecified type Qualified Code(s): D64.9 - Anemia, unspecified Is this a current diagnosis for this admission?: YesPlan: Patient will be transfused 2 units of PRBCs with dialysis (12) Confusion and disorientation Is this a current diagnosis for this admission?: YesPlan: She continues to have periods of confusion and disorientation, she does have history - Time Time Spent with patient: 25-34 minutes Critical Time spent with patient: 15-24 minutes Medications reviewed and adjusted accordingly: Yes Anticipated discharge: Acute Rehab
[2016-10-01] MEDS ORDERED: BISACODYL 10 MG SUPP.RECT PR ONE ×2 (09:00→15:00)
[2016-10-01] MEDS: CINACALCET HCL 30 MG TABLET PO SCH (10:14)
[2016-10-01] MEDS: ASPIRIN 81 MG TABLET, CHEWABLE NG SCH (10:15)
[2016-10-01] MEDS: MEGESTROL ACETATE 20 MG TABLET PO SCH (10:15)
[2016-10-01] MEDS: FOLIC ACID/VITAMIN B COMP W-C CAPSULE NG SCH (10:15)
[2016-10-01] MEDS: IRON POLYSACCHARIDES COMPLEX 150 MG CAPSULE PO SCH (10:15)
[2016-10-01] MEDS: AMINO ACIDS 5%/D25W 1,000 ML IV PRN (10:22)
--- NOTE | 2016-10-01 11:10 | PDOC PROGRESS REPORT ---
Subjective Progress Note for:: 10/01/16 Subjective:: No significant change since yesterday. Minimal By mouth intake. TPN continues Physical Exam Vital Signs: Temp Pulse Resp BP Pulse Ox 98.0 F 85 18 133/52 H 98 10/01/16 07:22 10/01/16 09:11 10/01/16 09:11 10/01/16 07:22 10/01/16 09:11 Intake & Output 09/30/16 10/01/16 10/02/16 06:59 06:59 06:59 Intake Total 2031 1674 Output Total 0 0 Balance 2031 1674 Weight 96.5 kg 98.7 kg General appearance: PRESENT: no acute distress GI/Abdominal exam: PRESENT: other - No distention, no tenderness area All vicente removed. Results Laboratory Results: 09/30/16 06:15 09/30/16 05:50 Impressions: KUB X-Ray 09/17/16 00:00 IMPRESSION: Profound ileus, oral contrast given for CT 09/11/2016 still in the stomach and small bowel. Nasogastric tube tip and side port in the stomach Distended small bowel loops and colon in the upper half of the abdomen Abdomen/Pelvis CT 09/18/16 00:00 IMPRESSION: Multiple air fluid and contrast distended small bowel loops are again identified which again could be related to a diffuse ileus however I cannot exclude underlying obstruction. Intra- abdominal and pelvic ascitic fluid is again identified. Interval increase in size of the bilateral pleural effusions left greater than right. Other findings as noted above Chest X-Ray 09/23/16 06:00 IMPRESSION: 1. Support tubes and lines as above. 2. Hazy densities noted at both lung bases likely representing combination of layering effusions with associated atelectasis/infiltrate. Overall appearance not significant changed. The fluid is noted previously within the minor fissure on the right has resolved. Abdomen X-Ray 09/26/16 00:00 IMPRESSION: Continued bowel distention. Contrast noted flexure regions of the colon. Assessment & Plan - Diagnosis (1) Small bowel obstruction Is this a current diagnosis for this admission?: YesPlan: 1. Patient has no evidence of impaired wound healing; abdomen is benign. 2. Patient continues on TPN as her by mouth as her by mouth intake is insufficient to meet her metabolic needs. Hopefully Megace will stimulate her appetite, otherwise a feeding tube such as a Dobbhoff may be appropriate in the interim. 3. As patient's principal medical needs are being managed by the hospitalist service, will arrange transfer to that service . (2) Status post colectomy Is this a current diagnosis for this admission?: Yes
[2016-10-01] MEDS: LACTULOSE SYRUP 20 GM/30 ML UDCUP PO SCH (18:20)
[2016-10-01] MEDS: ATORVASTATIN CALCIUM 40 MG TABLET NG SCH (21:35)
[2016-10-01] MEDS: INSULIN GLARGINE,HUM.REC.ANLOG 300 UNIT/3 ML INSULN.PEN SUBCUT SCH (21:36)
[2016-10-02] MEDS: INSULIN LISPRO 100 UNIT/ML 3 ML VIAL SUBCUT PRN
[2016-10-02] MEDS: AMINO ACIDS 5%/D25W 1,000 ML IV PRN ×2 (01:58→17:42)
[2016-10-02 04:58] LABS: ABSOLUTE EOSINOPHILS # (AUTO) 0.1 10^3/uL (0.0-0.6); ABSOLUTE LYMPHOCYTES (AUTO) 0.8 10^3/uL (0.5-4.7); ABSOLUTE MONOCYTES (AUTO) 1.3 10^3/uL (0.1-1.4); ABSOLUTE NEUT (AUTO) 5.4 10^3/uL (1.7-8.2); BASOPHILS % (AUTO) 0.5 % (0-2); EOSINOPHILS % (AUTO) 1.6 % (0-6); HEMATOCRIT 27.3 % (36.0-47.0); HEMOGLOBIN 8.9 g/dL (12.0-15.5); HGB HCT DIFFERENCE -0.6; LYMPHOCYTES % (AUTO) 10.4 % (13-45); MEAN CORPUSCULAR HEMOGLOBIN 30.8 pg (27.0-33.4); MEAN CORPUSCULAR HGB CONC 32.5 g/dL (32.0-36.0); MEAN CORPUSCULAR VOLUME 95 fl (80-97); MONOCYTES % (AUTO) 17.2 % (3-13); RED BLOOD COUNT 2.88 10^6/uL (3.72-5.28); RED CELL DISTRIBUTION WIDTH 17.2 % (11.5-14.0); SEGMENTED NEUTROPHILS % (AUTO) 70.3 % (42-78); WHITE BLOOD COUNT 7.7 10^3/uL (4.0-10.5)
[2016-10-02 05:25] LABS: ALANINE AMINOTRANSFERASE 53 U/L (9-52); ALBUMIN 2.2 g/dL (3.5-5.0); ALKALINE PHOSPHATASE 90 U/L (38-126); ANION GAP 13 (5-19); ASPARTATE AMINO TRANSFERASE 39 U/L (14-36); BILIRUBIN,TOTAL 0.3 mg/dL (0.2-1.3); BLOOD UREA NITROGEN 53 mg/dL (7-20); CALCIUM 8.1 mg/dL (8.4-10.2); CARBON DIOXIDE 26 mmol/L (22-30); CHLORIDE 95 mmol/L (98-107); CREATININE RESULT 5.24 mg/dL (0.52-1.25); GLUCOSE 142 mg/dL (75-110); POTASSIUM 4.6 mmol/L (3.6-5.0); SODIUM 134.4 mmol/L (137-145); TOTAL PROTEIN 5.1 g/dL (6.3-8.2); TRIGLYCERIDES 32 mg/dL (<150)
[2016-10-02] MEDS: HEPARIN SOD (PORCINE) 5,000 UNIT/ML 1 ML SYRINGE SUBCUT SCH ×2 (05:26→17:42)
[2016-10-02 06:20] LABS: MAGNESIUM 1.8 mg/dL (1.6-2.3); PHOSPHORUS 6.4 mg/dL (2.5-4.5)
[2016-10-02 06:28] LABS: PREALBUMIN 13.2 mg/dL (17.6-36.0)
[2016-10-02] MEDS: IPRATROPIUM/ALBUTEROL 0.5-2.5 MG/3 ML AMPUL NEB SCH ×3 (07:53→23:42)
--- NOTE | 2016-10-02 08:15 | PDOC PROGRESS REPORT ---
Subjective Progress Note for:: 10/02/16 Subjective:: Patient seen on morning rounds. She is resting in bed. She denies any shortness of breath, cough or chest pain. She denies any abdominal pain, nausea , or diarrhea. She denies any significant arthralgias or myalgias is at the present time. She remains very weak. She has had poor oral intake. Megace was started 2 days ago. Nursing reports a little better oral intake yesterday. We have continued TPN due to her poor appetite. If appetite doesn't improve may need to switch to enteral feeds now that GI tract is working. Physical therapy is working with her. She will need short term rehab prior to going home. She does have periods of intermittent confusion due to underlying dementia, but her overall mentation is much improved Physical Exam Vital Signs: Temp Pulse Resp BP Pulse Ox 98.5 F 77 16 147/59 H 99 10/02/16 04:18 10/02/16 07:57 10/02/16 07:57 10/02/16 04:18 10/02/16 07:57 Intake & Output 10/01/16 10/02/16 10/03/16 06:59 06:59 06:59 Intake Total 1675 1782 Output Total 0 0 Balance 1675 1782 Weight 98.7 kg 100.3 kg Results Laboratory Results: 10/02/16 04:30 10/02/16 04:30 10/02/16 10/02/16 10/02/16 04:30 04:30 04:30 WBC 7.7 RBC 2.88 L Hgb 8.9 L Hct 27.3 L MCV 95 MCH 30.8 MCHC 32.5 RDW 17.2 H Plt Count 233 Seg Neutrophils % 70.3 Lymphocytes % 10.4 L Monocytes % 17.2 H Eosinophils % 1.6 Basophils % 0.5 Absolute Neutrophils 5.4 Absolute Lymphocytes 0.8 Absolute Monocytes 1.3 Absolute Eosinophils 0.1 Absolute Basophils 0.0 Sodium 134.4 L Potassium 4.6 Chloride 95 L Carbon Dioxide 26 Anion Gap 13 BUN 53 H Creatinine 5.24 H Est GFR ( Amer) 9 L Est GFR (Non-Af Amer) 8 L Glucose 142 H Calcium 8.1 L Phosphorus 6.4 H Magnesium 1.8 Total Bilirubin 0.3 AST 39 H ALT 53 H Alkaline Phosphatase 90 Total Protein 5.1 L Albumin 2.2 L Prealbumin 13.2 L Triglycerides 32 Impressions: KUB X-Ray 09/17/16 00:00 IMPRESSION: Profound ileus, oral contrast given for CT 09/11/2016 still in the stomach and small bowel. Nasogastric tube tip and side port in the stomach Distended small bowel loops and colon in the upper half of the abdomen Abdomen/Pelvis CT 09/18/16 00:00 IMPRESSION: Multiple air fluid and contrast distended small bowel loops are again identified which again could be related to a diffuse ileus however I cannot exclude underlying obstruction. Intra- abdominal and pelvic ascitic fluid is again identified. Interval increase in size of the bilateral pleural effusions left greater than right. Other findings as noted above Chest X-Ray 09/23/16 06:00 IMPRESSION: 1. Support tubes and lines as above. 2. Hazy densities noted at both lung bases likely representing combination of layering effusions with associated atelectasis/infiltrate. Overall appearance not significant changed. The fluid is noted previously within the minor fissure on the right has resolved. Abdomen X-Ray 09/26/16 00:00 IMPRESSION: Continued bowel distention. Contrast noted flexure regions of the colon. Assessment & Plan - Diagnosis (1) Encephalopathy Is this a current diagnosis for this admission?: YesPlan: Resolved (2) Postoperative respiratory failure Is this a current diagnosis for this admission?: YesPlan: She is presently on 2l/min via nc. Respiratory is following as well as nursing for pulmonary toilet. (3) Small bowel obstruction Is this a current diagnosis for this admission?: YesPlan: Patient underwent small bowel colectomy and lysis of adhesions by surgery she. She is presently nothing by mouth, nasogastric tube in place. Feeding will be at this discretion of surgery. She presently is receiving TPN. She does have hypoactive bowel sounds present time (4) Hypokalemia Is this a current diagnosis for this admission?: YesPlan: Replete potassium as needed (5) Hyponatremia Is this a current diagnosis for this admission?: NoPlan: Continue TPN per nephrology . Patient is ESRD. (6) Diabetes Qualifiers: Diabetes mellitus type: type 1 Diabetes mellitus complication status: with kidney complications Diabetes mellitus complication detail: with chronic kidney disease Chronic kidney disease stage: on chronic dialysis Qualified Code(s): E10.22 - Type 1 diabetes mellitus with diabetic chronic kidney disease; N18.1 - Chronic kidney disease, stage 1 Is this a current diagnosis for this admission?: YesPlan: Dyspnea current medications and sliding scale coverage (7) Dementia Qualifiers: Dementia type: unspecified type Dementia behavioral disturbance: without behavioral disturbance Qualified Code(s): F03.90 - Unspecified dementia without behavioral disturbance Is this a current diagnosis for this admission?: YesPlan: Patient appears to be at baseline (8) Status post colectomy Is this a current diagnosis for this admission?: YesPlan: Progression of diet her surgery (9) Dyslipidemia Is this a current diagnosis for this admission?: YesPlan: Continue statin (10) On total parenteral nutrition (TPN) Is this a current diagnosis for this admission?: YesPlan: Continue present TPN rates. Surgery is discussing starting feeds (11) Anemia Qualifiers: Anemia type: unspecified type Qualified Code(s): D64.9 - Anemia, unspecified Is this a current diagnosis for this admission?: YesPlan: Patient will be transfused 2 units of PRBCs with dialysis (12) Confusion and disorientation Is this a current diagnosis for this admission?: YesPlan: She continues to have periods of confusion and disorientation, she does have history - Time Time Spent with patient: 25-34 minutes Critical Time spent with patient: 15-24 minutes Medications reviewed and adjusted accordingly: Yes Anticipated discharge: Acute Rehab
[2016-10-02] MEDS ORDERED: EPOETIN ALFA INJ 20000 UNIT/1 ML VIAL (RENAL) IV PRN (11:00)
[2016-10-02] MEDS: FOLIC ACID/VITAMIN B COMP W-C CAPSULE NG SCH (13:20)
[2016-10-02] MEDS: MEGESTROL ACETATE 20 MG TABLET PO SCH (13:20)
[2016-10-02] MEDS: IRON POLYSACCHARIDES COMPLEX 150 MG CAPSULE PO SCH (13:20)
[2016-10-02] MEDS: FAT EMULSIONS 250 ML IV SCH (13:20)
[2016-10-02] MEDS: ASPIRIN 81 MG TABLET, CHEWABLE NG SCH (13:21)
[2016-10-02] MEDS: CINACALCET HCL 30 MG TABLET PO SCH (13:21)
--- NOTE | 2016-10-02 14:50 | PDOC PROGRESS REPORT ---
Subjective Progress Note for:: 10/02/16 Subjective:: no complaints, in good mood. Physical Exam Vital Signs: Temp Pulse Resp BP Pulse Ox 98.2 F 77 16 145/51 H 99 10/02/16 07:28 10/02/16 07:57 10/02/16 07:57 10/02/16 07:28 10/02/16 07:57 Intake & Output 10/01/16 10/02/16 10/03/16 06:59 06:59 06:59 Intake Total 1675 1782 0 Output Total 0 0 Balance 1675 1782 0 Weight 98.7 kg 100.3 kg General appearance: PRESENT: no acute distress, cooperative Respiratory exam: PRESENT: clear to auscultation nikki Cardiovascular exam: PRESENT: RRR GI/Abdominal exam: PRESENT: other - soft, nd, ntp, c/d/i Results Laboratory Results: 10/02/16 04:30 10/02/16 04:30 10/02/16 10/02/16 10/02/16 04:30 04:30 04:30 WBC 7.7 RBC 2.88 L Hgb 8.9 L Hct 27.3 L MCV 95 MCH 30.8 MCHC 32.5 RDW 17.2 H Plt Count 233 Seg Neutrophils % 70.3 Lymphocytes % 10.4 L Monocytes % 17.2 H Eosinophils % 1.6 Basophils % 0.5 Absolute Neutrophils 5.4 Absolute Lymphocytes 0.8 Absolute Monocytes 1.3 Absolute Eosinophils 0.1 Absolute Basophils 0.0 Sodium 134.4 L Potassium 4.6 Chloride 95 L Carbon Dioxide 26 Anion Gap 13 BUN 53 H Creatinine 5.24 H Est GFR ( Amer) 9 L Est GFR (Non-Af Amer) 8 L Glucose 142 H Calcium 8.1 L Phosphorus 6.4 H Magnesium 1.8 Total Bilirubin 0.3 AST 39 H ALT 53 H Alkaline Phosphatase 90 Total Protein 5.1 L Albumin 2.2 L Prealbumin 13.2 L Triglycerides 32 Impressions: KUB X-Ray 09/17/16 00:00 IMPRESSION: Profound ileus, oral contrast given for CT 09/11/2016 still in the stomach and small bowel. Nasogastric tube tip and side port in the stomach Distended small bowel loops and colon in the upper half of the abdomen Abdomen/Pelvis CT 09/18/16 00:00 IMPRESSION: Multiple air fluid and contrast distended small bowel loops are again identified which again could be related to a diffuse ileus however I cannot exclude underlying obstruction. Intra- abdominal and pelvic ascitic fluid is again identified. Interval increase in size of the bilateral pleural effusions left greater than right. Other findings as noted above Chest X-Ray 09/23/16 06:00 IMPRESSION: 1. Support tubes and lines as above. 2. Hazy densities noted at both lung bases likely representing combination of layering effusions with associated atelectasis/infiltrate. Overall appearance not significant changed. The fluid is noted previously within the minor fissure on the right has resolved. Abdomen X-Ray 09/26/16 00:00 IMPRESSION: Continued bowel distention. Contrast noted flexure regions of the colon. Assessment & Plan - Diagnosis (1) Colon polyps Qualifiers: Colon location: ascending Is this a current diagnosis for this admission?: YesPlan: Status post right hemicolectomy. s/p reexploration for bradley for sbo. Doing better. abdomen very soft with active bs's. Main problem is generalized weakness. Will continue to work with physical therapy. encourage po intake. cont tpn for now.
--- NOTE | 2016-10-02 16:52 | PDOC PROGRESS REPORT ---
Subjective Progress Note for:: 10/02/16 Subjective:: Mrs. Bustos was seen on dialysis today. She looks more awake and alert and responsive. Still n.p.o. and continuing to get TPN. She denies any history of chest pain shortness of breath nausea vomiting. She is indeed passing flatulence. Presently on dialysis without any issues. Vital signs are stable. Orders were discussed with the treating nurse. Physical Exam Vital Signs: Temp Pulse Resp BP Pulse Ox 98.2 F 80 19 143/49 H 100 10/02/16 15:37 10/02/16 15:37 10/02/16 15:37 10/02/16 15:37 10/02/16 15:37 Intake & Output 10/01/16 10/02/16 10/03/16 06:59 06:59 06:59 Intake Total 1675 1782 0 Output Total 0 0 Balance 1675 1782 0 Weight 98.7 kg 100.3 kg General appearance: PRESENT: no acute distress Respiratory exam: PRESENT: clear to auscultation nikki. ABSENT: crackles, rhonchi Cardiovascular exam: PRESENT: +S1, +S2, systolic murmur GI/Abdominal exam: PRESENT: normal bowel sounds, soft. ABSENT: distended, firm Extremities exam: ABSENT: pedal edema Neurological exam: PRESENT: awake, oriented to person, oriented to place. ABSENT: oriented to time Skin exam: PRESENT: dry. ABSENT: cyanosis, erythema, mottled, rash Results Laboratory Results: 10/02/16 04:30 10/02/16 04:30 10/02/16 10/02/16 10/02/16 04:30 04:30 04:30 WBC 7.7 RBC 2.88 L Hgb 8.9 L Hct 27.3 L MCV 95 MCH 30.8 MCHC 32.5 RDW 17.2 H Plt Count 233 Seg Neutrophils % 70.3 Lymphocytes % 10.4 L Monocytes % 17.2 H Eosinophils % 1.6 Basophils % 0.5 Absolute Neutrophils 5.4 Absolute Lymphocytes 0.8 Absolute Monocytes 1.3 Absolute Eosinophils 0.1 Absolute Basophils 0.0 Sodium 134.4 L Potassium 4.6 Chloride 95 L Carbon Dioxide 26 Anion Gap 13 BUN 53 H Creatinine 5.24 H Est GFR ( Amer) 9 L Est GFR (Non-Af Amer) 8 L Glucose 142 H Calcium 8.1 L Phosphorus 6.4 H Magnesium 1.8 Total Bilirubin 0.3 AST 39 H ALT 53 H Alkaline Phosphatase 90 Total Protein 5.1 L Albumin 2.2 L Prealbumin 13.2 L Triglycerides 32 Impressions: KUB X-Ray 09/17/16 00:00 IMPRESSION: Profound ileus, oral contrast given for CT 09/11/2016 still in the stomach and small bowel. Nasogastric tube tip and side port in the stomach Distended small bowel loops and colon in the upper half of the abdomen Abdomen/Pelvis CT 09/18/16 00:00 IMPRESSION: Multiple air fluid and contrast distended small bowel loops are again identified which again could be related to a diffuse ileus however I cannot exclude underlying obstruction. Intra- abdominal and pelvic ascitic fluid is again identified. Interval increase in size of the bilateral pleural effusions left greater than right. Other findings as noted above Chest X-Ray 09/23/16 06:00 IMPRESSION: 1. Support tubes and lines as above. 2. Hazy densities noted at both lung bases likely representing combination of layering effusions with associated atelectasis/infiltrate. Overall appearance not significant changed. The fluid is noted previously within the minor fissure on the right has resolved. Abdomen X-Ray 09/26/16 00:00 IMPRESSION: Continued bowel distention. Contrast noted flexure regions of the colon. Assessment & Plan - Diagnosis (1) Diabetes Qualifiers: Diabetes mellitus type: type 1 Diabetes mellitus complication status: with kidney complications Diabetes mellitus complication detail: with chronic kidney disease Chronic kidney disease stage: on chronic dialysis Qualified Code(s): E10.22 - Type 1 diabetes mellitus with diabetic chronic kidney disease; N18.1 - Chronic kidney disease, stage 1 Is this a current diagnosis for this admission?: Yes (2) Status post colectomy Is this a current diagnosis for this admission?: YesPlan: As per surgery. Improving. She is status post exploratory laparotomy because she had persistent bowel obstruction post colectomy. She is on track to making good recovery and hopefully she will be able to start on clear liquids soon at least, before she starts eating. (3) ESRD (end stage renal disease) on dialysis Is this a current diagnosis for this admission?: YesPlan: Is undergoing dialysis without any issues. Electrolytes are stable. Orders were discussed with the treating dialysis nurse. We will run her even as she clinically looks on the dry side. Continue to monitor. (4) Essential (primary) hypertension Is this a current diagnosis for this admission?: YesPlan: Stable.Currently on Catapres patch. (5) Confusion and disorientation Is this a current diagnosis for this admission?: YesPlan: Improving. (7) Anemia Qualifiers: Anemia type: unspecified type Qualified Code(s): D64.9 - Anemia, unspecified Is this a current diagnosis for this admission?: YesPlan: Will adjust erythropoietin. (8) Hyponatremia Is this a current diagnosis for this admission?: No
[2016-10-02] MEDS: LACTULOSE SYRUP 20 GM/30 ML UDCUP PO SCH (17:42)
[2016-10-02] MEDS: ATORVASTATIN CALCIUM 40 MG TABLET NG SCH (21:49)
[2016-10-02] MEDS: INSULIN GLARGINE,HUM.REC.ANLOG 300 UNIT/3 ML INSULN.PEN SUBCUT SCH (21:49)
[2016-10-03] MEDS: HEPARIN SOD (PORCINE) 5,000 UNIT/ML 1 ML SYRINGE SUBCUT SCH ×2 (06:18→17:20)
[2016-10-03] MEDS: IPRATROPIUM/ALBUTEROL 0.5-2.5 MG/3 ML AMPUL NEB SCH (08:02)
[2016-10-03] MEDS: CLONIDINE 0.1 MG/24 HR PATCH.TDWK TD SCH (10:20)
[2016-10-03] MEDS: CINACALCET HCL 30 MG TABLET PO SCH (10:21)
[2016-10-03] MEDS: IRON POLYSACCHARIDES COMPLEX 150 MG CAPSULE PO SCH (10:21)
[2016-10-03] MEDS: ASPIRIN 81 MG TABLET, CHEWABLE NG SCH (10:22)
[2016-10-03] MEDS: FOLIC ACID/VITAMIN B COMP W-C CAPSULE NG SCH (10:22)
[2016-10-03] MEDS: MEGESTROL ACETATE 20 MG TABLET PO SCH (10:23)
[2016-10-03] MEDS: AMINO ACIDS 5%/D25W 1,000 ML IV PRN (12:54)
--- NOTE | 2016-10-03 13:06 | PDOC PROGRESS REPORT ---
Subjective Progress Note for:: 10/03/16 Subjective:: The patient is currently lying in bed. The patient will mumble but is not specifically responsive. Discussed the case with nursing and states this is been the patient's baseline for the past for 5 days. She apparently will really only awaken for family and wants sweet foods. The patient has had very little oral intake and TPN has been continued. Have consult with palliative management to help in goal setting and discuss CODE STATUS. Physical Exam Vital Signs: Temp Pulse Resp BP Pulse Ox 97.9 F 75 19 128/58 H 100 10/03/16 11:52 10/03/16 11:52 10/03/16 11:52 10/03/16 11:52 10/03/16 11:52 Intake & Output 10/01/16 10/02/16 10/03/16 23:59 23:59 23:59 Intake Total 1770 2055 841 Output Total 0 0 0 Balance 0 2055 841 Weight 98.7 kg 100.3 kg 98.3 kg General appearance: PRESENT: no acute distress Exam: Frail, chronically ill-appearing Head exam: PRESENT: atraumatic, normocephalic Eye exam: PRESENT: conjunctiva pale, EOMI, PERRLA. ABSENT: scleral icterus Ear exam: PRESENT: normal external ear exam Mouth exam: PRESENT: moist, tongue midline Neck exam: ABSENT: carotid bruit, JVD, lymphadenopathy, thyromegaly Respiratory exam: PRESENT: decreased breath sounds, symmetrical, unlabored. ABSENT: rales, rhonchi, tachypnea, wheezes Cardiovascular exam: PRESENT: RRR. ABSENT: diastolic murmur, rubs, systolic murmur Pulses: PRESENT: normal dorsalis pedis pul Vascular exam: PRESENT: normal capillary refill GI/Abdominal exam: PRESENT: normal bowel sounds, soft. ABSENT: distended, guarding, mass, organolmegaly, rebound, tenderness Rectal exam: PRESENT: deferred Extremities exam: PRESENT: full ROM. ABSENT: calf tenderness, clubbing, pedal edema Neurological exam: PRESENT: other - Responsive to noxious stimuli. ABSENT: motor sensory deficit Psychiatric exam: PRESENT: flat affect, unusual affect. ABSENT: homicidal ideation, suicidal ideation Skin exam: PRESENT: dry, intact, warm. ABSENT: cyanosis, rash Results Laboratory Results: 10/02/16 04:30 10/02/16 04:30 10/02/16 22:50 Triglycerides 44 Impressions: KUB X-Ray 09/17/16 00:00 IMPRESSION: Profound ileus, oral contrast given for CT 09/11/2016 still in the stomach and small bowel. Nasogastric tube tip and side port in the stomach Distended small bowel loops and colon in the upper half of the abdomen Abdomen/Pelvis CT 09/18/16 00:00 IMPRESSION: Multiple air fluid and contrast distended small bowel loops are again identified which again could be related to a diffuse ileus however I cannot exclude underlying obstruction. Intra- abdominal and pelvic ascitic fluid is again identified. Interval increase in size of the bilateral pleural effusions left greater than right. Other findings as noted above Chest X-Ray 09/23/16 06:00 IMPRESSION: 1. Support tubes and lines as above. 2. Hazy densities noted at both lung bases likely representing combination of layering effusions with associated atelectasis/infiltrate. Overall appearance not significant changed. The fluid is noted previously within the minor fissure on the right has resolved. Abdomen X-Ray 09/26/16 00:00 IMPRESSION: Continued bowel distention. Contrast noted flexure regions of the colon. Assessment & Plan - Diagnosis (1) Small bowel obstruction Is this a current diagnosis for this admission?: YesPlan: Resolved (2) Status post colectomy Is this a current diagnosis for this admission?: YesPlan: Do appreciate surgery's input (3) On total parenteral nutrition (TPN) Is this a current diagnosis for this admission?: YesPlan: This is for supplement. The patient bowel is awake however the patient does have poor by mouth intake. Overall the patient presents with a picture of failure to thrive. Will consult palliative care for input. Family encouraged to bring food from home. (4) Colon polyps Qualifiers: Colon location: ascending Is this a current diagnosis for this admission?: Yes (5) Encephalopathy Is this a current diagnosis for this admission?: YesPlan: This may be a new patient's baseline in conjunction with dementia. (6) Hyponatremia Is this a current diagnosis for this admission?: YesPlan: Mild (7) Dyslipidemia Is this a current diagnosis for this admission?: Yes (8) ESRD (end stage renal disease) on dialysis Is this a current diagnosis for this admission?: YesPlan: Do appreciate nephrology's input (9) Essential (primary) hypertension Is this a current diagnosis for this admission?: Yes (10) Anemia in chronic kidney disease Is this a current diagnosis for this admission?: Yes (11) Obesity (BMI 30.0-34.9) Is this a current diagnosis for this admission?: Yes (12) Postoperative respiratory failure Is this a current diagnosis for this admission?: YesPlan: Status post extubation - Time Time Spent with patient: 35 or more minutes Medications reviewed and adjusted accordingly: Yes Anticipated discharge: SNF Within: when bed available Disposition: The patient is a full code. Pending patient's symptomatology and diagnostic findings will reevaluate in the a.m. n
[2016-10-03] MEDS: LACTULOSE SYRUP 20 GM/30 ML UDCUP PO SCH (17:20)
--- NOTE | 2016-10-03 17:43 | PROGRESS NOTE E ---
Progress Note NAME: RICKY RODRIGUEZ : 1935 AGE: 80Y DATE: 10/03/2016 ROOM: 317 SUBJECTIVE: The patient is without complaints at this time. States that she has little appetite at this time. OBJECTIVE: VITAL SIGNS: Blood pressure 149/53, temperature 98.2, pulse 77, respirations 19, saturation is 100% on room air. LUNGS: Clear bilaterally with good air entry. ABDOMEN: Soft. Bowel sounds are present. The incision is clean, dry and intact. ASSESSMENT: STATUS POST RIGHT COLON RESECTION ON TPN. PLAN: Will decrease the TPN to 40 mL/h in order to stimulate the patient's appetite. The patient states that she would like to have fried chicken and sweets and I have encouraged her family and the nurses to bring her whatever she desires given that she is getting all the carbohydrates, fats, proteins, minerals and trace elements through the TPN, the patient has little appetite. Hopefully, with the reduction of the TPN to 40 mL/h, she will regain some appetite for the things that she likes. DICTATING PHYSICIAN: TREVA MACHUCA M.D. [id number] PHY#: [id number] ID: [id number] JOB#: [id number] ACCT: [id number] cc: >
[2016-10-03] MEDS: ACETAMINOPHEN 325 MG TABLET PO PRN (18:48)
--- NOTE | 2016-10-03 19:03 | PDOC PROGRESS REPORT ---
Subjective Progress Note for:: 10/03/16 Subjective:: Patient the awake and cooperative but confused. Very poor appetite. But able to eat a few bites. Physical Exam Vital Signs: Temp Pulse Resp BP Pulse Ox 98.2 F 77 19 149/53 H 100 10/03/16 15:56 10/03/16 15:56 10/03/16 15:56 10/03/16 15:56 10/03/16 17:23 Intake & Output 10/02/16 10/03/16 10/04/16 06:59 06:59 06:59 Intake Total 1781 2065 50 Output Total 0 0 Balance 1781 2065 50 Weight 100.3 kg 98.3 kg General appearance: PRESENT: no acute distress, cooperative Respiratory exam: PRESENT: clear to auscultation nikki Cardiovascular exam: PRESENT: RRR GI/Abdominal exam: PRESENT: other - Soft, nondistended, nontender to palpation. Clean dry and intact. Active bowel sounds. Results Laboratory Results: 10/02/16 04:30 10/02/16 04:30 10/02/16 22:50 Triglycerides 44 Impressions: KUB X-Ray 09/17/16 00:00 IMPRESSION: Profound ileus, oral contrast given for CT 09/11/2016 still in the stomach and small bowel. Nasogastric tube tip and side port in the stomach Distended small bowel loops and colon in the upper half of the abdomen Abdomen/Pelvis CT 09/18/16 00:00 IMPRESSION: Multiple air fluid and contrast distended small bowel loops are again identified which again could be related to a diffuse ileus however I cannot exclude underlying obstruction. Intra- abdominal and pelvic ascitic fluid is again identified. Interval increase in size of the bilateral pleural effusions left greater than right. Other findings as noted above Chest X-Ray 09/23/16 06:00 IMPRESSION: 1. Support tubes and lines as above. 2. Hazy densities noted at both lung bases likely representing combination of layering effusions with associated atelectasis/infiltrate. Overall appearance not significant changed. The fluid is noted previously within the minor fissure on the right has resolved. Abdomen X-Ray 09/26/16 00:00 IMPRESSION: Continued bowel distention. Contrast noted flexure regions of the colon. Assessment & Plan - Diagnosis (1) Colon polyps Qualifiers: Colon location: ascending Is this a current diagnosis for this admission?: YesPlan: Status post right hemicolectomy. s/p reexploration for bradley for sbo. Doing better. abdomen very soft with active bs's. Main problem is generalized weakness and poor appetite. Agree with about decreasing TPN to see whether it will stimulate her appetite. We'll need to discuss with family about possible PEG. Continue to try to work with her on her mobility.
[2016-10-03] MEDS: INSULIN GLARGINE,HUM.REC.ANLOG 300 UNIT/3 ML INSULN.PEN SUBCUT SCH (21:49)
[2016-10-03] MEDS: ATORVASTATIN CALCIUM 40 MG TABLET NG SCH (21:49)
--- NOTE | 2016-10-03 22:52 | Palliative Consultation Report ---
Consultation From:: YARELIS FELTON Consult Reason: Palliative Care - HPI Chief Complaint: anorexia, weakness HPI: Palliative care visit with patient and camilo 12:15- 12:35 Appreciate Palliative Care consult request. Met with patient and her camilo, son not at hospital during visit. Patient admitted with abd pain, rewuired colon resection. She also had encephalopathy on admission and developed respiratory problems after surgery, still requiring oxygen. She has improved slowly, but is not eating and is requiring TPN. She remains on hemodialysis and is full code per sons request. Patient awake but very weak. She does answer my questions but unable to answer more than few words and smiles. she says she just doesnt want any food. She cannot tell me anything she would eat, but camilo reports she will only eat small amounts of sweet foods and refuses other. Patient denies pain but says she just "feels miserable everywhere' She could not elaborate on this. Camilo states staff will not give patient pain medication because she doesnt ask for it. Patient could not identify where she hurts. Notes from doctors appreciated. I understand that TPN is to be reduced to see if patient will start eating more. Family advised to bring patients favorite foods for her to eat at will. Onset/Duration: Gradual Severity: Mild, Severe Pain Level: Denies Associated Symptoms: Shortness of breath, Weakness Past Medical History(Consults) - General Information Source: [facility] Records Home Medications: Acetaminophen [Tylenol 325 mg Tablet] 650 mg PO Q8HP PRN 09/11/16 Allopurinol [Zyloprim 100 mg Tablet] 100 mg PO DAILY 09/11/16 Aspirin [Ecotrin 81 mg EC Tablet] 81 mg PO DAILY 09/11/16 Atorvastatin Calcium [Lipitor 40 mg Tablet] 40 mg PO QHS 09/11/16 B Complex & C No.20/Folic Acid [Renal Caps Softgel] 1 mg PO DAILY 09/11/16 Cinacalcet HCl [Sensipar 90 mg Tablet] 90 mg PO DAILY 09/11/16 Clonidine HCl [Catapres 0.2 mg Tablet] 0.2 mg PO QHS 09/11/16 Hydralazine HCl [Apresoline 50 mg Tablet] 100 mg PO Q8 09/11/16 Lanthanum Carbonate [Fosrenol] 750 mg PO AC 09/11/16 Lidocaine/Prilocaine [Emla Cream] 30 gm TP ASDIR PRN 09/11/16 Allergies/Adverse Reactions: diphenhydramine HCl [From Benadryl] Adverse Reaction (Mild, Verified 09/08/16 23 :44) PT CANNOT REMEMBER - Social History Lives with: [facility] Family History: DM, Hypertension Parental Family History Reviewed: No Children Family History Reviewed: No Sibling(s) Family History Reviewed.: No Smoking Status: Never Smoker Frequency of Alcohol Use: None Hx Recreational Drug Use: No Drugs: None Hx Prescription Drug Abuse: No - Past Medical History Cardiac Medical History: Reports: Hx Hypercholesterolemia, Hx Hypertension Denies: Hx Atrial Fibrillation, Hx Congestive Heart Failure, Hx Coronary Artery Disease, Hx Heart Attack, Hx Peripheral Vascular Disease, Hx Pulmonary Embolism, Hx Heart Murmur Pulmonary Medical History: Reports: None Denies: Hx Asthma, Hx Bronchitis, Hx COPD, Hx Pneumonia, Hx Respiratory Failure, Hx Sleep Apnea, Hx Tuberculosis Neurological Medical History: Denies: Hx Cerebrovascular Accident, Hx Seizures Endocrine Medical History: Reports: Hx Diabetes Mellitus Type 2. Denies: Hx Graves' Disease, Hx Hyperthyroidism, Hx Hypothyroidism Renal/ Medical History: Reports: Hx End Stage Renal Disease - FISTULA LEFT ARM , Hx Hemodialysis. Denies: Hx Kidney Stones, Hx Ovarian Cysts, Hx Peritoneal Dialysis, Hx Pelvic Inflammatory Disease Malignancy Medical History: Denies: Hx Breast Cancer, Hx Cervical Cancer, Hx Leukemia, Hx Lung Cancer, Hx Ovarian Cancer GI Medical History: Denies: Hx Crohn's Disease, Hx Gastroesophageal Reflux Disease, Hx Hiatal Hernia, Hx Irritable Bowel, Hx Liver Failure, Hx Ulcer Musculoskeltal Medical History: Reports Hx Arthritis, Denies Hx Fibromyalgia, Denies Hx Multiple Sclerosis, Denies Hx Muscular Dystrophy Psychiatric Medical History: Denies: Hx Bipolar Disorder, Hx Dementia, Hx Depression, Hx Post Traumatic Stress Disorder, Hx Schizophrenia Traumatic Medical History: Denies: Hx Fractures Infectious Medical History: Denies: Hx HIV Hematology: Denies: Anemia, Hemophilia, Sickle Cell Disease - Surgical History Past Surgical History: Reports: Hx Hysterectomy, Hx Tubal Ligation, Hx Vascular Surgery - Left forearm AV fistula. Denies: Hx Appendectomy, Hx Bowel Surgery, Hx Section, Hx Cholecystectomy, Hx Colostomy, Hx Coronary Artery Bypass Graft, Hx Gastric Bypass Surgery, Hx Herniorrhaphy, Hx Mastectomy, Hx Pacemaker, Hx Tonsillectomy Review of systems ROS unobtainable: due to mental statu Constitutional: Malaise, Weakness Respiratory: Short of breath Gastrointestinal: Abdominal pain, Poor appetite, Poor fluid intake Neurological/Psychological: Confusion, Weakness Ojective:Exam Vital Signs: Temp Pulse Resp BP Pulse Ox 98.4 F 79 18 162/59 H 100 10/03/16 19:40 10/03/16 19:40 10/03/16 19:40 10/03/16 19:40 10/03/16 19:40 Intake & Output 10/02/16 10/03/16 10/04/16 06:59 06:59 06:59 Intake Total 1781 2065 1273 Output Total 0 0 Balance 1781 2065 1273 Weight 100.3 kg 98.3 kg - General General Appearance: Sleeping/easily aroused In distress: Mild Note:: states she doesnt have pain, but feels "miserable" - HEENT Head: Normocephalic Eyes: Normal - Respiratory Respiratory Status: No respiratory distress Breath sounds: Decreased air movement - Cardiovascular Pulses: Normal: Radial - Neurological Cognition: Inattentive Orientation: Oriented to person - Psychological Associated symptoms: Decreased appetite Objective-Diagnostic Laboratory: 10/02/16 04:30 10/02/16 04:30 10/02/16 22:50 Triglycerides 44 Plan and Recommendation Plan and Recommendation: Camilo is staying with patietn to encourage her to eat. She does not know when sons will be visiting. I will try to reach son by telephone to discuss goals of care and code status. Noted that discharge plans are for SNF [facility] [place]. Plans are to decrease rate TPN and encourage po pleasure foods. Niece aware that patient can have whatever she wants. Encouraged camilo to ask nurse for pain meds if patient becomes more uncomfortable. However, trying to avoid sedation so patient will move more and awaken to stimulate appetite. Will follow. - Time Spent with Patient Time spent with patient: 15 to 30 Minutes - 20 min with patient, 25 min chart review and documentation
[2016-10-04] MEDS: ACETAMINOPHEN 325 MG TABLET PO PRN ×2 (00:33→21:14)
[2016-10-04] MEDS: ONDANSETRON HCL INJ/PF 4 MG/2 ML SDV IV PRN (01:37)
[2016-10-04] MEDS: HEPARIN SOD (PORCINE) 5,000 UNIT/ML 1 ML SYRINGE SUBCUT SCH ×2 (05:25→20:09)
[2016-10-04 06:43] LABS: HEMOGLOBIN 9.4 g/dL (12.0-15.5); HGB HCT DIFFERENCE -0.8; MEAN CORPUSCULAR HEMOGLOBIN 30.7 pg (27.0-33.4); MEAN CORPUSCULAR HGB CONC 32.4 g/dL (32.0-36.0); MEAN CORPUSCULAR VOLUME 95 fl (80-97); RED BLOOD COUNT 3.06 10^6/uL (3.72-5.28); RED CELL DISTRIBUTION WIDTH 16.6 % (11.5-14.0); WHITE BLOOD COUNT 7.3 10^3/uL (4.0-10.5)
[2016-10-04] MEDS ORDERED: AMINO ACIDS 5%/D25W 1,000 ML IV PRN (07:06)
[2016-10-04 07:15] LABS: ANION GAP 14 (5-19); BLOOD UREA NITROGEN 47 mg/dL (7-20); CARBON DIOXIDE 27 mmol/L (22-30); CHLORIDE 94 mmol/L (98-107); CREATININE RESULT 4.61 mg/dL (0.52-1.25); GLUCOSE 105 mg/dL (75-110); POTASSIUM 4.7 mmol/L (3.6-5.0); SODIUM 135.2 mmol/L (137-145)
[2016-10-04] MEDS: ASPIRIN 81 MG TABLET, CHEWABLE NG SCH (09:56)
[2016-10-04] MEDS: MEGESTROL ACETATE 20 MG TABLET PO SCH (09:56)
[2016-10-04] MEDS: IRON POLYSACCHARIDES COMPLEX 150 MG CAPSULE PO SCH (09:56)
[2016-10-04] MEDS: CINACALCET HCL 30 MG TABLET PO SCH (09:56)
[2016-10-04] MEDS: FOLIC ACID/VITAMIN B COMP W-C CAPSULE NG SCH (09:56)
[2016-10-04] MEDS ORDERED: FAT EMULSIONS 250 ML IV ONE (10:00)
--- NOTE | 2016-10-04 16:40 | PDOC PROGRESS REPORT ---
Subjective Progress Note for:: 10/04/16 Subjective:: Mrs. Bustos was seen on dialysis today. She is awake and responsive. She looks very weak and rather depressed. She is not eating anything through mouth. TPN has been reduced to see if she might be stimulated to eat. Denies any history of acute symptoms. She denies any history of chest pain shortness of breath nausea vomiting. She is indeed passing flatulence. Presently on dialysis without any issues. Vital signs are stable. Orders were discussed with the treating nurse. Physical Exam Vital Signs: Temp Pulse Resp BP Pulse Ox 98.4 F 73 18 146/72 H 94 10/04/16 12:00 10/04/16 14:00 10/04/16 12:00 10/04/16 12:00 10/04/16 12:00 Intake & Output 10/03/16 10/04/16 10/05/16 06:59 06:59 06:59 Intake Total 2065 1714 Output Total 0 0 Balance 2065 1714 Weight 98.3 kg 98.9 kg General appearance: PRESENT: no acute distress Respiratory exam: PRESENT: clear to auscultation nikki. ABSENT: crackles, rhonchi Cardiovascular exam: PRESENT: +S1, +S2, systolic murmur GI/Abdominal exam: PRESENT: normal bowel sounds, soft. ABSENT: distended, firm Extremities exam: PRESENT: +1 edema Neurological exam: PRESENT: awake, oriented to person, oriented to place Skin exam: ABSENT: erythema, mottled, rash Results Laboratory Results: 10/04/16 06:00 10/04/16 06:00 10/04/16 10/04/16 06:00 06:00 WBC 7.3 RBC 3.06 L Hgb 9.4 L Hct 29.0 L MCV 95 MCH 30.7 MCHC 32.4 RDW 16.6 H Plt Count 246 Sodium 135.2 L Potassium 4.7 Chloride 94 L Carbon Dioxide 27 Anion Gap 14 BUN 47 H Creatinine 4.61 H Est GFR ( Amer) 11 L Est GFR (Non-Af Amer) 9 L Glucose 105 Calcium 8.0 L Impressions: KUB X-Ray 09/17/16 00:00 IMPRESSION: Profound ileus, oral contrast given for CT 09/11/2016 still in the stomach and small bowel. Nasogastric tube tip and side port in the stomach Distended small bowel loops and colon in the upper half of the abdomen Abdomen/Pelvis CT 09/18/16 00:00 IMPRESSION: Multiple air fluid and contrast distended small bowel loops are again identified which again could be related to a diffuse ileus however I cannot exclude underlying obstruction. Intra- abdominal and pelvic ascitic fluid is again identified. Interval increase in size of the bilateral pleural effusions left greater than right. Other findings as noted above Chest X-Ray 09/23/16 06:00 IMPRESSION: 1. Support tubes and lines as above. 2. Hazy densities noted at both lung bases likely representing combination of layering effusions with associated atelectasis/infiltrate. Overall appearance not significant changed. The fluid is noted previously within the minor fissure on the right has resolved. Abdomen X-Ray 09/26/16 00:00 IMPRESSION: Continued bowel distention. Contrast noted flexure regions of the colon. Assessment & Plan - Diagnosis (1) Status post colectomy Is this a current diagnosis for this admission?: YesPlan: As per surgery. Improving. She is status post exploratory laparotomy because she had persistent bowel obstruction post colectomy. She is on track to making good recovery.However she is not eating anything for reasons which are very unclear. Management as per surgery. (2) ESRD (end stage renal disease) on dialysis Is this a current diagnosis for this admission?: YesPlan: Is undergoing dialysis without any issues. Electrolytes are stable. Orders were discussed with the treating dialysis nurse. She is fluid overloaded. Going to remove at least between 4 and 5 L as tolerated. See overall response. (3) Essential (primary) hypertension Is this a current diagnosis for this admission?: YesPlan: Uncontrolled . See the response to dialysis. (4) Hyponatremia Is this a current diagnosis for this admission?: Yes (5) Anemia in chronic kidney disease Is this a current diagnosis for this admission?: YesPlan: Adjust erythropoietin
[2016-10-04] MEDS ORDERED: EPOETIN ALFA 10,000 UNIT in SYRINGE, DISPOSABLE, 1 EACH IV ONE (17:00)
--- NOTE | 2016-10-04 17:06 | PDOC PROGRESS REPORT ---
Subjective Progress Note for:: 10/04/16 Subjective:: The patient is currently lying in bed. The patient has asked questions today and has been able to answer questions. She apparently will really only awaken for family and wants sweet foods. The patient has had very little oral intake and TPN has been continued. The patient Reportedly ate some food that her family brought today. Have consult with palliative management to help in goal setting and discuss CODE STATUS. Physical Exam Vital Signs: Temp Pulse Resp BP Pulse Ox 98.4 F 73 18 146/72 H 94 10/04/16 12:00 10/04/16 14:00 10/04/16 12:00 10/04/16 12:00 10/04/16 12:00 Intake & Output 10/02/16 10/03/16 10/04/16 23:59 23:59 23:59 Intake Total 2055 Output Total 0 0 0 Balance 2055 2089 440 Weight 100.3 kg 98.3 kg 98.9 kg General appearance: PRESENT: no acute distress Exam: Frail, chronically ill-appearing Head exam: PRESENT: atraumatic, normocephalic Eye exam: PRESENT: conjunctiva pale, EOMI, PERRLA. ABSENT: scleral icterus Ear exam: PRESENT: normal external ear exam Mouth exam: PRESENT: moist, tongue midline Neck exam: ABSENT: carotid bruit, JVD, lymphadenopathy, thyromegaly Respiratory exam: PRESENT: decreased breath sounds, symmetrical, unlabored. ABSENT: rales, rhonchi, tachypnea, wheezes Cardiovascular exam: PRESENT: RRR. ABSENT: diastolic murmur, rubs, systolic murmur Pulses: PRESENT: normal dorsalis pedis pul Vascular exam: PRESENT: normal capillary refill GI/Abdominal exam: PRESENT: normal bowel sounds, soft. ABSENT: distended, guarding, mass, organolmegaly, rebound, tenderness Rectal exam: PRESENT: deferred Extremities exam: PRESENT: full ROM. ABSENT: calf tenderness, clubbing, pedal edema Neurological exam: PRESENT: other - Responsive to noxious stimuli. ABSENT: motor sensory deficit Psychiatric exam: PRESENT: flat affect, unusual affect. ABSENT: homicidal ideation, suicidal ideation Skin exam: PRESENT: dry, intact, warm. ABSENT: cyanosis, rash Results Laboratory Results: 10/04/16 06:00 10/04/16 06:00 10/04/16 10/04/16 06:00 06:00 WBC 7.3 RBC 3.06 L Hgb 9.4 L Hct 29.0 L MCV 95 MCH 30.7 MCHC 32.4 RDW 16.6 H Plt Count 246 Sodium 135.2 L Potassium 4.7 Chloride 94 L Carbon Dioxide 27 Anion Gap 14 BUN 47 H Creatinine 4.61 H Est GFR ( Amer) 11 L Est GFR (Non-Af Amer) 9 L Glucose 105 Calcium 8.0 L Impressions: KUB X-Ray 09/17/16 00:00 IMPRESSION: Profound ileus, oral contrast given for CT 09/11/2016 still in the stomach and small bowel. Nasogastric tube tip and side port in the stomach Distended small bowel loops and colon in the upper half of the abdomen Abdomen/Pelvis CT 09/18/16 00:00 IMPRESSION: Multiple air fluid and contrast distended small bowel loops are again identified which again could be related to a diffuse ileus however I cannot exclude underlying obstruction. Intra- abdominal and pelvic ascitic fluid is again identified. Interval increase in size of the bilateral pleural effusions left greater than right. Other findings as noted above Chest X-Ray 09/23/16 06:00 IMPRESSION: 1. Support tubes and lines as above. 2. Hazy densities noted at both lung bases likely representing combination of layering effusions with associated atelectasis/infiltrate. Overall appearance not significant changed. The fluid is noted previously within the minor fissure on the right has resolved. Abdomen X-Ray 09/26/16 00:00 IMPRESSION: Continued bowel distention. Contrast noted flexure regions of the colon. Assessment & Plan - Diagnosis (1) Small bowel obstruction Is this a current diagnosis for this admission?: YesPlan: Resolved (2) Status post colectomy Is this a current diagnosis for this admission?: YesPlan: Do appreciate surgery's input (3) On total parenteral nutrition (TPN) Is this a current diagnosis for this admission?: YesPlan: This is for supplement. The patient bowel is awake however the patient does have poor by mouth intake. Overall the patient presents with a picture of failure to thrive. Will consult palliative care for input. Family encouraged to bring food from home. This was reduced today to see if the patient would have an increase in appetite. Will discontinue TPN tomorrow. (4) Colon polyps Qualifiers: Colon location: ascending Is this a current diagnosis for this admission?: Yes (5) Encephalopathy Is this a current diagnosis for this admission?: YesPlan: This may be a new patient's baseline in conjunction with dementia. (6) Hyponatremia Is this a current diagnosis for this admission?: YesPlan: Mild (7) Dyslipidemia Is this a current diagnosis for this admission?: Yes (8) ESRD (end stage renal disease) on dialysis Is this a current diagnosis for this admission?: YesPlan: Do appreciate nephrology's input (9) Essential (primary) hypertension Is this a current diagnosis for this admission?: Yes (10) Anemia in chronic kidney disease Is this a current diagnosis for this admission?: Yes (11) Obesity (BMI 30.0-34.9) Is this a current diagnosis for this admission?: Yes (12) Postoperative respiratory failure Is this a current diagnosis for this admission?: YesPlan: Status post extubation - Time Time Spent with patient: 25-34 minutes Medications reviewed and adjusted accordingly: Yes Anticipated discharge: SNF Within: when bed available Disposition: The patient is a full code. Pending patient's symptomatology and diagnostic findings will reevaluate in the a.m.
[2016-10-04] MEDS: LACTULOSE SYRUP 20 GM/30 ML UDCUP PO SCH (20:08)
[2016-10-04] MEDS: DOCUSATE SODIUM 100 MG CAPSULE PO SCH (21:13)
[2016-10-04] MEDS: ATORVASTATIN CALCIUM 40 MG TABLET NG SCH (21:13)
[2016-10-04] MEDS: DEXTROSE 50%-WATER 25 GM/50 ML DISP.SYRIN IV PRN (21:14)
[2016-10-04] MEDS: INSULIN GLARGINE,HUM.REC.ANLOG 300 UNIT/3 ML INSULN.PEN SUBCUT SCH (21:15)
--- NOTE | 2016-10-05 01:28 | PROGRESS NOTE E ---
Progress Note NAME: RICKY RODRIGUEZ : 1935 AGE: 80Y DATE: 10/04/2016 ROOM: 428 SUBJECTIVE: Patient is without complaints and is eating a little bit more and currently on her way to dialysis. OBJECTIVE: Blood pressure 149/52, temperature 98, pulse 81, respirations 14, saturations 100%. ABDOMEN: Soft. Bowel sounds are present. Incision site is clean, dry, and intact. TPN had been reduced to 30 mL/h. Patient is eating just a bit more. ASSESSMENT: Status post colon resection. PLAN: Continue to wean TPN and encourage the patient to take more p.o. intake. DICTATING PHYSICIAN: TREVA MACHUCA M.D. [id number] PHY#: [id number] ID: [id number] JOB#: [id number] ACCT: [id number] cc: >
[2016-10-05] MEDS: HEPARIN SOD (PORCINE) 5,000 UNIT/ML 1 ML SYRINGE SUBCUT SCH ×2 (05:38→18:00)
[2016-10-05 06:07] LABS: ALANINE AMINOTRANSFERASE 45 U/L (9-52); ALBUMIN 2.3 g/dL (3.5-5.0); ALKALINE PHOSPHATASE 94 U/L (38-126); ANION GAP 11 (5-19); ASPARTATE AMINO TRANSFERASE 28 U/L (14-36); BILIRUBIN,DIRECT 0.3 mg/dL (0.0-0.4); BILIRUBIN,TOTAL 0.3 mg/dL (0.2-1.3); BLOOD UREA NITROGEN 28 mg/dL (7-20); CALCIUM 7.9 mg/dL (8.4-10.2); CARBON DIOXIDE 29 mmol/L (22-30); CHLORIDE 96 mmol/L (98-107); CREATININE RESULT 3.33 mg/dL (0.52-1.25); GLUCOSE 105 mg/dL (75-110); PHOSPHORUS 4.3 mg/dL (2.5-4.5); SODIUM 136.1 mmol/L (137-145); TOTAL PROTEIN 5.3 g/dL (6.3-8.2)
[2016-10-05 06:16] LABS: PREALBUMIN 13.6 mg/dL (17.6-36.0)
--- NOTE | 2016-10-05 09:20 | PDOC PROGRESS REPORT ---
Subjective Progress Note for:: 10/05/16 Subjective:: Patient very comfortable no complaints. Still not good appetite. Physical Exam Vital Signs: Temp Pulse Resp BP Pulse Ox 98.3 F 80 16 131/54 H 92 10/05/16 07:40 10/05/16 07:40 10/05/16 07:40 10/05/16 07:40 10/05/16 07:40 Intake & Output 10/04/16 10/05/16 10/06/16 06:59 06:59 06:59 Intake Total 1714 1305 Output Total 0 5100 Balance 1714 -3795 Weight 98.9 kg 95.8 kg General appearance: PRESENT: no acute distress, cooperative Respiratory exam: PRESENT: clear to auscultation nikki Cardiovascular exam: PRESENT: RRR GI/Abdominal exam: PRESENT: other - Soft, nondistended, nontender to palpation. Wound clean dry and intact. Extremities exam: PRESENT: other - No swelling and no tenderness. Results Laboratory Results: 10/04/16 06:00 10/05/16 05:30 10/05/16 05:30 Sodium 136.1 L Potassium 4.0 Chloride 96 L Carbon Dioxide 29 Anion Gap 11 BUN 28 H Creatinine 3.33 H Est GFR ( Amer) 16 L Est GFR (Non-Af Amer) 13 L Glucose 105 Calcium 7.9 L Phosphorus 4.3 Total Bilirubin 0.3 AST 28 ALT 45 Alkaline Phosphatase 94 Total Protein 5.3 L Albumin 2.3 L Prealbumin 13.6 L Impressions: KUB X-Ray 09/17/16 00:00 IMPRESSION: Profound ileus, oral contrast given for CT 09/11/2016 still in the stomach and small bowel. Nasogastric tube tip and side port in the stomach Distended small bowel loops and colon in the upper half of the abdomen Abdomen/Pelvis CT 09/18/16 00:00 IMPRESSION: Multiple air fluid and contrast distended small bowel loops are again identified which again could be related to a diffuse ileus however I cannot exclude underlying obstruction. Intra- abdominal and pelvic ascitic fluid is again identified. Interval increase in size of the bilateral pleural effusions left greater than right. Other findings as noted above Chest X-Ray 09/23/16 06:00 IMPRESSION: 1. Support tubes and lines as above. 2. Hazy densities noted at both lung bases likely representing combination of layering effusions with associated atelectasis/infiltrate. Overall appearance not significant changed. The fluid is noted previously within the minor fissure on the right has resolved. Abdomen X-Ray 09/26/16 00:00 IMPRESSION: Continued bowel distention. Contrast noted flexure regions of the colon. Assessment & Plan - Diagnosis (1) Colon polyps Qualifiers: Colon location: ascending Is this a current diagnosis for this admission?: YesPlan: Status post right hemicolectomy. s/p reexploration for bradley for sbo. Patient is doing well other than generalized weakness and poor appetite. If we can get her to eat better, we can potentially discharge the patient
[2016-10-05] MEDS: IRON POLYSACCHARIDES COMPLEX 150 MG CAPSULE PO SCH (09:55)
[2016-10-05] MEDS: MEGESTROL ACETATE 20 MG TABLET PO SCH (09:55)
[2016-10-05] MEDS: DOCUSATE SODIUM 100 MG CAPSULE PO SCH ×2 (09:55→21:54)
[2016-10-05] MEDS: FOLIC ACID/VITAMIN B COMP W-C CAPSULE NG SCH (09:55)
[2016-10-05] MEDS: ASPIRIN 81 MG TABLET, CHEWABLE NG SCH (09:55)
[2016-10-05] MEDS: CINACALCET HCL 30 MG TABLET PO SCH (09:56)
[2016-10-05] MEDS: ACETAMINOPHEN 325 MG TABLET PO PRN ×2 (10:51→15:44)
[2016-10-05] MEDS ORDERED: MEGESTROL ACETATE SUSP 400 MG/10 ML UDCUP PO ONE (13:00)
--- NOTE | 2016-10-05 14:09 | PDOC PROGRESS REPORT ---
Subjective Progress Note for:: 10/05/16 Subjective:: The patient is currently lying in bed. The patient is more awake than she was yesterday. She apparently will really only awaken for family and wants sweet foods. The patient has had a slight increase in oral intake and TPN has been weaned. Have consult with palliative management to help in goal setting and discuss CODE STATUS. Physical Exam Vital Signs: Temp Pulse Resp BP Pulse Ox 98.5 F 79 16 139/64 H 93 10/05/16 12:00 10/05/16 12:00 10/05/16 12:00 10/05/16 12:00 10/05/16 12:00 Intake & Output 10/03/16 10/04/16 10/05/16 23:59 23:59 23:59 Intake Total 2090 1505 440 Output Total 0 5100 0 Balance 2089 -3595 440 Weight 98.3 kg 98.9 kg 95.8 kg General appearance: PRESENT: no acute distress Exam: Frail, chronically ill-appearing Head exam: PRESENT: atraumatic, normocephalic Eye exam: PRESENT: conjunctiva pale, EOMI, PERRLA. ABSENT: scleral icterus Ear exam: PRESENT: normal external ear exam Mouth exam: PRESENT: moist, tongue midline Neck exam: ABSENT: carotid bruit, JVD, lymphadenopathy, thyromegaly Respiratory exam: PRESENT: decreased breath sounds, symmetrical, unlabored. ABSENT: rales, rhonchi, tachypnea, wheezes Cardiovascular exam: PRESENT: RRR. ABSENT: diastolic murmur, rubs, systolic murmur Pulses: PRESENT: normal dorsalis pedis pul Vascular exam: PRESENT: normal capillary refill GI/Abdominal exam: PRESENT: normal bowel sounds, soft. ABSENT: distended, guarding, mass, organolmegaly, rebound, tenderness Rectal exam: PRESENT: deferred Extremities exam: PRESENT: full ROM. ABSENT: calf tenderness, clubbing, pedal edema Neurological exam: PRESENT: other - Responsive to noxious stimuli. ABSENT: motor sensory deficit Psychiatric exam: PRESENT: flat affect, unusual affect. ABSENT: homicidal ideation, suicidal ideation Skin exam: PRESENT: dry, intact, warm. ABSENT: cyanosis, rash Results Laboratory Results: 10/04/16 06:00 10/05/16 05:30 10/05/16 05:30 Sodium 136.1 L Potassium 4.0 Chloride 96 L Carbon Dioxide 29 Anion Gap 11 BUN 28 H Creatinine 3.33 H Est GFR ( Amer) 16 L Est GFR (Non-Af Amer) 13 L Glucose 105 Calcium 7.9 L Phosphorus 4.3 Total Bilirubin 0.3 AST 28 ALT 45 Alkaline Phosphatase 94 Total Protein 5.3 L Albumin 2.3 L Prealbumin 13.6 L Impressions: KUB X-Ray 09/17/16 00:00 IMPRESSION: Profound ileus, oral contrast given for CT 09/11/2016 still in the stomach and small bowel. Nasogastric tube tip and side port in the stomach Distended small bowel loops and colon in the upper half of the abdomen Abdomen/Pelvis CT 09/18/16 00:00 IMPRESSION: Multiple air fluid and contrast distended small bowel loops are again identified which again could be related to a diffuse ileus however I cannot exclude underlying obstruction. Intra- abdominal and pelvic ascitic fluid is again identified. Interval increase in size of the bilateral pleural effusions left greater than right. Other findings as noted above Chest X-Ray 09/23/16 06:00 IMPRESSION: 1. Support tubes and lines as above. 2. Hazy densities noted at both lung bases likely representing combination of layering effusions with associated atelectasis/infiltrate. Overall appearance not significant changed. The fluid is noted previously within the minor fissure on the right has resolved. Abdomen X-Ray 09/26/16 00:00 IMPRESSION: Continued bowel distention. Contrast noted flexure regions of the colon. Assessment & Plan - Diagnosis (1) Small bowel obstruction Is this a current diagnosis for this admission?: YesPlan: Resolved (2) Status post colectomy Is this a current diagnosis for this admission?: YesPlan: Do appreciate surgery's input (3) On total parenteral nutrition (TPN) Is this a current diagnosis for this admission?: YesPlan: This is for supplement. The patient bowel is awake however the patient does have poor by mouth intake. Overall the patient presents with a picture of failure to thrive. Will consult palliative care for input. Family encouraged to bring food from home. This was reduced today to see if the patient would have an increase in appetite. Will discontinue TPN today since it has been weaned (4) Colon polyps Qualifiers: Colon location: ascending Is this a current diagnosis for this admission?: Yes (5) Encephalopathy Is this a current diagnosis for this admission?: YesPlan: This may be a new patient's baseline in conjunction with dementia. (6) Hyponatremia Is this a current diagnosis for this admission?: YesPlan: Mild (7) Dyslipidemia Is this a current diagnosis for this admission?: Yes (8) ESRD (end stage renal disease) on dialysis Is this a current diagnosis for this admission?: YesPlan: Do appreciate nephrology's input (9) Essential (primary) hypertension Is this a current diagnosis for this admission?: Yes (10) Anemia in chronic kidney disease Is this a current diagnosis for this admission?: Yes (11) Obesity (BMI 30.0-34.9) Is this a current diagnosis for this admission?: Yes (12) Postoperative respiratory failure Is this a current diagnosis for this admission?: YesPlan: Status post extubation - Time Time Spent with patient: 25-34 minutes Medications reviewed and adjusted accordingly: Yes Anticipated discharge: SNF Within: when bed available
[2016-10-05] MEDS: LACTULOSE SYRUP 20 GM/30 ML UDCUP PO SCH (17:57)
[2016-10-05] MEDS: ATORVASTATIN CALCIUM 40 MG TABLET NG SCH (21:55)
[2016-10-05] MEDS: INSULIN GLARGINE,HUM.REC.ANLOG 300 UNIT/3 ML INSULN.PEN SUBCUT SCH (22:09)
--- NOTE | 2016-10-05 22:47 | Progress Note ---
Provider Note Provider Note: Palliative Visit at 1:00- 1:20 PM 10/05/16 Palliative Care follow up visit to check on this patient. Physician notes appreciated that report patietn to be eating some better, however camilo who is staying with patient today states she has only eaten a few bites of strawberries this afternoon for lunch and had few sips of fluids. SHe is much more alert today and talking more. Camilo says she is much improved after dialysis yesterday. Sons are not at hospital today, will try again to reach them to see if they want code status changed or have any questions about goals/ treatment. Patient awake, alert, cheerful. Speech better, Breathing easily with clear breath sounds and regular pulse. No edema, color good and she denies pain. Ileus requiring cholectomy appears to have resolved and patient denies pain at abdomen. Appetite is still very poor with no reported dysphagia. Dementia: Plans in progress to send patient to [facility] after d/c from hospital and change her dialysis to [place]. Family in agreement with this. Nely continue to try to contact sons.
[2016-10-06] MEDS: HEPARIN SOD (PORCINE) 5,000 UNIT/ML 1 ML SYRINGE SUBCUT SCH ×2 (06:09→17:10)
[2016-10-06 06:30] LABS: HEMATOCRIT 28.9 % (36.0-47.0); HEMOGLOBIN 9.5 g/dL (12.0-15.5); HGB HCT DIFFERENCE -0.4; MEAN CORPUSCULAR HEMOGLOBIN 30.6 pg (27.0-33.4); MEAN CORPUSCULAR HGB CONC 32.9 g/dL (32.0-36.0); MEAN CORPUSCULAR VOLUME 93 fl (80-97); RED BLOOD COUNT 3.11 10^6/uL (3.72-5.28); RED CELL DISTRIBUTION WIDTH 16.6 % (11.5-14.0); WHITE BLOOD COUNT 6.9 10^3/uL (4.0-10.5)
[2016-10-06 06:58] LABS: ANION GAP 10 (5-19); BLOOD UREA NITROGEN 37 mg/dL (7-20); CALCIUM 8.4 mg/dL (8.4-10.2); CARBON DIOXIDE 31 mmol/L (22-30); CHLORIDE 95 mmol/L (98-107); CREATININE RESULT 4.41 mg/dL (0.52-1.25); GLUCOSE 84 mg/dL (75-110); POTASSIUM 4.5 mmol/L (3.6-5.0); SODIUM 135.8 mmol/L (137-145)
[2016-10-06] MEDS: CINACALCET HCL 30 MG TABLET PO SCH (09:54)
[2016-10-06] MEDS: DOCUSATE SODIUM 100 MG CAPSULE PO SCH ×2 (09:54→22:24)
[2016-10-06] MEDS: MEGESTROL ACETATE SUSP 400 MG/10 ML UDCUP PO SCH (09:54)
[2016-10-06] MEDS: FOLIC ACID/VITAMIN B COMP W-C CAPSULE NG SCH (09:54)
[2016-10-06] MEDS: ASPIRIN 81 MG TABLET, CHEWABLE NG SCH (09:54)
[2016-10-06] MEDS: IRON POLYSACCHARIDES COMPLEX 150 MG CAPSULE PO SCH (09:54)
[2016-10-06] MEDS: ACETAMINOPHEN 325 MG TABLET PO PRN (13:42)
--- NOTE | 2016-10-06 15:39 | PDOC PROGRESS REPORT ---
Subjective Progress Note for:: 10/06/16 Subjective:: The patient is currently lying in bed. The patient is more awake than she was yesterday but appears more confused. The patient has not had the desired increase in intake since TPN has been weaned. Alternative nutrition have been discussed with family and did not appear open to this at that time however this has evidently been reconsidered after discussion with surgeon. Have consult with palliative management to help in goal setting and discuss CODE STATUS. Physical Exam Vital Signs: Temp Pulse Resp BP Pulse Ox 98.6 F 69 24 H 135/59 H 91 L 10/06/16 12:00 10/06/16 14:00 10/06/16 12:00 10/06/16 12:00 10/06/16 12:00 Intake & Output 10/04/16 10/05/16 10/06/16 23:59 23:59 23:59 Intake Total 1505 640 240 Output Total 5100 0 0 Balance -3595 640 240 Weight 98.9 kg 95.8 kg 95 kg General appearance: PRESENT: no acute distress Exam: Frail, chronically ill-appearing Head exam: PRESENT: atraumatic, normocephalic Eye exam: PRESENT: conjunctiva pale, EOMI, PERRLA. ABSENT: scleral icterus Ear exam: PRESENT: normal external ear exam Mouth exam: PRESENT: moist, tongue midline Neck exam: ABSENT: carotid bruit, JVD, lymphadenopathy, thyromegaly Respiratory exam: PRESENT: decreased breath sounds, symmetrical, unlabored. ABSENT: rales, rhonchi, tachypnea, wheezes Cardiovascular exam: PRESENT: RRR. ABSENT: diastolic murmur, rubs, systolic murmur Pulses: PRESENT: normal dorsalis pedis pul Vascular exam: PRESENT: normal capillary refill GI/Abdominal exam: PRESENT: normal bowel sounds, soft. ABSENT: distended, guarding, mass, organolmegaly, rebound, tenderness Rectal exam: PRESENT: deferred Extremities exam: PRESENT: full ROM. ABSENT: calf tenderness, clubbing, pedal edema Neurological exam: PRESENT: other - Responsive to noxious stimuli. ABSENT: motor sensory deficit Psychiatric exam: PRESENT: flat affect, unusual affect. ABSENT: homicidal ideation, suicidal ideation Skin exam: PRESENT: dry, intact, warm. ABSENT: cyanosis, rash Results Laboratory Results: 10/06/16 06:10 10/06/16 06:10 10/06/16 10/06/16 06:10 06:10 WBC 6.9 RBC 3.11 L Hgb 9.5 L Hct 28.9 L MCV 93 MCH 30.6 MCHC 32.9 RDW 16.6 H Plt Count 256 Sodium 135.8 L Potassium 4.5 Chloride 95 L Carbon Dioxide 31 H Anion Gap 10 BUN 37 H Creatinine 4.41 H Est GFR ( Amer) 12 L Est GFR (Non-Af Amer) 10 L Glucose 84 Calcium 8.4 Impressions: KUB X-Ray 09/17/16 00:00 IMPRESSION: Profound ileus, oral contrast given for CT 09/11/2016 still in the stomach and small bowel. Nasogastric tube tip and side port in the stomach Distended small bowel loops and colon in the upper half of the abdomen Abdomen/Pelvis CT 09/18/16 00:00 IMPRESSION: Multiple air fluid and contrast distended small bowel loops are again identified which again could be related to a diffuse ileus however I cannot exclude underlying obstruction. Intra- abdominal and pelvic ascitic fluid is again identified. Interval increase in size of the bilateral pleural effusions left greater than right. Other findings as noted above Chest X-Ray 09/23/16 06:00 IMPRESSION: 1. Support tubes and lines as above. 2. Hazy densities noted at both lung bases likely representing combination of layering effusions with associated atelectasis/infiltrate. Overall appearance not significant changed. The fluid is noted previously within the minor fissure on the right has resolved. Abdomen X-Ray 09/26/16 00:00 IMPRESSION: Continued bowel distention. Contrast noted flexure regions of the colon. Assessment & Plan - Diagnosis (1) Small bowel obstruction Is this a current diagnosis for this admission?: YesPlan: Resolved (2) Status post colectomy Is this a current diagnosis for this admission?: YesPlan: Do appreciate surgery's input (3) Colon polyps Qualifiers: Colon location: ascending Is this a current diagnosis for this admission?: Yes (4) Encephalopathy Is this a current diagnosis for this admission?: YesPlan: This may be a new patient's baseline in conjunction with dementia. (5) Hyponatremia Is this a current diagnosis for this admission?: YesPlan: Mild (6) Dyslipidemia Is this a current diagnosis for this admission?: Yes (7) ESRD (end stage renal disease) on dialysis Is this a current diagnosis for this admission?: YesPlan: Do appreciate nephrology's input (8) Essential (primary) hypertension Is this a current diagnosis for this admission?: Yes (9) Anemia in chronic kidney disease Is this a current diagnosis for this admission?: Yes (10) Obesity (BMI 30.0-34.9) Is this a current diagnosis for this admission?: Yes (11) Postoperative respiratory failure Is this a current diagnosis for this admission?: YesPlan: Status post extubation (12) Malnutrition Is this a current diagnosis for this admission?: YesPlan: This is significant. The patient is not taking much of any by mouth. Surgeon did discuss artificial nutrition with patient and family and this will be reevaluated on Sunday for feeding tube - Time Time Spent with patient: 25-34 minutes Medications reviewed and adjusted accordingly: Yes Anticipated discharge: SNF
--- NOTE | 2016-10-06 18:00 | PDOC PROGRESS REPORT ---
Subjective Progress Note for:: 10/06/16 Subjective:: Mrs. Bustos was seen on dialysis today. She is awake and responsive. She continues to look very weak and rather depressed. She is still not eating anything through mouth. She denies any history of chest pain shortness of breath nausea vomiting. She is indeed passing flatulence. Presently on dialysis without any issues. Vital signs are stable. Orders were discussed with the treating nurse. Physical Exam Vital Signs: Temp Pulse Resp BP Pulse Ox 98.7 F 66 20 150/53 H 93 10/06/16 16:06 10/06/16 16:06 10/06/16 16:06 10/06/16 16:06 10/06/16 16:06 Intake & Output 10/05/16 10/06/16 10/07/16 06:59 06:59 06:59 Intake Total 1305 440 200 Output Total 5100 0 Balance -3795 440 200 Weight 95.8 kg 95 kg General appearance: PRESENT: no acute distress Respiratory exam: PRESENT: clear to auscultation nikki, symmetrical. ABSENT: crackles, rhonchi Cardiovascular exam: PRESENT: +S1, +S2, systolic murmur GI/Abdominal exam: PRESENT: normal bowel sounds, soft. ABSENT: distended, firm Extremities exam: PRESENT: +1 edema Results Laboratory Results: 10/06/16 06:10 10/06/16 06:10 10/06/16 10/06/16 06:10 06:10 WBC 6.9 RBC 3.11 L Hgb 9.5 L Hct 28.9 L MCV 93 MCH 30.6 MCHC 32.9 RDW 16.6 H Plt Count 256 Sodium 135.8 L Potassium 4.5 Chloride 95 L Carbon Dioxide 31 H Anion Gap 10 BUN 37 H Creatinine 4.41 H Est GFR ( Amer) 12 L Est GFR (Non-Af Amer) 10 L Glucose 84 Calcium 8.4 Impressions: KUB X-Ray 09/17/16 00:00 IMPRESSION: Profound ileus, oral contrast given for CT 09/11/2016 still in the stomach and small bowel. Nasogastric tube tip and side port in the stomach Distended small bowel loops and colon in the upper half of the abdomen Abdomen/Pelvis CT 09/18/16 00:00 IMPRESSION: Multiple air fluid and contrast distended small bowel loops are again identified which again could be related to a diffuse ileus however I cannot exclude underlying obstruction. Intra- abdominal and pelvic ascitic fluid is again identified. Interval increase in size of the bilateral pleural effusions left greater than right. Other findings as noted above Chest X-Ray 09/23/16 06:00 IMPRESSION: 1. Support tubes and lines as above. 2. Hazy densities noted at both lung bases likely representing combination of layering effusions with associated atelectasis/infiltrate. Overall appearance not significant changed. The fluid is noted previously within the minor fissure on the right has resolved. Abdomen X-Ray 09/26/16 00:00 IMPRESSION: Continued bowel distention. Contrast noted flexure regions of the colon. Assessment & Plan - Diagnosis (1) Status post colectomy Is this a current diagnosis for this admission?: YesPlan: As per surgery. Improving. She is status post exploratory laparotomy because she had persistent bowel obstruction post colectomy. She is on track to making good recovery.However she is not eating anything for reasons which are very unclear. Management as per surgery. (2) ESRD (end stage renal disease) on dialysis Is this a current diagnosis for this admission?: YesPlan: Is undergoing dialysis without any issues. Electrolytes are stable. Orders were discussed with the treating dialysis nurse. She is fluid overloaded. Going to remove at least between 3 and 4 L as tolerated. See overall response. (3) Essential (primary) hypertension Is this a current diagnosis for this admission?: YesPlan: controlled . (4) Hyponatremia Is this a current diagnosis for this admission?: YesPlan: Stable. (5) Anemia in chronic kidney disease Is this a current diagnosis for this admission?: YesPlan: Adjust erythropoietin
[2016-10-06] MEDS ORDERED: EPOETIN ALFA 10,000 UNIT in SYRINGE, DISPOSABLE, 1 EACH IV PRN (19:30)
[2016-10-06] MEDS: ATORVASTATIN CALCIUM 40 MG TABLET NG SCH (22:24)
[2016-10-06] MEDS: LACTULOSE SYRUP 20 GM/30 ML UDCUP PO SCH (22:24)
[2016-10-06] MEDS: INSULIN GLARGINE,HUM.REC.ANLOG 300 UNIT/3 ML INSULN.PEN SUBCUT SCH (22:56)
[2016-10-07] MEDS: HEPARIN SOD (PORCINE) 5,000 UNIT/ML 1 ML SYRINGE SUBCUT SCH ×2 (05:46→17:20)
[2016-10-07] MEDS: ASPIRIN 81 MG TABLET, CHEWABLE NG SCH (10:07)
[2016-10-07] MEDS: IRON POLYSACCHARIDES COMPLEX 150 MG CAPSULE PO SCH (10:07)
[2016-10-07] MEDS: FOLIC ACID/VITAMIN B COMP W-C CAPSULE NG SCH (10:07)
[2016-10-07] MEDS: CINACALCET HCL 30 MG TABLET PO SCH (10:07)
[2016-10-07] MEDS: DOCUSATE SODIUM 100 MG CAPSULE PO SCH ×2 (10:07→22:17)
[2016-10-07] MEDS: MEGESTROL ACETATE SUSP 400 MG/10 ML UDCUP PO SCH (10:08)
[2016-10-07] MEDS ORDERED: BISACODYL 10 MG SUPP.RECT PR PRN (10:40)
--- NOTE | 2016-10-07 10:54 | PDOC PROGRESS REPORT ---
Subjective Progress Note for:: 10/07/16 Subjective:: The patient is currently lying in bed. The patient is more awake than she was yesterday but remains confused. No longer moaning. The family is not present at the bedside at this time. The patient has not had the desired increase in intake since TPN has been weaned. TPN has now been stopped entirely. Initially Alternative nutrition was discussed with family and did not appear open to this at that time; however, this has evidently been reconsidered after discussion with surgery. Have consult with palliative management to help in goal setting and discuss CODE STATUS. There've been no reported episodes of vomiting nor diarrhea. The patient does not appear to be in any pain. Patient unable to voice any concerns at this time. Brief history: Ms. Bustos is a 81-year-old -[place] female with a past medical history of end-stage renal disease with a lengthy hospital stay. The patient is status post exploratory lap for small bowel obstruction. Patient has underlying dementia as well. Postoperatively the patient required us plan of intubation. The patient's postoperative course has been complicated by failure to thrive. The patient was placed on TPN and has been weaned from this without an increase in appetite. The patient is not wanting any oral intake and will only eat a scant amount sweets or out of is prepared by the family. Initially the family did not appear open to artificial nutrition however this has been revisited by surgery. Surgery and family will decide Sunday whether to proceed with PEG placement. Patient has been dialyzed on Sunday while inpatient. Patient has a rehabilitation bed at [facility]. Physical Exam Vital Signs: Temp Pulse Resp BP Pulse Ox 97.7 F 82 18 167/59 H 94 10/07/16 07:29 10/07/16 07:29 10/07/16 07:29 10/07/16 07:29 10/07/16 07:29 Intake & Output 10/05/16 10/06/16 10/07/16 23:59 23:59 23:59 Intake Total 640 240 50 Output Total 0 3700 Balance 640 -3460 50 Weight 95.8 kg 95 kg 91.9 kg General appearance: PRESENT: no acute distress Exam: Frail, chronically ill-appearing Head exam: PRESENT: atraumatic, normocephalic Eye exam: PRESENT: conjunctiva pale, EOMI, PERRLA. ABSENT: scleral icterus Ear exam: PRESENT: normal external ear exam Mouth exam: PRESENT: moist, tongue midline Neck exam: ABSENT: carotid bruit, JVD, lymphadenopathy, thyromegaly Respiratory exam: PRESENT: decreased breath sounds, symmetrical, unlabored. ABSENT: rales, rhonchi, tachypnea, wheezes Cardiovascular exam: PRESENT: RRR. ABSENT: diastolic murmur, rubs, systolic murmur Pulses: PRESENT: normal dorsalis pedis pul Vascular exam: PRESENT: normal capillary refill, anasarca and third spacing edema from malnutrition GI/Abdominal exam: PRESENT: normal bowel sounds, soft. ABSENT: distended, guarding, mass, organolmegaly, rebound, tenderness Rectal exam: PRESENT: deferred Extremities exam: PRESENT: full ROM. ABSENT: calf tenderness, clubbing, pedal edema Neurological exam: PRESENT: other - Responsive to noxious stimuli. ABSENT: motor sensory deficit Psychiatric exam: PRESENT: flat affect, unusual affect. ABSENT: homicidal ideation, suicidal ideation Skin exam: PRESENT: dry, intact, warm. ABSENT: cyanosis, rash Results Laboratory Results: 10/06/16 06:10 10/06/16 06:10 Impressions: KUB X-Ray 09/17/16 00:00 IMPRESSION: Profound ileus, oral contrast given for CT 09/11/2016 still in the stomach and small bowel. Nasogastric tube tip and side port in the stomach Distended small bowel loops and colon in the upper half of the abdomen Abdomen/Pelvis CT 09/18/16 00:00 IMPRESSION: Multiple air fluid and contrast distended small bowel loops are again identified which again could be related to a diffuse ileus however I cannot exclude underlying obstruction. Intra- abdominal and pelvic ascitic fluid is again identified. Interval increase in size of the bilateral pleural effusions left greater than right. Other findings as noted above Chest X-Ray 09/23/16 06:00 IMPRESSION: 1. Support tubes and lines as above. 2. Hazy densities noted at both lung bases likely representing combination of layering effusions with associated atelectasis/infiltrate. Overall appearance not significant changed. The fluid is noted previously within the minor fissure on the right has resolved. Abdomen X-Ray 09/26/16 00:00 IMPRESSION: Continued bowel distention. Contrast noted flexure regions of the colon. Assessment & Plan - Diagnosis (1) Small bowel obstruction Is this a current diagnosis for this admission?: YesPlan: Resolved. Status post exploratory lap. On 09/08/2016. (2) Status post colectomy Is this a current diagnosis for this admission?: YesPlan: Do appreciate surgery's input (3) Encephalopathy Is this a current diagnosis for this admission?: YesPlan: This may be a new patient's baseline in conjunction with dementia. (4) Hyponatremia Is this a current diagnosis for this admission?: YesPlan: Mild 10/06/16 06:10 Sodium 135.8 L (5) ESRD (end stage renal disease) on dialysis Is this a current diagnosis for this admission?: YesPlan: Do appreciate nephrology's input. Currently receiving hemodialysis on Sunday. Will resume outpatient dialysis at [facility] if the patient goes to [facility]. (6) Essential (primary) hypertension Is this a current diagnosis for this admission?: YesPlan: Slightly elevated at times. Not take in oral medications well. Selected Entries 09/07/16 10/07/16 17:18 07:29 Blood Pressure 135/44 H 167/59 H (7) Anemia in chronic kidney disease Is this a current diagnosis for this admission?: YesPlan: Overall stable 09/08/16 10/06/16 03:41 06:10 Hgb 10.5 L 9.5 L (8) Malnutrition Is this a current diagnosis for this admission?: YesPlan: This is significant. The patient is not taking much of any by mouth. Surgeon did discuss artificial nutrition with patient and family and this will be reevaluated on Sunday for feeding tube (9) Postoperative respiratory failure Is this a current diagnosis for this admission?: YesPlan: Status post extubation - Time Time Spent with patient: 25-34 minutes Medications reviewed and adjusted accordingly: Yes Anticipated discharge: SNF Within: Other Disposition: The patient is a full code. Pending patient's symptomatology and diagnostic findings will reevaluate in the a.m.
--- NOTE | 2016-10-07 11:45 | PDOC PROGRESS REPORT ---
Subjective Progress Note for:: 10/07/16 Physical Exam Vital Signs: Temp Pulse Resp BP Pulse Ox 97.7 F 82 18 167/59 H 94 10/07/16 07:29 10/07/16 07:29 10/07/16 07:29 10/07/16 07:29 10/07/16 07:29 Intake & Output 10/06/16 10/07/16 10/08/16 06:59 06:59 06:59 Intake Total 440 250 Output Total 0 3700 Balance 440 -3450 Weight 95 kg 91.9 kg GI/Abdominal exam: PRESENT: other - Soft abdomen Results Laboratory Results: 10/06/16 06:10 10/06/16 06:10 Impressions: KUB X-Ray 09/17/16 00:00 IMPRESSION: Profound ileus, oral contrast given for CT 09/11/2016 still in the stomach and small bowel. Nasogastric tube tip and side port in the stomach Distended small bowel loops and colon in the upper half of the abdomen Abdomen/Pelvis CT 09/18/16 00:00 IMPRESSION: Multiple air fluid and contrast distended small bowel loops are again identified which again could be related to a diffuse ileus however I cannot exclude underlying obstruction. Intra- abdominal and pelvic ascitic fluid is again identified. Interval increase in size of the bilateral pleural effusions left greater than right. Other findings as noted above Chest X-Ray 09/23/16 06:00 IMPRESSION: 1. Support tubes and lines as above. 2. Hazy densities noted at both lung bases likely representing combination of layering effusions with associated atelectasis/infiltrate. Overall appearance not significant changed. The fluid is noted previously within the minor fissure on the right has resolved. Abdomen X-Ray 09/26/16 00:00 IMPRESSION: Continued bowel distention. Contrast noted flexure regions of the colon. Assessment & Plan - Plan Summary Plan Summary: Doing better still poor oral intake DC plan ? Sunday based on oral intake.
[2016-10-07] MEDS: LACTULOSE SYRUP 20 GM/30 ML UDCUP PO SCH (17:16)
[2016-10-07] MEDS: ATORVASTATIN CALCIUM 40 MG TABLET NG SCH (22:17)
[2016-10-07] MEDS: INSULIN GLARGINE,HUM.REC.ANLOG 300 UNIT/3 ML INSULN.PEN SUBCUT SCH (22:18)
[2016-10-08] MEDS: HEPARIN SOD (PORCINE) 5,000 UNIT/ML 1 ML SYRINGE SUBCUT SCH ×2 (06:35→18:05)
[2016-10-08] MEDS: IRON POLYSACCHARIDES COMPLEX 150 MG CAPSULE PO SCH (10:28)
[2016-10-08] MEDS: DOCUSATE SODIUM 100 MG CAPSULE PO SCH ×2 (10:28→22:44)
[2016-10-08] MEDS: MEGESTROL ACETATE SUSP 400 MG/10 ML UDCUP PO SCH (10:28)
[2016-10-08] MEDS: FOLIC ACID/VITAMIN B COMP W-C CAPSULE NG SCH (10:28)
[2016-10-08] MEDS: ASPIRIN 81 MG TABLET, CHEWABLE NG SCH (10:28)
[2016-10-08 11:16] LABS: HEMOGLOBIN 9.7 g/dL (12.0-15.5); HGB HCT DIFFERENCE -0.9; MEAN CORPUSCULAR HEMOGLOBIN 30.3 pg (27.0-33.4); MEAN CORPUSCULAR HGB CONC 32.4 g/dL (32.0-36.0); MEAN CORPUSCULAR VOLUME 93 fl (80-97); RED BLOOD COUNT 3.21 10^6/uL (3.72-5.28); RED CELL DISTRIBUTION WIDTH 16.6 % (11.5-14.0); WHITE BLOOD COUNT 6.2 10^3/uL (4.0-10.5)
[2016-10-08 11:34] LABS: ALANINE AMINOTRANSFERASE 33 U/L (9-52); ALBUMIN 2.5 g/dL (3.5-5.0); ALKALINE PHOSPHATASE 88 U/L (38-126); ANION GAP 15 (5-19); ASPARTATE AMINO TRANSFERASE 24 U/L (14-36); BILIRUBIN,DIRECT 0.5 mg/dL (0.0-0.4); BILIRUBIN,TOTAL 0.5 mg/dL (0.2-1.3); BLOOD UREA NITROGEN 28 mg/dL (7-20); CARBON DIOXIDE 29 mmol/L (22-30); CHLORIDE 96 mmol/L (98-107); CREATININE RESULT 4.56 mg/dL (0.52-1.25); GLUCOSE 80 mg/dL (75-110); MAGNESIUM 1.7 mg/dL (1.6-2.3); TOTAL PROTEIN 5.5 g/dL (6.3-8.2)
[2016-10-08 11:42] LABS: PREALBUMIN 12.6 mg/dL (17.6-36.0)
--- NOTE | 2016-10-08 12:03 | PROGRESS NOTE E ---
Progress Note NAME: RICKY RODRIGUEZ : 1935 AGE: 80Y DATE: 10/08/2016 ROOM: 428 SUBJECTIVE: The patient is comfortable, reports flatus, denies abdominal pain, nausea or vomiting. Tolerating p.o. well. OBJECTIVE: VITAL SIGNS: Stable. Vital signs are within normal limits. I's and O's for the past 24 hours: Intake 250, output 3700 - all urine. LUNGS: Clear to auscultation bilaterally. HEART: Regular rhythm and rate. ABDOMEN: Soft. Large from obesity. Nondistended. Nontender. Midline incision is well healed. Positive bowel sounds. REVIEW OF LABORATORIES: White blood cell count 6.2. H and H 9 and 30. Platelet count 280. Electrolytes within normal limits. BUN and creatinine 28 and 4.5. Bilirubin is 0.5. Magnesium 1.7. ASSESSMENT: 1. STATUS POST EXPLORATORY LAPAROTOMY WITH COLECTOMY. 2. PATIENT TOLERATED P.O. WELL. 3. PHYSICAL EXAM UNREMARKABLE. 4. NO GENERAL SURGERY ISSUES IDENTIFIED AT THIS POINT. PLAN: Patient to be transferred to a long-term care facility in the next few days. DICTATING PHYSICIAN: NAZARIO BROWNLEE M.D. [id number] PHY#: [id number] ID: [id number] JOB#: [id number] ACCT: [id number] cc: >
[2016-10-08] MEDS: LACTULOSE SYRUP 20 GM/30 ML UDCUP PO SCH (18:04)
--- NOTE | 2016-10-08 18:53 | PDOC PROGRESS REPORT ---
Subjective Progress Note for:: 10/08/16 Subjective:: Patient seen earlier today on morning rounds. According to nursing, patient ate very little today. Patient seen with nurse and aid present. Review systems is limited by patient's dementia, but denies chest pain, shortness of breath, abdominal pain, nausea, vomiting, fevers, chills, diarrhea , constipation, headache, new onset weakness. Physical Exam Vital Signs: Temp Pulse Resp BP Pulse Ox 98.6 F 75 16 153/58 H 94 10/08/16 16:00 10/08/16 16:00 10/08/16 16:00 10/08/16 16:00 10/08/16 16:00 Intake & Output 10/07/16 10/08/16 10/09/16 06:59 06:59 06:59 Intake Total 250 500 340 Output Total 3700 0 0 Balance -3450 500 340 Weight 91.9 kg 90.6 kg Exam: General: Awake alert and oriented x1, no acute respiratory distress, nontoxic- appearing HEENT: AT/NC, PERRL, EOMI, oropharynx is moist, pink, no scleral icterus, no conjunctival injection Neck: No JVD, trachea midline Chest: Clear to auscultation bilaterally, no wheezes rhonchi or rales CV: Regular rate and rhythm, normal S1 and S2, no murmur, rub, or gallop Abdomen: Soft, nontender to palpation, nondistended, active bowel sounds; no rebound, rigidity, or guarding Extremities: No cyanosis, clubbing or edema Neuro: Cranial nerves II through XII are grossly intact without focal deficits; awake alert and oriented x1 Psych: Normal mood and affect Skin: To stage I decubitus coccygeal/gluteal fold lesions noted proximally 2 cm at greatest diameter Results Laboratory Results: 10/08/16 10:50 10/08/16 10:50 10/08/16 10/08/16 10:50 10:50 WBC 6.2 RBC 3.21 L Hgb 9.7 L Hct 30.0 L MCV 93 MCH 30.3 MCHC 32.4 RDW 16.6 H Plt Count 280 Sodium 140.0 Potassium 4.0 Chloride 96 L Carbon Dioxide 29 Anion Gap 15 BUN 28 H Creatinine 4.56 H Est GFR ( Amer) 11 L Est GFR (Non-Af Amer) 9 L Glucose 80 Calcium 8.0 L Magnesium 1.7 Total Bilirubin 0.5 AST 24 ALT 33 Alkaline Phosphatase 88 Total Protein 5.5 L Albumin 2.5 L Prealbumin 12.6 L Impressions: KUB X-Ray 09/17/16 00:00 IMPRESSION: Profound ileus, oral contrast given for CT 09/11/2016 still in the stomach and small bowel. Nasogastric tube tip and side port in the stomach Distended small bowel loops and colon in the upper half of the abdomen Abdomen/Pelvis CT 09/18/16 00:00 IMPRESSION: Multiple air fluid and contrast distended small bowel loops are again identified which again could be related to a diffuse ileus however I cannot exclude underlying obstruction. Intra- abdominal and pelvic ascitic fluid is again identified. Interval increase in size of the bilateral pleural effusions left greater than right. Other findings as noted above Chest X-Ray 09/23/16 06:00 IMPRESSION: 1. Support tubes and lines as above. 2. Hazy densities noted at both lung bases likely representing combination of layering effusions with associated atelectasis/infiltrate. Overall appearance not significant changed. The fluid is noted previously within the minor fissure on the right has resolved. Abdomen X-Ray 09/26/16 00:00 IMPRESSION: Continued bowel distention. Contrast noted flexure regions of the colon. Assessment & Plan - Diagnosis (1) Malnutrition Is this a current diagnosis for this admission?: YesPlan: Patient currently with profound malnutrition. Patient has been weaned off of TPN without an appreciable increase in her appetite. Appreciate dietary recommendations. Patient currently on Megace for appetite stimulation. Due to patient's multiple comorbid conditions including her dementia and end-stage renal disease, consider this to be quite severe. (2) Small bowel obstruction Is this a current diagnosis for this admission?: YesPlan: Resolved. Patient underwent expiratory laparotomy on 09/08/2016. (3) Failure to thrive in adult Is this a current diagnosis for this admission?: YesPlan: Surgery plans to have discussion for possible PEG in patient on Sunday. Defer to surgical team for this. (4) ESRD (end stage renal disease) on dialysis Is this a current diagnosis for this admission?: YesPlan: Defer to nephrology. Patient dialyzes Sunday (5) Essential (primary) hypertension Is this a current diagnosis for this admission?: YesPlan: Patient on clonidine patch doing well. (6) Obesity (BMI 30.0-34.9) Is this a current diagnosis for this admission?: YesPlan: In the setting of malnutrition. Have consult consulted dietary. (7) Anemia in chronic kidney disease Is this a current diagnosis for this admission?: YesPlan: Defer to nephrology for Procrit injection (8) Hyponatremia Is this a current diagnosis for this admission?: Yes (9) Postoperative respiratory failure Is this a current diagnosis for this admission?: YesPlan: Resolved. Patient required intubation after surgical intervention. (10) Dementia Qualifiers: Dementia type: unspecified type Dementia behavioral disturbance: without behavioral disturbance Qualified Code(s): F03.90 - Unspecified dementia without behavioral disturbance Is this a current diagnosis for this admission?: YesPlan: Supportive care (11) Stage II decubitus ulcer Qualifiers: Pressure ulcer location: buttock Laterality: right Qualified Code(s): L89.312 - Pressure ulcer of right buttock, stage 2 Is this a current diagnosis for this admission?: YesPlan: Alberto and Jose daily. Encourage out of bed to chair 3 times a day and ambulation. - Time Time Spent with patient: 25-34 minutes
[2016-10-08] MEDS ORDERED: COLLAGENASE CLOSTRIDIUM HIST. OINT 30 GM TP ONE (20:00)
[2016-10-08] MEDS ORDERED: COLLAGENASE CLOSTRIDIUM HIST. OINT 30 GM ONE (22:33)
[2016-10-08] MEDS: ATORVASTATIN CALCIUM 40 MG TABLET NG SCH (22:45)
[2016-10-08] MEDS: INSULIN GLARGINE,HUM.REC.ANLOG 300 UNIT/3 ML INSULN.PEN SUBCUT SCH (22:45)
[2016-10-09] MEDS: HEPARIN SOD (PORCINE) 5,000 UNIT/ML 1 ML SYRINGE SUBCUT SCH ×2 (05:34→18:06)
[2016-10-09] MEDS: FOLIC ACID/VITAMIN B COMP W-C CAPSULE NG SCH (09:35)
[2016-10-09] MEDS: IRON POLYSACCHARIDES COMPLEX 150 MG CAPSULE PO SCH (09:35)
[2016-10-09] MEDS: ASPIRIN 81 MG TABLET, CHEWABLE NG SCH (09:35)
[2016-10-09] MEDS: MEGESTROL ACETATE SUSP 400 MG/10 ML UDCUP PO SCH (09:35)
[2016-10-09] MEDS: DOCUSATE SODIUM 100 MG CAPSULE PO SCH ×2 (09:37→21:59)
[2016-10-09] MEDS: COLLAGENASE CLOSTRIDIUM HIST. OINT 30 GM TP SCH (09:37)
[2016-10-09 14:08] LABS: ABSOLUTE BASOPHILS # (AUTO) 0.1 10^3/uL (0.0-0.2); ABSOLUTE EOSINOPHILS # (AUTO) 0.1 10^3/uL (0.0-0.6); ABSOLUTE LYMPHOCYTES (AUTO) 1.1 10^3/uL (0.5-4.7); ABSOLUTE NEUT (AUTO) 4.1 10^3/uL (1.7-8.2); HEMATOCRIT 29.2 % (36.0-47.0); HEMOGLOBIN 9.6 g/dL (12.0-15.5); HGB HCT DIFFERENCE -0.4; LYMPHOCYTES % (AUTO) 17.6 % (13-45); MEAN CORPUSCULAR HEMOGLOBIN 30.3 pg (27.0-33.4); MEAN CORPUSCULAR HGB CONC 32.9 g/dL (32.0-36.0); MEAN CORPUSCULAR VOLUME 92 fl (80-97); RED BLOOD COUNT 3.17 10^6/uL (3.72-5.28); RED CELL DISTRIBUTION WIDTH 16.2 % (11.5-14.0); SEGMENTED NEUTROPHILS % (AUTO) 63.4 % (42-78); WHITE BLOOD COUNT 6.5 10^3/uL (4.0-10.5)
[2016-10-09 14:09] LABS: ANION GAP 14 (5-19); BLOOD UREA NITROGEN 35 mg/dL (7-20); CALCIUM 7.8 mg/dL (8.4-10.2); CARBON DIOXIDE 28 mmol/L (22-30); CHLORIDE 96 mmol/L (98-107); CREATININE RESULT 5.24 mg/dL (0.52-1.25); GLUCOSE 107 mg/dL (75-110); POTASSIUM 4.3 mmol/L (3.6-5.0); SODIUM 137.7 mmol/L (137-145)
[2016-10-09] MEDS ORDERED: EPOETIN ALFA 10,000 UNIT in SYRINGE, DISPOSABLE, 1 EACH IV ONE (16:00)
--- NOTE | 2016-10-09 16:43 | PDOC PROGRESS REPORT ---
Subjective Progress Note for:: 10/09/16 Subjective:: brighter affect today eating a little bit more. Physical Exam Vital Signs: Temp Pulse Resp BP Pulse Ox 97.7 F 60 18 154/54 H 96 10/09/16 07:43 10/09/16 14:00 10/09/16 07:43 10/09/16 07:43 10/09/16 04:44 Intake & Output 10/08/16 10/09/16 10/10/16 06:59 06:59 06:59 Intake Total 500 345 Output Total 0 0 Balance 500 345 Weight 90.6 kg 91.4 kg General appearance: PRESENT: no acute distress, cooperative GI/Abdominal exam: PRESENT: other - Soft, nondistended, nontender to palpation Results Laboratory Results: 10/09/16 13:25 10/09/16 13:25 10/09/16 10/09/16 13:25 13:25 WBC 6.5 RBC 3.17 L Hgb 9.6 L Hct 29.2 L MCV 92 MCH 30.3 MCHC 32.9 RDW 16.2 H Plt Count 251 Seg Neutrophils % 63.4 Lymphocytes % 17.6 Monocytes % 16.0 H Eosinophils % 2.0 Basophils % 1.0 Absolute Neutrophils 4.1 Absolute Lymphocytes 1.1 Absolute Monocytes 1.0 Absolute Eosinophils 0.1 Absolute Basophils 0.1 Sodium 137.7 Potassium 4.3 Chloride 96 L Carbon Dioxide 28 Anion Gap 14 BUN 35 H Creatinine 5.24 H Est GFR ( Amer) 9 L Est GFR (Non-Af Amer) 8 L Glucose 107 Calcium 7.8 L Impressions: KUB X-Ray 09/17/16 00:00 IMPRESSION: Profound ileus, oral contrast given for CT 09/11/2016 still in the stomach and small bowel. Nasogastric tube tip and side port in the stomach Distended small bowel loops and colon in the upper half of the abdomen Abdomen/Pelvis CT 09/18/16 00:00 IMPRESSION: Multiple air fluid and contrast distended small bowel loops are again identified which again could be related to a diffuse ileus however I cannot exclude underlying obstruction. Intra- abdominal and pelvic ascitic fluid is again identified. Interval increase in size of the bilateral pleural effusions left greater than right. Other findings as noted above Chest X-Ray 09/23/16 06:00 IMPRESSION: 1. Support tubes and lines as above. 2. Hazy densities noted at both lung bases likely representing combination of layering effusions with associated atelectasis/infiltrate. Overall appearance not significant changed. The fluid is noted previously within the minor fissure on the right has resolved. Abdomen X-Ray 09/26/16 00:00 IMPRESSION: Continued bowel distention. Contrast noted flexure regions of the colon. Assessment & Plan - Diagnosis (1) Colon polyps Qualifiers: Colon location: ascending Is this a current diagnosis for this admission?: YesPlan: Status post right hemicolectomy. s/p reexploration for bradley for sbo. Patient is doing well other than generalized weakness and poor appetite. Continue to encourage by mouth intake. Physical therapy has to work with patient for mobility. If she has not improved her by mouth intake substantially in the next few days, will try even more aggressively to persuade her family to allow PEG placement.
[2016-10-09] MEDS: LACTULOSE SYRUP 20 GM/30 ML UDCUP PO SCH (17:15)
--- NOTE | 2016-10-09 17:34 | PDOC PROGRESS REPORT ---
Subjective Progress Note for:: 10/09/16 Subjective:: Mrs. Bustos was seen on dialysis today. She is awake and responsive. She has finally started to eat. He denies any history of chest pain shortness of breath abdominal pains. No history of nausea vomiting. She still does not have a good appetite though. Presently on dialysis without any issues. Vital signs are stable. Orders were discussed with the treating nurse. Physical Exam Vital Signs: Temp Pulse Resp BP Pulse Ox 97.7 F 60 18 154/54 H 96 10/09/16 07:43 10/09/16 14:00 10/09/16 07:43 10/09/16 07:43 10/09/16 04:44 Intake & Output 10/08/16 10/09/16 10/10/16 06:59 06:59 06:59 Intake Total 500 345 Output Total 0 0 Balance 500 345 Weight 90.6 kg 91.4 kg General appearance: PRESENT: no acute distress Respiratory exam: PRESENT: clear to auscultation nikki. ABSENT: crackles, rales, rhonchi Cardiovascular exam: PRESENT: +S1, +S2, systolic murmur GI/Abdominal exam: PRESENT: normal bowel sounds, soft. ABSENT: distended, firm Extremities exam: PRESENT: +1 edema Neurological exam: PRESENT: awake, oriented to person, oriented to place, oriented to time Skin exam: ABSENT: cyanosis, erythema, mottled, rash Results Laboratory Results: 10/09/16 13:25 10/09/16 13:25 10/09/16 10/09/16 13:25 13:25 WBC 6.5 RBC 3.17 L Hgb 9.6 L Hct 29.2 L MCV 92 MCH 30.3 MCHC 32.9 RDW 16.2 H Plt Count 251 Seg Neutrophils % 63.4 Lymphocytes % 17.6 Monocytes % 16.0 H Eosinophils % 2.0 Basophils % 1.0 Absolute Neutrophils 4.1 Absolute Lymphocytes 1.1 Absolute Monocytes 1.0 Absolute Eosinophils 0.1 Absolute Basophils 0.1 Sodium 137.7 Potassium 4.3 Chloride 96 L Carbon Dioxide 28 Anion Gap 14 BUN 35 H Creatinine 5.24 H Est GFR ( Amer) 9 L Est GFR (Non-Af Amer) 8 L Glucose 107 Calcium 7.8 L Impressions: KUB X-Ray 09/17/16 00:00 IMPRESSION: Profound ileus, oral contrast given for CT 09/11/2016 still in the stomach and small bowel. Nasogastric tube tip and side port in the stomach Distended small bowel loops and colon in the upper half of the abdomen Abdomen/Pelvis CT 09/18/16 00:00 IMPRESSION: Multiple air fluid and contrast distended small bowel loops are again identified which again could be related to a diffuse ileus however I cannot exclude underlying obstruction. Intra- abdominal and pelvic ascitic fluid is again identified. Interval increase in size of the bilateral pleural effusions left greater than right. Other findings as noted above Chest X-Ray 09/23/16 06:00 IMPRESSION: 1. Support tubes and lines as above. 2. Hazy densities noted at both lung bases likely representing combination of layering effusions with associated atelectasis/infiltrate. Overall appearance not significant changed. The fluid is noted previously within the minor fissure on the right has resolved. Abdomen X-Ray 09/26/16 00:00 IMPRESSION: Continued bowel distention. Contrast noted flexure regions of the colon. Assessment & Plan - Diagnosis (1) Status post colectomy Is this a current diagnosis for this admission?: YesPlan: She signed to eat finely and that's a good sign. (2) ESRD (end stage renal disease) on dialysis Is this a current diagnosis for this admission?: YesPlan: Is undergoing dialysis without any issues. Electrolytes are stable. Orders were discussed with the treating dialysis nurse. She is fluid overloaded. Going to remove at least between 3 and 4 L as tolerated. See overall response. (3) Essential (primary) hypertension Is this a current diagnosis for this admission?: YesPlan: controlled . (4) Hyponatremia Is this a current diagnosis for this admission?: YesPlan: See response to dialysis. Monitor.. (5) Anemia in chronic kidney disease Is this a current diagnosis for this admission?: YesPlan: Adjust erythropoietin
[2016-10-09] MEDS: INSULIN GLARGINE,HUM.REC.ANLOG 300 UNIT/3 ML INSULN.PEN SUBCUT SCH (21:58)
[2016-10-09] MEDS: ATORVASTATIN CALCIUM 40 MG TABLET NG SCH (21:59)
--- NOTE | 2016-10-09 23:19 | Progress Note ---
Provider Note Provider Note: Palliative care note: Visit with patient at 10:30 Am but no family at bedside. Javier awake. cheerful and denies pain. Evidence of javier having been fed many different foods, but only a bite or two from each container. I tried to give her Boost and pudding, but she refused both. She is cheerful but determined not to eat. I have left my card with notes for sons to call me at their convenience. Today I left the booklet "Hard Choices for [place] People" by Gaudencio Kapoor which discusses end of life choices such as dialysis, feeding tubes, code status Etc. I again left my card taped in the book with note for family to please clal me. I will try to contact them tomorrow if i do not hear from them.
[2016-10-10] MEDS: HEPARIN SOD (PORCINE) 5,000 UNIT/ML 1 ML SYRINGE SUBCUT SCH ×2 (06:00→17:08)
[2016-10-10] MEDS: IRON POLYSACCHARIDES COMPLEX 150 MG CAPSULE PO SCH (09:26)
[2016-10-10] MEDS: ASPIRIN 81 MG TABLET, CHEWABLE NG SCH (09:26)
[2016-10-10] MEDS: CLONIDINE 0.1 MG/24 HR PATCH.TDWK TD SCH (09:26)
[2016-10-10] MEDS: DOCUSATE SODIUM 100 MG CAPSULE PO SCH ×2 (09:26→21:53)
[2016-10-10] MEDS: MEGESTROL ACETATE SUSP 400 MG/10 ML UDCUP PO SCH (09:26)
[2016-10-10] MEDS: FOLIC ACID/VITAMIN B COMP W-C CAPSULE NG SCH (09:26)
[2016-10-10] MEDS: COLLAGENASE CLOSTRIDIUM HIST. OINT 30 GM TP SCH (09:27)
[2016-10-10] MEDS: MUPIROCIN 2% OINTMENT 22 GM TP SCH (15:13)
[2016-10-10] MEDS: LACTULOSE SYRUP 20 GM/30 ML UDCUP PO SCH (17:08)
[2016-10-10] MEDS: ATORVASTATIN CALCIUM 40 MG TABLET NG SCH (21:53)
[2016-10-10] MEDS ORDERED: INSULIN GLARGINE,HUM.REC.ANLOG 300 UNIT/3 ML INSULN.PEN SUBCUT SCH (22:00)
--- NOTE | 2016-10-10 22:28 | PDOC PROGRESS REPORT ---
Subjective Progress Note for:: 10/09/16 Subjective:: Patient is seen while in dialysis. Nursing reports patient's appetite has improved. Patient denies chest pain, shortness of breath, abdominal pain, nausea, vomiting , fevers, chills, diarrhea, constipation, headache, new onset weakness. Physical Exam Vital Signs: Temp Pulse Resp BP Pulse Ox 97.7 F 67 18 154/54 H 96 10/09/16 07:43 10/09/16 07:43 10/09/16 07:43 10/09/16 07:43 10/09/16 04:44 Intake & Output 10/08/16 10/09/16 10/10/16 06:59 06:59 06:59 Intake Total 500 345 Output Total 0 0 Balance 500 345 Weight 90.6 kg 91.4 kg Exam: General: Awake alert and oriented x1, answers questions appropriately, no acute respiratory distress HEENT: AT/NC, PERRL, EOMI, oropharynx is moist, pink, no scleral icterus, no conjunctival injection, small area of erythema around right IJ site, no tenderness to palpation Neck: No JVD, trachea midline Chest: Clear to auscultation bilaterally, no wheezes rhonchi or rales CV: Regular rate and rhythm, normal S1 and S2, no murmur, rub, or gallop Abdomen: Soft, nontender to palpation, nondistended, active bowel sounds; no rebound, rigidity, or guarding Extremities: No cyanosis, clubbing; edema of the right upper extremity around AV fistula Neuro: Cranial nerves II through XII are grossly intact without focal deficits; awake alert and oriented x1 Psych: Normal mood and affect Results Laboratory Results: 10/08/16 10:50 10/08/16 10:50 10/08/16 10/08/16 10:50 10:50 WBC 6.2 RBC 3.21 L Hgb 9.7 L Hct 30.0 L MCV 93 MCH 30.3 MCHC 32.4 RDW 16.6 H Plt Count 280 Sodium 140.0 Potassium 4.0 Chloride 96 L Carbon Dioxide 29 Anion Gap 15 BUN 28 H Creatinine 4.56 H Est GFR ( Amer) 11 L Est GFR (Non-Af Amer) 9 L Glucose 80 Calcium 8.0 L Magnesium 1.7 Total Bilirubin 0.5 AST 24 ALT 33 Alkaline Phosphatase 88 Total Protein 5.5 L Albumin 2.5 L Prealbumin 12.6 L Impressions: KUB X-Ray 09/17/16 00:00 IMPRESSION: Profound ileus, oral contrast given for CT 09/11/2016 still in the stomach and small bowel. Nasogastric tube tip and side port in the stomach Distended small bowel loops and colon in the upper half of the abdomen Abdomen/Pelvis CT 09/18/16 00:00 IMPRESSION: Multiple air fluid and contrast distended small bowel loops are again identified which again could be related to a diffuse ileus however I cannot exclude underlying obstruction. Intra- abdominal and pelvic ascitic fluid is again identified. Interval increase in size of the bilateral pleural effusions left greater than right. Other findings as noted above Chest X-Ray 09/23/16 06:00 IMPRESSION: 1. Support tubes and lines as above. 2. Hazy densities noted at both lung bases likely representing combination of layering effusions with associated atelectasis/infiltrate. Overall appearance not significant changed. The fluid is noted previously within the minor fissure on the right has resolved. Abdomen X-Ray 09/26/16 00:00 IMPRESSION: Continued bowel distention. Contrast noted flexure regions of the colon. Assessment & Plan - Diagnosis (1) Malnutrition Is this a current diagnosis for this admission?: YesPlan: At this time, it appears that there are no plans for PEG tube. Patient's appetite has been improving and her consumption of food has also been improving. Continue to encourage this. Continue supplementation. (2) Small bowel obstruction Is this a current diagnosis for this admission?: YesPlan: Resolved. Patient underwent expiratory laparotomy on 09/08/2016. (3) Failure to thrive in adult Is this a current diagnosis for this admission?: YesPlan: Slowly improving although far from baseline. (4) Essential (primary) hypertension Is this a current diagnosis for this admission?: Yes (5) ESRD (end stage renal disease) on dialysis Is this a current diagnosis for this admission?: YesPlan: Defer to nephrology. Patient dialyzes Sunday (6) Anemia in chronic kidney disease Is this a current diagnosis for this admission?: Yes (7) Hyponatremia Is this a current diagnosis for this admission?: Yes (8) Postoperative respiratory failure Is this a current diagnosis for this admission?: Yes (9) Dementia Qualifiers: Dementia type: unspecified type Dementia behavioral disturbance: without behavioral disturbance Qualified Code(s): F03.90 - Unspecified dementia without behavioral disturbance Is this a current diagnosis for this admission?: Yes (10) Stage II decubitus ulcer Qualifiers: Pressure ulcer location: buttock Laterality: right Qualified Code(s): L89.312 - Pressure ulcer of right buttock, stage 2 Is this a current diagnosis for this admission?: Yes (11) Obesity (BMI 30.0-34.9) Is this a current diagnosis for this admission?: Yes - Time Time Spent with patient: 25-34 minutes Medications reviewed and adjusted accordingly: Yes Anticipated discharge: Acute Rehab Within: within 24 hours, within 48 hours
--- NOTE | 2016-10-10 22:33 | PDOC PROGRESS REPORT ---
Subjective Progress Note for:: 10/10/16 Subjective:: Nursing reports patient's appetite has improved. Patient is unsure if she's had good bowel movement. Patient denies chest pain, shortness of breath, abdominal pain, nausea, vomiting , fevers, chills, diarrhea, constipation, headache, new onset weakness. Physical Exam Vital Signs: Temp Pulse Resp BP Pulse Ox 97.3 F 65 20 185/54 H 95 10/10/16 20:00 10/10/16 20:00 10/10/16 20:00 10/10/16 20:00 10/10/16 20:00 Intake & Output 10/09/16 10/10/16 10/11/16 06:59 06:59 06:59 Intake Total 345 150 120 Output Total 0 3500 Balance 345 -3350 120 Weight 91.4 kg 88.1 kg Exam: General: Awake alert and oriented x1, answers questions appropriately, no acute respiratory distress HEENT: AT/NC, PERRL, EOMI, oropharynx is moist, pink, no scleral icterus, no conjunctival injection, small area of erythema around right IJ site, no tenderness to palpation Neck: No JVD, trachea midline Chest: Clear to auscultation bilaterally, no wheezes rhonchi or rales CV: Regular rate and rhythm, normal S1 and S2, no murmur, rub, or gallop Abdomen: Soft, nontender to palpation, nondistended, active bowel sounds; no rebound, rigidity, or guarding Extremities: No cyanosis, clubbing; nonpitting dependent edema Neuro: Cranial nerves II through XII are grossly intact without focal deficits; awake alert and oriented x1 Psych: Normal mood and affect Results Laboratory Results: 10/09/16 13:25 10/09/16 13:25 Impressions: KUB X-Ray 09/17/16 00:00 IMPRESSION: Profound ileus, oral contrast given for CT 09/11/2016 still in the stomach and small bowel. Nasogastric tube tip and side port in the stomach Distended small bowel loops and colon in the upper half of the abdomen Abdomen/Pelvis CT 09/18/16 00:00 IMPRESSION: Multiple air fluid and contrast distended small bowel loops are again identified which again could be related to a diffuse ileus however I cannot exclude underlying obstruction. Intra- abdominal and pelvic ascitic fluid is again identified. Interval increase in size of the bilateral pleural effusions left greater than right. Other findings as noted above Chest X-Ray 09/23/16 06:00 IMPRESSION: 1. Support tubes and lines as above. 2. Hazy densities noted at both lung bases likely representing combination of layering effusions with associated atelectasis/infiltrate. Overall appearance not significant changed. The fluid is noted previously within the minor fissure on the right has resolved. Abdomen X-Ray 09/26/16 00:00 IMPRESSION: Continued bowel distention. Contrast noted flexure regions of the colon. Assessment & Plan - Diagnosis (1) Malnutrition Is this a current diagnosis for this admission?: YesPlan: At this time, it appears that there are no plans for PEG tube. Patient's appetite has been improving and her consumption of food has also been improving. Patient on Megace. Continue supplementation. (2) Small bowel obstruction Is this a current diagnosis for this admission?: YesPlan: Resolved. Patient underwent expiratory laparotomy on 09/08/2016. (3) Failure to thrive in adult Is this a current diagnosis for this admission?: YesPlan: Slowly improving although far from baseline. (4) Essential (primary) hypertension Is this a current diagnosis for this admission?: YesPlan: Patient on clonidine patch doing well. (5) ESRD (end stage renal disease) on dialysis Is this a current diagnosis for this admission?: YesPlan: Defer to nephrology. Patient dialyzes Sunday (6) Anemia in chronic kidney disease Is this a current diagnosis for this admission?: YesPlan: Defer to nephrology for Procrit injection (7) Hyponatremia Is this a current diagnosis for this admission?: Yes (8) Postoperative respiratory failure Is this a current diagnosis for this admission?: Yes (9) Dementia Qualifiers: Dementia type: unspecified type Dementia behavioral disturbance: without behavioral disturbance Qualified Code(s): F03.90 - Unspecified dementia without behavioral disturbance Is this a current diagnosis for this admission?: Yes (10) Stage II decubitus ulcer Qualifiers: Pressure ulcer location: buttock Laterality: right Qualified Code(s): L89.312 - Pressure ulcer of right buttock, stage 2 Is this a current diagnosis for this admission?: Yes (11) Obesity (BMI 30.0-34.9) Is this a current diagnosis for this admission?: Yes
--- NOTE | 2016-10-10 23:28 | Progress Note ---
Provider Note Provider Note: [facility] Visit 11:10-11;20 10/10/16 Brief visit with patient. again nofamily at bedside. Patient awake and talkative with much improved speech. Denies pain or respiratory distress. Did not know where she was but says she is getting good care. Refuses food or drink. Noted that no one in family had taken booklet I left yesterday discussing end of life care and choices. Will again try to reach son.
[2016-10-11] MEDS: HEPARIN SOD (PORCINE) 5,000 UNIT/ML 1 ML SYRINGE SUBCUT SCH ×2 (05:48→18:13)
[2016-10-11 06:59] LABS: ABSOLUTE BASOPHILS # (AUTO) 0.1 10^3/uL (0.0-0.2); ABSOLUTE EOSINOPHILS # (AUTO) 0.1 10^3/uL (0.0-0.6); ABSOLUTE LYMPHOCYTES (AUTO) 1.5 10^3/uL (0.5-4.7); ABSOLUTE MONOCYTES (AUTO) 0.9 10^3/uL (0.1-1.4); ABSOLUTE NEUT (AUTO) 2.7 10^3/uL (1.7-8.2); BASOPHILS % (AUTO) 1.5 % (0-2); EOSINOPHILS % (AUTO) 2.3 % (0-6); HEMATOCRIT 32.3 % (36.0-47.0); HEMOGLOBIN 10.5 g/dL (12.0-15.5); HGB HCT DIFFERENCE -0.8; LYMPHOCYTES % (AUTO) 27.9 % (13-45); MEAN CORPUSCULAR HEMOGLOBIN 29.7 pg (27.0-33.4); MEAN CORPUSCULAR HGB CONC 32.4 g/dL (32.0-36.0); MEAN CORPUSCULAR VOLUME 92 fl (80-97); MONOCYTES % (AUTO) 17.8 % (3-13); RED BLOOD COUNT 3.52 10^6/uL (3.72-5.28); RED CELL DISTRIBUTION WIDTH 16.7 % (11.5-14.0); SEGMENTED NEUTROPHILS % (AUTO) 50.5 % (42-78); WHITE BLOOD COUNT 5.3 10^3/uL (4.0-10.5)
[2016-10-11 07:19] LABS: ANION GAP 16 (5-19); BLOOD UREA NITROGEN 26 mg/dL (7-20); CALCIUM 8.3 mg/dL (8.4-10.2); CARBON DIOXIDE 29 mmol/L (22-30); CHLORIDE 97 mmol/L (98-107); CREATININE RESULT 4.71 mg/dL (0.52-1.25); GLUCOSE 78 mg/dL (75-110); POTASSIUM 4.2 mmol/L (3.6-5.0); SODIUM 141.5 mmol/L (137-145)
--- NOTE | 2016-10-11 08:54 | PDOC PROGRESS REPORT ---
Subjective Progress Note for:: 10/11/16 Subjective:: continue to improve with better appetite. eating almost half of her trays. Physical Exam Vital Signs: Temp Pulse Resp BP Pulse Ox 97.8 F 66 19 150/64 H 100 10/11/16 03:40 10/11/16 07:00 10/11/16 03:40 10/11/16 03:40 10/11/16 03:40 Intake & Output 10/10/16 10/11/16 10/12/16 06:59 06:59 06:59 Intake Total 150 270 Output Total 3500 Balance -3350 270 Weight 88.1 kg 87.4 kg General appearance: PRESENT: no acute distress, cooperative Respiratory exam: PRESENT: clear to auscultation nikki Cardiovascular exam: PRESENT: RRR GI/Abdominal exam: PRESENT: other - soft, nd, ntp, c/d/i Results Laboratory Results: 10/11/16 05:52 10/11/16 05:52 10/11/16 10/11/16 05:52 05:52 WBC 5.3 RBC 3.52 L Hgb 10.5 L Hct 32.3 L MCV 92 MCH 29.7 MCHC 32.4 RDW 16.7 H Plt Count 255 Seg Neutrophils % 50.5 Lymphocytes % 27.9 Monocytes % 17.8 H Eosinophils % 2.3 Basophils % 1.5 Absolute Neutrophils 2.7 Absolute Lymphocytes 1.5 Absolute Monocytes 0.9 Absolute Eosinophils 0.1 Absolute Basophils 0.1 Sodium 141.5 Potassium 4.2 Chloride 97 L Carbon Dioxide 29 Anion Gap 16 BUN 26 H Creatinine 4.71 H Est GFR ( Amer) 11 L Est GFR (Non-Af Amer) 9 L Glucose 78 Calcium 8.3 L Impressions: KUB X-Ray 09/17/16 00:00 IMPRESSION: Profound ileus, oral contrast given for CT 09/11/2016 still in the stomach and small bowel. Nasogastric tube tip and side port in the stomach Distended small bowel loops and colon in the upper half of the abdomen Abdomen/Pelvis CT 09/18/16 00:00 IMPRESSION: Multiple air fluid and contrast distended small bowel loops are again identified which again could be related to a diffuse ileus however I cannot exclude underlying obstruction. Intra- abdominal and pelvic ascitic fluid is again identified. Interval increase in size of the bilateral pleural effusions left greater than right. Other findings as noted above Chest X-Ray 09/23/16 06:00 IMPRESSION: 1. Support tubes and lines as above. 2. Hazy densities noted at both lung bases likely representing combination of layering effusions with associated atelectasis/infiltrate. Overall appearance not significant changed. The fluid is noted previously within the minor fissure on the right has resolved. Abdomen X-Ray 09/26/16 00:00 IMPRESSION: Continued bowel distention. Contrast noted flexure regions of the colon. Assessment & Plan - Diagnosis (1) Colon polyps Qualifiers: Colon location: ascending Is this a current diagnosis for this admission?: YesPlan: Status post right hemicolectomy. s/p reexploration for bradley for sbo. Patient is doing well other than generalized weakness. appetite improving. still weak. PT important in her recovery.
--- NOTE | 2016-10-11 12:19 | PDOC DISCHARGE SUMMARY ---
General - Admit/Disc Date/PCP Admission Date/Primary Care Provider: 09/07/16 11:42 MAURICIO LEY MD Discharge Date: 10/11/16 - Discharge Diagnosis (1) Malnutrition Is this a current diagnosis for this admission?: Yes (2) Small bowel obstruction Is this a current diagnosis for this admission?: Yes (3) Failure to thrive in adult Is this a current diagnosis for this admission?: Yes (4) Essential (primary) hypertension Is this a current diagnosis for this admission?: Yes (5) ESRD (end stage renal disease) on dialysis Is this a current diagnosis for this admission?: Yes (6) Anemia in chronic kidney disease Is this a current diagnosis for this admission?: Yes (7) Hyponatremia Is this a current diagnosis for this admission?: Yes (8) Postoperative respiratory failure Is this a current diagnosis for this admission?: Yes (9) Dementia Is this a current diagnosis for this admission?: Yes (10) Stage II decubitus ulcer Is this a current diagnosis for this admission?: Yes (11) Obesity (BMI 30.0-34.9) Is this a current diagnosis for this admission?: Yes - Additional Information Resuscitation Status: Full Code Discharge Diet: Other (Comments) - dialysis Discharge Activity: Activity As Tolerated, Slowly Increase Activity Home Medications: Acetaminophen [Tylenol 325 mg Tablet] 650 mg PO Q8HP PRN 09/11/16 Allopurinol [Zyloprim 100 mg Tablet] 100 mg PO DAILY 09/11/16 Aspirin [Ecotrin 81 mg EC Tablet] 81 mg PO DAILY 09/11/16 Atorvastatin Calcium [Lipitor 40 mg Tablet] 40 mg PO QHS 09/11/16 B Complex & C No.20/Folic Acid [Renal Caps Softgel] 1 mg PO DAILY 09/11/16 Cinacalcet HCl [Sensipar 90 mg Tablet] 90 mg PO DAILY 09/11/16 Lanthanum Carbonate [Fosrenol] 750 mg PO AC 09/11/16 Lidocaine/Prilocaine [Emla Cream] 30 gm TP ASDIR PRN 09/11/16 Clonidine 0.1 each TD Q7D #7 patch.tdwk 10/11/16 Collagenase Clostridium Hist. [Santyl Ointment 30 gm] 1 applic TP DAILY tube Docusate Sodium [Colace 100 mg Capsule] 100 mg PO Q12 capsule 10/11/16 Iron Polysaccharides Complex [Nu-Iron 150 Capsule] 150 mg PO DAILY capsule Lactulose [Cephulac Syrup 20 gm/30 ml Udcup] 33.54927 gm PO QPM udc 10/11/16 Megestrol Acetate [Megace Thania 400 mg/10 ml Udcup] 400 mg PO DAILY udc Mupirocin [Bactroban 2% Ointment 22 gm] 1 applic TP DAILY@1600 tube 10/11/16 History of Present Illness History of Present Illness: Please see H&P for full history of present illness Hospital Course Hospital Course: Ms. Bustos is a 81-year-old -[place] female with a past medical history of end-stage renal disease with a lengthy hospital stay. Patient underwent right hemicolectomy on 09/07/2016. Substernally, patient developed small bowel obstruction which required a return to surgery on 09/20/2016 and subsequent postoperative intubation for respiratory failure due to strength issues. Patient was easily extubated on 09/22/2016. The patient's postoperative course has been complicated by failure to thrive. The patient was placed on TPN and has been weaned from this without an increase in appetite initially. The patient is not wanting any oral intake and will only eat a scant amount sweets or out of is prepared by the family. She was started on Megace with some improvement of her appetite. Patient has been dialyzed on Sunday while inpatient. Patient is quite debilitated from the standpoint of her prolonged hospitalization including ICU stay and surgery. Patient is currently stable for transition to rehabilitation. Patient did receive dialysis today. Physical Exam Vital Signs: Temp Pulse Resp BP Pulse Ox 97.8 F 66 19 150/64 H 100 10/11/16 03:40 10/11/16 07:00 10/11/16 03:40 10/11/16 03:40 10/11/16 03:40 Intake & Output 10/10/16 10/11/16 10/12/16 06:59 06:59 06:59 Intake Total 150 270 Output Total 3500 2000 Balance -3350 270 -2000 Weight 88.1 kg 87.4 kg Exam: General: Awake alert and oriented x1, answers questions appropriately, no acute respiratory distress HEENT: AT/NC, PERRL, EOMI, oropharynx is moist, pink, no scleral icterus, no conjunctival injection, small area of erythema around right IJ site, no tenderness to palpation Neck: No JVD, trachea midline Chest: Clear to auscultation bilaterally, no wheezes rhonchi or rales CV: Regular rate and rhythm, normal S1 and S2, no murmur, rub, or gallop Abdomen: Soft, nontender to palpation, nondistended, active bowel sounds; no rebound, rigidity, or guarding Extremities: No cyanosis, clubbing; nonpitting dependent edema Neuro: Cranial nerves II through XII are grossly intact without focal deficits; awake alert and oriented x1 Psych: Normal mood and affect Results Laboratory Results: 10/11/16 05:52 10/11/16 05:52 10/11/16 10/11/16 05:52 05:52 WBC 5.3 RBC 3.52 L Hgb 10.5 L Hct 32.3 L MCV 92 MCH 29.7 MCHC 32.4 RDW 16.7 H Plt Count 255 Seg Neutrophils % 50.5 Lymphocytes % 27.9 Monocytes % 17.8 H Eosinophils % 2.3 Basophils % 1.5 Absolute Neutrophils 2.7 Absolute Lymphocytes 1.5 Absolute Monocytes 0.9 Absolute Eosinophils 0.1 Absolute Basophils 0.1 Sodium 141.5 Potassium 4.2 Chloride 97 L Carbon Dioxide 29 Anion Gap 16 BUN 26 H Creatinine 4.71 H Est GFR ( Amer) 11 L Est GFR (Non-Af Amer) 9 L Glucose 78 Calcium 8.3 L Impressions: KUB X-Ray 09/17/16 00:00 IMPRESSION: Profound ileus, oral contrast given for CT 09/11/2016 still in the stomach and small bowel. Nasogastric tube tip and side port in the stomach Distended small bowel loops and colon in the upper half of the abdomen Abdomen/Pelvis CT 09/18/16 00:00 IMPRESSION: Multiple air fluid and contrast distended small bowel loops are again identified which again could be related to a diffuse ileus however I cannot exclude underlying obstruction. Intra- abdominal and pelvic ascitic fluid is again identified. Interval increase in size of the bilateral pleural effusions left greater than right. Other findings as noted above Chest X-Ray 09/23/16 06:00 IMPRESSION: 1. Support tubes and lines as above. 2. Hazy densities noted at both lung bases likely representing combination of layering effusions with associated atelectasis/infiltrate. Overall appearance not significant changed. The fluid is noted previously within the minor fissure on the right has resolved. Abdomen X-Ray 09/26/16 00:00 IMPRESSION: Continued bowel distention. Contrast noted flexure regions of the colon. Qualifiers PATEINT BEING DISCHARGED WITH ANY OF THE FOLLOWING DIAGNOSIS?: No Plan Time Spent: Greater than 30 Minutes
[2016-10-11] MEDS: DOCUSATE SODIUM 100 MG CAPSULE PO SCH (12:41)
[2016-10-11] MEDS: IRON POLYSACCHARIDES COMPLEX 150 MG CAPSULE PO SCH (12:41)
[2016-10-11] MEDS: FOLIC ACID/VITAMIN B COMP W-C CAPSULE NG SCH (12:41)
[2016-10-11] MEDS: ASPIRIN 81 MG TABLET, CHEWABLE NG SCH (12:42)
[2016-10-11] MEDS: MEGESTROL ACETATE SUSP 400 MG/10 ML UDCUP PO SCH (12:42)
[2016-10-11] MEDS: ACETAMINOPHEN 325 MG TABLET PO PRN (14:21)
[2016-10-11 17:07] VITALS: BP 136/44
[2016-10-11] MEDS: MUPIROCIN 2% OINTMENT 22 GM TP SCH (17:13)
[2016-10-11] MEDS: COLLAGENASE CLOSTRIDIUM HIST. OINT 30 GM TP SCH (17:15)
--- NOTE | 2016-10-11 17:50 | PDOC PROGRESS REPORT ---
Subjective Progress Note for:: 10/11/16 Subjective:: Mrs. Bustos was seen on dialysis today. She is awake and responsive. She has begun to eat more.She denies any history of chest pain shortness of breath abdominal pains. No history of nausea vomiting. Presently on dialysis without any issues. Vital signs are stable. Orders were discussed with the treating nurse. Physical Exam Vital Signs: Temp Pulse Resp BP Pulse Ox 98.3 F 71 16 136/44 H 99 10/11/16 16:00 10/11/16 16:00 10/11/16 16:00 10/11/16 16:00 10/11/16 16:00 Intake & Output 10/10/16 10/11/16 10/12/16 06:59 06:59 06:59 Intake Total 150 270 Output Total 3500 2000 Balance -3350 270 -2000 Weight 88.1 kg 87.4 kg Cardiovascular exam: PRESENT: +S1, +S2, systolic murmur GI/Abdominal exam: PRESENT: normal bowel sounds, soft. ABSENT: distended, firm Results Laboratory Results: 10/11/16 05:52 10/11/16 05:52 10/11/16 10/11/16 05:52 05:52 WBC 5.3 RBC 3.52 L Hgb 10.5 L Hct 32.3 L MCV 92 MCH 29.7 MCHC 32.4 RDW 16.7 H Plt Count 255 Seg Neutrophils % 50.5 Lymphocytes % 27.9 Monocytes % 17.8 H Eosinophils % 2.3 Basophils % 1.5 Absolute Neutrophils 2.7 Absolute Lymphocytes 1.5 Absolute Monocytes 0.9 Absolute Eosinophils 0.1 Absolute Basophils 0.1 Sodium 141.5 Potassium 4.2 Chloride 97 L Carbon Dioxide 29 Anion Gap 16 BUN 26 H Creatinine 4.71 H Est GFR ( Amer) 11 L Est GFR (Non-Af Amer) 9 L Glucose 78 Calcium 8.3 L Impressions: KUB X-Ray 09/17/16 00:00 IMPRESSION: Profound ileus, oral contrast given for CT 09/11/2016 still in the stomach and small bowel. Nasogastric tube tip and side port in the stomach Distended small bowel loops and colon in the upper half of the abdomen Abdomen/Pelvis CT 09/18/16 00:00 IMPRESSION: Multiple air fluid and contrast distended small bowel loops are again identified which again could be related to a diffuse ileus however I cannot exclude underlying obstruction. Intra- abdominal and pelvic ascitic fluid is again identified. Interval increase in size of the bilateral pleural effusions left greater than right. Other findings as noted above Chest X-Ray 09/23/16 06:00 IMPRESSION: 1. Support tubes and lines as above. 2. Hazy densities noted at both lung bases likely representing combination of layering effusions with associated atelectasis/infiltrate. Overall appearance not significant changed. The fluid is noted previously within the minor fissure on the right has resolved. Abdomen X-Ray 09/26/16 00:00 IMPRESSION: Continued bowel distention. Contrast noted flexure regions of the colon. Assessment & Plan - Diagnosis (1) Status post colectomy Is this a current diagnosis for this admission?: YesPlan: She is doing lots better. (2) ESRD (end stage renal disease) on dialysis Is this a current diagnosis for this admission?: YesPlan: Is undergoing dialysis without any issues. Electrolytes are stable. Orders were discussed with the treating dialysis nurse. She is fluid overloaded. Going to remove at least between 2 and 3 L as tolerated. (3) Essential (primary) hypertension Is this a current diagnosis for this admission?: YesPlan: controlled . (4) Hyponatremia Is this a current diagnosis for this admission?: YesPlan: Resolved. Monitor. (5) Anemia in chronic kidney disease Is this a current diagnosis for this admission?: YesPlan: Adjust erythropoietin
[2016-10-11] MEDS: LACTULOSE SYRUP 20 GM/30 ML UDCUP PO SCH (18:13)
== END 2016-10-11 17:30 | DRG 329 ==
LOC: INOR 11:42 → ICU 18:06 → 4W 09-08 23:01 → ICU 09-20 → 3W 09-25 18:31 → 4S 10-04 03:56
PROVIDERS: ADMIT Surgery; ATTEND Emergency Medicine
PROC: 0DN80ZZ Release Small Intestine, Open Approach (ICD-10-PCS; 2016-09-07)
PROC: 0JN80ZZ Release Abdomen Subcutaneous Tissue and Fascia, Open Approach (ICD-10-PCS; 2016-09-07)
PROC: 0DTF0ZZ Resection of Right Large Intestine, Open Approach (ICD-10-PCS; principal; 2016-09-07 14:00)
PROC: 5A1D00Z (ICD-10-PCS; 2016-09-08)
PROC: 5A1D00Z (ICD-10-PCS; 2016-09-11)
PROC: 06H033Z Insertion of Infusion Device into Inferior Vena Cava, Percutaneous Approach (ICD-10-PCS; 2016-09-12)
PROC: B549ZZA Ultrasonography of Inferior Vena Cava, Guidance (ICD-10-PCS; 2016-09-12)
PROC: 5A1D00Z (ICD-10-PCS; 2016-09-12)
PROC: 5A1D00Z (ICD-10-PCS; 2016-09-13)
PROC: 5A1D00Z (ICD-10-PCS; 2016-09-15)
PROC: 5A1D00Z (ICD-10-PCS; 2016-09-19)
PROC: 0D9A0ZZ Drainage of Jejunum, Open Approach (ICD-10-PCS; 2016-09-20)
PROC: 0DN80ZZ Release Small Intestine, Open Approach (ICD-10-PCS; 2016-09-20)
PROC: 0BH17EZ Insertion of Endotracheal Airway into Trachea, Via Natural or Artificial Opening (ICD-10-PCS; 2016-09-20)
PROC: 5A1945Z Respiratory Ventilation, 24-96 Consecutive Hours (ICD-10-PCS; 2016-09-20)
PROC: 30233N1 Transfusion of Nonautologous Red Blood Cells into Peripheral Vein, Percutaneous Approach (ICD-10-PCS; 2016-09-20)
PROC: 5A1D00Z (ICD-10-PCS; 2016-09-20)
PROC: 5A1D00Z (ICD-10-PCS; 2016-09-22)
PROC: 5A1D00Z (ICD-10-PCS; 2016-09-25)
PROC: 30233N1 Transfusion of Nonautologous Red Blood Cells into Peripheral Vein, Percutaneous Approach (ICD-10-PCS; 2016-09-27)
PROC: 5A1D00Z (ICD-10-PCS; 2016-09-27)
PROC: 5A1D00Z (ICD-10-PCS; 2016-09-29)
PROC: 5A1D00Z (ICD-10-PCS; 2016-10-02)
PROC: 5A1D00Z (ICD-10-PCS; 2016-10-04)
PROC: 0DBB0ZZ Excision of Ileum, Open Approach (ICD-10-PCS; 2016-10-05)
PROC: 5A1D00Z (ICD-10-PCS; 2016-10-06)
PROC: 5A1D00Z (ICD-10-PCS; 2016-10-09)
PROC: 5A1D00Z (ICD-10-PCS; 2016-10-11)
DX: D12.2 Benign neoplasm of ascending colon (principal); G93.40 Encephalopathy, unspecified; N18.6 End stage renal disease; J95.821 Acute postprocedural respiratory failure; I12.0 Hypertensive chronic kidney disease with stage 5 chronic kidney disease or end stage renal disease; E46 Unspecified protein-calorie malnutrition; E87.1 Hypo-osmolality and hyponatremia; K56.5 Intestinal adhesions [bands] with obstruction (postinfection); L89.152 Pressure ulcer of sacral region, stage 2; Z53.31 Laparoscopic surgical procedure converted to open procedure; E11.22 Type 2 diabetes mellitus with diabetic chronic kidney disease; Z99.2 Dependence on renal dialysis; R62.7 Adult failure to thrive; D63.1 Anemia in chronic kidney disease; E87.6 Hypokalemia; E78.00 Pure hypercholesterolemia, unspecified; F03.90 Unspecified dementia, unspecified severity, without behavioral disturbance, psychotic disturbance, mood disturbance, and anxiety; E66.9 Obesity, unspecified; Z68.32 Body mass index [BMI] 32.0-32.9, adult; Z79.82 Long term (current) use of aspirin; Z79.899 Other long term (current) drug therapy; Z88.8 Allergy status to other drugs, medicaments and biological substances; Z90.710 Acquired absence of both cervix and uterus; Z78.1 Physical restraint status
CPT/HCPCS: 00790; 00840; 36415; 36430; 36600; 71010; 74000; 74020; 74177; 76937; 80048; 80053; 80061; 82607; 82728; 82746; 82803; 82947; 82962; 83540; 83550; 83735; 84100; 84132; 84134; 84466; 84478; 85025; 85027; 85045; 85610; 85730; 86850; 86900; 86901; 86920; 87040; 87070; 87205; 88307; 94002; 94003; 94640; 94667; 94668; 94799; 88329; G8978-GP; G8979-GP; G8996-GN; G8997-GN; G8998-GN; J0131; J0330; J0360; J0690; J0692; J1100; J1170; J1335; J1610; J1642; J1644; J1756; J1815; J2250; J2270; J2405; J2704; J3010; J3480; J3490; J7040; J7620; P9016; Q4081; S0028

== ENCOUNTER 2018-09-13 09:38 | Emergency (ER) | payer MEDICARE, BC ==
[2018-09-13 10:35] LABS: ABSOLUTE BASOPHILS # (AUTO) 0.1 10^3/uL (0.0-0.2); ABSOLUTE EOSINOPHILS # (AUTO) 0.2 10^3/uL (0.0-0.6); ABSOLUTE LYMPHOCYTES (AUTO) 1.1 10^3/uL (0.5-4.7); ABSOLUTE MONOCYTES (AUTO) 0.4 10^3/uL (0.1-1.4); ABSOLUTE NEUT (AUTO) 2.2 10^3/uL (1.7-8.2); BASOPHILS % (AUTO) 1.8 % (0-2); EOSINOPHILS % (AUTO) 4.7 % (0-6); HEMATOCRIT 36.8 % (36.0-47.0); HEMOGLOBIN 11.8 g/dL (12.0-15.5); LYMPHOCYTES % (AUTO) 27.1 % (13-45); MEAN CORPUSCULAR HEMOGLOBIN 30.7 pg (27.0-33.4); MEAN CORPUSCULAR HGB CONC 32.2 g/dL (32.0-36.0); MEAN CORPUSCULAR VOLUME 96 fl (80-97); MONOCYTES % (AUTO) 9.3 % (3-13); PLATELET COUNT 205 10^3/uL (150-450); RED BLOOD COUNT 3.85 10^6/uL (3.72-5.28); RED CELL DISTRIBUTION WIDTH 17.9 % (11.5-14.0); SEGMENTED NEUTROPHILS % (AUTO) 57.1 % (42-78); TOTAL CELLS COUNTED % (AUTO) 100 %; WHITE BLOOD COUNT 3.9 10^3/uL (4.0-10.5)
--- NOTE | 2018-09-13 10:38 | ER Document Report ---
ED General - General Chief Complaint: Altered Mental Status Stated Complaint: ALTERED MENTAL STATUS Time Seen by Provider: 09/13/18 09:48 Primary Care Provider: MAURICIO ELY MD [Primary Care Provider] - Follow up as needed Notes: 82-year-old female to emergency department chief complaint of altered mental status. Patient not taking her medications. Seems to be altered over the last several days. Patient does have a history of dementia. Patient has end-stage renal disease on dialysis. Her son states that she does not want to take her medications and has not been taking her medications. Has complaint of some constipation. Followed by Dr. Saravia. TRAVEL OUTSIDE OF THE [place] IN LAST 30 DAYS: No - HPI Onset: Last week Onset/Duration: Gradual, Worse - Related Data Allergies/Adverse Reactions: diphenhydramine HCl [From Benadryl] Adverse Reaction (Mild, Verified 09/08/16 23:44) PT CANNOT REMEMBER Past Medical History - General Information source: Patient - Social History Smoking Status: Unknown if Ever Smoked Frequency of alcohol use: None Drug Abuse: None Lives with: Family Family History: DM, Hypertension - Past Medical History Cardiac Medical History: Reports: Hx Hypercholesterolemia, Hx Hypertension Denies: Hx Atrial Fibrillation, Hx Congestive Heart Failure, Hx Coronary Artery Disease, Hx Heart Attack, Hx Peripheral Vascular Disease, Hx Pulmonary Embolism, Hx Heart Murmur Pulmonary Medical History: Denies: Hx Asthma, Hx Bronchitis, Hx COPD, Hx Pneumonia, Hx Respiratory Failure, Hx Sleep Apnea, Hx Tuberculosis Neurological Medical History: Denies: Hx Cerebrovascular Accident, Hx Seizures Endocrine Medical History: Reports: Hx Diabetes Mellitus Type 2. Denies: Hx Graves' Disease, Hx Hyperthyroidism, Hx Hypothyroidism Renal/ Medical History: Reports: Hx End Stage Renal Disease - FISTULA LEFT ARM, Hx Hemodialysis. Denies: Hx Kidney Stones, Hx Ovarian Cysts, Hx Peritoneal Dialysis, Hx Pelvic Inflammatory Disease Malignancy Medical History: Denies: Hx Breast Cancer, Hx Cervical Cancer, Hx Leukemia, Hx Lung Cancer, Hx Ovarian Cancer GI Medical History: Denies: Hx Crohn's Disease, Hx Gastroesophageal Reflux Disease, Hx Hiatal Hernia, Hx Irritable Bowel, Hx Liver Failure, Hx Pancreatitis, Hx Ulcer Musculoskeletal Medical History: Reports Hx Arthritis, Denies Hx Fibromyalgia, Denies Hx Multiple Sclerosis, Denies Hx Muscular Dystrophy Psychiatric Medical History: Denies: Hx Bipolar Disorder, Hx Dementia, Hx Depression, Hx Post Traumatic Stress Disorder, Hx Schizophrenia Traumatic Medical History: Denies: Hx Fractures Infectious Medical History: Denies: Hx HIV Past Surgical History: Reports: Hx Hysterectomy, Hx Tubal Ligation, Hx Vascular Surgery - Left forearm AV fistula. Denies: Hx Appendectomy, Hx Bowel Surgery, Hx Section, Hx Cholecystectomy, Hx Colostomy, Hx Coronary Artery Bypass Graft, Hx Gastric Bypass Surgery, Hx Herniorrhaphy, Hx Mastectomy, Hx Pacemaker, Hx Tonsillectomy - Immunizations Hx Diphtheria, Pertussis, Tetanus Vaccination: No Hx Pneumococcal Vaccination: 04/15/11 Review of Systems - Review of Systems -: Yes ROS unobtainable due to patient's medical condition Physical Exam - Vital signs Vitals: Pulse Ox 97 09/13/18 09:46 Interpretation: Bradycardic - General General appearance: Appears well, Alert - HEENT Head: Normocephalic, Atraumatic Eyes: Normal Pupils: PERRL - Respiratory Respiratory status: No respiratory distress Chest status: Nontender Breath sounds: Normal Chest palpation: Normal - Cardiovascular Rhythm: Regular Heart sounds: Normal auscultation Murmur: No - Abdominal Inspection: Normal Distension: No distension Bowel sounds: Normal Tenderness: Nontender Organomegaly: No organomegaly - Back Back: Normal, Nontender - Extremities General upper extremity: Normal inspection, Nontender, Normal color, Normal ROM, Normal temperature General lower extremity: Normal inspection, Nontender, Normal color, Normal ROM, Normal temperature. No: Donald's sign - Neurological Neuro grossly intact: Yes Cognition: Confused Yonas Coma Scale Eye Opening: Spontaneous Yonas Coma Scale Verbal: Oriented Ney Coma Scale Motor: Obeys Commands Yonas Coma Scale Total: 15 Motor strength normal: LUE, RUE, LLE, RLE Sensory: Normal - Psychological Associated symptoms: Normal affect, Normal mood - Skin Skin Temperature: Warm Skin Moisture: Dry Skin Color: Normal Course - Re-evaluation Re-evalutation: 09/13/18 15:21 Patient is end-stage renal failure on dialysis. Severe hypertension. Multiple medications tried in the emergency department but unsuccessful. Consulted with nephrology. They recommend dialysis however no dialysis beds are available. Currently I am starting patient on a Cardene drip. Patient is unresponsive to hydralazine x2 as well as clonidine. No beds available at this facility for dialysis patients at this time. 09/13/18 15:21 Laboratory 09/13/18 09/13/18 10:03 10:03 WBC 3.9 L RBC 3.85 Hgb 11.8 L Hct 36.8 MCV 96 MCH 30.7 MCHC 32.2 RDW 17.9 H Plt Count 205 Seg Neutrophils % 57.1 Lymphocytes % 27.1 Monocytes % 9.3 Eosinophils % 4.7 Basophils % 1.8 Absolute Neutrophils 2.2 Absolute Lymphocytes 1.1 Absolute Monocytes 0.4 Absolute Eosinophils 0.2 Absolute Basophils 0.1 Sodium 141.9 Potassium 4.4 Chloride 100 Carbon Dioxide 32 H Anion Gap 10 BUN 17 Creatinine 4.73 H Est GFR ( Amer) 11 L Est GFR (Non-Af Amer) 9 L Glucose 153 H Calcium 11.5 H Magnesium 2.2 Total Bilirubin 0.6 Direct Bilirubin 0.5 H Neonat Total Bilirubin Not Reportable Neonat Direct Bilirubin Not Reportable Neonat Indirect Bili Not Reportable AST 20 ALT 20 Alkaline Phosphatase 61 Total Protein 6.6 Albumin 3.9 Serum Alcohol < [address] 09/13/18 10:57 IMPRESSION: Involutional changes of aging with mild chronic microvascular ischemia. No acute intracranial imaging findings. EVIDENCE OF ACUTE STROKE: NO. Pelvis X-Ray 09/13/18 13:42 IMPRESSION: The patient is severely osteopenic. No displaced fractures. 09/13/18 16:04 I did speak with Dr. Bruno. Based on the fact the patient is extremely hypertensive she did recommend starting the Cardene drip and get her admitted to another facility. 09/13/18 16:17 Dr. Ye at [facility] has accepted the patient. Anticipate transfer at this time. Currently blood pressure coming down nicely on the Cardene drip. - Vital Signs Vital signs: Temp Pulse Resp BP Pulse Ox 97.5 F 11 L 212/66 H 100 09/13/18 09:47 09/13/18 16:01 09/13/18 16:01 09/13/18 16:01 - Laboratory Result Diagrams: 09/13/18 10:03 09/13/18 10:03 Laboratory results interpreted by me: 09/13/18 09/13/18 10:03 10:03 WBC 3.9 L Hgb 11.8 L RDW 17.9 H Carbon Dioxide 32 H Creatinine 4.73 H Est GFR ( Amer) 11 L Est GFR (Non-Af Amer) 9 L Glucose 153 H Calcium 11.5 H Direct Bilirubin 0.5 H Critical Care Note - Critical Care Note Total time excluding time spent on procedures (mins): 60 Comments: Hypertensive emergency, consultation with specialist, coordination of transfer of care. Discharge - Discharge Clinical Impression: Hypertensive emergency Chronic renal failure Qualifiers: Chronic kidney disease stage: stage 4 (severe) Qualified Code(s): N18.4 - Chronic kidney disease, stage 4 (severe) Condition: Fair Disposition: [facility] Referrals: MAURICIO LEY MD [Primary Care Provider] - Follow up as needed
[2018-09-13 10:57] LABS: ALANINE AMINOTRANSFERASE 20 U/L (9-52); ALBUMIN 3.9 g/dL (3.5-5.0); ALKALINE PHOSPHATASE 61 U/L (38-126); ANION GAP 10 (5-19); ASPARTATE AMINO TRANSFERASE 20 U/L (14-36); BILIRUBIN,DIRECT 0.5 mg/dL (0.0-0.4); BILIRUBIN,TOTAL 0.6 mg/dL (0.2-1.3); BLOOD UREA NITROGEN 17 mg/dL (7-20); CALCIUM 11.5 mg/dL (8.4-10.2); CARBON DIOXIDE 32 mmol/L (22-30); CHLORIDE 100 mmol/L (98-107); GLUCOSE 153 mg/dL (75-110); POTASSIUM 4.4 mmol/L (3.6-5.0); SODIUM 141.9 mmol/L (137-145); TOTAL PROTEIN 6.6 g/dL (6.3-8.2)
[2018-09-13 10:59] LABS: ALCOHOL < 10 mg/dL (NONE DETECTED)
[2018-09-13] MEDS ORDERED: CLONIDINE HCL 0.2 MG TABLET PO ONE (10:59)
--- NOTE | 2018-09-13 11:33 | RADIOLOGY REPORT (SQ) ---
EXAM DESCRIPTION: CT HEAD WITHOUT COMPLETED DATE/TIME: 09/13/2018 11:20 am REASON FOR STUDY: altered COMPARISON: 02/02/2009 TECHNIQUE: Axial images acquired through the brain without intravenous contrast. Images reviewed wi th bone, brain and subdural windows. Additional sagittal and coronal reconstructions were generated. Images stored on PACS. All CT scanners at this facility use dose modulation, iterative reconstruction, and/or weight based d osing when appropriate to reduce radiation dose to as low as reasonably achievable (ALARA). [facility]: Dose Right [facility]: CareDose [facility]: Dose Right [facility]: Teradose 4D [facility]: Smart [employer] RADIATION DOSE: CT Rad equipment meets quality standard of care and radiation dose reduction techniq ues were employed. CTDIvol: 32.7 mGy. DLP: 625 mGy-cm. mGy. LIMITATIONS: None. FINDINGS: VENTRICLES: Prominent ventricles secondary to involutional atrophy. CEREBRUM: No masses. No hemorrhage. No midline shift. No evidence for acute infarction. Few scatte red areas of low density in the white matter most likely chronic small vessel ischemic changes. CEREBELLUM: No masses. No hemorrhage. No alteration of density. No evidence for acute infarction. EXTRAAXIAL SPACES: No fluid collections. No masses. ORBITS AND GLOBE: No intra- or extraconal masses. Normal contour of globe without masses. CALVARIUM: No fracture. PARANASAL SINUSES: No fluid or mucosal thickening. SOFT TISSUES: No mass or hematoma. OTHER: No other significant finding. IMPRESSION: Involutional changes of aging with mild chronic microvascular ischemia. No acute intrac ranial imaging findings. EVIDENCE OF ACUTE STROKE: NO. COMMENT: Quality ID # [id number]: Final reports with documentation of one or more dose reduction techniques (e.g., Automated exposure control, adjustment of the mA and/or kV according to patient size, use of iterative reconstruction technique) TECHNICAL DOCUMENTATION: JOB ID: [id number] [employer]- All Rights Reserved Reading location - IP/workstation name: [email or web address]
[2018-09-13] MEDS ORDERED: HYDRALAZINE HCL INJ/PF 20 MG/1 ML SDV IV ONE ×2 (11:39→12:29)
--- NOTE | 2018-09-13 14:44 | RADIOLOGY REPORT (SQ) ---
EXAM DESCRIPTION: PELVIS AP COMPLETED DATE/TIME: 09/13/2018 2:35 pm REASON FOR STUDY: fall COMPARISON: None. NUMBER OF VIEWS: One view TECHNIQUE: AP Pelvis LIMITATIONS: None. FINDINGS: MINERALIZATION: There is diffuse osteopenia. HIPS: No acute fracture or dislocation. No worrisome bone lesions. PELVIS AND SACRUM: No acute fracture or dislocation. No worrisome bone lesions. PUBIS AND ISCHIUM: No acute fracture. LOWER LUMBAR SPINE: No significant findings as visualized. SOFT TISSUES: There is vascular calcification. There is contrast in the colon. OTHER: No other significant finding. IMPRESSION: The patient is severely osteopenic. No displaced fractures. COMMENT: Pelvic fractures are often occult on plain radiographs. If strong clinical suspicion for f racture, recommend CT or MR. TECHNICAL DOCUMENTATION: JOB ID: [id number]- All Rights Reserved Reading location - IP/workstation name: [email or web address]
[2018-09-13] MEDS: NICARDIPINE HCL RTU, ISO-OS 20 MG/200 ML RTUINJ IV PRN ×3 (15:34→21:25)
[2018-09-13 22:02] VITALS: BP 170/51
--- NOTE | 2018-09-13 22:10 | EKG REPORT ---
SEVERITY:- ABNORMAL ECG - SINUS RHYTHM RIGHT BUNDLE BRANCH BLOCK : Confirmed by: Sharon Cisneros 13-Sep-2018 22:09:57
== END 2018-09-13 22:04 | disposition short-term general hospital (02) ==
LOC: ER 09:38
DX: I16.0 Hypertensive urgency (principal); I12.9 Hypertensive chronic kidney disease with stage 1 through stage 4 chronic kidney disease, or unspecified chronic kidney disease; E11.22 Type 2 diabetes mellitus with diabetic chronic kidney disease; N18.4 Chronic kidney disease, stage 4 (severe); Z99.2 Dependence on renal dialysis; F03.90 Unspecified dementia, unspecified severity, without behavioral disturbance, psychotic disturbance, mood disturbance, and anxiety; R41.82 Altered mental status, unspecified
CPT/HCPCS: 93005; 96376; 99291; 96375; 96365; 36415; 80307; 83735; 85025; 80053; 72170; 70450; 93010; J0360; J3490